=== PATIENT | female | born 1960 | race Caucasian/White ===

== ENCOUNTER → 2017-11-20 08:27 | Outpatient (CLI) | payer BC, SELFPAY ==
--- NOTE | 2017-11-20 08:29 | BI_ITS ---
MAMMOGRAPHY - BILATERAL SCREENING REASON FOR EXAM: Female, 57 years old. Routine annual screening examination. PERTINENT HISTORY: Mother with breast cancer. Aunt with breast cancer. Remote left stereotactic breast biopsy. TECHNIQUE: Digital bilateral breast marlene (3D mammographic acquisition) in the CC and MLO projections. 2-D mediolateral oblique (MLO) and craniocaudad (CC) views of both breasts were obtained. CAD: Full Field Digital Mammography with Computer Added Detection was performed. COMPARISON: Comparison is made with prior outside examination dated September 29, 2015 and August 04, 2013. FINDINGS: Breast Composition: The breasts are heterogeneously dense, which may obscure small masses. There are no dominant masses or suspicious calcifications. No other significant abnormalities are identified. There has been no significant change since the prior study. BI/SCREENING MAMM (CAD), BILAT IMPRESSION: Stable bilateral screening mammogram. Yearly follow-up mammogram recommended. (A) ASSESSMENT CATEGORY: BIRADS Category 1: Negative. A letter regarding these results will be sent to the patient by the facility within 30 days. Approximately 10% of breast cancers are not detected by mammography. A normal mammogram should not delay biopsy of a clinically suspicious abnormality. [id number] Electronically Signed: Irvin Michaud MD at 9:50 EDT Tel [phone], Service support ,
--- NOTE | 2017-11-20 08:49 | BD_ITS ---
STUDY: DUAL ENERGY X-RAY ABSORPTIOMETRY / DXA REASON FOR EXAM: Female, 57 years old. Bone density as screening in a postmenopausal patient. TECHNIQUE: Bone Mineral Density (BMD) measurements of lumbar spine and bilateral hips were obtained. COMPARISON: Prior comparable comparison studies are not available for review at this time. FINDINGS: Lumbar Spine (L1-L4): g/cm2 (1.017) / T-score (-1.4) / Z-score (-0.5) Findings are suggestive of osteopenia with a moderate fracture risk. Left Femur Total: g/cm2 (0.947) / T-score (-0.5) / Z-score (0.2) Left Femoral Neck: g/cm2 (0.860) / T-score (-1.3) / Z-score (-0.2) Right Femur Total: g/cm2 (0.939) / T-score (-0.5) / Z-score (0.2) Right Femoral Neck: g/cm2 (0.903) / T-score (-1.0) / Z-score (0.1) BD/DXA BONE DENS W/VERT FX ASMT IMPRESSION: The patient is considered osteopenic as outlined below according to World Faustino Organization (WHO) criteria with a moderate fracture risk. Reference Information: The T-score is the number of standard deviations above or below the standard which is normal for young adults at their peak bone mineral density. The World Health Organization (WHO) interprets the T-scores as follows: Above -1 Normal bone density Between -1 and -2.5 Osteopenia Equal to / or below -2.5 Osteoporosis As a practical clinical guideline, osteopenia may be graded as follows: Mild -1 through -1.5 Moderate -1.6 through -2.0 Severe -2.1 through -2.4 The Z-score is the number of standard deviations above or below age-matched controls. A Z-score of less than -1.5 would be considered abnormal. References: 1. NIH Osteoporosis and Related Bone Diseases http://www.osteo.org 2. International Society for Clinical Densitometry http://www.iscd.org 3. National Osteoporosis Foundation http://www.nof.org Electronically Signed: Silvina Marcelino MD at 8:59 EDT , Service support ,
== END ==
PROVIDERS: Family Provider Internal Medicine; PCP Internal Medicine; Visit Provider Internal Medicine
DX: Z12.31 Encounter for screening mammogram for malignant neoplasm of breast (principal); Z78.0 Asymptomatic menopausal state
CPT/HCPCS: 77063; 77067; 77085

== ENCOUNTER → 2018-12-22 | Outpatient (CLI) | payer BC, SELFPAY ==
--- NOTE | 2018-12-22 07:04 | BI_ITS ---
MAMMOGRAPHY - BILATERAL SCREENING REASON FOR EXAM: Female, 58 years old. Routine annual screening examination. PERTINENT HISTORY: Mother with breast cancer. Aunt with breast cancer. History of prior left stereotactic breast biopsy. TECHNIQUE: Digital bilateral breast marlene (3D mammographic acquisition) in the CC and MLO projections. 2-D mediolateral oblique (MLO) and craniocaudad (CC) views of both breasts were obtained. CAD: Full Field Digital Mammography with Computer Added Detection was performed. COMPARISON: Comparison is made with prior examination dated November 20, 2017 and September 29, 2015. FINDINGS: Breast Composition: The breasts are heterogeneously dense, which may obscure small masses. There are no dominant masses or suspicious calcifications. A tissue clip marker is seen in the upper slightly lateral aspect of the left breast. No other significant abnormalities are identified. There has been no significant change since the prior study. BI/SCREENING MAMM (CAD), BILAT IMPRESSION: Stable bilateral screening mammogram. Yearly follow-up mammogram recommended. (A) ASSESSMENT CATEGORY: BIRADS Category 2: Benign. A letter regarding these results will be sent to the patient by the facility within 30 days. Approximately 10% of breast cancers are not detected by mammography. A normal mammogram should not delay biopsy of a clinically suspicious abnormality. [id number] Electronically Signed: Irvin Michaud, at 9:27 EDT , Service support ,
== END | disposition home or self-care (01) ==
PROVIDERS: Family Provider Internal Medicine; PCP Internal Medicine; Referring Provider Internal Medicine; Visit Provider Internal Medicine
DX: Z12.31 Encounter for screening mammogram for malignant neoplasm of breast (principal)
CPT/HCPCS: 77063; 77067

== ENCOUNTER → 2019-06-22 09:37 | Outpatient (CLI) | payer BC, SELFPAY ==
--- NOTE | 2019-06-22 09:58 | MRI_ITS ---
STUDY: BILATERAL BREAST MR WITHOUT AND WITH CONTRAST REASON FOR EXAM: Female, 58 years old. Dense breast tissue. Family history of breast cancer. TECHNIQUE: Multi-sequence multi-echo imaging of both breasts was performed with a dedicated breast coil. T1-weighted and T2-weighted images were performed before the administration of contrast. T1-weighted images were also performed after the administration of IV Dotarem 15 without complications. COMPARISON: Mammograms dated 12/22/2018 and 11/20/2017 FINDINGS: RIGHT BREAST: The breast tissue is markedly dense with no background enhancement. There are no abnormal enhancing masses or areas of non-mass enhancement in the right breast. LEFT BREAST: The breast tissue is markedly dense with no background enhancement. There are no abnormal enhancing masses or areas of non-mass enhancement in the left breast. There are no enlarged or abnormal lymph nodes. There is no abnormality in the visualized regions of the chest or liver. MRI/Breast Bilateral W/O and W IMPRESSION: Unremarkable breast MR examination with contrast. The patient should return in December 2019 for routine annual screening mammography. CATEGORY: BIRADS Category 2: Benign. A letter regarding these results will be sent to the patient by the facility within 30 days. Electronically Signed: Debi Pulido DO at 6:51 EST Tel , Service support ,
== END ==
PROVIDERS: Family Provider Internal Medicine; PCP Internal Medicine; Referring Provider Internal Medicine; Visit Provider Internal Medicine
DX: R92.2 Inconclusive mammogram (principal); Z80.3 Family history of malignant neoplasm of breast
CPT/HCPCS: 77049; C8908

== ENCOUNTER → 2020-02-08 14:29 | Outpatient (CLI) | payer BC, SELFPAY ==
--- NOTE | 2020-02-08 14:35 | BD_ITS ---
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 COMPARISON: Comparison is made with prior study dated 11-20-17. FINDINGS: Lumbar Spine (L1-L4): g/cm2 (1.012) / T-score (-1.6) / Z-score (-0.5) Findings are suggestive of osteopenia with a moderate fracture risk. Increased thoracic kyphosis. Left Femur Total: g/cm2 (0.913) / T-score (-0.8) / Z-score (0.1) Left Femoral Neck: g/cm2 (0.835) / T-score (-1.5) / Z-score (-0.3) Right Femur Total: g/cm2 (0.896) / T-score (-0.9) / Z-score (-0.1) Right Femoral Neck: g/cm2 (0.858) / T-score (-1.3) / Z-score (-0.1) The T-Scores on the most recent prior examination were: Lumbar Spine (L1-L4): There has been worsening of bone density since the previous examination. Left Femur Total: which represents a worsening of 3.6%. Right Femur Total: which represents a worsening of 4.6%. BD/Dexa Bone Density Study IMPRESSION: The patient is considered osteopenic as outlined below according to World Faustino Organization (WHO) criteria with a moderate fracture risk. There has been worsening of bone density since the previous examination. Reference Information: The T-score is the number of standard deviations above or below the standard which is normal for young adults at their peak bone mineral density. The World Health Organization (WHO) interprets the T-scores as follows: Above -1 Normal bone density Between -1 and -2.5 Osteopenia Equal to / or below -2.5 Osteoporosis As a practical clinical guideline, osteopenia may be graded as follows: Mild -1 through -1.5 Moderate -1.6 through -2.0 Severe -2.1 through -2.4 The Z-score is the number of standard deviations above or below age-matched controls. A Z-score of less than -1.5 would be considered abnormal. References: 1. NIH Osteoporosis and Related Bone Diseases http://www.osteo.org 2. International Society for Clinical Densitometry http://www.iscd.org 3. National Osteoporosis Foundation http://www.nof.org Electronically Signed: Irvin Michaud, at 15:42 EDT , Service support ,
== END ==
PROVIDERS: PCP Internal Medicine; Referring Provider Internal Medicine; Visit Provider Internal Medicine
DX: Z78.0 Asymptomatic menopausal state (principal)
CPT/HCPCS: 77080

== ENCOUNTER → 2020-08-16 | Outpatient (CLI) | payer SELFPAY ==
[2020-08-22 21:08] LABS: HPV APTIMA, High Risk Positive (Negative); HPV Reflexed? YES, CHARGE PATIENT
== END | disposition home or self-care (01) ==
LOC: LABSPEC 15:08
PROVIDERS: PCP Internal Medicine; Visit Provider Internal Medicine
DX: Z01.419 Encounter for gynecological examination (general) (routine) without abnormal findings (principal)
CPT/HCPCS: 87624; 88175; G0145

== ENCOUNTER → 2020-09-14 13:53 | Outpatient (CLI) | payer SELFPAY ==
--- NOTE | 2020-09-14 | CER_PTH ---
PATIENT: JOHN MARIE LOC: [facility] U#:[id number] AGE/SX: 64/F ROOM: RE09/14/[address]: Dr. Lavelle Pelayo MD : 1960 BED: DIS: SPEC #: [id number] RECD: 09/14/20 16:03 STATUS: JERRY CECILIO #: [id number] JOSEPH: 09/14/20 00:[address]: Lavelle Pelayo DEPT: SURGICAL PATHOLOGY RECD BY: Maggy Jessica ENTERED: 09/15/20 08:22 SP TYPE: CERV OTHR DR: Dr. 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 See comment. SJ:vernon 09/18/2020 COMMENT Immunohistochemistry ([id number]) for surrogate HPV marker (p16) supports the above diagnosis. MICROSCOPIC DESCRIPTION Slides are reviewed. GROSS DESCRIPTION Received in fixative is one container labeled with the patient's name and designated right and left vaginal cuff biopsy. The specimen consists of two pieces of santizo-white skin measuring 0.4 x 0.4 x 0.2 cm and 0.3 x 0.3 x 0.1 cm. The entire specimen is submitted in one cassette. / TERRELL:vernon 09/15/20 TC:5 CPT:
--- NOTE | 2020-09-14 | IMM_PTH ---
PATIENT: JOHN MARIE LOC: [facility] U#:[id number] AGE/SX: 64/F ROOM: RE09/14/[address]: Dr. Lavelle Pelayo MD : 1960 BED: DIS: SPEC #: [id number] RECD: 09/18/20 14:02 STATUS: JERRY REQ #: [id number] JOSEPH: 09/14/20 00:[address]: Lavelle Pelayo DEPT: IMMUNOHISTOCHEMISTRY RECD BY: Rosey Lopez ENTERED: 09/18/20 14:03 SP TYPE: IMMUNO OTHR DR: Dr. Belle Walker DO Tissues: Vagina, NOS Procedures: p16 (initial) KI-67 (add) PHYSICIAN & INSTITUTION [place] [id number] SPECIMEN INFORMATION: Tissue Source: Right and left vaginal cuff biopsy Clinical Info: Abnormal pap, positive HPV Specimen Number: [id number] CPT code: 30249, 85059 METHODOLOGY: Deparaffinized sections of prefer/formalin-fixed tissue or PAP/DQ stained slides are incubated with monoclonal/polyclonal antibodies/oligonucleotide probes. Localization is made via biotin free immunoperoxidase method. Appropriate controls are performed and reacted as expected. Results on target cell population are indicated in the following table: RESULTS: ANTIBODY / CLONE RESULT P16 (E6H4) positive, focal patchy staining Ki-67 (30-9) positive, low These tests were developed and their performance characteristics determined by [facility]. They may not have been cleared or approved by the U.S. Food and Drug Administration. The FDA has determined that such clearance or approval is not necessary. The above immunohistochemical/dualISH markers are ordered and reviewed by the Pathologist. INTERPRETATION: Right and left vaginal cuff, biopsy: Focal mild squamous dysplasia. TERRELL:vernon 09/19/2020
== END ==
PROVIDERS: PCP Internal Medicine; Visit Provider Obstetrics & Gynecology
DX: R87.810 Cervical high risk human papillomavirus (HPV) DNA test positive (principal)
CPT/HCPCS: 88305; 88341; 88342

== ENCOUNTER → 2020-11-14 12:53 | Outpatient (CLI) | payer SELFPAY ==
--- NOTE | 2020-11-14 13:00 | BI_ITS ---
MAMMOGRAPHY - BILATERAL SCREENING REASON FOR EXAM: Female, 60 years old. Routine annual screening examination. PERTINENT HISTORY: Mother with breast cancer. Aunt with breast cancer. History of remote left stereotactic breast biopsy. TECHNIQUE: Digital bilateral breast alfredo (3D mammographic acquisition) in the CC and MLO projections. 2-D mediolateral oblique (MLO) and craniocaudad (CC) views of both breasts were obtained. CAD: Full Field Digital Mammography with Computer Added Detection was performed. COMPARISON: Comparison is made with prior study dated 12/22/2018 and 11/20/2017. FINDINGS: Breast Composition: The breasts are heterogeneously dense, which may obscure small masses. There are no dominant masses or suspicious calcifications. A tissue clip marker is once again seen in the upper slightly lateral aspect of the left breast. No other significant abnormalities are identified. There has been no significant change since the prior study. BI/SCRN MAMM (CAD)W/ALFREDO BILAT IMPRESSION: Stable bilateral screening mammogram. Yearly follow-up mammogram recommended. (A) ASSESSMENT CATEGORY: BIRADS Category 2: Benign. A letter regarding these results will be sent to the patient by the facility within 30 days. Approximately 10% of breast cancers are not detected by mammography. A normal mammogram should not delay biopsy of a clinically suspicious abnormality. [id number] Electronically Signed: Irvin Michaud MD at 14:38 EDT , Service support ,
== END ==
PROVIDERS: PCP Internal Medicine; Referring Provider Internal Medicine; Visit Provider Internal Medicine
DX: Z12.31 Encounter for screening mammogram for malignant neoplasm of breast (principal)
CPT/HCPCS: 77063; 77067

== ENCOUNTER → 2022-03-05 | Outpatient (CLI) | payer SELFPAY ==
--- NOTE | 2022-03-05 13:29 | BI_ITS ---
MAMMOGRAPHY - BILATERAL SCREENING 3-D TOMOSYNTHESIS REASON FOR EXAM: Female, 61 years old. SCREENING PERTINENT HISTORY: No significant family history. TECHNIQUE: 2-D mammograms and 3-D Tomosynthesis of the breast (s) were performed. CAD was performed. COMPARISON: 11/14/2020 FINDINGS: The breast composition is heterogeneously dense that can obscure small breast masses. Scattered benign calcifications are seen. No dense spiculated masses or suspicious microcalcifications are identified. No architectural distortion is identified. There is no skin thickening or retraction. There has been no significant change since the prior study. BI/SCRN MAMM (CAD)W/ALFREDO BILAT IMPRESSION: No mammographic signs of malignancy. Routine yearly mammograms recommended. ASSESSMENT CATEGORY: BIRADS Category 1: Negative. A letter regarding these results will be sent to the patient by the facility within 30 days. FOLLOW UP RECOMMENDATION: Yearly follow up mammogram recommended. (A) Approximately 10% of breast cancers are not detected by mammography. A normal mammogram should not delay biopsy of a clinically suspicious abnormality. Electronically Signed: Juan Carlos Wood MD at 17:19 EDT ,
== END | disposition home or self-care (01) ==
PROVIDERS: PCP Internal Medicine; Visit Provider Internal Medicine
DX: Z12.31 Encounter for screening mammogram for malignant neoplasm of breast (principal)
CPT/HCPCS: 77063; 77067

== ENCOUNTER → 2022-03-12 | Outpatient (CLI) | payer SELFPAY ==
--- NOTE | 2022-03-12 09:33 | BD_ITS ---
STUDY: DUAL ENERGY X-RAY ABSORPTIOMETRY / DXA REASON FOR EXAM: Female, 61 years old. M85.89. Patient is postmenopausal. TECHNIQUE: Bone Mineral Density (BMD) measurements of lumbar spine and bilateral hips were obtained. COMPARISON: Comparison is made with prior study dated 02/08/2020. FINDINGS: Lumbar Spine (L1-L4): g/cm2 (0.897) / T-score (-1.4) / Z-score (0.1) Findings are suggestive of osteopenia with a low fracture risk. Left Femur Total: g/cm2 (0.882) / T-score (-0.5) / Z-score (0.5) Left Femoral Neck: g/cm2 (0.694) / T-score (-1.4) / Z-score (-0.1) Right Femur Total: g/cm2 (0.858) / T-score (-0.7) / Z-score (0.3) Right Femoral Neck: g/cm2 (0.723) / T-score (-1.1) / Z-score (0.2) The T-Scores on the most recent prior examination were: Lumbar Spine (L1-L4): There has been improvement of bone density since the previous examination. Left Femur Total: which represents an improvement of 3.8%. Right Femur Total: which represents an improvement of 3%. BD/Dexa Bone Density Study IMPRESSION: The patient is considered osteopenic as outlined below according to World Faustino Organization (WHO) criteria with a low fracture risk. There has been improvement of bone density since the previous examination. Reference Information: The T-score is the number of standard deviations above or below the standard which is normal for young adults at their peak bone mineral density. The World Health Organization (WHO) interprets the T-scores as follows: Above -1 Normal bone density Between -1 and -2.5 Osteopenia Equal to / or below -2.5 Osteoporosis As a practical clinical guideline, osteopenia may be graded as follows: Mild -1 through -1.5 Moderate -1.6 through -2.0 Severe -2.1 through -2.4 The Z-score is the number of standard deviations above or below age-matched controls. A Z-score of less than -1.5 would be considered abnormal. References: 1. NIH Osteoporosis and Related Bone Diseases www osteo.org 2. International Society for Clinical Densitometry www iscd.org 3. National Osteoporosis Foundation www nof.org Electronically Signed: Irvin Michaud MD at 14:04 EDT ,
== END | disposition home or self-care (01) ==
PROVIDERS: PCP Internal Medicine; Visit Provider Internal Medicine
DX: M85.89 Other specified disorders of bone density and structure, multiple sites (principal)
CPT/HCPCS: 77080

== ENCOUNTER → 2022-05-23 | Outpatient (CLI) | payer SELFPAY ==
--- NOTE | 2022-05-23 | IMM_PTH ---
PATIENT: JOHN MARIE LOC: [facility] U#:[id number] AGE/SX: 61/F ROOM: RE05/23/[address]: Dr. Olya Casiano DO : 1960 BED: DIS: 05/23/2022 SPEC #: [id number] RECD: 05/24/22 13:28 STATUS: JERRY REYessy #: [id number] JOSEPH: 05/23/22 00:[address]: Olya Casiano DEPT: IMMUNOHISTOCHEMISTRY RECD BY: Rosey Lopez ENTERED: 05/24/22 13:28 SP TYPE: IMMUNO OTHR DR: Dr. Belle Walker DO Tissues: Uterine cervix, NOS Procedures: p16 (initial) KI-67 (add) PHYSICIAN & INSTITUTION [address] [address] SPECIMEN INFORMATION: Tissue Source: Cervix at 12 o?clock Clinical Info: [facility]- Specimen Number: [id number] CPT code: 70113, 53849 METHODOLOGY: Deparaffinized sections of prefer/formalin-fixed tissue or PAP/DQ stained slides are incubated with monoclonal/polyclonal antibodies/oligonucleotide probes. Localization is made via biotin free immunoperoxidase method. Appropriate controls are performed and reacted as expected. Results on target cell population are indicated in the following table: RESULTS: ANTIBODY / CLONE RESULT P16 (E6H4) negative Ki-67 (30-9) negative These tests were developed and their performance characteristics determined by [facility]. They may not have been cleared or approved by the U.S. Food and Drug Administration. The FDA has determined that such clearance or approval is not necessary. The above immunohistochemical/dualISH markers are ordered and reviewed by the Pathologist. INTERPRETATION: Cervix at 12 o?clock, biopsy: No evidence of dysplasia. AM:vernon 05/27/2022
--- NOTE | 2022-05-23 10:45 | CER_PTH ---
PATIENT: JOHN MARIE LOC: [facility]#:[id number] AGE/SX: 61/F ROOM: RE05/23/[address]: Dr. Olya Casiano DO : 1960 BED: DIS: 05/23/2022 SPEC #: [id number] RECD: 05/23/22 11:52 STATUS: JERRY HERNANDES #: [id number] JOSEPH: 05/23/22 10:[address]: Olya Casiano DEPT: SURGICAL PATHOLOGY RECD BY: Maggy Jessica ENTERED: 05/23/22 13:19 SP TYPE: CERV OTHR DR: Dr. Belle Walker DO Tissues: Uterine cervix, NOS Procedures: Surgery Specimen Level IV HEADER OPERATION: Colposcopy PRE-OP DIAGNOSIS: ASC-H TISSUE SUBMITTED: 12 o?clock MICROSCOPIC DIAGNOSIS Cervix at 12 o?clock, biopsy: Focal HPV change suspected. See comment. AM:vernon 05/24/2022 COMMENT Immunohistochemistry ([id number]) for surrogate HPV marker (p16) supports the above diagnosis. MICROSCOPIC DESCRIPTION Slides are reviewed. GROSS DESCRIPTION Received in fixative is one container labeled with the patient's name and designated 12 o'clock. The specimen consists of one irregular fragment of light santizo soft tissue that measures 0.5 x 0.3 x 0.1 cm. The specimen is totally submitted in one cassette. / AM:vernon 05/23/2022 TC:5 CPT: 99466
[2022-05-31 14:54] LABS: HPV APTIMA, High Risk Negative (Negative)
== END | disposition home or self-care (01) ==
LOC: LABSPEC 11:59
PROVIDERS: PCP Internal Medicine; Visit Provider Obstetrics & Gynecology
DX: Z12.4 Encounter for screening for malignant neoplasm of cervix (principal); R87.618 Other abnormal cytological findings on specimens from cervix uteri
CPT/HCPCS: 87624; 88175; 88305; 88341; 88342; G0145

== ENCOUNTER → 2023-07-11 | Outpatient (CLI) | payer SELFPAY ==
--- NOTE | 2023-07-11 14:23 | BI_ITS ---
MAMMOGRAPHY - BILATERAL SCREENING 3-D TOMOSYNTHESIS REASON FOR EXAM: Female, 62 years old. Routine screening PERTINENT HISTORY: Mother and on with breast cancer.. TECHNIQUE: 2-D mammograms and 3-D Tomosynthesis of the breast (s) were performed. CAD was performed. COMPARISON: 11/14/2020 FINDINGS: The breast composition is heterogeneously dense that can obscure small breast masses. Scattered benign calcifications are seen. No dense spiculated masses or suspicious microcalcifications are identified. No architectural distortion is identified. There is no skin thickening or retraction. There has been no significant change since the prior study. BI/SCRN MAMM (CAD)W/ALFREDO BILAT IMPRESSION: No mammographic signs of malignancy. Routine yearly mammograms recommended. ASSESSMENT CATEGORY: BIRADS Category 2: Benign. A letter regarding these results will be sent to the patient by the facility within 30 days. FOLLOW UP RECOMMENDATION: Yearly follow up mammogram recommended. (A) Approximately 10% of breast cancers are not detected by mammography. A normal mammogram should not delay biopsy of a clinically suspicious abnormality. Electronically Signed: Boogie Chaves MD at 17:12 EST ,
== END | disposition home or self-care (01) ==
LOC: OPBI 14:22
PROVIDERS: PCP Internal Medicine; Referring Provider Internal Medicine; Visit Provider Internal Medicine
DX: Z12.31 Encounter for screening mammogram for malignant neoplasm of breast (principal); Z80.3 Family history of malignant neoplasm of breast
CPT/HCPCS: 77063; 77067

== ENCOUNTER → 2023-08-22 | Outpatient (CLI) | payer SELFPAY ==
[2023-08-29 16:10] LABS: HPV APTIMA, High Risk Negative (Negative)
== END | disposition home or self-care (01) ==
PROVIDERS: PCP Internal Medicine; Referring Provider Obstetrics & Gynecology; Visit Provider Obstetrics & Gynecology
DX: Z12.4 Encounter for screening for malignant neoplasm of cervix (principal); N39.0 Urinary tract infection, site not specified
CPT/HCPCS: 87086; 87624; 88175; G0145

== ENCOUNTER → 2024-02-23 | Outpatient (CLI) | payer SELFPAY ==
--- NOTE | 2024-02-23 | IMM_PTH ---
PATIENT: JOHN MARIE LOC: [facility] U#:[id number] AGE/SX: 63/F ROOM: RE02/23/[address]: Dr. Olya Casiano DO : 1960 BED: DIS: 02/23/2024 SPEC #: [id number] RECD: 02/25/24 12:11 STATUS: JERRY REYessy #: [id number] JOSEPH: 02/23/24 00:[address]: Olya Casiano DEPT: IMMUNOHISTOCHEMISTRY RECD BY: John Allen ENTERED: 02/25/24 12:11 SP TYPE: IMMUNO OTHR DR: Dr. Belle Walkre DO Tissues: B - Uterine cervix, NOS Procedures: p16 (initial) KI-67 (add) PHYSICIAN & INSTITUTION [place] [id number] SPECIMEN INFORMATION: Tissue Source: B- 12o'clock biopsy Clinical Info: LGSIL Specimen Number: [id number] CPT code: 94975,79801 METHODOLOGY: Deparaffinized sections of prefer/formalin-fixed tissue or PAP/DQ stained slides are incubated with monoclonal/polyclonal antibodies/oligonucleotide probes. Localization is made via biotin free immunoperoxidase method. Appropriate controls are performed and reacted as expected. Results on target cell population are indicated in the following table: RESULTS: ANTIBODY / CLONE RESULT Block B P16 (E6H4) negative Ki-67 (30-9) positive, very low These tests were developed and their performance characteristics determined by [facility]. They may not have been cleared or approved by the U.S. Food and Drug Administration. The FDA has determined that such clearance or approval is not necessary. The above immunohistochemical/dualISH markers are ordered and reviewed by the Pathologist. INTERPRETATION: B. Cervix, 12o'clock, biopsy: Focal minimal changes suspicious for HPV cytopathic effects. TERRELL/ 02/26/2024
--- NOTE | 2024-02-23 11:00 | ECC_PTH ---
PATIENT: JOHN MARIE LOC: [facility]#:[id number] AGE/SX: 63/F ROOM: RE02/23/[address]: Dr. Olya Casiano DO : 1960 BED: DIS: 02/23/2024 SPEC #: [id number] RECD: 02/23/24 18:01 STATUS: JERRY MARTINSYessy #: [id number] JOSEPH: 02/23/24 11:[address]: Olya Casiano DEPT: SURGICAL PATHOLOGY RECD BY: Arron Byers ENTERED: 02/24/24 10:56 SP TYPE: ECC MICKEY DR: Dr. Belle Walker DO Tissues: A - Endocervical B - Endocervical Procedures: Surgery Specimen Level IV HEADER OPERATION: Colposcopy PRE-OP DIAGNOSIS: LGSIL TISSUE SUBMITTED: A-ECC B- 12o'clock MICROSCOPIC DIAGNOSIS A. Endocervical curettings: Scant benign ectocervical and endocervical epithelial cells. B. Cervix, 12o'clock, biopsy: A fragment of ectocervical mucosa with focal minimal changes suspicious for HPV cytopathic effects. See comment. / 02/25/2024 COMMENT B. Results of immunohistochemistry ([id number]) for surrogate HPV marker (p16) will be reported separately. MICROSCOPIC DESCRIPTION Slides are reviewed. GROSS DESCRIPTION A. Received in fixative is a metallic brush with adherent minute fragments of santizo-red tissue and labeled with the patient's name and and designated per the requisition as ECC BRUSH. The material is dislodged from the brush and submitted for cell block preparation in one cassette. B. Received in fixative is one container labeled with the patient's name and designated 12o'clock. The specimen consists of one irregular fragment of light santizo soft tissue that measures 0.3 x 0.3 x 0.1 cm. The specimen is totally submitted in one cassette. / 02/24/2024 TC:5 CPT:44844g6
== END | disposition home or self-care (01) ==
LOC: LABSPEC 18:02
PROVIDERS: PCP Internal Medicine; Visit Provider Obstetrics & Gynecology
DX: R87.612 Low grade squamous intraepithelial lesion on cytologic smear of cervix (LGSIL) (principal)
CPT/HCPCS: 88305; 88341; 88342

== ENCOUNTER → 2024-06-23 | Outpatient (CLI) | payer SELFPAY ==
--- NOTE | 2024-06-23 15:05 | US_ITS ---
EXAM: US SOFT TISSUES HEAD AND NECK, THYROID CLINICAL INDICATION: thyromegaly TECHNIQUE: Grayscale and color doppler imaging was performed of the thyroid gland. COMPARISON: No relevant prior studies available. FINDINGS: LEFT THYROID LOBE: The left thyroid lobe measures 4.5 x 1.7 x 1.4 cm. Homogeneous echotexture with normal vascularity. No thyroid nodules are present. RIGHT THYROID LOBE: The right thyroid lobe measures 4.9 x 1.6 x 1.5 cm. Homogeneous echotexture with normal vascularity. No thyroid nodules are present. ISTHMUS: Thyroid isthmus measures 0.2 cm. No thyroid nodules are present. The total volume of the thyroid gland is less than 12 mL. US/Thyroid IMPRESSION: No thyroid nodule or significant abnormality is identified. The thyroid is within normal limits for size. Electronically Signed: Migue Perkins DO at 17:00 EST ,
== END | disposition home or self-care (01) ==
PROVIDERS: PCP Internal Medicine; Referring Provider Internal Medicine; Visit Provider Internal Medicine
DX: E01.0 Iodine-deficiency related diffuse (endemic) goiter (principal)
CPT/HCPCS: 76536

== ENCOUNTER → 2024-08-17 | Outpatient (CLI) | payer SELFPAY ==
--- NOTE | 2024-08-17 09:32 | BI_ITS ---
PROCEDURE: SCRN MAMM (CAD)W/ALFREDO BILAT REASON FOR EXAM: F, Age 64 y/o, mother with breast cancer. Aunt with breast cancer. Prior left stereotactic breast biopsy. Numbness in the left areolar region. TECHNIQUE: Bilateral screening digital breast tomosynthesis with 2D and 3D images. Computer aided detection. COMPARISON: Prior exam(s) dating back to July 11, 2023. FINDINGS: The breasts are heterogeneously dense which may obscure small masses. Stable examination. Stable bilateral axillary lymph nodes. No suspicious masses, areas of developing architectural distortion, or suspicious calcifications. BI/SCRN MAMM (CAD)W/ALFREDO BILAT IMPRESSION: BI-RADS 2: BENIGN. RECOMMEND ANNUAL MAMMOGRAPHIC SCREENING. Follow-up code: Routine Follow-up The patient will be notified of the results by letter. Reading Location: [place] [id number]
--- NOTE | 2024-08-17 09:45 | BD_ITS ---
PROCEDURE: DEXA BONE DENSITY STUDY REASON FOR EXAM: F, age 64 y/o . Postmenopausal. TECHNIQUE: DEXA scan of the lumbar spine and both hips. COMPARISON: 03/12/2022 DEXA. FINDINGS: T-SCORES Lumbar spine: 0.866 (-1.6); Previously: -1.4 Left hip: 0.731 (-1.1) Right hip: 0.740 (-1.0) Osteopenia. FRAX* Results: 10 Year Probability of Fracture: Hip Fracture(1): 0.7% Major Osteoporotic Fracture(2): 12% *FRAX is a trademark of the [employer]'s [place] for Metabolic Bone Disease, World Health Organization (WHO) Collaborating [place]. 1-The 10-year probability of fracture may be lower than reported if the patient has received treatment. 2-Major Osteoporotic Fracture: Clinical Spine, Forearm, Hip or Shoulder. The T-scores are also available for review on the [facility] PACS or by accessing the [facility] electronic medical record. BD/Dexa Bone Density Study IMPRESSION: Osteopenia Reading Location: [id number]
== END | disposition home or self-care (01) ==
PROVIDERS: PCP Internal Medicine; Referring Provider Internal Medicine; Visit Provider Internal Medicine
DX: Z12.31 Encounter for screening mammogram for malignant neoplasm of breast (principal); Z78.0 Asymptomatic menopausal state; Z80.3 Family history of malignant neoplasm of breast
CPT/HCPCS: 77063; 77067; 77080

== ENCOUNTER → 2024-11-23 | Outpatient (CLI) | payer SELFPAY ==
--- NOTE | 2024-11-23 13:23 | US_ITS ---
PROCEDURE: ULTRASOUND KIDNEYS AND BLADDER 11/23/2024 REASON FOR EXAM: URINARY TRACT INFECTION. TECHNIQUE: Real-time grayscale and color flow imaging was performed along with routine image documentation. COMPARISON: No relevant prior. FINDINGS: Kidneys: Normal parenchymal echogenicity. Hydronephrosis: Not visualized. Cysts or Masses: Bilateral, largest on the right measuring 1.2 x 1.3 x 1.3 cm and on the left measuring 2.0 x 1.9 x 1.1 cm. Other: Suspicion of bilateral nonobstructing nephrolithiasis. RIGHT Kidney Size: 13.1 x 5.6 x 4.1 cm. Volume: 159 mL Cortical Thickness (if discernible): 1.27 (>6mm is normal) LEFT Kidney Size: 12.9 x 5.7 x 5.2 cm. Volume: 200 mL Cortical Thickness (if discernible): 1.2 (>6mm is normal) Urinary bladder Distended volume: 161 mL. Wall thickness: 0.4 cm. Ureters Right ureteral jet: Visualized. Left ureteral jet: Visualized. US/Kidney and Bladder IMPRESSION: Bilateral renal cysts. Suspicion of bilateral nonobstructing nephrolithiasis versus calcifications in the cyst wall. Reading Location: [facility]
== END | disposition home or self-care (01) ==
PROVIDERS: PCP Internal Medicine; Referring Provider Urology; Visit Provider Urology
DX: N39.0 Urinary tract infection, site not specified (principal)
CPT/HCPCS: 76770

== ENCOUNTER → 2024-12-22 | Outpatient (CLI) | payer SELFPAY ==
--- OUTSIDE RECORDS SUMMARY | 2024-12-22 06:19 | XMS RPT_ITS | CCD ---
Author Organization [facility] CliniSyid Care Team Providers Care Roving Machine Operator Name Role Phone Fast, Sena A Unavailable Louis Bentley Unavailable Bam Neil Unavailable Aletha Woodard Unavailable Eloina, ENT Unavailable Manchak, Elsi Unavailable Unavailable Audrey Wolf Unavailable Unavailable Unavailable Unavailable Aletha Woodard Unavailable Janki Granados Unavailable Nitin Calvillo Unavailable Manpapok, Elsi Unavailable Unavailable Hima Mcallister Unavailable Fast DO, Sena A Unavailable Dr. Louis Bentley Unavailable Knapic DO , Dr. Hima Mccoy Unavailab le Lavelle Pelayo Unavailable Bam Neil MD Unavailable Aletha Woodard Unavailable [place], ENT Unavailable Janki Granados Unavailable Dr. Nitin Calvillo Unavailable Emily Sesay LPN Unavailable Unavailable Manchak ADMINISTRATIVE SPECIALIST, Elsi Unavailable Unavailable Audrey Wolf Unavailable Unavailable Unavailable Unavailable Gely Srinivasan MA Unavailable Unavailable Fast DO, Sena A Unavailable DR WILBER ALICEA Attending Unavaila ble NIXON, DR WILBER Diaz Primary Care Unavaila amee ALICEA, DR WILBER Diaz Admitting Unavaila ble OLIVIA, EMILIANO MANGLE OPERATOR GARMENTS Admitting Unavailable OLIVIA, EMILIANO MANGLE OPERATOR GARMENTS Attending Unavailable EMILIANO BAKER MANGLE OPERATOR GARMENTS Primary Care Unavailable Olya Casiano Unavailable Unavailclair Rao, Dr. Odonnell Primary Care Provider [phone] Fast, Dr. Odonnell Referring Provider [phone] Olya Casiano Attending Provider [phone] [place] ADMINISTRATIVE SPECIALIST, Kayela Unavailable Unavailable John Wolf LPN Unavailable Unavailable Fast DO, Sena A Attending Unavailable Zenon DO, Brenna Referring Unavailable Fast DO, Sena Gomez Consulting Unavailable Fast DO, Sena A Unavailable Dr. Louis Bentley Unavailable Knapic DO , Dr. Hima Mccoy Unavailab le Olya Casiano Unavailable Unavailabl e Lavelle Pelayo Unavailable Bam Neil MD Unavailable Aletha Woodard Unavailable Eloina ENT Unavailable Janki Granados Unavailable Dr. Nitin Calvlilo Unavailable [facility], Elsi Unavailable Unavailable [facility], Kayela Unavailable Unavailable Audrey Wolf Unavailable Unavailable Emily Sesay LPN Unavailable Unavailable Unavailable Unavailable Aaron, Dr. Odonnell Primary Care Provider [phone] Fast, Dr. Odonnell Referring Provider [phone] Olya Casiano Attending Provider [phone] Fast DO, Sena Gomez Primary Care Provider FAST, SENA Gomez Referring Unavailable FAST, SENA A Primary Care Unavailable Fast DO, Dr. Odonnell Primary Care Provider Fast DO, Dr. Odonnell Attending Provider [phone] Fast DO, Dr. Sena Referring Provider Ochoa SOTKES, Dr. De Los Santos Attending Provider Ochoa STOKES, Dr. De Los Santos Referring Provider [phone] Fast, Sena Primary Care Unavailable Fast, Sena Referring Unavailable Fast, Sena Attending Unavailable Fast, Sena Primary Care Unavailable Fast, Sena Referring Unavailable Olya Casiano Attending Unavailabl e Fast, Sena Primary Care Unavailable Olya Casiano Attending Unavailabl e Fast, Sena Primary Care Unavailable Maglai Packer Referring Unavailable Magali Packer Attending Unavailable Fast, Sena Primary Care Unavailable Ochoa, Magali Referring Unavailable Magali Packer Attending Unavailable Fast, Sena Primary Care Unavailable Fast, Sena Referring Unavailable Fast, Sena Attending Unavailable Allergies Allergy Classification Reported Allergen(s) Allergy Type Date of Onset Reaction(s) Facility Sulfonamides (antibiotic) (2 sources) Sulfonamides (Antibiotic); Translations: [Sulfa Drugs] Drug Allergy Edema [facility]; [facility] Work Phone: (20 sources) Sulfonamides (Antibiotic); Translations: [Sulfa Drugs] allergy to substance Edema [facility] Work Phone: (3 sources) Sulfonamides (Antibiotic) Allergy to substance 2 swelling [facility] (1 source) ALLERGIES NOT ON FILE; Translations: [ALLERGIES NOT ON FILE] Propensity to adverse reactions (disorder) [facility] 2 Repository (1 source) Sulfonamides (Antibiotic) Drug allergy (disorder) 4 [facility] Repository Medications Current Medications Medication Drug Class(es) Dates Sig (Normalized) Sig (Original) ascorbic acid 500 mg oral capsule (1 source) Vitamin C Start: 02-23-2024 Ascorbic Acid (Vitamin C) 500 mg capsule Active mg PO February 23, 2024 12:00am biotin 1 mg oral capsule (2 sources) Start: 08-22-2023 take 1 capsule by mouth once daily Biotin 1 mg capsule Active 1 mg PO DAILY August 22, 2023 1:00am cholecalciferol 0.05 mg oral capsule (20 sources) Vitamin D Start: 08-22-2023 take 1 capsule by mouth once daily Cholecalciferol (Vitamin D3) 50 mcg (2,000 unit) capsule Active 50 ug PO DAILY August 22, 2023 1:00am take 1 tablet by mouth once [facility] Vitamin D3 2000 UNIT Oral Tablet 1 tab daily (2000 UNIT) Active losartan potassium 25 mg oral tablet (20 sources) Angiotensin 2 Receptor Alize Start: 08-22-2023 take 1 tablet by mouth once daily Losartan 25 mg tablet Active 25 mg PO DAILY August 22, 2023 1:00am Start: 05-13-2023 Start: 01-08-2023 Start: 08-15-2022 End: 08-15-2022 take 1 tablet by mouth once daily losartan 50 mg oral tablet 1 (one) Tablet qd for 0 days Quantity: 30 {Tablet} Refills: 1 Ordered: 15-Aug-2022 Fast DO, Sena A Fast DO, Sena A Start : 15-Aug-2022 End : 15-Aug-2022 Discontinued Comments: metal taste in mouth Start: 03-18-2022 take 1 tablet by arlin th once daily Losartan Potassium 50 MG Oral Tablet 1 (one) Tablet qd for 0 days Quantity: 30 {Tablet} Refills: 3 Ordered: 18-Mar-2022 Fast DO, Sena A Fast DO, Sena A Start : 18-Mar-2022 Active Start: 02-18-2022 take 1 tablet by arlin th once daily Losartan Potassium 50 MG Oral Tablet 1 (one) Tablet qd for 0 days Quantity: 30 {Tablet} Refills: 2 Ordered: 18-Feb-2022 Fast DO, Sena A Fast DO, Sena A Start : 18-Feb-2022 Active Comment on above: metal taste in mouth magnesium oxide 500 mg oral capsule (17 sources) Start: 08-22-2023 take 1 capsule by mouth once daily Magnesium Oxide 500 mg capsule Active 500 mg PO DAILY August 22, 2023 1:00am Multivitamin preparation (2 sources) Start: 05-23-2022 take 1 tablet by mouth once daily Multivitamin Active 1 TABLET PO DAILY May 22, 2022 11:00pm Multivitamin tablet (1 source) Start: 05-23-2022 Multivitamin t ablet Active 1 {tbl} PO DAILY May 23, 2022 12:00am Completed/Discontinued Medications Medication Drug Class(es) Dates Sig (Normalized) Sig (Original) amLODIPine 5 mg oral tablet (14 sources) Dihydropyridine Calcium Channel Alize Start: 09-17-2022 End: 01-08-2023 Start: 08-15-2022 take 1 tablet by arlin once daily amLODIPine 5 mg oral tablet 1 (one) tablet qd for 0 days Quantity: 30 {Tablet} Refills: 3 Ordered: 15-Aug-2022 Fast DO, Sena A Fast DO, Sena A Start : 15-Aug-2022 Active amoxicillin 875 mg oral tabl et (20 sources) Penicillin-class Antibacterial Start: 03-28-2020 End: 04-04-2020 Start: 06-24-2019 End: 11-16-2019 take 1 tablet by mouth twice daily Amoxicillin 875 MG Oral Tablet 1 (one) Tablet bid for 0 days Quantity: 28 {Tablet} Refills: 0 Ordered: 16-Nov-2019 Elsi Toledo CMA Start : 24-Jun-2019 End : 16-Nov-2019 Inactive Start: 11-11-2018 End: 12-02-2018 take 1 tablet by mouth twice daily Amoxicillin 875 MG Oral Tablet 1 (one) Tablet bid for 0 days Quantity: 28 {Tablet} Refills: 0 Ordered: 02-Dec-2018 Elsi Toledo CMA Start : 11-Nov-2018 End : 02-Dec-2018 Inactive amoxicillin 875 mg / clavula ye 125 mg oral tablet (20 sources) Penicillin-class Antibacterial Start: 02-26-2021 End: 04-30-2021 Start: 02-26-2021 End: 04-30-2021 take 1 tablet by mouth twice daily Amoxicillin-Pot Clavulanate 875-125 MG Oral Tablet 1 (one) Tablet bid for 0 days Quantity: 20 {Tablet} Refills: 0 Ordered: 30-Apr-2021 Gely Srinivasan MA Start : 26-Feb-2021 End : 30-Apr-2021 Inactive Start: 10-06-2017 End: 10-27-2017 take 1 tablet by mouth twice daily Amoxicillin-Pot Clavulanate 875-125 MG Oral Tablet 1 (one) Tablet bid for 0 days Quantity: 20 {Tablet} Refills: 0 Ordered: 27-Oct-2017 Elsi Toledo CMA Start : 06-Oct-2017 End : 27-Oct-2017 Inactive Start: 01-03-2014 End: 01-17-2014 Start: 01-03-2014 End: 01-17-2014 take 1 tablet by mouth twice daily AUGMENTIN, 875-125MG (Oral Tablet) 1 (one) Tablet bid for 14 days Quantity: 28 {Tablet} Refills: 0 Ordered: 03-Jan-2014 Mickie Mcdonnell Start : 03-Jan-2014 End : 17-Jan-2014 Inactive ascorbic acid 60 mg / beta carotene 5000 unt / copper sulfate 40 mg / dl-alpha tocopheryl acetate 30 unt / sodium selenite 0.04 mg / zinc oxide 40 mg oral tablet (7 sources) Vitamin C take 1 tablet by mouth once daily Multivitamin Adult Oral Tablet one tab daily Active B Complex Formula 1 (9 sources) B Complex Formula 1 Oral Tablet (20 sources) take 1 tablet by mouth once daily B Complex Formula 1 Oral Tablet one daily Active cefdinir 300 mg oral capsule (9 sources) Cephalosporin Antibacterial Start: 3 End: 3 cephalexin 500 mg oral capsule (20 sources) Cephalosporin Antibacterial Start: 3 End: 3 Start: 04-19-2013 End: 04-26-2013 take 1 capsule by mouth once KEFLEX, 500MG (Oral Capsu le) 1 Capsule q12 for 7 days Quantity: 14 {Capsule} Refills: 0 Ordered: 19-Apr-2013 Mickie Mcdonnell Start : 19-Apr-2013 End : 26-Apr-2013 Inactive ciprofloxacin 500 mg oral ta blet (20 sources) Quinolone Antimicrobial Start: 03-26-2023 End: 04-02-2023 Start: 12-07-2021 End: 12-14-2021 take 1 tablet by mouth twice daily Cipro 500 MG Oral Tablet 1 (one) Tablet bid for 7 days Quantity: 14 {Tablet} Refills: 0 Ordered: 07-Dec-2021 Fast DO, Sena A Fast DO, Sena A Start : 07-Dec-2021 End : 14-Dec-2021 Inactive Start: 09-17-2021 take 1 tablet by arlin th twice daily Cipro 500 MG Oral Tablet 1 (one) Tablet bid for 7 days Quantity: 14 {Tablet} Refills: 0 Ordered: 17-Sep-2021 Fast DO, Sena A Fast DO, Sena A Start : 17-Sep-2021 Active Start: 03-19-2021 End: 03-26-2021 take 1 tablet by mouth twice daily Cipro 500 MG Oral Tablet 1 (one) Tablet bid for 7 days Quantity: 14 {Tablet} Refills: 0 Ordered: 19-Mar-2021 Fast DO, Sena A Fast DO, Sena A Start : 19-Mar-2021 End : 26-Mar-2021 Inactive Start: 11-16-2019 End: 11-23-2019 take 1 tablet by mouth twice daily Cipro 500 MG Oral Tablet 1 (one) Tablet bid for 7 days Quantity: 14 {Tablet} Refills: 0 Ordered: 16-Nov-2019 Fast DO, Sena A Fast DO, Sena A Start : 16-Nov-2019 End : 23-Nov-2019 Inactive Start: 03-03-2018 End: 03-10-2018 take 1 tablet by mouth twice daily Cipro 500 MG Oral Tablet 1 (one) Tablet bid for 7 days Quantity: 14 {Tablet} Refills: 0 Ordered: 03-Mar-2018 Elsi Toledo CMA Start : 03-Mar-2018 End : 10-Mar-2018 Inactive 24 hr dilTIAZem hydrochloride 240 mg extended release oral capsule (20 sources) Calcium Channel Alize Start: 01-24-2014 End: 01-24-2014 Comment on above: thirty DULoxetine 20 mg delayed release oral capsule (20 sources) Serotonin and Norepinephrine Reuptake Inhibitor Start: 06-16-2018 End: 12-02-2018 escitalopram 5 mg oral tablet (4 sources) Serotonin Reuptake Inhibitor Start: 05-13-2023 Ginkoba (9 sources) Ginkoba 40 MG Oral Tablet (20 sources) take 1 tablet by mouth once daily Ginkoba 40 MG Oral Tablet 1 tab daily (40 MG) Inactive take 1 tablet by mouth once hermes y Ginkoba 40 MG Oral Tablet 1 tab daily (40 MG) Active glucosam martines [id number] (9 sources) Glucosamine 1500 Complex Oral Capsule (20 sources) take 1 capsule by mouth once daily Glucosamine 1500 Complex Oral Capsule one daily Active hydroCHLOROthiazide 25 mg oral tablet (20 sources) Thiazide Diuretic Start: 01-20-20 14 End: 01-25-20 14 hydrocortisone valerate 0.002 mg/mg topical ointment (20 sources) Corticosteroid Start: 10-28-19 18 End: 04-30-20 21 Start: 10-27-2017 End: 04-30-2021 Hydrocortisone Valerate 0.2 % External Ointment 1 (one) Application Application qd for 0 days Quantity: 30 {Gram} Refills: 2 Ordered: 30-Apr-2021 Gely Srinivasan MA Start : 27-Oct-2017 End : 30-Apr-2021 Inactive Magnesium (20 sources) take 1 tablet by arlin th once daily Magnesium 500 MG Oral Tablet 1 tab daily (500 MG) Inactive take 1 tablet by mouth once hermes y Magnesium 500 MG Oral Tablet 1 tab daily (500 MG) Active 24 hr metoprolol succinate 2 5 mg extended release oral tablet (20 sources) beta-Adrenergic Alize Start: 03-02-2014 End: 03-02-2014 Start: 03-02-2014 End: 03-02-2014 take 0.5 tablet by mouth every twenty-four hours as needed TOPROL XL, 25MG (Oral Tablet Extended Release 24 Hour) 1/2 (one half) Tablet ER 24HR prn for 0 days Quantity: 30 {Tablet} Refills: 1 Ordered: 02-Mar-2014 Brenna Yarbrough DO Start : 02-Mar-2014 End : 02-Mar-2014 Discontinued Multivitamin Adult Oral Tablet (20 sources) take 1 tablet by mouth once daily Multivitamin Adult Oral Tablet one tab daily Active nebivolol 5 mg oral tablet (20 sources) Start: 05-19-20 13 End: 05-19-20 13 Comment on above: ? responsible for mu scle aches One Daily Multivitamin (9 sources) oseltamivir 75 mg oral capsule (15 sources) Neuraminidase Inhibitor Start: 06-18-20 22 End: 06-23-20 22 PREDNISONE (NEFTALI), 10MG (Oral Tablet) (20 sources) Start: 08-23-19 15 End: 08-26-19 15 Start: 08-23-2014 End: 08-26-2014 PREDNISONE (NEFTALI), 10MG (Oral Tablet) 3 (three) Tablet Tablet pills for 3 days for 0 days Quantity: 9 {Tablet} Refills: 0 Ordered: 26-Aug-2014 Sharon Navarro LPN Start : 23-Aug-2014 End : 26-Aug-2014 Discontinued Comments: take with food in am Start: 04-19-2013 End: 04-26-2013 Start: 04-19-2013 End: 04-26-2013 take 3 tablets by mouth once daily at mealtime PREDNISONE, 10MG (Oral Tablet) 3 (three) Tablet daily for 7 days Quantity: 30 {Tablet} Refills: 0 Ordered: 19-Apr-2013 Mickie Mcdonnell Start : 19-Apr-2013 End : 26-Apr-2013 Inactive Comments: take with food Comment on above: take with food take with food in am Tumeric (20 sources) Tumeric one caps ule daily Inactive Tumeric one caps ule daily Active Tuneric (20 sources) Tuneric Active valsartan 80 mg oral tablet (20 sources) Angiotensin 2 Receptor Alize Start: 07-15-2012 End: 07-15-2012 Comment on above: edema and like her s ulfa rxn Problems Active Problems Problem Classification Problem Date Documented Date Episodic/Chronic Allergic reactions (20 sources) Contact dermatitis; Translations: [Allergic reaction] Resolved: 02-26-2017 02-26-2017 Episodic Comment on above: ? plant vs other Anxiety disorders (8 sources) Anxiety; Translations: [Anxiety] 05-13-2023 Chronic Coronary atherosclerosis and other heart disease (20 sources) Coronary atherosclerosis and other heart disease Disorders of lipid metabolism (20 sources) Hyperlipidemia; Translations: [Hyperlipoproteinemia ] Onset: 06-23-2024 11-11-2018 Chronic Comment on above: work on diet and ex - close followup get labs she not want to star t meds at this point diet and ex and if cant get down in 3 months she will reconsider do physical and get chol E Codes: Fall (20 sources) Accidental fall ; Translations: [Fall, accidental] 12-27-2020 Episodic Essential hypertension (20 sources) Benign hypertension; Translations: [Hypertension, benign] 11-11-2018 Chronic Comment on above: little high she wans t to work on continued weight loss and exercise as she has done well keeping it down that way before chronic stable-sheron nue present regimen keep working on weig ht loss weight loss salt and cafeeine restriction and exerxcise - avoid processed prepackaged foods much improved contin ue working on diet ex and salt restriction she wantst to work o n diet and ex and salt restriction before going up on meds Fever of unknown origin (20 sources) Fever; Translations: [Fever] 11-11-2018 Episodic Fracture of lower limb (20 sources) Fracture of great toe ; Translations: [Fracture of great toe of right foot] Resolved: 04-30-2021 04-25-2020 Episodic Fracture of upper limb (20 sources) Closed fracture of phalanx of left thumb; Translations: [Fracture of thumb, left, closed] 12-27-2020 Episodic Genitourinary symptoms and ill-defined conditions (20 sources) Microscopic hematuria; Translations: [Dysuria] Resolved: 05-13-2023 11-11-2018 Episodic Comment on above: this urine was neg f or blood willmonitor check urine today Hepatitis (9 sources) Hepatitis Immunizations and screening for infectious disease (20 sources) Viral screening status; Translations: [Need for hepatitis C screening test] 12-27-2020 Episodic Inflammation; infection of eye (except that caused by tuberculosis or sexually transmitteddisease) (20 sources) Conjunctivitis; Translations: [Conjunctivitis] Resolved: 02-26-2017 02-26-2017 Episodic Comment on above: going to see Dr. Asael Marcelino, [facility] Inflammatory diseases of female pelvic organs (18 sources) Vaginal ulcer; Translations: [Vaginal ulcer] Resolved: 05-13-2023 04-22-2023 Episodic Mood disorders (20 sources) Dysthymia; Translations: [Depression] 11-11-2018 Chronic Neoplasms of unspecified nature or uncertain behavior (20 sources) Neoplasm of uncertain behavior of skin; Translations: [Neoplasm of uncertain behavior of skin] 11-11-2018 Episodic Nonmalignant breast conditions (20 sources) Breast finding ; Translations: [Dense breast tissue] 01-08-2023 Episodic Other bone disease and musculoskeletal deformities (20 sources) Osteopenia; Translations: [Osteopenia] 11-11-2018 Episodic Comment on above: weight bearing exerc ise walk walk walk walk walk walk due f or bone density encourage weight darlene ring exercise improving - weight b earing exercise vit d Other ear and sense organ disorders (20 sources) Unspecified otitis externa, right ear; Translations: [Otitis externa of right ear] 11-11-2018 Chronic Other ear and sense organ disorders (20 sources) Unspecified hearing loss; Translations: [Hearing loss, unspecified laterality] 11-11-2018 Chronic Other eye disorders (20 sources) Dry eye; Translations: [Dry eyes] 11-11-2018 Episodic Comment on above: per opthalmologist Other inflammatory condition of skin (20 sources) Psoriasis; Translations: [Psoriasis] 11-11-2018 Chronic Other lower respiratory disease (20 sources) Cough; Translations: [Cough] Resolved: 02-26-2017 01-28-2018 Episodic Other lower respiratory disease (20 sources) Dyspnea on exertion; Translations: [Exercise-induced shortness of breath] 11-11-2018 Episodic Other non-traumatic joint disorders (20 sources) Joint pain; Translations: [Pain in unspecified joint] 11-11-2018 Episodic Comment on above: improved off bystoli c Other nutritional; endocrine; and metabolic disorders (20 sources) Body mass index 25-29 - overweight; Translations: [BMI 26.0-26.9,adult] Resolved: 02-01-2020 01-28-2018 Chronic Other nutritional; endocrine; and metabolic disorders (8 sources) Body mass index 30+ - obesity; Translations: [BMI 30.0-30.9,adult] 05-13-2023 Chronic Other nutritional; endocrine; and metabolic disorders (20 sources) Weight gain; Translations: [Weight Gain] Resolved: 03-02-2014 01-28-2018 Episodic Other nutritional; endocrine; and metabolic disorders (20 sources) Body mass index 25-29 - overweight; Translations: [BMI 28.0-28.9,adult] Resolved: 02-01-2020 12-27-2020 Episodic Other nutritional; endocrine; and metabolic disorders (20 sources) Overweight in adulthood with body mass index of 25 or more but less than 30; Translations: [BMI 28.0-28.9,adult] Resolved: 05-13-2023 02-18-2022 Episodic Comment on above: alot of discussion a bout diet and ex my fitness pal and she decided against semglutatide thus far - Other screening for suspected conditions (not mental disorders or infectious disease) (20 sources) Blood chemistry abnormal; Translations: [Breast neoplasm screening status] Onset: 09-02-2024 Resolved: 03-26-2022 06-09-2015 Episodic Comment on above: had biopsy repeat pa p 1 year 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 Other upper respiratory infections (20 sources) Sinusitis; Translations: [Sinusitis] Resolved: 02-26-2017 01-28-2018 Chronic Other upper respiratory infections (20 sources) Sinusitis; Translations: [Acute sinusitis] Resolved: 02-26-2017 01-28-2018 Episodic Poisoning by other medications and drugs (20 sources) Adverse reaction to drug; Translations: [Medication side effect] Resolved: 02-26-2017 01-28-2018 Episodic Residual codes; unclassified (20 sources) Edema; Translations: [Edema] Resolved: 01-07-2013 Episodic Comment on above: on 07/22 tablet Residual codes; unclassified (20 sources) Postmenopausal state; Translations: [Postmenopausal (Renamed from Postmenopausal status)] Resolved: 08-16-2020 10-27-2017 Episodic Residual codes; unclassified (20 sources) Family history of breast cancer; Translations: [Family history of breast cancer] 01-18-2019 Episodic Residual codes; unclassified (20 sources) Influenza vaccination declined; Translations: [Influenza vaccination declined (Renamed from Refused influenza vaccine)] 12-27-2020 Episodic Residual codes; unclassified (20 sources) Non-smoker; Translations: [Non-smoker] 12-27-2020 Episodic Residual codes; unclassified (3 sources) Positive measurement finding; Translations: [Positive test for human papillomavirus (HPV)] 05-23-2022 Episodic Skin and subcutaneous tissue infections (20 sources) Cellulitis; Translations: [Cellulitis of face] Resolved: 02-26-2017 01-28-2018 Episodic Comment on above: secondary to eyebrow tweezing continue prednisone and augmentin Superficial injury; contusion (20 sources) Hematoma of scalp; Translations: [Hematoma of frontal scalp] 04-25-2020 Episodic Comment on above: watch for headaches vision change or new or worsening sx Thyroid disorders (1 source) Iodine-deficiency related diffuse (endemic) goiter; Translations: [Iodine-deficiency related diffuse (endemic) goiter] Onset: 07-22-2024 Chronic Unclassified (20 sources) Unclassified (20 sources) HEARING LOSS, UNSPECIFIED (389.9) Unclassified (20 sources) Hypertension,benign(4 01.1) Unclassified (20 sources) Hyperlipemia (272.4) Unclassified (20 sources) Elevated LFT (794.8) Unclassified (20 sources) Influenza vaccination declined; Translations: [Influenza vaccination declined (Renamed from Refused influenza vaccine)] 11-11-2018 Unclassified (20 sources) Lesion-Unknown behavior (238.2) Unclassified (20 sources) Non-smoker; Translations: [Non-smoker] 11-11-2018 Unclassified (20 sources) ARTHRALGIAS 719.40 Unclassified (20 sources) BMI 29.0-29.9,adult Unclassified (20 sources) Hypertension, benign Unclassified (20 sources) BMI 27.0-27.9,adult Unclassified (20 sources) External otitis of right ear Unclassified (20 sources) Encounter for screening mammogram for breast cancer (Renamed from Encounter for screening mammogram for malignant neoplasm of breast); Translations: [Patient encounter status] 11-11-2018 Unclassified (20 sources) Postmenopausal (Renamed from Postmenopausal status) Unclassified (20 sources) Patient encounter status; Translations: [Immunity status testing] 12-02-2018 Unclassified (20 sources) Need for hepatitis C screening test Unclassified (20 sources) skin check 02-01-2020 Unclassified (20 sources) BMI 28.0-28.9,adult Unclassified (20 sources) screening 12-27-2020 Unclassified (9 sources) Fracture of great toe of right foot Unclassified (20 sources) Abnormal Pap smear of cervix Unclassified (1 source) CONTACT WITH AND SUSPECTED EXPOSURE TO COVID-19; Translations: [CONTACT WITH AND SUSPECTED EXPOSURE TO COVID-19] Onset: 12-14-2021 Urinary tract infections (20 sources) Urinary tract infectious disease; Translations: [UTI (urinary tract infection)] Onset: 11-29-2024 11-11-2018 Episodic Past or Other Problems Problem Classification Problem Date Documented Date Episodic/Chronic Cancer of cervix (6 sources) Atypical squamous cells on cervical Papanicolaou smear cannot exclude high grade squamous intraepithelial lesion; Translations: [Atypical squamous cells cannot exclude high grade squamous intraepithelial lesion on cytologic smear of cervix (ASC-H)] Onset: 03-25-2024 Episodic Comment on above: repeat pap 2022 colp benign. Repeat pap 2024. External cause codes: Fall (2 sources) Accidental fall ; Translations: [Fall, accidental] 04-25-2020 Other ear and sense organ disorders (19 sources) Otitis externa of right ear; Translations: [External otitis of right ear] 12-02-2018 Residual codes; unclassified (20 sources) Edema, unspecified; Translations: [Swelling - edema - symptom] Resolved: 01-07-2013 01-13-2013 Episodic Comment on above: on 1/2 tablet Residual codes; unclassified (13 sources) Increased body mass index; Translations: [BMI 29.0-29.9,adult] Resolved: 05-26-2019 11-11-2018 Episodic Unclassified (20 sources) Weight Gain (783.1) Unclassified (20 sources) [facility] WELLNESS EXAM 11-11-2018 Unclassified (20 sources) Pregnancies (); Translations: [Pregnancies ()] 11-11-2018 Comment on above: 4. Unclassified (20 sources) Abnormal blood chemistry (790.6) Unclassified (20 sources) Exercise-induced shortness of breath Unclassified (20 sources) Unspecified Diagnosis Resolved: 02-26-2017 02-26-2017 Unclassified (20 sources) Medication side effect Unclassified (20 sources) Cellulitis, face Unclassified (20 sources) Abortions/Miscarriage s; Translations: [Abortions/Miscarriag es] 11-11-2018 Comment on above: 1. Spontaneous abort ion. Unclassified (20 sources) BMI 26.0-26.9,adult Unclassified (20 sources) Abnormal blood chemistry Unclassified (20 sources) Breast finding ; Translations: [Dense breast tissue] 01-18-2019 Unclassified (20 sources) Family history of breast cancer Unclassified (20 sources) screen 11-16-2019 Unclassified (13 sources) Closed fracture of phalanx of left thumb; Translations: [Fracture of thumb, left, closed] 04-25-2020 Unclassified (11 sources) Fall, accidental Unclassified (11 sources) Fracture of right great toe Unclassified (11 sources) Hematoma of frontal scalp Unclassified (9 sources) Encounter for gynecological examination without abnormal finding Viral infection (6 sources) Disease caused by 2019-nCoV Results Test Name Value Interpretation Reference Range Facility Kidney and Bladderon 025 Kidney and Bladder [facility] Imaging Services [address] [place] [address] Kidney and Bladder MR#: [id number] Acct: [id number] Name: JOHN MARIE Rep #: [id number] : 1960 F 64 From: Franco Diaz MD PCP: Dr. Sena Rao, DO Status: REG CLI Study: Kidney and Bladder Date of Exam: 11/23/24 Exam# [id number] Ordering Dr: Magali Packer MD PROCEDURE: ULTRASOUND KIDNEYS AND BLADDER 11/23/2024 REASON FOR EXAM: URINARY TRACT INFECTION. TECHNIQUE: Real-time grayscale and color flow imaging was performed along with routine image documentation. COMPARISON: No relevant prior. FINDINGS: Kidneys: Normal parenchymal echogenicity. Hydronephrosis: Not visualized. Cysts or Masses: Bilateral, largest on the right measuring 1.2 x 1.3 x 1.3 cm and on the left measuring 2.0 x 1.9 x 1.1 cm. Other: Suspicion of bilateral nonobstructing nephrolithiasis. RIGHT Kidney Size: 13.1 x 5.6 x 4.1 cm. Volume: 159 mL Cortical Thickness (if discernible): 1.27 (>6mm is normal) LEFT Kidney Size: 12.9 x 5.7 x 5.2 cm. Volume: 200 mL Cortical Thickness (if discernible): 1.2 (>6mm is normal) Urinary bladder Distended volume: 161 mL. Wall thickness: 0.4 cm. Ureters Right ureteral jet: Visualized. Left ureteral jet: Visualized. US/Kidney and Bladder IMPRESSION: Bilateral renal cysts. Suspicion of bilateral nonobstructing nephrolithiasis versus calcifications in the cyst wall. Reading Location: [facility] CC: Dr. Sena Rao DO; Dr. Magali Packer MD Asphalt Paver: Signed Normal [facility] Dexa Bone Density Studyon Dexa Bone Density Study [facility] Imaging Services [address] [place] [address] Dexa Bone Density Study MR#: [id number] Acct: [id number] Name: JOHN MARIE Rep #: [id number] : 1960 F 64 From: Richar Cagle MD PCP: Dr. Sena Rao DO Status: REG CLI Study: Dexa Bone Density Study Date of Exam: 08/17/24 Exam# [id number] Ordering Dr: Sena Rao DO PROCEDURE: DEXA BONE DENSITY STUDY REASON FOR EXAM: F, age 64 y/o . Postmenopausal. TECHNIQUE: DEXA scan of the lumbar spine and both hips. COMPARISON: 03/12/2022 DEXA. FINDINGS: T-SCORES Lumbar spine: 0.866 (-1.6); Previously: -1.4 Left hip: 0.731 (-1.1) Right hip: 0.740 (-1.0) Osteopenia. FRAX* Results: 10 Year Probability of Fracture: Hip Fracture(1): 0.7% Major Osteoporotic Fracture(2): 12% *FRAX is a trademark of the [employer]'s [employer] for Metabolic Bone Disease, World Health Organization (WHO) Collaborating [place]. 1-The 10-year probability of fracture may be lower than reported if the patient has received treatment. 2-Major Osteoporotic Fracture: Clinical Spine, Forearm, Hip or Shoulder. The T-scores are also available for review on the [facility] PACS or by accessing the [facility] electronic medical record. BD/Dexa Bone Density Study IMPRESSION: Osteopenia Reading Location: [id number] CC: Dr. Sena Rao DO Asphalt Paver: Signed Normal [facility] SCRN MAMM (CAD)W/ALFREDO BILATo n 08-17-2024 SCRN MAMM (CAD)W/ALFREDO BILAT [facility] Imaging Services [address] [place] [address] SCRN MAMM (CAD)W/ALFREDO BILAT MR#: [id number] Acct: [id number] Name: JOHN MARIE Rep #: [id number] : 1960 F 64 From: Irvin frias MD PCP: Dr. Sena Rao DO Status: REG CLI Study: SCRN MAMM (CAD)W/ALFREDO BILAT Date of Exam: 07/22 03/14 Exam# [id number] Ordering Dr: Sena Rao DO PROCEDURE: SCRN MAMM (CAD)W/ALFREDO BILAT REASON FOR EXAM: F, Age 64 y/o, mother with breast cancer. Aunt with breast cancer. Prior left stereotactic breast biopsy. Numbness in the left areolar region. TECHNIQUE: Bilateral screening digital breast tomosynthesis with 2D and 3D images. Computer aided detection. COMPARISON: Prior exam(s) dating back to July 11, 2023. FINDINGS: The breasts are heterogeneously dense which may obscure small masses. Stable examination. Stable bilateral axillary lymph nodes. No suspicious masses, areas of developing architectural distortion, or suspicious calcifications. BI/SCRN MAMM (CAD)W/ALFREDO BILAT IMPRESSION: BI-RADS 2: BENIGN. RECOMMEND ANNUAL MAMMOGRAPHIC SCREENING. Follow-up code: Routine Follow-up The patient will be notified of the results by letter. Reading Location: [place] [address] CC: Dr. Sena Rao DO Asphalt Paver: Signed Normal [facility] CT CARDIAC SCORING WO IV CON TRASTon 06-23-2024 CT CARDIAC SCORING WO IV CONTRAST Interpreted By: Harvey Dickerson, STUDY: CT CARDIAC SCORING WO IV CONTRAST; 06/23/2024 7:41 am INDICATION: Signs/Symptoms:HYPERLIPIDE JAIME. ,E78.5 Hyperlipidemia, unspecified COMPARISON: None. ACCESSION NUMBER(S): [id number] ORDERING CLINICIAN: SEAN RAO TECHNIQUE: Using prospective ECG gating, CT scan of the coronary arteries was performed without intravenous contrast. Coronary calcium scoring was performed according to the method of Agatston. FINDINGS: The score and distribution of calcium in the coronary arteries is as follows: LM 0 LAD 0 LCx 0 RCA 0 Total 0 The visualized mid/lower ascending thoracic aorta measures 3.5 cm in diameter. The heart is normal in size. No pericardial effusion is present. No gross evidence of mediastinal or hilar lymphadenopathy or masses is identified. The visualized segments of the lungs are normally expanded. The visualized subdiaphragmatic structures appear intact. IMPRESSION: 1. Coronary artery calcium score of 0*. *Coronary artery calcium scoring may be helpful in predicting the risk for future coronary heart disease events. According to the [employer] Clinical Expert Consensus Task Force, such testing provides important prognostic information in patients with more than one coronary heart disease risk factor. The coronary artery calcium score correlates with the annual risk of a non-fatal myocardial infarction or coronary heart disease . Coronary artery score Annual Risk 0-99 0.4% 100-399 1.3% >400 2.4% These three breakpoints correspond to lower, intermediate and high risk states for future coronary events. Such information should be used, along with appropriate clinical judgment, to make decisions regarding the intensity of risk factor management strategies to treat blood lipids and to modify other non-lipid coronary risk factors. Reference: Crete P et al. Circulation. 2007; 115:402-426 MACRO: None Signed by: Harvey Dickerson 06/23/2024 1:11 PM Dictation workstation: [id number] [facility] CT for calcium scoring WO co ntrast and CTA W contrast IV Heart and coronary arterieson 06-23-2024 1. Coronary artery c alcium score of 0*. *Coronary artery calcium scoring may be helpful in predicting the risk for future coronary heart disease events. According to the [employer] Clinical Expert Consensus Task Force, such testing provides important prognostic information in patients with more than one coronary heart disease risk factor. The coronary artery calcium score correlates with the annual risk of a non-fatal myocardial infarction or coronary heart disease . Coronary artery score Annual Risk 0-99 0.4% 100-399 1.3% >400 2.4% These three breakpoints correspond to lower, intermediate and high risk states for future coronary events. Such information should be used, along with appropriate clinical judgment, to make decisions regarding the intensity of risk factor management strategies to treat blood lipids and to modify other non-lipid coronary risk factors. Reference: Crete P et al. Circulation. 2007; 115:402-426 MACRO: None Signed by: Harvey Dickerson 06/23/2024 1:11 PM Dictation workstation: [id number] [facility] Interpreted By: Harvey Dozier, STUDY: CT CARDIAC SCORING WO IV CONTRAST; 06/23/2024 7:41 am INDICATION: Signs/Symptoms:HYPERLIPIDE JAIME. ,E78.5 Hyperlipidemia, unspecified COMPARISON: None. ACCESSION NUMBER(S): [id number] ORDERING CLINICIAN: SENA RAO TECHNIQUE: Using prospective ECG gating, CT scan of the coronary arteries was performed without intravenous contrast. Coronary calcium scoring was performed according to the method of Agatston. FINDINGS: The score and distribution of calcium in the coronary arteries is as follows: LM 0 LAD 0 LCx 0 RCA 0 Total 0 The visualized mid/lower ascending thoracic aorta measures 3.5 cm in diameter. The heart is normal in size. No pericardial effusion is present. No gross evidence of mediastinal or hilar lymphadenopathy or masses is identified. The visualized segments of the lungs are normally expanded. The visualized subdiaphragmatic structures appear intact. [facility] Harvey Dickerson MD - 06/23/2024 Interpreted By: Harvey Dickerson, STUDY: CT CARDIAC SCORING WO IV CONTRAST; 06/23/2024 7:41 am INDICATION: Signs/Symptoms:HYPERLIPIDE JAIME. ,E78.5 Hyperlipidemia, unspecified COMPARISON: None. ACCESSION NUMBER(S): [id number] ORDERING CLINICIAN: SENA RAO TECHNIQUE: Using prospective ECG gating, CT scan of the coronary arteries was performed without intravenous contrast. Coronary calcium scoring was performed according to the method of Agatston. FINDINGS: The score and distribution of calcium in the coronary arteries is as follows: LM 0 LAD 0 LCx 0 RCA 0 Total 0 The visualized mid/lower ascending thoracic aorta measures 3.5 cm in diameter. The heart is normal in size. No pericardial effusion is present. No gross evidence of mediastinal or hilar lymphadenopathy or masses is identified. The visualized segments of the lungs are normally expanded. The visualized subdiaphragmatic structures appear intact. IMPRESSION: 1. Coronary artery calcium score of 0*. *Coronary artery calcium scoring may be helpful in predicting the risk for future coronary heart disease events. According to the [place] [employer] Clinical Expert Consensus Task Force, such testing provides important prognostic information in patients with more than one coronary heart disease risk factor. The coronary artery calcium score correlates with the annual risk of a non-fatal myocardial infarction or coronary heart disease . Coronary artery score Annual Risk 0-99 0.4% 100-399 1.3% >400 2.4% These three breakpoints correspond to lower, intermediate and high risk states for future coronary events. Such information should be used, along with appropriate clinical judgment, to make decisions regarding the intensity of risk factor management strategies to treat blood lipids and to modify other non-lipid coronary risk factors. Reference: Simona P et al. Circulation. 2007; 115:402-426 MACRO: None Signed by: Harvey Dickerson 06/23/2024 1:11 PM Dictation workstation: [id number] [facility] Work Phone: Radiology Study observation (narrative) [facility] Work Phone: CT for calcium scoring WO co ntrast and CTA W contrast IV Heart and coronary arteriesOrdered By: Harvey Dickerson on 06-23-2024 [facility] Work Phone: Thyroidon 06-23-2024 Thyroid [facility] Imaging Services [address] [place] [address] Thyroid MR#: [id number] Acct: [id number] Name: JOHN MARIE Rep #: [id number] : 1960 F 63 From: Migue garcia DO PCP: Dr. Sena Rao DO Status: REG CLI Study: Thyroid Date of Exam: 06/23/24 Exam# [id number] Ordering Dr: Sena Rao DO [id number] EXAM: US SOFT TISSUES HEAD AND NECK, THYROID CLINICAL INDICATION: thyromegaly TECHNIQUE: Grayscale and color doppler imaging was performed of the thyroid gland. COMPARISON: No relevant prior studies available. FINDINGS: LEFT THYROID LOBE: The left thyroid lobe measures 4.5 x 1.7 x 1.4 cm. Homogeneous echotexture with normal vascularity. No thyroid nodules are present. RIGHT THYROID LOBE: The right thyroid lobe measures 4.9 x 1.6 x 1.5 cm. Homogeneous echotexture with normal vascularity. No thyroid nodules are present. ISTHMUS: Thyroid isthmus measures 0.2 cm. No thyroid nodules are present. The total volume of the thyroid gland is less than 12 mL. US/Thyroid IMPRESSION: No thyroid nodule or significant abnormality is identified. The thyroid is within normal limits for size. Electronically Signed: Migue Perkins DO at 17:00 EST , CC: Dr. Sena Rao DO Asphalt Paver: Signed Normal [facility] Ergonomics Engineer Office Visit Reporton 02-23-2024 Ergonomics Engineer Office Visit Report [facility] [address] [place] [address] OFFICE VISIT Date of Service: 02/23/24 MR#: [id number] Acct: [id number] Name: JOHN MARIE Rep #: [id number] : 1960 Provider: Dr. 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 Mining Required: No Is patient in pain?: No Allergies Sulfa (Sulfonamide Antibiotics) Allergy (Mild, Verified 02/23/24 10:17) swelling Medications ???Medication ???Instructions ???Recorded ???Confirmed ???Type multivitamin 1 tab PO DAILY 05/23/22 02/23/24 History biotin 1 mg capsule 1 mg PO DAILY 08/22/23 02/23/24 History cholecalciferol (vitamin D3) 50 50 mcg PO DAILY 08/22/23 02/23/24 History mcg (2,000 unit) capsule losartan 25 mg tablet 25 mg PO DAILY 08/22/23 02/23/24 History magnesium oxide 500 mg capsule 500 mg PO DAILY 08/22/23 02/23/24 History ascorbic acid (vitamin C) 500 mg mg PO 02/23/24 02/23/24 History capsule Post menopausal: No Patient : No : No PFSH PFSH Medical History Hypertension delivery delivered Surgical History History of colposcopy History of tonsillectomy History of partial hysterectomy Family History Father Hypertension Mother Hypertension Grandmother Hypertension Grandfather Hypertension Brain malignant neoplasm Other Breast cancer Social History Smoking Status: Former smoker alcohol intake: current substance use type: does not use caffeine: Yes what type of physical activity do you participate in: walking and other details: pickleball frequency: 3-4 times per week seatbelt use: always do you feel safe at home: Yes additional social history: - Cory History 4 Elective abortions Hx Para 3 Spontaneous abortions Hx # Term Pregnancies Ectopic pregnancies Hx # Pregnancies Multiple births # of living children Past Pregnancies Del. Date Name GA/Weeks Outcome Route Bth Weight Gen Labor Lgth Anesthesia Del Locatn Provider FOB Unknown Daniel Unknown Raheel Unknown Katya HPI Colposcopy Details: JOHN MARIE is a 63 year old who presents for Colposcopy for LGSIL. Her HPV most recently was negative. She has had an HPV positive pap in the past however. ROS Const ROS Unobtainable: All systems reviewed are unremarkable except as noted in H Resp Resp: Reports system reviewed and no additional complaints, except as documented; Denies cough GI GI: Reports as per HPI Psych Psych: Reports system reviewed and no additional complaints, except as documented Exam Const General: cooperative, healthy appearing, comfortable and no acute distress Resp Effort Inspection: normal respiratory effort General: bimanual renal exam normal bilaterally External Female Exam: normal appearance of the urethra Urethra: normal appearance of the urethra Speculum Exam - Vagina: normal appearance of the vagina Speculum Exam - Cervix: normal appearance of the cervix Bimanual Exam- Adnexa, other: normal adnexae and normal Pelvic Support: normal Skin General: no rashes or lesions noted Psych Appearance: grossly normal Speech and Movement: speech and movement normal Office Procedures Colposcopy Colposcopy Reason for colposcopy: LSIL Consent Signed: Yes Time out performed: Yes Acetowhite epithelium (cervix): 1 o'clock, 11 o'clock and 12 o'clock Punctation (cervix): none Mosaicism (cervix): none Abnormal vessels (cervix): none Biopsies (cervix): 6 o'clock biopsy Details: acetic acid was applied to the cervix and a transformation zone was seen. More acetowhite changes were seen at the 11,12,1:00 . a biopsy was taken at the 12:00. an ECC was also collected. Coding Level of Care Code Off vis,est,level 4 Diagnoses LGSIL on Pap smear of cervix R87.612 Assessment and Plan Assessment and Plan (1) LGSIL on Pap smear of cervix: Status: Acute Comment: colp Plan: biopsy taken. recommend vaginal estrogen cream to be continued and applied with the syringe rather than just external. will call with results. Orders: Orders Colposcopy Today R87.612 - Low grade squamous intraepithelial lesion on cytologic smear of cervix (LGSIL) 02/23/24 1622 Date Olya Casiano DO (more content not included)... Normal [facility] Surgery Specimen Level Que 02-23-2024 Surgery Specimen Level IV Patient Age/Sex Location Account Attending Physician JOHN MARIE 63/F LABSPEC [id number] Mauricio Phillips Specimen: [id number] Received: 02/23/24 Status: JERRY Becerra Num: [id number] Spec Type: ECC Subm Dr: Dr. Olya Casiano DO HEADER OPERATION: Colposcopy PRE-OP DIAGNOSIS: LGSIL TISSUE SUBMITTED: A-ECC, B- 12o'clock MICROSCOPIC DIAGNOSIS A. Endocervical curettings: Scant benign ectocervical and endocervical epithelial cells. B. Cervix, 12o'clock, biopsy: A fragment of ectocervical mucosa with focal minimal changes suspicious for HPV cytopathic effects. See comment. / 02/25/2024 COMMENT B. Results of immunohistochemistry ([id number]) for surrogate HPV marker (p16) will be reported separately. MICROSCOPIC DESCRIPTION Slides are reviewed. GROSS DESCRIPTION A. Received in fixative is a metallic brush with adherent minute fragments of santizo-red tissue and labeled with the patient's name and and designated per the requisition as ECC BRUSH. The material is dislodged from the brush and submitted for cell block preparation in one cassette. B. Received in fixative is one container labeled with the patient's name and designated 12o'clock. The specimen consists of one irregular fragment of light santizo soft tissue that measures 0.3 x 0.3 x 0.1 cm. The specimen is totally submitted in one cassette. / 02/24/2024 TC:5 CPT:29383q8 Patient Age/Sex Location Account Attending Physician JOHN MARIE 63/F LABSPEC [id number] Mauricio Phillips Signed (signature on file) Dr. Dick Espinoza MD 02/26/24 0937 Normal [facility] Comment on above: Performed By: #### P DAHLIA #### [facility] [address] [place], [place], [id number] p16 (initial)on 02-23-2024 p16 (initial) ------ Patient Age/Sex Location Account Attending Physician JOHN MARIE 63/F LABSPEC [id number] Dr. Olya Casiano, Mauricio Specimen: [id number] Received: 02/25/24 Status: JERRY Becerra Num: [id number] Spec Type: IMMUNO Subm Dr: Dr. Olya Casiano, PHYSICIAN INSTITUTION [place] [address] SPECIMEN INFORMATION: Tissue Source: B- 12o'clock biopsy Clinical Info: [facility] Specimen Number: [id number] CPT code: 32950,57576 METHODOLOGY: Deparaffinized sections of prefer/formalin-fixed tissue or PAP/DQ stained slides are incubated with monoclonal/polyclonal antibodies/oligonucleotide probes. Localization is made via biotin free immunoperoxidase method. Appropriate controls are performed and reacted as expected. Results on target cell population are indicated in the following table: RESULTS: ANTIBODY / CLONE RESULT Block B P16 (E6H4) negative Ki-67 (30-9) positive, very low These tests were developed and their performance characteristics determined by [facility]. They may not have been cleared or approved by the U.S. Food and Drug Administration. The FDA has determined that such clearance or approval is not necessary. The above immunohistochemical/dualIS H markers are ordered and reviewed by the Pathologist. INTERPRETATION: B. Cervix, 12o'clock, biopsy: Focal minimal changes suspicious for HPV cytopathic effects. TERRELL/ 02/26/2024 Signed (signature on file) Dr. Dick Espinoza MD 02/26/24 0941 Normal [facility] Comment on above: Performed By: #### P P16 #### [facility] [address] [facility]. [place], [place], [id number] Culture, urineOrdered By: Evangelist Shields on 08-22-2023 Bacteria identified Cx Nom (U) Culture exhibits no growth. [facility] CBC W/AUTO DIFF WBC ([id number])O rdered By: Manager Social Work on 05-02-2023 Basophils (Bld) [#/Vol] 0.0 10*3/uL Normal 0.0-0.2 [facility]; [facility] Work Phone: Basophils/100 WBC (Bld) 1 % Normal [facility]; [facility] Work Phone: Eosinophils (Bld) [#/Vol] 0.1 10*3/uL Normal 0.0-0.4 [facility]; [facility] Work Phone: Eosinophils/100 WBC (Bld) 3 % Normal [facility]; [facility] Work Phone: Erythrocyte distribution width (RBC) [Ratio] 12.8 % Normal 11.7-15.4 [facility]; [facility] Work Phone: Hematocrit (Bld) [Volume fraction] 42.5 % Normal 34.0-46.6 [facility]; [facility] Work Phone: Hemoglobin (Bld) [Mass/Vol] 14.4 g/dL Normal 11.1-15.9 [facility]; [facility] Work Phone: Immature granulocytes (Bld) [#/Vol] 0.0 10*3/uL Normal 0.0-0.1 [facility]; [facility] Work Phone: Immature granulocytes/100 WBC (Bld) 0 % Normal [facility]; [facility] Work Phone: Lymphocytes (Bld) [#/Vol] 1.5 10*3/uL Normal 0.7-3.1 [facility]; [facility] Work Phone: Lymphocytes/100 WBC (Bld) 34 % Normal [facility]; [facility] Work Phone: MCH (RBC) [Entitic mass] 31.4 pg Normal 26.6-33.0 [facility]; [facility] Work Phone: MCHC (RBC) [Mass/Vol] 33.9 g/dL Normal 31.5-35.7 [facility]; [facility] Work Phone: MCV (RBC) [Entitic vol] 93 fL Normal 79-97 [facility]; [facility] Work Phone: Monocytes (Bld) [#/Vol] 0.4 10*3/uL Normal 0.1-0.9 [facility]; [facility] Work Phone: Monocytes/100 WBC (Bld) 9 % Normal [facility]; [facility] Work Phone: Neutrophils (Bld) [#/Vol] 2.4 10*3/uL Normal 1.4-7.0 [facility]; [facility] Work Phone: Neutrophils/100 WBC (Bld) 53 % Normal [facility]; [facility] Work Phone: Platelets (Bld) [#/Vol] 252 10*3/uL Normal 150-450 [facility]; [facility] Work Phone: RBC (Bld) [#/Vol] 4.58 10*6/uL Normal 3.77-5.28 [facility]; [facility] Internal Medicine Work Phone: WBC (Bld) [#/Vol] 4.4 10*3/uL Normal 3.4-10.8 [facility]; [facility] Work Phone: METABOLIC PANEL, COMPREHENSI VE ([id number])Ordered By: Manager Social Work on 05-02-2023 Albumin [Mass/Vol] 4.8 g/dL Normal 3.9-4.9 [facility]; [facility] Medicine Work Phone: Albumin/Globulin [Mass ratio] 2.2 {ratio} Normal 1.2-2.2 [facility]; [facility] Work Phone: ALP [Catalytic activity/Vol] 48 U/L Normal 44-121 [facility]; [facility] Work Phone: ALT [Catalytic activity/Vol] 28 U/L Normal 0-32 [facility]; [facility] Work Phone: AST [Catalytic activity/Vol] 25 U/L Normal 0-40 [facility] Internal Medicine; [facility] Work Phone: Bilirubin [Mass/Vol] 0.4 mg/dL Normal 0.0-1.2 [facility] Internal Medicine; [facility] Medicine Work Phone: Calcium [Mass/Vol] 9.9 mg/dL Normal 8.7-10.3 [facility]; [facility] Internal [facility] Work Phone: Chloride [Moles/Vol] 103 mmol/L Normal 96-106 [facility] Internal Medicine; [facility] Medicine Work Phone: CO2 [Moles/Vol] 24 mmol/L Normal 20-29 [facility] Internal Medicine; [facility] Medicine Work Phone: Creatinine [Mass/Vol] 0.88 mg/dL Normal 0.57-1.00 [facility]; [facility] Work Phone: Globulin (S) [Mass/Vol] 2.2 g/dL Normal 1.5-4.5 [facility]; [facility] Work Phone: Glucose [Mass/Vol] 92 mg/dL Normal 70-99 [facility]; [facility] Work Phone: Potassium [Moles/Vol] 4.8 mmol/L Normal 3.5-5.2 [facility]; [facility] Work Phone: Protein [Mass/Vol] 7.0 g/dL Normal 6.0-8.5 [facility]; [facility] Work Phone: Sodium [Moles/Vol] 142 mmol/L Normal 134-144 [facility]; [facility] Medicine Work Phone: Urea nitrogen [Mass/Vol] 14 mg/dL Normal 8-27 [facility]; [facility] Work Phone: Urea nitrogen/Creatinine [Mass ratio] 16 mg/mg Normal 12-28 [facility]; [facility] Work Phone: METABOLIC PANEL, COMPREHENSIVE (60617) 75 mL/min/1.73 Normal [facility]; [facility] Work Phone: URINALYSIS, W/ MICRO ([id number]) Ordered By: Manager Social Work on 05-02-2023 Appearance (U) Clear Normal [facility]; [facility] Work Phone: Bilirubin Ql (U) Negative Normal Comprehe nsive Internal Medicine; [facility] Work Phone: Color (U) Yellow Normal [facility]; [facility] Work Phone: Glucose Ql (U) Negative Normal [facility]; [facility] Work Phone: Hemoglobin Ql (U) Negative Normal Compreh ensive Internal Medicine; [facility] Work Phone: Ketones Ql (U) Negative Normal [facility]; [facility] Work Phone: Leukocyte esterase Test strip Ql (U) 1+ Abnormal [facility]; [facility] Work Phone: Microscopic observation LM Nom (Urine sed) See below: Normal [facility]; [facility] Work Phone: Nitrite Ql (U) Negative Normal [facility]; [facility] Work Phone: pH (U) 7.5 [pH] Normal 5.0-7.5 [facility]; [facility] Work Phone: Protein Ql (U) Negative Normal [facility]; [facility] Work Phone: Specific gravity (U) [Rel density] 1.011 1 Normal 1.005-1.03 0 [facility]; [facility] Work Phone: Urobilinogen (U) [Mass/Vol] 0.2 mg/dL Normal 0.2-1.0 [facility]; [facility] Work Phone: NuSwab STD (STD W/ Herpes) ( [id number])Ordered By: Manager Social Work on 04-22-2023 A. vaginae DNA POLO+probe Ql (Vag fld) Low - 0 Normal [facility]; [facility] Work Phone: Bacterial vaginosis associated bacterium 2 DNA POLO+probe Ql (Vag fld) Low - 0 Normal [facility]; [facility] Work Phone: C. albicans DNA POLO+probe Ql (Vag fld) Negative Normal [facility]; [facility] Work Phone: C. glabrata DNA POLO+probe Ql (Vag fld) Negative Normal [facility]; [facility] Work Phone: C. trachomatis rRNA POLO+probe Ql (Unsp spec) Negative Normal [facility]; [facility] Work Phone: HSV 1 DNA POLO+probe Ql (Unsp spec) Negative Normal [facility]; [facility] Work Phone: HSV 2 DNA POLO+probe Ql (Unsp spec) Negative Normal [facility]; [facility] Work Phone: Megasphaera sp type 1 DNA POLO+probe Ql (Vag fld) Low - 0 Normal [facility]; [facility] Work Phone: N. gonorrhoeae rRNA POLO+probe Ql (Unsp spec) Negative Normal [facility]; [facility] Work Phone: T. vaginalis rRNA POLO+probe Ql (Unsp spec) Negative Normal [facility]; [facility] Work Phone: URINE ANGELINE CULTURE-IDENTIFICA TN ([id number])Ordered By: Manager Social Work on 04-22-2023 Bacteria identified Cx Nom (U) Final report Normal [facility]; [facility] Work Phone: Bacteria identified Cx Nom (U) MUG Normal [facility]; [facility] Work Phone: Urinalysis, Office ([id number])Or dered By: Elsi Toledo on 04-22-2023 Bilirubin Ql (U) Negative Normal Comprehe nsive [facility]; [facility] Work Phone: Glucose Test strip (U) [Mass/Vol] Negative Normal [facility]; [facility] Work Phone: Hemoglobin Ql (U) Hemolyzed Small Normal Co mprehensive [facility]; [facility] Work Phone: Ketones Ql (U) Negative Normal [facility]; [facility] Work Phone: Leukocyte esterase Test strip Ql (U) Small Normal [facility]; [facility] Work Phone: Nitrite Ql (U) Negative Normal [facility]; [facility] Work Phone: pH (U) 6 [pH] Abnormal [facility]; [facility] Work Phone: Protein Ql (U) Negative Normal [facility]; [facility] Work Phone: Specific gravity (U) [Rel density] 1.010 1 Normal [facility]; [facility] Work Phone: Urobilinogen (24H U) [Mass/Time] Normal Normal [facility]; [facility] Work Phone: Rapid Flu ([phone] x 2)Ordered By: Elsi Toledo on 06-18-2022 FLUAV Ag IA Ql (Throat) Positive Normal [facility]; [facility] Work Phone: CBC W/AUTO DIFF WBC (36172)O rdered By: Manager Social Work on 03-26-2022 Basophils (Bld) [#/Vol] 0.0 10*3/uL Normal 0.0-0.2 [facility]; [facility] Work Phone: Comment on above: PATIENT WAS FASTINGP ERFORMED BY: [facility] Gediok88[address] RoadDublin [place] [id number] Basophils/100 WBC (Bld) 1 % Normal [facility]; [facility] Work Phone: Comment on above: PATIENT WAS FASTINGP ERFORMED BY: [facility] Kovxdu3128 [address] RoadDublin [place] [id number] Eosinophils (Bld) [#/Vol] 0.1 10*3/uL Normal 0.0-0.4 [facility]; [facility] Work Phone: Comment on above: PATIENT WAS FASTINGP ERFORMED BY: [facility] Rlmjwy05[address] RoadDublin [place] [id number] Eosinophils/100 WBC (Bld) 2 % Normal [facility]; [facility] Work Phone: Comment on above: PATIENT WAS FASTINGP ERFORMED BY: [facility] Axynyx88[address] RoadDublin [place] [id number] Erythrocyte distribution width (RBC) [Ratio] 13.0 % Normal 11.7-15.4 [facility]; [facility] Work Phone: Comment on above: PATIENT WAS FASTINGP ERFORMED BY: [facility] Hapqti7978 [address] RoadDublin [place] [id number] Hematocrit (Bld) [Volume fraction] 42.3 % Normal 34.0-46.6 [facility]; [facility] Work Phone: Comment on above: PATIENT WAS FASTINGP ERFORMED BY: [facility] Dhvgcj1503 [address] RoadDublin [place] [id number] Hemoglobin (Bld) [Mass/Vol] 14.1 g/dL Normal 11.1-15.9 [facility]; [facility] Work Phone: Comment on above: PATIENT WAS FASTINGP ERFORMED BY: FAITH Labcolexi BrownEuuhqr[address] [facility] [place] [id number] Immature granulocytes (Bld) [#/Vol] 0.0 10*3/uL Normal 0.0-0.1 [facility]; [facility] Work Phone: Comment on above: PATIENT WAS FASTINGP ERFORMED BY: [facility]coG[facility] Medical CenterYzwyut2980 [address] RoadNovant Health Presbyterian Medical Centerin [place] [id number] Immature granulocytes/100 WBC (Bld) 0 % Normal [facility]; [facility] Work Phone: Comment on above: PATIENT WAS FASTINGP ERFORMED BY: [facility] Fmbrbi[address] [facility] [id number] Lymphocytes (Bld) [#/Vol] 1.2 10*3/uL Normal 0.7-3.1 [facility]; [facility] Work Phone: Comment on above: PATIENT WAS FASTINGP ERFORMED BY: [facility] Lzqbwd20[address] [facility] [id number] Lymphocytes/100 WBC (Bld) 28 % Normal [facility]; [facility] Work Phone: Comment on above: PATIENT WAS FASTINGP ERFORMED BY: [facility] Rqdcai9938 [facility] [id number] MCH (RBC) [Entitic mass] 30.9 pg Normal 26.6-33.0 [facility]; [facility] Work Phone: Comment on above: PATIENT WAS FASTINGP ERFORMED BY: [facility] Mciflx[address] [facility] [place] [id number] MCHC (RBC) [Mass/Vol] 33.3 g/dL Normal 31.5-35.7 [facility]; [facility] Work Phone: Comment on above: PATIENT WAS FASTINGP ERFORMED BY: [facility] Zoafpe[address] [facility] HospitalD[facility] [place] [id number] MCV (RBC) [Entitic vol] 93 fL Normal 79-97 [facility]; [facility] Work Phone: Comment on above: PATIENT WAS FASTINGP ERFORMED BY: FAITH Labcolexi BrownDxgpqa1105 [address] RoadDublin [place] [id number] Monocytes (Bld) [#/Vol] 0.4 10*3/uL Normal 0.1-0.9 [facility]; [facility] Work Phone: Comment on above: PATIENT WAS FASTINGP ERFORMED BY: CB [facility] Tgcxyr6813 [address] RoadDublin [place] [id number] Monocytes/100 WBC (Bld) 9 % Normal [facility]; [facility] Work Phone: Comment on above: PATIENT WAS FASTINGP ERFORMED BY: FAITH Labcolexi BatresKtrtvt5323 [address] RoadDublin [place] [id number] Neutrophils (Bld) [#/Vol] 2.6 10*3/uL Normal 1.4-7.0 [facility]; [facility] Work Phone: Comment on above: PATIENT WAS FASTINGP ERFORMED BY: FAITH Labcolexi Muzrqa5980 [address] RoadDublin [place] [id number] Neutrophils/100 WBC (Bld) 60 % Normal [facility]; [facility] Work Phone: Comment on above: PATIENT WAS FASTINGP ERFORMED BY: FAITH [facility] Hyfgds2651 [address] RoadDublin [place] [id number] Platelets (Bld) [#/Vol] 253 10*3/uL Normal 150-450 [facility]; [facility] Work Phone: Comment on above: PATIENT WAS FASTINGP ERFORMED BY: CB [facility] Hobdmy5389 [address] RoadDublin [place] [id number] RBC (Bld) [#/Vol] 4.57 10*6/uL Normal 3.77-5.28 [facility]; [facility] Work Phone: Comment on above: PATIENT WAS FASTINGP ERFORMED BY: CB [facility] Iujixe2565 [address] RoadDublin [place] [id number] WBC (Bld) [#/Vol] 4.2 10*3/uL Normal 3.4-10.8 Compre [facility]; [facility] Work Phone: Comment on above: PATIENT WAS FASTINGP ERFORMED BY: FAITH Labdarling Brown6[address] RoadDublin [place] [id number] LIPID PANEL ([id number])Ordered B y: Manager Social Work on 03-26-2022 Cholesterol [Mass/Vol] 258 mg/dL Abnormal 100-199 [facility]; [facility] Work Phone: Comment on above: PATIENT WAS FASTINGP ERFORMED BY: FAITH [facility] Eopahp4734 [address] RoadDublin [place] [id number] Cholesterol in HDL [Mass/Vol] 74 mg/dL Normal [facility]; [facility] Work Phone: Comment on above: PATIENT WAS FASTINGP ERFORMED BY: FAITH Labdarling BatresFvhgnx5515 [address] RoadDublin [place] [id number] Triglyceride [Mass/Vol] 166 mg/dL Abnormal 0-149 [facility]; [facility] Work Phone: Comment on above: PATIENT WAS FASTINGP ERFORMED BY: FAITH Labcolexi Elyxlr8542 [address] RoadDublin [place] [id number] LIPID PANEL (03767) 29 mg/dL Normal 5-40 [facility]; [facility] Work Phone: Comment on above: PATIENT WAS FASTINGP ERFORMED BY: FAITH [facility] Aspcjk2823 [address] RoadDublin [place] [id number] LIPID PANEL (51238) 155 mg/dL Abnormal 0-99 [facility]; [facility] Work Phone: Comment on above: PATIENT WAS FASTINGP ERFORMED BY: FAITH [facility] Wsqjvb8991 [address] RoadDublin [place] [id number] LIPID PANEL (07814) 2.1 {ratio} Normal 0.0-3.2 [facility]; [facility] Work Phone: Comment on above: LDL/HDL Ratio Men Wo men 1/2 Avg.Risk 1.0 1.5 Avg.Risk 3.6 3.2 2X Avg.Risk 6.2 5.0 3X Avg.Risk 8.0 6.1 PATIENT WAS FASTINGP ERFORMED BY: FAITH Chante Brown[address] [facility] [place] [id number] METABOLIC PANEL, COMPREHENSI VE (75326)Ordered By: Manager Social Work on 03-26-2022 Albumin [Mass/Vol] 4.8 g/dL Normal 3.8-4.9 [facility]; [facility] Work Phone: Comment on above: PATIENT WAS FASTINGP ERFORMED BY: FAITH Labdarling BatresNoddpb1504 [address] Roadblin [place] [id number] Albumin/Globulin [Mass ratio] 2.0 {ratio} Normal 1.2-2.2 [facility]; [facility] Work Phone: Comment on above: PATIENT WAS FASTINGP ERFORMED BY: FAITH Chante Batreslin[address] [facility]in [place] [id number] ALP [Catalytic activity/Vol] 48 U/L Normal 44-121 [facility]; [facility] Work Phone: Comment on above: PATIENT WAS FASTINGP ERFORMED BY: FAITH Chante Batreslin[address] [facility] [place] [id number] ALT [Catalytic activity/Vol] 19 U/L Normal 0-32 [facility]; [facility] Work Phone: Comment on above: PATIENT WAS FASTINGP ERFORMED BY: FAITH Labdarling Lshgdf[address] [facility]bl[facility] [place] [id number] AST [Catalytic activity/Vol] 20 U/L Normal 0-40 [facility]; [facility] Work Phone: Comment on above: PATIENT WAS FASTINGP ERFORMED BY: FAITH Labdarling BatresSquxsj[address] [facility] [place] [id number] Bilirubin [Mass/Vol] 0.4 mg/dL Normal 0.0-1.2 [facility]; [facility] Work Phone: Comment on above: PATIENT WAS FASTINGP ERFORMED BY: FAITH [facility] Robojr4576 [address] RoadDublin [place] [id number] Calcium [Mass/Vol] 10.1 mg/dL Normal 8.7-10.3 [facility]; [facility] Work Phone: Comment on above: PATIENT WAS FASTINGP ERFORMED BY: [facility] Twbmvu9211 [address] RoadDublin [place] [id number] Chloride [Moles/Vol] 102 mmol/L Normal 96-106 [facility]; [facility] Work Phone: Comment on above: PATIENT WAS FASTINGP ERFORMED BY: [facility] Pkrftv6532 [address] RoadDublin [place] [id number] CO2 [Moles/Vol] 25 mmol/L Normal 20-29 [facility]; [facility] Work Phone: Comment on above: PATIENT WAS FASTINGP ERFORMED BY: [facility] Dspemr0930 [address] RoadDublin [place] [id number] Creatinine [Mass/Vol] 0.83 mg/dL Normal 0.57-1.00 [facility]; [facility] Work Phone: Comment on above: PATIENT WAS FASTINGP ERFORMED BY: [facility] Cxddfp6784 [address] RoadDublin [place] [id number] GFR/1.73 sq M.predicted among non-blacks MDRD (S/P/Bld) [Vol rate/Area] 81 mL/min/{1.73_m2} Normal Comprehensiv e [facility]; [facility] Work Phone: Comment on above: PATIENT WAS FASTINGP ERFORMED BY: [facility] Xbquxl9126 [address] RoadDublin [place] [id number] Globulin (S) [Mass/Vol] 2.4 g/dL Normal 1.5-4.5 [facility]; [facility] Work Phone: Comment on above: PATIENT WAS FASTINGP ERFORMED BY: [facility] Hdfiwt2101 [address] RoadDublin [place] [id number] Glucose [Mass/Vol] 92 mg/dL Normal 65-99 [facility]; [facility] Work Phone: Comment on above: PATIENT WAS FASTINGP ERFORMED BY: CB [facility] Ajudeh7461 [address] RoadDublin [place] [id number] Potassium [Moles/Vol] 4.5 mmol/L Normal 3.5-5.2 [facility]; [facility] Work Phone: Comment on above: PATIENT WAS FASTINGP ERFORMED BY: CB [facility] Jmuglz5720 [address] RoadDublin [place] [id number] Protein [Mass/Vol] 7.2 g/dL Normal 6.0-8.5 [facility]; [facility] Work Phone: Comment on above: PATIENT WAS FASTINGP ERFORMED BY: CB [facility] Ttbeds6147 [address] RoadDublin [place] [id number] Sodium [Moles/Vol] 141 mmol/L Normal 134-144 [facility]; [facility] Work Phone: Comment on above: PATIENT WAS FASTINGP ERFORMED BY: CB [facility] Fuhudy5670 [address] RoadDublin [place] [id number] Urea nitrogen [Mass/Vol] 17 mg/dL Normal 8-27 [facility]; [facility] Work Phone: Comment on above: PATIENT WAS FASTINGP ERFORMED BY: CB [facility] Pwdcqs3408 [address] RoadDublin [place] [id number] Urea nitrogen/Creatinine [Mass ratio] 20 mg/mg Normal 12-28 [facility]; [facility] Work Phone: Comment on above: PATIENT WAS FASTINGP ERFORMED BY: CB [facility] Xakejf8643 [address] RoadDublin [place] [id number] METABOLIC PANEL, COMPREHENSIVE (16746) 81 mL/min/1.73 Normal [facility]; [facility] Work Phone: URINE ANGELINE CULTURE-IDENTIFICA TN ([id number])Ordered By: Manager Social Work on 03-26-2022 Bacteria identified Cx Nom (U) Final report Normal [facility]; [facility] Work Phone: Comment on above: PATIENT NOT FASTINGP ERFORMED BY: FAITH [facility] Ydanqu4186 [address] RoadDublin [place] [id number] Information: SRC:ELINOR Bacteria identified Cx Nom (U) MUG Normal [facility]; [facility] Work Phone: Comment on above: Mixed urogenital joey ra2,000 Colonies/mL PATIENT NOT FASTINGP ERFORMED BY: [facility] Oddogb8937 [address] Roadblin [place] [id number] Information: SRC:ELINOR Vitamin D Hydroxy (61665)Ord ered By: Manager Social Work on 03-26-2022 25-hydroxyvitamin D [Mass/Vol] 39.6 ng/mL Normal 30.0-100.0 [facility]; [facility] Work Phone: Comment on above: Vitamin D deficiency has been defined by the [place] of[place]icine and an Endocrine Society practice guideline as alevel of serum 25-OH vitamin D less than 20 ng/mL (1,2).The Endocrine Society went on to further define vitamin Dinsufficiency as a level between 21 and 29 ng/mL (2).1. IOM ([place] [employer]). 2010. Dietary reference intakes for calcium and D. [place]: The National Academies Press.2. Melony MF, Lisandra NC, Giovanni ARAIZA, et al. Evaluation, treatment, and prevention of vitamin D deficiency: an Endocrine Society clinical practice guideline. JCEM. 2010; 96(7):1911-30. PATIENT WAS FASTINGP ERFORMED BY: [employer] LabTargetXrp Ufcdcv[address] [facility] [place] [id number] CBC, PLATELETS & MANUAL DIFF ([id number])Ordered By: Manager Social Work on 02-12-2022 Basophils (Bld) [#/Vol] 0.0 10*3/uL Normal 0.0-0.2 [facility]; [facility] Work Phone: Comment on above: PATIENT WAS FASTINGP ERFORMED BY: [facility] Ujlmtu1852 [address] RoadDublin [place] [id number]; appt 8/1 Basophils/100 WBC (Bld) 1 % Normal [facility]; [facility] Work Phone: Comment on above: PATIENT WAS FASTINGP ERFORMED BY: FAITH [facility] Ufusel6[address] Roadblin [place] [id number]; appt 02/18 Eosinophils (Bld) [#/Vol] 0.1 10*3/uL Normal 0.0-0.4 [facility]; [facility] Work Phone: Comment on above: PATIENT WAS FASTINGP ERFORMED BY: FAITH [facility] Vyyema1514 [address] RoadNovant Health Presbyterian Medical Centerin [place] [id number]; appt 02/18 Eosinophils/100 WBC (Bld) 3 % Normal [facility]; [facility] Work Phone: Comment on above: PATIENT WAS FASTINGP ERFORMED BY: FAITH Batreslin6[address] [facility] [id number]; appt 02/18 Erythrocyte distribution width (RBC) [Ratio] 13.4 % Normal 11.7-15.4 [facility]; [facility] Work Phone: Comment on above: PATIENT WAS FASTINGP ERFORMED BY: FAITH [facility] Oshfnq4[address] [facility]in [place] [id number]; appt 02/18 Hematocrit (Bld) [Volume fraction] 43.5 % Normal 34.0-46.6 [facility]; [facility] Work Phone: Comment on above: PATIENT WAS FASTINGP ERFORMED BY: FAITH [facility] Uebzob7888 [address] [facility] [id number]; appt 02/18 Hemoglobin (Bld) [Mass/Vol] 14.8 g/dL Normal 11.1-15.9 [facility]; [facility] Work Phone: Comment on above: PATIENT WAS FASTINGP ERFORMED BY: FAITH Labco Mhecsv3417 [address] [facility]in [place] [id number]; appt 02/18 Immature granulocytes (Bld) [#/Vol] 0.0 10*3/uL Normal 0.0-0.1 [facility]; [facility] Work Phone: Comment on above: PATIENT WAS FASTINGP ERFORMED BY: FAITH Sharif Helxbj9746 Randall RoadDublin [place] [id number]; appt 02/18 Immature granulocytes/100 WBC (Bld) 0 % Normal [facility]; [facility] Work Phone: Comment on above: PATIENT WAS FASTINGP ERFORMED BY: Labco Qffgjy5700 [address] RoadDublin [place] [id number]; appt 02/18 Lymphocytes (Bld) [#/Vol] 1.2 10*3/uL Normal 0.7-3.1 [facility]; [facility] Work Phone: Comment on above: PATIENT WAS FASTINGP ERFORMED BY: Labco Xeqjno5567 [address] Roadblin [place] [id number]; appt 02/18 Lymphocytes/100 WBC (Bld) 27 % Normal [facility]; [facility] Work Phone: Comment on above: PATIENT WAS FASTINGP ERFORMED BY: LabMercy McCune-Brooks HospitalBilttk6906 Randall RoadNovant Health Presbyterian Medical Centerin [place] [id number]; appt 02/18 MCH (RBC) [Entitic mass] 30.8 pg Normal 26.6-33.0 [facility]; [facility] Work Phone: Comment on above: PATIENT WAS FASTINGP ERFORMED BY: [facility] Firipr8157 [address] [facility] Systembl[facility] [place] [id number]; appt 02/18 MCHC (RBC) [Mass/Vol] 34.0 g/dL Normal 31.5-35.7 [facility]; [facility] Work Phone: Comment on above: PATIENT WAS FASTINGP ERFORMED BY: [facility]co Uixfhw6819 [address] RoadDublin [place] [id number]; appt 02/18 MCV (RBC) [Entitic vol] 91 fL Normal 79-97 [facility]; [facility] Work Phone: Comment on above: PATIENT WAS FASTINGP ERFORMED BY: [facility] Jacrve1846 [address] RoadDublin [place] [id number]; appt 02/18 Monocytes (Bld) [#/Vol] 0.3 10*3/uL Normal 0.1-0.9 [facility]; [facility] Work Phone: Comment on above: PATIENT WAS FASTINGP ERFORMED BY: FAITH Labcolexi BatresUbyttf7578 Randall RoadJohnblin [place] [id number]; appt 8/1 Monocytes/100 WBC (Bld) 7 % Normal [facility]; [facility] Work Phone: Comment on above: PATIENT WAS FASTINGP ERFORMED BY: CB [facility] Wxquzr1551 [address] RoadDublin [place] [id number]; appt 8/1 Neutrophils (Bld) [#/Vol] 2.8 10*3/uL Normal 1.4-7.0 [facility]; [facility] Work Phone: Comment on above: PATIENT WAS FASTINGP ERFORMED BY: CB [facility] Ivhivi0257 Randall RoadDuin [place] [id number]; appt 8/1 Neutrophils/100 WBC (Bld) 62 % Normal [facility]; [facility] Work Phone: Comment on above: PATIENT WAS FASTINGP ERFORMED BY: CB [facility] Hpttvx2552 [address] Roadblin [place] [id number]; appt 8/1 Platelets (Bld) [#/Vol] 267 10*3/uL Normal 150-450 [facility]; [facility] Work Phone: Comment on above: PATIENT WAS FASTINGP ERFORMED BY: CB [facility] Rwzqbn7190 Randall RoadDuin [place] [id number]; appt 8/1 RBC (Bld) [#/Vol] 4.80 10*6/uL Normal 3.77-5.28 [facility]; [facility] Work Phone: Comment on above: PATIENT WAS FASTINGP ERFORMED BY: CB [facility] Rfkook3810 [address] RoadDublin [place] [id number]; appt 8/1 WBC (Bld) [#/Vol] 4.5 10*3/uL Normal 3.4-10.8 Compre hensive Internal Medicine; [facility] Work Phone: Comment on above: PATIENT WAS FASTINGP ERFORMED BY: FAITH [facility] Tqhjnx0152 [address] RoadDublin [place] [id number]; appt 02/18 METABOLIC PANEL, COMPREHENSI VE ([id number])Ordered By: Manager Social Work on 02-12-2022 Albumin [Mass/Vol] 5.0 g/dL Abnormal 3.8-4.9 [facility]; [facility] Work Phone: Comment on above: PATIENT WAS FASTINGP ERFORMED BY: FAITH [facility] Mnbflq9160 [address] RoadDublin [place] [id number] Albumin/Globulin [Mass ratio] 2.0 {ratio} Normal 1.2-2.2 [facility]; [facility] Work Phone: Comment on above: PATIENT WAS FASTINGP ERFORMED BY: FAITH [facility] Jcwjjx4147 [address] RoadDublin [place] [id number] ALP [Catalytic activity/Vol] 51 U/L Normal 44-121 [facility]; [facility] Work Phone: Comment on above: PATIENT WAS FASTINGP ERFORMED BY: FAITH [facility] Fwsrvd8214 [address] RoadDublin [place] [id number] ALT [Catalytic activity/Vol] 22 U/L Normal 0-32 [facility]; [facility] Work Phone: Comment on above: PATIENT WAS FASTINGP ERFORMED BY: CB [facility] Qmpifo8162 [address] RoadDublin [place] [id number] AST [Catalytic activity/Vol] 23 U/L Normal 0-40 [facility]; [facility] Work Phone: Comment on above: PATIENT WAS FASTINGP ERFORMED BY: CB [facility] Zigcvi4401 [address] RoadDublin [place] [id number] Bilirubin [Mass/Vol] 0.6 mg/dL Normal 0.0-1.2 [facility] Internal Medicine; [facility] Work Phone: Comment on above: PATIENT WAS FASTINGP ERFORMED BY: CB [facility] Gpurou7841 [address] RoadDublin [place] [id number] Calcium [Mass/Vol] 9.8 mg/dL Normal 8.7-10.3 [facility] Internal [facility]; [facility] Work Phone: Comment on above: PATIENT WAS FASTINGP ERFORMED BY: [facility] Hbmejx8561 [address] RoadDublin [place] [id number] Chloride [Moles/Vol] 102 mmol/L Normal 96-106 [facility]ensive [facility]; [facility] Work Phone: Comment on above: PATIENT WAS FASTINGP ERFORMED BY: [facility] Sajtdg2959 [address] Roadblin [place] [id number] CO2 [Moles/Vol] 24 mmol/L Normal 20-29 [facility]preheisenhower [facility]; [facility] Work Phone: Comment on above: PATIENT WAS FASTINGP ERFORMED BY: LabMercy McCune-Brooks HospitalIjpfbv6578 [address] Roadblin [place] [id number] Creatinine [Mass/Vol] 0.83 mg/dL Normal 0.57-1.00 [facility]; [facility] Work Phone: Comment on above: PATIENT WAS FASTINGP ERFORMED BY: Labdeaconess [facility] Txaubk8515 [address] [facility] Systembl[facility] [place] [id number] GFR/1.73 sq M.predicted among non-blacks MDRD (S/P/Bld) [Vol rate/Area] 81 mL/min/{1.73_m2} Normal Comprehensiv e Internal Medicine; [facility] Work Phone: Comment on above: PATIENT WAS FASTINGP ERFORMED BY: Labdeaconess [facility] Hbztrz0650 [address] [facility] Systembl[facility] [place] [id number] Globulin (S) [Mass/Vol] 2.5 g/dL Normal 1.5-4.5 [facility]; [facility] Work Phone: Comment on above: PATIENT WAS FASTINGP ERFORMED BY: Labco Mlmbmp0729 [address] [facility] HospitalDublin [place] [id number] Glucose [Mass/Vol] 95 mg/dL Normal 65-99 [facility] Medicine; [facility] Work Phone: Comment on above: PATIENT WAS FASTINGP ERFORMED BY: CB [facility] Ivnkdb3050 [address] RoadDublin [place] [id number] Potassium [Moles/Vol] 4.4 mmol/L Normal 3.5-5.2 [facility]; [facility] Work Phone: Comment on above: PATIENT WAS FASTINGP ERFORMED BY: CB [facility] Jepydf3556 [address] RoadDublin [place] [id number] Protein [Mass/Vol] 7.5 g/dL Normal 6.0-8.5 [facility] Internal [facility]; [facility] Work Phone: Comment on above: PATIENT WAS FASTINGP ERFORMED BY: CB [facility] Tfqgsg5859 [address] RoadDublin [place] [id number] Sodium [Moles/Vol] 140 mmol/L Normal 134-144 [facility] Internal Medicine; [facility] Work Phone: Comment on above: PATIENT WAS FASTINGP ERFORMED BY: CB [facility] Mlmipk8590 [address] RoadDublin [place] [id number] Urea nitrogen [Mass/Vol] 12 mg/dL Normal 8-27 [facility]; [facility] Work Phone: Comment on above: PATIENT WAS FASTINGP ERFORMED BY: CB [facility] Fxcjkp2565 [address] RoadDublin [place] [id number] Urea nitrogen/Creatinine [Mass ratio] 14 mg/mg Normal 12-28 [facility]; [facility] Work Phone: Comment on above: PATIENT WAS FASTINGP ERFORMED BY: CB [facility] Vwfnai3206 [address] RoadDublin [place] [id number] METABOLIC PANEL, COMPREHENSIVE (96129) 81 mL/min/1.73 Normal [facility]; [facility] Work Phone: CORONAVIRUS PCR - [facility] 12-14-2021 SARS-CoV-2 (COVID-19) RNA POLO+probe Ql (Unsp spec) Negative Normal NORMAL: NEGATIVE [facility] Comment on above: Performed By: #### [id number] #### [facility],[address] [place] [address] SEND TO ? YES Normal [facility] Comment on above: Result Comment: NANI DUONG FAXED TO INFECTION CONTROL. SARS-CoV-2 THIS TEST IS BEING USED UNDER THE FDA EUA PROCEDURE. THIS ASSAY HAS BEEN VALIDATED IN THE [facility] FOR USE WITH NASOPHARYNGEAL SPECIMENS IN [facility]. [facility] TEST RESULTS SHOULD ALWAYS BE CONSIDERED IN THE CONTEXT OF CLINICAL OBSERVATIONS AND EPIDEMIOLOGICAL DATA IN MAKING FINAL DIAGNOSIS AND PATIENT MANAGEMENT DECISIONS. PATIENT MANAGEMENT SHOULD FOLLOW CURRENT CDC GUIDELINES. A POSITIVE TEST RESULT FOR COVID-19 INDICATES THAT RNA FROM SARS-CoV-2 WAS DETECTED, AND THE PATIENT IS INFECTED WITH THE VIRUS AND PRESUMED TO BE CONTAGIOUS. A NEGATIVE TEST RESULT FOR THIS TEST MEANS THAT SARS-CoV-2 RNA WAS NOT PRESENT IN THE SPECIMEN ABOVE THE LIMIT OF DETECTION. HOWEVER, A NEGATVIE RESULT DOES NOT RULE OUT COVID-19 AND SHOULD NOT BE USED THE SOLE BASIS FOR TREATMENT OR PATIENT MANAGEMENT DECISIONS. A NEGATIVE RESULT DOES NOT EXCLUDE THE POSSIBILITY OF COVID-19. WHEN DIAGNOSTIC TESTING IS NEGATIVE, THE POSSIBLILTY OF A FALSE NEGATIVE RESULT SHOULD BE CONSIDERED IN THE CONTEXT OF A PATIENT'S RECENT EXPOSURES AND THE PRESENCE OF CLINICAL SIGNS AND SYMPTOMS CONSISTENT WITH COVID-19. THE POSSIBILITY OF A FALSE NEGATIVE RESULT SHOULD ESPECIALLY BE CONSIDERED IF THE PATIENT'S RECENT EXPOSURES OR CLINICAL PRESENTATION INDICATE THAT COVID-19 IS LIKELY, AND DIAGNOSTIC TESTS FOR OTHER CAUSES OF ILLNESS (e.g., OTHER RESPIRATORY ILLNESS) ARE NEGATIVE. IF COVID-19 IS STILL SUSPECTED BASED ON EXPOSURE HISTORY TOGETHER WITH OTHER CLINICAL FINDINGS, RE-TESTED SHOULD BE CONSIDERED BY HEALTHCARE PROVIDERS IN CONSULTATION WITH PUBLIC HEALTH AUTHORITIES. Performed By: #### 2 [id number] #### [facility],[address] [place] [address] 12539 CBC W/AUTO DIFF WBC (53558)O rdered By: Manager Social Work on 04-30-2021 Basophils (Bld) [#/Vol] 0.0 10*3/uL Normal 0.0-0.2 [facility]; [facility] Work Phone: Comment on above: PATIENT WAS FASTINGP ERFORMED BY: LabCoRutgers - University Behavioral HealthCareNsfmnw4650 [facility] [id number] Basophils/100 WBC (Bld) 1 % Normal [facility]; [facility] Work Phone: Comment on above: PATIENT WAS FASTINGP ERFORMED BY: FAITH LabDarling Brown6370 [address] [facility]in [place] [id number] Eosinophils (Bld) [#/Vol] 0.1 10*3/uL Normal 0.0-0.4 [facility]; [facility] Work Phone: Comment on above: PATIENT WAS FASTINGP ERFORMED BY: LabCo Cgouhe9443 [address] RoadNovant Health Presbyterian Medical Centerin [place] [id number] Eosinophils/100 WBC (Bld) 4 % Normal [facility]; [facility] Work Phone: Comment on above: PATIENT WAS FASTINGP ERFORMED BY: LabSaint [facility] Fuyewz4843 [address] [facility] [id number] Erythrocyte distribution width (RBC) [Ratio] 12.6 % Normal 11.7-15.4 [facility]; [facility] Work Phone: Comment on above: PATIENT WAS FASTINGP ERFORMED BY: LabSaint [facility] Wrtvjh9084 [address] [facility] [id number] Hematocrit (Bld) [Volume fraction] 43.7 % Normal 34.0-46.6 [facility]; [facility] Work Phone: Comment on above: PATIENT WAS FASTINGP ERFORMED BY: LabHolland Hospital6370 [address] [facility] [id number] Hemoglobin (Bld) [Mass/Vol] 14.6 g/dL Normal 11.1-15.9 [facility]; [facility] Work Phone: Comment on above: PATIENT WAS FASTINGP ERFORMED BY: LabCo Mojqan2667 Randall RoadNovant Health Presbyterian Medical Centerin [place] [id number] Immature granulocytes (Bld) [#/Vol] 0.0 10*3/uL Normal 0.0-0.1 [facility]; [facility] Work Phone: Comment on above: PATIENT WAS FASTINGP ERFORMED BY: LabHolland Hospital6370 [facility] [id number] Immature granulocytes/100 WBC (Bld) 0 % Normal [facility]; [facility] Work Phone: Comment on above: PATIENT WAS FASTINGP ERFORMED BY: FAITH RenettaSaint Louis University [facility] Pifeyc3473 [facility] [id number] Lymphocytes (Bld) [#/Vol] 0.9 10*3/uL Normal 0.7-3.1 [facility]; [facility] Work Phone: Comment on above: PATIENT WAS FASTINGP ERFORMED BY: FAITH [place] 9646070 [facility] [id number] Lymphocytes/100 WBC (Bld) 29 % Normal [facility]; [facility] Work Phone: Comment on above: PATIENT WAS FASTINGP ERFORMED BY: FAITH [place] 9646070 [facility] [id number] MCH (RBC) [Entitic mass] 30.7 pg Normal 26.6-33.0 [facility]; [facility] Work Phone: Comment on above: PATIENT WAS FASTINGP ERFORMED BY: FAITH [facility]6370 [facility] [id number] MCHC (RBC) [Mass/Vol] 33.4 g/dL Normal 31.5-35.7 [facility]; [facility] Work Phone: Comment on above: PATIENT WAS FASTINGP ERFORMED BY: [place] [id number] [facility] [id number] MCV (RBC) [Entitic vol] 92 fL Normal 79-97 [facility]; [facility] Work Phone: Comment on above: PATIENT WAS FASTINGP ERFORMED BY: FAITH [place] 9646070 [facility] [id number] Monocytes (Bld) [#/Vol] 0.3 10*3/uL Normal 0.1-0.9 [facility]; [facility] Work Phone: Comment on above: PATIENT WAS FASTINGP ERFORMED BY: FAITH [facility] Hospitallin6370 [address] RoadDublin [place] [id number] Monocytes/100 WBC (Bld) 9 % Normal [facility]; [facility] Work Phone: Comment on above: PATIENT WAS FASTINGP ERFORMED BY: FAITH LabJass Jougwe1335 [address] RoadDublin [place] [id number] Neutrophils (Bld) [#/Vol] 1.8 10*3/uL Normal 1.4-7.0 [facility]; [facility] Work Phone: Comment on above: PATIENT WAS FASTINGP ERFORMED BY: LabSaint [facility] Hjqxld4806 Randall RoadDublin [place] [id number] Neutrophils/100 WBC (Bld) 57 % Normal [facility]; [facility] Work Phone: Comment on above: PATIENT WAS FASTINGP ERFORMED BY: LabSaint [facility] Arhars9599 [address] RoadDublin [place] [id number] Platelets (Bld) [#/Vol] 236 10*3/uL Normal 150-450 [facility]; [facility] Work Phone: Comment on above: PATIENT WAS FASTINGP ERFORMED BY: LabSaint [facility] Mugskk1002 [address] Roadblin [place] [id number] RBC (Bld) [#/Vol] 4.75 10*6/uL Normal 3.77-5.28 Compr ehensive Internal Medicine; [facility] Work Phone: Comment on above: PATIENT WAS FASTINGP ERFORMED BY: LabSaint [facility] Btdoey0979 [address] RoadDublin [place] [id number] WBC (Bld) [#/Vol] 3.2 10*3/uL Abnormal 3.4-10.8 Compre hensj[facility] Internal Medicine; [facility] Work Phone: Comment on above: PATIENT WAS FASTINGP ERFORMED BY: LabCo Qobjoc7400 [address] RoadDublin [place] [id number] LIPID PANEL (73647)Ordered B y: Manager Social Work on 04-30-2021 Cholesterol [Mass/Vol] 224 mg/dL Abnormal 100-199 [facility]; [facility] Work Phone: Comment on above: PATIENT WAS FASTINGP ERFORMED BY: FAITH Brown6370 [facility] [id number] Cholesterol in HDL [Mass/Vol] 71 mg/dL Normal [facility]; [facility] Work Phone: Comment on above: PATIENT WAS FASTINGP ERFORMED BY: FAITH Brown6370 [facility] [id number] Triglyceride [Mass/Vol] 95 mg/dL Normal 0-149 [facility]; [facility] Work Phone: Comment on above: PATIENT WAS FASTINGP ERFORMED BY: FAITH Brown6370 [facility] [id number] LIPID PANEL (97704) 1.9 {ratio} Normal 0.0-3.2 Comp [facility]; [facility] Work Phone: Comment on above: LDL/HDL Ratio Men Wo men 1/2 Avg.Risk 1.0 1.5 Avg.Risk 3.6 3.2 2X Avg.Risk 6.2 5.0 3X Avg.Risk 8.0 6.1 PATIENT WAS FASTINGP ERFORMED BY: FAITH Brown6370 [facility] [id number] LIPID PANEL (18948) 136 mg/dL Abnormal 0-99 [facility]; [facility] Work Phone: Comment on above: PATIENT WAS FASTINGP ERFORMED BY: FAITH Batreslin6370 [facility] [id number] LIPID PANEL (60544) 17 mg/dL Normal 5-40 [facility]; [facility] Work Phone: Comment on above: PATIENT WAS FASTINGP ERFORMED BY: FAITH Batreslin6370 [facility] [id number] METABOLIC PANEL, COMPREHENSI VE (60684)Ordered By: Manager Social Work on 04-30-2021 Albumin [Mass/Vol] 4.8 g/dL Normal 3.8-4.9 Compre [facility] Internal Medicine; [facility] Work Phone: Comment on above: PATIENT WAS FASTINGP ERFORMED BY: CB [facility] Eejrzq8358 [address] RoadDublin [place] [id number] Albumin/Globulin [Mass ratio] 2.2 {ratio} Normal 1.2-2.2 [facility]; [facility] Work Phone: Comment on above: PATIENT WAS FASTINGP ERFORMED BY: CB [facility] Csfkqo1816 [address] RoadDublin [place] [id number] ALP [Catalytic activity/Vol] 42 U/L Abnormal 44-121 [facility]; [facility] Work Phone: Comment on above: Please note refere nce interval change PATIENT WAS FASTINGP ERFORMED BY: CB [facility] Atsjxe8154 [address] RoadDublin [place] [id number] ALT [Catalytic activity/Vol] 20 U/L Normal 0-32 [facility]; [facility] Work Phone: Comment on above: PATIENT WAS FASTINGP ERFORMED BY: CB [facility] Jxjrpm2913 [address] RoadDublin [place] [id number] AST [Catalytic activity/Vol] 20 U/L Normal 0-40 [facility]; [facility] Work Phone: Comment on above: PATIENT WAS FASTINGP ERFORMED BY: CB [facility] Sqhrju6111 [address] RoadDublin [place] [id number] Bilirubin [Mass/Vol] 0.4 mg/dL Normal 0.0-1.2 [facility] Internal Medicine; [facility] Work Phone: Comment on above: PATIENT WAS FASTINGP ERFORMED BY: CB [facility] Tgqlsj1475 [address] RoadDublin [place] [id number] Calcium [Mass/Vol] 9.8 mg/dL Normal 8.7-10.2 [facility] Internal Medicine; [facility] Work Phone: Comment on above: PATIENT WAS FASTINGP ERFORMED BY: CB [facility] Qgbwck0109 [address] RoadDublin [place] [id number] Chloride [Moles/Vol] 106 mmol/L Normal 96-106 Comp rehensive Internal Medicine; [facility] Work Phone: Comment on above: PATIENT WAS FASTINGP ERFORMED BY: RenettaSaint Louis University Health [facility] Mxveac7612 [facility] [id number] CO2 [Moles/Vol] 22 mmol/L Normal 20-29 [facility] Internal Medicine; [facility] Work Phone: Comment on above: PATIENT WAS FASTINGP ERFORMED BY: [facility]6370 [facility] [id number] Creatinine [Mass/Vol] 0.67 mg/dL Normal 0.57-1.00 [facility]; [facility] Work Phone: Comment on above: PATIENT WAS FASTINGP ERFORMED BY: [facility]6370 [facility] [id number] GFR/1.73 sq M.predicted among blacks CKD-EPI (S/P/Bld) [Vol rate/Area] 111 mL/min/1.73 Normal [facility]; [facility] Work Phone: Comment on above: Labdeaconess [facility] currently reports eGFR in compliance with the current recommendations of the National Kidney Foundation. [facility] will update reporting as new guidelines are published from the NKF-ASN Task force. PATIENT WAS FASTINGP ERFORMED BY: [facility]6370 [facility] [id number] GFR/1.73 sq M.predicted among non-blacks CKD-EPI (S/P/Bld) [Vol rate/Area] 97 mL/min/1.73 Normal [facility]; [facility] Work Phone: Comment on above: PATIENT WAS FASTINGP ERFORMED BY: LabHolland Hospital6370 [facility] [id number] Globulin (S) [Mass/Vol] 2.2 g/dL Normal 1.5-4.5 [facility]; [facility] Work Phone: Comment on above: PATIENT WAS FASTINGP ERFORMED BY: LabHol[facility] Hospital6370 [facility] [id number] Glucose [Mass/Vol] 90 mg/dL Normal 65-99 [facility] Internal Medicine; [facility] Work Phone: Comment on above: PATIENT WAS FASTINGP ERFORMED BY: FAITH [facility] Jbfhxw1184 [address] RoadDublin [place] [id number] Potassium [Moles/Vol] 4.3 mmol/L Normal 3.5-5.2 [facility]; [facility] Work Phone: Comment on above: PATIENT WAS FASTINGP ERFORMED BY: CB [facility] Pmydeb2390 [address] RoadDublin [place] [id number] Protein [Mass/Vol] 7.0 g/dL Normal 6.0-8.5 [facility] Internal Medicine; [facility] Work Phone: Comment on above: PATIENT WAS FASTINGP ERFORMED BY: CB [facility] Rrwllz1437 [address] RoadDublin [place] [id number] Sodium [Moles/Vol] 142 mmol/L Normal 134-144 [facility] Internal Medicine; [facility] Work Phone: Comment on above: PATIENT WAS FASTINGP ERFORMED BY: CB [facility] Stgmxd1781 [address] RoadDublin [place] [id number] Urea nitrogen [Mass/Vol] 13 mg/dL Normal 6-24 [facility]; [facility] Work Phone: Comment on above: PATIENT WAS FASTINGP ERFORMED BY: CB [facility] Akkowu0490 [address] RoadDublin [place] [id number] Urea nitrogen/Creatinine [Mass ratio] 19 mg/mg Normal 9-23 [facility]; [facility] Work Phone: Comment on above: PATIENT WAS FASTINGP ERFORMED BY: CB [facility] Nxueqq2618 [address] RoadDublin [place] [id number] Vitamin D Hydroxy (46716)Ord ered By: Manager Social Work on 04-30-2021 25-hydroxyvitamin D [Mass/Vol] 36.6 ng/mL Normal 30.0-100.0 [facility]; [facility] Work Phone: Comment on above: Vitamin D deficiency has been defined by the [place] of[place]icine and an Endocrine Society practice guideline as alevel of serum 25-OH vitamin D less than 20 ng/mL (1,2).The Endocrine Society went on to further define vitamin Dinsufficiency as a level between 21 and 29 ng/mL (2).1. IOM ([place] of Medicine). 2010. Dietary reference intakes for calcium and D. [place]: The National Academies Press.2. Melony MF, Lisandra VILLA, Giovanni ARAIZA, et al. Evaluation, treatment, and prevention of vitamin D deficiency: an Endocrine Society clinical practice guideline. JCEM. 2010; 96(7):1911-30. PATIENT WAS FASTINGP ERFORMED BY: [email or web address] [place] [id number] URINE ANGELINE CULTURE-IDENTIFICA [place] (58091)Ordered By: Manager Social Work on 03-22-2021 Bacteria identified Cx Nom (U) MUG Normal [facility]; [facility] Work Phone: Comment on above: Mixed urogenital joey ra300 Colonies/mL PERFORMED BY: [employer] [place] [id number] Information: SRC:UR Bacteria identified Cx Nom (U) Final report Normal [facility]; [facility] Work Phone: Comment on above: PERFORMED BY: [employer] [place] [id number] Information: SRC:UR Urinalysis, Office (80404)on 03-22-2021 Bilirubin Ql (U) Negative Normal Comprehe nsive Internal Medicine; [facility] Work Phone: Glucose Test strip (U) [Mass/Vol] Negative Normal [facility]; [facility] Work Phone: Hemoglobin Ql (U) + Abnormal Compreh ensive [facility]; [facility] Work Phone: Ketones Ql (U) Negative Normal Comprehens karina [facility]; [facility] Work Phone: Leukocyte esterase Test strip Ql (U) Negative Normal [facility]; [facility] Work Phone: Nitrite Ql (U) Negative Normal Comprehens karina [facility]; [facility] Work Phone: pH (U) 6 [pH] Abnormal [facility]; [facility] Work Phone: Protein Ql (U) Negative Normal Comprehens karina [facility]; [facility] Work Phone: Specific gravity (U) [Rel density] 1.010 1 Normal [facility]; [facility] Work Phone: Urobilinogen (24H U) [Mass/Time] Normal Normal [facility]; [facility] Work Phone: CORONAVIRUS PCR - [facility] 03-17-2021 SARS-CoV-2 (COVID-19) RNA POLO+probe Ql (Unsp spec) Positive Critically abnormal NORMAL: NEGATIVE [facility] Comment on above: Result Comment: { CA LLED TO FAXED TO RISHI { READ BACK BY Performed By: #### [id number] #### [facility],[address] [place] [address] SEND TO IC? YES Normal [facility] Comment on above: Result Comment: RESU LTS FAXED TO INFECTION CONTROL. SARS-CoV-2 THIS TEST IS BEING USED UNDER THE FDA EUA PROCEDURE. THIS ASSAY HAS BEEN VALIDATED IN THE [facility] FOR USE WITH NASOPHARYNGEAL SPECIMENS IN [facility]. [facility] TEST RESULTS SHOULD ALWAYS BE CONSIDERED IN THE CONTEXT OF CLINICAL OBSERVATIONS AND EPIDEMIOLOGICAL DATA IN MAKING FINAL DIAGNOSIS AND PATIENT MANAGEMENT DECISIONS. PATIENT MANAGEMENT SHOULD FOLLOW CURRENT CDC GUIDELINES. A POSITIVE TEST RESULT FOR COVID-19 INDICATES THAT RNA FROM SARS-CoV-2 WAS DETECTED, AND THE PATIENT IS INFECTED WITH THE VIRUS AND PRESUMED TO BE CONTAGIOUS. A NEGATIVE TEST RESULT FOR THIS TEST MEANS THAT SARS-CoV-2 RNA WAS NOT PRESENT IN THE SPECIMEN ABOVE THE LIMIT OF DETECTION. HOWEVER, A NEGATVIE RESULT DOES NOT RULE OUT COVID-19 AND SHOULD NOT BE USED THE SOLE BASIS FOR TREATMENT OR PATIENT MANAGEMENT DECISIONS. A NEGATIVE RESULT DOES NOT EXCLUDE THE POSSIBILITY OF COVID-19. WHEN DIAGNOSTIC TESTING IS NEGATIVE, THE POSSIBLILTY OF A FALSE NEGATIVE RESULT SHOULD BE CONSIDERED IN THE CONTEXT OF A PATIENT'S RECENT EXPOSURES AND THE PRESENCE OF CLINICAL SIGNS AND SYMPTOMS CONSISTENT WITH COVID-19. THE POSSIBILITY OF A FALSE NEGATIVE RESULT SHOULD ESPECIALLY BE CONSIDERED IF THE PATIENT'S RECENT EXPOSURES OR CLINICAL PRESENTATION INDICATE THAT COVID-19 IS LIKELY, AND DIAGNOSTIC TESTS FOR OTHER CAUSES OF ILLNESS (e.g., OTHER RESPIRATORY ILLNESS) ARE NEGATIVE. IF COVID-19 IS STILL SUSPECTED BASED ON EXPOSURE HISTORY TOGETHER WITH OTHER CLINICAL FINDINGS, RE-TESTED SHOULD BE CONSIDERED BY HEALTHCARE PROVIDERS IN CONSULTATION WITH PUBLIC HEALTH AUTHORITIES. Performed By: #### [id number] #### [facility],[address] [place] [address] 2018 Novel Coronavirus (COVI D-19), POLO (75196)Ordered By: Manager Social Work on 02-20-20212018 Novel Coronavirus (COVID-19), POLO ([id number]) Detected Abnormal [facility]; [facility] Work Phone: Comment on above: Client Requested Fla gPatients who have a positive COVID-19 test result may now havetreatment options. Treatment options are available for patientswith mild to moderate symptoms and for hospitalized patients.Visit our website at [email or web address] forresources and information.This nucleic acid amplification test was developed and its performancecharacteristics determined by [employer]. Nucleic acidamplification tests include RT-PCR and TMA. This test has not beenFDA cleared or approved. This test has been authorized by FDA underan Emergency Use Authorization (EUA). This test is only authorizedfor the duration of time the declaration that circumstances existjustifying the authorization of the emergency use of in vitrodiagnostic tests for detection of SARS-CoV-2 virus and/or diagnosisof COVID-19 infection under section 564(b)(1) of the Act, 21 U.S.C.360bbb-3(b) (1), unless the authorization is terminated or revokedsooner.When diagnostic testing is negative, the possibility of a falsenegative result should be considered in the context of a patient'srecent exposures and the presence of clinical signs and symptomsconsistent with COVID-19. An individual without symptoms of COVID-19and who is not shedding SARS-CoV-2 virus would expect to have anegative (not detected) result in this assay. PATIENT NOT FASTINGP ERFORMED BY: [facility] Hwvwve4798 [address] [facility] [place] [id number] CBC W/AUTO DIFF WBC (72616)O rdered By: Manager Social Work on 12-27-2020 Basophils (Bld) [#/Vol] 0.0 10*3/uL Normal 0.0-0.2 [facility]; [facility] Work Phone: Comment on above: PATIENT WAS FASTINGP ERFORMED BY: [facility] Jhhdrb3094 Randall RoadNovant Health Presbyterian Medical Centerin [place] [id number] Basophils/100 WBC (Bld) 1 % Normal [facility]; [facility] Work Phone: Comment on above: PATIENT WAS FASTINGP ERFORMED BY: [facility] Rriesz6435 [address] [facility] [id number] Eosinophils (Bld) [#/Vol] 0.1 10*3/uL Normal 0.0-0.4 [facility]; [facility] Work Phone: Comment on above: PATIENT WAS FASTINGP ERFORMED BY: [facility] Fvgtae6479 [address] [facility] [place] [id number] Eosinophils/100 WBC (Bld) 3 % Normal [facility]; [facility] Work Phone: Comment on above: PATIENT WAS FASTINGP ERFORMED BY: [facility] Muewvn0781 [address] [facility] [id number] Erythrocyte distribution width (RBC) [Ratio] 12.9 % Normal 11.7-15.4 [facility]; [facility] Work Phone: Comment on above: PATIENT WAS FASTINGP ERFORMED BY: [facility] Gcuxmy4974 [address] [facility] [id number] Hematocrit (Bld) [Volume fraction] 42.1 % Normal 34.0-46.6 [facility]; [facility] Work Phone: Comment on above: PATIENT WAS FASTINGP ERFORMED BY: [facility] Rqyizz0386 [address] [facility] [id number] Hemoglobin (Bld) [Mass/Vol] 14.2 g/dL Normal 11.1-15.9 [facility]; [facility] Work Phone: Comment on above: PATIENT WAS FASTINGP ERFORMED BY: FAITH Chante Brown6370 [address] [facility] [id number] Immature granulocytes (Bld) [#/Vol] 0.0 10*3/uL Normal 0.0-0.1 [facility]; [facility] Work Phone: Comment on above: PATIENT WAS FASTINGP ERFORMED BY: FAITH RenettaSaint [facility] Xmvpyn4512 [address] [facility] [id number] Immature granulocytes/100 WBC (Bld) 0 % Normal [facility]; [facility] Work Phone: Comment on above: PATIENT WAS FASTINGP ERFORMED BY: FAITH RenettaSaint [facility] Wkmtrf375551 Reed Streetox [facility] [id number] Lymphocytes (Bld) [#/Vol] 1.2 10*3/uL Normal 0.7-3.1 [facility]; [facility] Work Phone: Comment on above: PATIENT WAS FASTINGP ERFORMED BY: FAITH Wilfredo Qlelqe3882 [address] [facility] [id number] Lymphocytes/100 WBC (Bld) 27 % Normal [facility]; [facility] Work Phone: Comment on above: PATIENT WAS FASTINGP ERFORMED BY: FAITH RenettaJoseph V[place] 5645970 [facility] [id number] MCH (RBC) [Entitic mass] 31.1 pg Normal 26.6-33.0 [facility]; [facility] Work Phone: Comment on above: PATIENT WAS FASTINGP ERFORMED BY: [facility]ettaSaint [facility] Rfjfne2547 [address] [facility] [id number] MCHC (RBC) [Mass/Vol] 33.7 g/dL Normal 31.5-35.7 [facility]; [facility] Work Phone: Comment on above: PATIENT WAS FASTINGP ERFORMED BY: FAITH LabKyle Ville [address] [address] [facility]in [place] [id number] MCV (RBC) [Entitic vol] 92 fL Normal 79-97 [facility]; [facility] Work Phone: Comment on above: PATIENT WAS FASTINGP ERFORMED BY: FAITH Wilfredolexi Lnzxna1550 [address] [facility] [place] [id number] Monocytes (Bld) [#/Vol] 0.4 10*3/uL Normal 0.1-0.9 [facility]; [facility] Work Phone: Comment on above: PATIENT WAS FASTINGP ERFORMED BY: FAITH RenettaOhlexi Xobzbr0156 [address] [facility] [place] [id number] Monocytes/100 WBC (Bld) 9 % Normal [facility]; [facility] Work Phone: Comment on above: PATIENT WAS FASTINGP ERFORMED BY: FAITH Batreslin6370 [address] [facility] [id number] Neutrophils (Bld) [#/Vol] 2.6 10*3/uL Normal 1.4-7.0 [facility]; [facility] Work Phone: Comment on above: PATIENT WAS FASTINGP ERFORMED BY: FAITH RenettaDarling Tvjaes0611 [address] [facility] [place] [id number] Neutrophils/100 WBC (Bld) 60 % Normal [facility]; [facility] Work Phone: Comment on above: PATIENT WAS FASTINGP ERFORMED BY: FAITH RenettaJass Evcxke6567 [facility] [id number] Platelets (Bld) [#/Vol] 250 10*3/uL Normal 150-450 [facility]; [facility] Work Phone: Comment on above: PATIENT WAS FASTINGP ERFORMED BY: FAITH [facility] Ywjgqe4390 [address] [facility] [place] [id number] RBC (Bld) [#/Vol] 4.56 10*6/uL Normal 3.77-5.28 [facility]; [facility] Work Phone: Comment on above: PATIENT WAS FASTINGP ERFORMED BY: FAITH [facility] Zjqfrs3740 [address] [facility] [place] [id number] WBC (Bld) [#/Vol] 4.3 10*3/uL Normal 3.4-10.8 [facility]; [facility] Work Phone: Comment on above: PATIENT WAS FASTINGP ERFORMED BY: LabSaint [facility] Cvbozq3301 Randall RoadDublin [place] [id number] LIPID PANEL (40039)Ordered B y: Manager Social Work on 12-27-2020 Cholesterol [Mass/Vol] 225 mg/dL Abnormal 100-199 [facility]; [facility] Work Phone: Comment on above: PATIENT WAS FASTINGP ERFORMED BY: FAITH Wilfredo Oemyei1039 [address] [facility] [place] [id number] Cholesterol in HDL [Mass/Vol] 67 mg/dL Normal [facility]; [facility] Work Phone: Comment on above: PATIENT WAS FASTINGP ERFORMED BY: LabSaint [facility] Aaszar3158 [address] [facility] [place] [id number] Triglyceride [Mass/Vol] 117 mg/dL Normal 0-149 [facility]; [facility] Work Phone: Comment on above: PATIENT WAS FASTINGP ERFORMED BY: LabSaint [facility] Hrbhkm7480 [address] [facility] HospitalDublin [place] [id number] LIPID PANEL (45092) 21 mg/dL Normal 5-40 [facility] Work Phone: Comment on above: PATIENT WAS FASTINGP ERFORMED BY: LabSaint [facility] Asevbf2477 [address] [facility] HospitalDublin [place] [id number] LIPID PANEL (88844) 137 mg/dL Abnormal 0-99 [facility]; [facility] Work Phone: Comment on above: PATIENT WAS FASTINGP ERFORMED BY: [facility]Saint [facility] Yravvf5363 [address] [facility] HospitalDublin [place] [id number] LIPID PANEL (75822) 2.0 {ratio} Normal 0.0-3.2 [facility]; [facility] Work Phone: Comment on above: LDL/HDL Ratio Men Wo men 1/2 Avg.Risk 1.0 1.5 Avg.Risk 3.6 3.2 2X Avg.Risk 6.2 5.0 3X Avg.Risk 8.0 6.1 PATIENT WAS FASTINGP ERFORMED BY: CB [facility] Gwydeg1931 Randall RoadDublin [place] [id number] METABOLIC PANEL, COMPREHENSI VE (00303)Ordered By: Manager Social Work on 12-27-2020 Albumin [Mass/Vol] 4.5 g/dL Normal 3.8-4.9 [facility]; [facility] Work Phone: Comment on above: PATIENT WAS FASTINGP ERFORMED BY: [facility] Baaewx2819 Randall RoadDublin [place] [id number] Albumin/Globulin [Mass ratio] 1.7 {ratio} Normal 1.2-2.2 [facility]; [facility] Work Phone: Comment on above: PATIENT WAS FASTINGP ERFORMED BY: [facility] Tobmrs7435 Randall RoadDublin [place] [id number] ALP [Catalytic activity/Vol] 44 U/L Abnormal 48-121 [facility]; [facility] Work Phone: Comment on above: PATIENT WAS FASTINGP ERFORMED BY: [facility] Utpdok6035 Randall RoadDublin [place] [id number] ALT [Catalytic activity/Vol] 20 U/L Normal 0-32 [facility]; [facility] Work Phone: Comment on above: PATIENT WAS FASTINGP ERFORMED BY: [facility] Wytorn6972 Randall RoadDublin [place] [id number] AST [Catalytic activity/Vol] 21 U/L Normal 0-40 [facility]; [facility] Work Phone: Comment on above: PATIENT WAS FASTINGP ERFORMED BY: [facility] Bpxelg5373 Randall RoadDublin [place] [id number] Bilirubin [Mass/Vol] 0.3 mg/dL Normal 0.0-1.2 [facility]; [facility] Work Phone: Comment on above: PATIENT WAS FASTINGP ERFORMED BY: LabSaint [facility] Bkpkia4432 [address] [facility] [place] [id number] Calcium [Mass/Vol] 9.8 mg/dL Normal 8.7-10.2 [facility]; [facility] Work Phone: Comment on above: PATIENT WAS FASTINGP ERFORMED BY: [facility]Holland [facility]6370 [facility] [id number] Chloride [Moles/Vol] 105 mmol/L Normal 96-106 Comp rehensive Internal Medicine; [facility] Work Phone: Comment on above: PATIENT WAS FASTINGP ERFORMED BY: [facility]Saint [facility] Ejcgit9343 [address] [facility] [id number] CO2 [Moles/Vol] 25 mmol/L Normal 20-29 [facility]; [facility] Work Phone: Comment on above: PATIENT WAS FASTINGP ERFORMED BY: [facility]6370 [facility] [id number] Creatinine [Mass/Vol] 0.85 mg/dL Normal 0.57-1.00 [facility]; [facility] Work Phone: Comment on above: PATIENT WAS FASTINGP ERFORMED BY: [facility]6370 [facility] [id number] GFR/1.73 sq M.predicted among blacks CKD-EPI (S/P/Bld) [Vol rate/Area] 87 mL/min/1.73 Normal [facility]; [facility] Work Phone: Comment on above: [facility] currently reports eGFR in compliance with the current recommendations of the National Kidney Foundation. [facility] will update reporting as new guidelines are published from the NKF-ASN Task force. PATIENT WAS FASTINGP ERFORMED BY: [facility] Hmyrhu1757 [address] [facility]in [place] [id number] GFR/1.73 sq M.predicted among non-blacks CKD-EPI (S/P/Bld) [Vol rate/Area] 75 mL/min/1.73 Normal [facility]; [facility] Work Phone: Comment on above: PATIENT WAS FASTINGP ERFORMED BY: FAITH LabColexi Tilujb6636 Randall RoadDublin [place] [id number] Globulin (S) [Mass/Vol] 2.6 g/dL Normal 1.5-4.5 [facility]; [facility] Work Phone: Comment on above: PATIENT WAS FASTINGP ERFORMED BY: CB [facility] Nvmxef2398 Randall RoadDublin [place] [id number] Glucose [Mass/Vol] 94 mg/dL Normal 65-99 [facility]; [facility] Work Phone: Comment on above: PATIENT WAS FASTINGP ERFORMED BY: FAITH LabColexi BatresJcfppv0214 Randall RoadDublin [place] [id number] Potassium [Moles/Vol] 4.7 mmol/L Normal 3.5-5.2 [facility]; [facility] Work Phone: Comment on above: PATIENT WAS FASTINGP ERFORMED BY: FAITH [facility] Xrnqba2258 Randall RoadDublin [place] [id number] Protein [Mass/Vol] 7.1 g/dL Normal 6.0-8.5 [facility]; [facility] Work Phone: Comment on above: PATIENT WAS FASTINGP ERFORMED BY: [facility] Rdmgfm0001 Randall RoadDublin [place] [id number] Sodium [Moles/Vol] 142 mmol/L Normal 134-144 [facility]; [facility] Work Phone: Comment on above: PATIENT WAS FASTINGP ERFORMED BY: [facility] Covekd4291 Randall RoadDublin [place] [id number] Urea nitrogen [Mass/Vol] 14 mg/dL Normal 6-24 [facility]; [facility] Work Phone: Comment on above: PATIENT WAS FASTINGP ERFORMED BY: CB [facility] Jxykna1810 Randall RoadDublin [place] [id number] Urea nitrogen/Creatinine [Mass ratio] 16 mg/mg Normal 9-23 [facility]; [facility] Work Phone: Comment on above: PATIENT WAS FASTINGP ERFORMED BY: FAITH BarreDarling Brown6370 [facility]IDVid[facility] [id number] Vitamin D Hydroxy (01360)Ord ered By: Manager Social Work on 12-27-2020 25-hydroxyvitamin D [Mass/Vol] 73.0 ng/mL Normal 30.0-100.0 [facility]; [facility] Work Phone: Comment on above: Vitamin D deficiency has been defined by the [place] ofMedicine and an Endocrine Society practice guideline as alevel of serum 25-OH vitamin D less than 20 ng/mL (1,2).The Endocrine Society went on to further define vitamin Dinsufficiency as a level between 21 and 29 ng/mL (2).1. IOM ([place] of [place]). 2010. Dietary reference intakes for calcium and D. [place]: The National Academies Press.2. Melony MF, Lisandra VILLA, Giovanni ARAIZA, et al. Evaluation, treatment, and prevention of vitamin D deficiency: an Endocrine Society clinical practice guideline. JCEM. 2010; 96(7):1911-30. PATIENT WAS FASTINGP ERFORMED BY: FAITH [employer] Cpprrz4365 [address] [facility] [id number] CBC, PLATELETS & MANUAL DIFF (28736)Ordered By: Manager Social Work on 07-03-2020 Basophils (Bld) [#/Vol] 0.0 10*3/uL Normal 0.0-0.2 [facility]; [facility] Work Phone: Comment on above: PATIENT WAS FASTINGP ERFORMED BY: FAITH Snupps Egmyty1989 [facility] [id number] Information: NURSE DRAW Basophils/100 WBC (Bld) 1 % Normal [facility]; [facility] Work Phone: Comment on above: PATIENT WAS FASTINGP ERFORMED BY: FAITH [employer] [address] [employer]6370 [facility] [id number] Information: NURSE DRAW Eosinophils (Bld) [#/Vol] 0.1 10*3/uL Normal 0.0-0.4 [facility]; [facility] Work Phone: Comment on above: PATIENT WAS FASTINGP ERFORMED BY: FAITH Brown6370 [facility] [id number] Information: NURSE DRAW Eosinophils/100 WBC (Bld) 4 % Normal [facility]; [facility] Work Phone: Comment on above: PATIENT WAS FASTINGP ERFORMED BY: FAITH Renetta[address] [id number] Information: NURSE DRAW Erythrocyte distribution width (RBC) [Ratio] 12.6 % Normal 11.7-15.4 [facility]; [facility] Work Phone: Comment on above: PATIENT WAS FASTINGP ERFORMED BY: FAITH RenettaSaint [facility] Lggtlx66[address] [id number] Information: NURSE DRAW Hematocrit (Bld) [Volume fraction] 42.4 % Normal 34.0-46.6 [facility]; [facility] Work Phone: Comment on above: PATIENT WAS FASTINGP ERFORMED BY: FAITH RenettaSaint [facility] Hjhsea6[address] [id number] Information: NURSE DRAW Hemoglobin (Bld) [Mass/Vol] 13.9 g/dL Normal 11.1-15.9 [facility]; [facility] Work Phone: Comment on above: PATIENT WAS FASTINGP ERFORMED BY: [address] [id number] Information: NURSE DRAW Immature granulocytes (Bld) [#/Vol] 0.0 10*3/uL Normal 0.0-0.1 [facility]; [facility] Work Phone: Comment on above: PATIENT WAS FASTINGP ERFORMED BY: FAITH [address] [id number] Information: NURSE DRAW Immature granulocytes/100 WBC (Bld) 0 % Normal [facility]; [facility] Work Phone: Comment on above: PATIENT WAS FASTINGP ERFORMED BY: FAITH [facility]6370 [facility] [id number] Information: NURSE DRAW Lymphocytes (Bld) [#/Vol] 1.3 10*3/uL Normal 0.7-3.1 [facility]; [facility] Work Phone: Comment on above: PATIENT WAS FASTINGP ERFORMED BY: [address] [id number] Information: NURSE DRAW Lymphocytes/100 WBC (Bld) 33 % Normal [facility]; [facility] Work Phone: Comment on above: PATIENT WAS FASTINGP ERFORMED BY: FAITH [address] [id number] Information: NURSE DRAW MCH (RBC) [Entitic mass] 30.6 pg Normal 26.6-33.0 [facility]; [facility] Work Phone: Comment on above: PATIENT WAS FASTINGP ERFORMED BY: [address] [id number] Information: NURSE DRAW MCHC (RBC) [Mass/Vol] 32.8 g/dL Normal 31.5-35.7 [facility]; [facility] Work Phone: Comment on above: PATIENT WAS FASTINGP ERFORMED BY: [address] [id number] Information: NURSE DRAW MCV (RBC) [Entitic vol] 93 fL Normal 79-97 [facility]; [facility] Work Phone: Comment on above: PATIENT WAS FASTINGP ERFORMED BY: [address] [id number] Information: NURSE DRAW Monocytes (Bld) [#/Vol] 0.4 10*3/uL Normal 0.1-0.9 [facility]; [facility] Work Phone: Comment on above: PATIENT WAS FASTINGP ERFORMED BY: [address] [place] [id number] Information: NURSE DRAW Monocytes/100 WBC (Bld) 9 % Normal [facility]; [facility] Work Phone: Comment on above: PATIENT WAS FASTINGP ERFORMED BY: FAITH Villalobos Ngfpgu4917 [facility] [id number] Information: NURSE DRAW Neutrophils (Bld) [#/Vol] 2.1 10*3/uL Normal 1.4-7.0 [facility]; [facility] Work Phone: Comment on above: PATIENT WAS FASTINGP ERFORMED BY: Renetta[address] [id number] Information: NURSE DRAW Neutrophils/100 WBC (Bld) 53 % Normal [facility]; [facility] Work Phone: Comment on above: PATIENT WAS FASTINGP ERFORMED BY: [facility] G[address]ajtt[address] [id number] Information: NURSE DRAW Platelets (Bld) [#/Vol] 258 10*3/uL Normal 150-450 [facility]; [facility] Work Phone: Comment on above: PATIENT WAS FASTINGP ERFORMED BY: FAITH Villalobos Evsoew3618 [facility] [id number] Information: NURSE DRAW RBC (Bld) [#/Vol] 4.54 10*6/uL Normal 3.77-5.28 Compr ehensive Internal Medicine; [facility] Work Phone: Comment on above: PATIENT WAS FASTINGP ERFORMED BY: RenettaJoseph [place] 5645970 [facility] [id number] Information: NURSE DRAW WBC (Bld) [#/Vol] 4.0 10*3/uL Normal 3.4-10.8 Compre [facility]; [facility] Work Phone: Comment on above: PATIENT WAS FASTINGP ERFORMED BY: [place] 7484270 [facility] [id number] Information: NURSE DRAW METABOLIC PANEL, COMPREHENSI VE (32652)Ordered By: Manager Social Work on 07-03-2020 Albumin [Mass/Vol] 4.5 g/dL Normal 3.8-4.9 [facility] Medicine; [facility] Work Phone: Comment on above: PATIENT WAS FASTINGP ERFORMED BY: FAITH [facility] Yretir5661 Randall RoadDublin [place] [id number] Albumin/Globulin [Mass ratio] 1.7 {ratio} Normal 1.2-2.2 [facility]; [facility] Work Phone: Comment on above: PATIENT WAS FASTINGP ERFORMED BY: CB [facility] Bpchae3113 Randall RoadDublin [place] [id number] ALP [Catalytic activity/Vol] 42 U/L Normal 39-117 [facility]; [facility] Work Phone: Comment on above: PATIENT WAS FASTINGP ERFORMED BY: FAITH [facility] Icbjcn4351 [address] RoadDublin [place] [id number] ALT [Catalytic activity/Vol] 22 U/L Normal 0-32 [facility]; [facility] Work Phone: Comment on above: PATIENT WAS FASTINGP ERFORMED BY: FAITH [facility] Bhuast5921 [address] RoadDublin [place] [id number] AST [Catalytic activity/Vol] 22 U/L Normal 0-40 [facility]; [facility] Work Phone: Comment on above: PATIENT WAS FASTINGP ERFORMED BY: [facility] Qdauly6847 [address]nd[address] RoadDublin [place] [id number] Bilirubin [Mass/Vol] 0.4 mg/dL Normal 0.0-1.2 [facility] Internal Medicine; [facility] Work Phone: Comment on above: PATIENT WAS FASTINGP ERFORMED BY: CB [facility] Qddyni2233 [address] RoadDublin [place] [id number] Calcium [Mass/Vol] 9.4 mg/dL Normal 8.7-10.2 [facility]; [facility] Work Phone: Comment on above: PATIENT WAS FASTINGP ERFORMED BY: CB [facility] Emcpoy1602 [address] RoadDublin [place] [id number] Chloride [Moles/Vol] 106 mmol/L Normal 96-106 [facility]; [facility] Work Phone: Comment on above: PATIENT WAS FASTINGP ERFORMED BY: CB [facility] Xlswup1075 [address] RoadDublin [place] [id number] CO2 [Moles/Vol] 22 mmol/L Normal 20-29 [facility] Internal Medicine; [facility] Work Phone: Comment on above: PATIENT WAS FASTINGP ERFORMED BY: CB [facility] Jjrcnh4391 [address] RoadDublin [place] [id number] Creatinine [Mass/Vol] 0.70 mg/dL Normal 0.57-1.00 [facility]; [facility] Work Phone: Comment on above: PATIENT WAS FASTINGP ERFORMED BY: [facility] Hrowyl9795 [address] RoadDublin [place] [id number] GFR/1.73 sq M.predicted among blacks CKD-EPI (S/P/Bld) [Vol rate/Area] 110 mL/min/1.73 Normal [facility]; [facility] Work Phone: Comment on above: PATIENT WAS FASTINGP ERFORMED BY: [facility] Ngcbkk3130 [address] RoadDublin [place] [id number] GFR/1.73 sq M.predicted among non-blacks CKD-EPI (S/P/Bld) [Vol rate/Area] 96 mL/min/1.73 Normal [facility]; [facility] Work Phone: Comment on above: PATIENT WAS FASTINGP ERFORMED BY: CB [facility] Yancrx1487 [address] RoadDublin [place] [id number] Globulin (S) [Mass/Vol] 2.6 g/dL Normal 1.5-4.5 [facility]; [facility] Work Phone: Comment on above: PATIENT WAS FASTINGP ERFORMED BY: CB [facility] Xohmmd8283 Randall RoadDublin [place] [id number] Glucose [Mass/Vol] 98 mg/dL Normal 65-99 [facility] Internal Medicine; [facility] Work Phone: Comment on above: PATIENT WAS FASTINGP ERFORMED BY: LabSaint [facility] Kmagjc0372 [address] [facility] [id number] Potassium [Moles/Vol] 4.1 mmol/L Normal 3.5-5.2 [facility]; [facility] Work Phone: Comment on above: PATIENT WAS FASTINGP ERFORMED BY: [facility] Mtjnge6109 [address] [facility] [id number] Protein [Mass/Vol] 7.1 g/dL Normal 6.0-8.5 [facility] Internal [facility]; [facility] Work Phone: Comment on above: PATIENT WAS FASTINGP ERFORMED BY: LabSaint [facility] Yabrnn0208 [facility] [id number] Sodium [Moles/Vol] 141 mmol/L Normal 134-144 [facility] Internal [facility]; [facility] Work Phone: Comment on above: PATIENT WAS FASTINGP ERFORMED BY: LabSaint [facility] Qcprov9656 [facility] [id number] Urea nitrogen [Mass/Vol] 13 mg/dL Normal 6-24 [facility]; [facility] Work Phone: Comment on above: PATIENT WAS FASTINGP ERFORMED BY: LabSaint [facility] Kytlcv6013 [facility] [id number] Urea nitrogen/Creatinine [Mass ratio] 19 mg/mg Normal 9-23 [facility]; [facility] Work Phone: Comment on above: PATIENT WAS FASTINGP ERFORMED BY: LabSaint [facility] Cjcnuv94[address] [facility]in [place] [id number] CBC W/AUTO DIFF WBC ([id number])O rdered By: Manager Social Work on 02-21-2020 Basophils (Bld) [#/Vol] 0.0 {x10E3/uL} Normal 0.0-0.2 [facility] Work Phone: Comment on above: PATIENT WAS FASTINGP ERFORMED BY: FAITH [facility] Pzwdmg5488 [address] RoadNovant Health Presbyterian Medical Centerin [place] [id number] Basophils (Bld) [#/Vol] 0.0 10*3/uL Normal 0.0-0.2 [facility]; [facility] Work Phone: Comment on above: PATIENT WAS FASTINGP ERFORMED BY: [facility] [facility]in [place] [id number] Basophils/100 WBC (Bld) 1 % Normal [facility] Work Phone: Comment on above: PATIENT WAS FASTINGP ERFORMED BY: [facility]6[address] [facility] [id number] Eosinophils (Bld) [#/Vol] 0.1 {x10E3/uL} Normal 0.0-0.4 [facility] Work Phone: Comment on above: PATIENT WAS FASTINGP ERFORMED BY: [place] 7484270 [address] [facility] [id number] Eosinophils (Bld) [#/Vol] 0.1 10*3/uL Normal 0.0-0.4 [facility]; [facility] Work Phone: Comment on above: PATIENT WAS FASTINGP ERFORMED BY: FAITH [facility] Fvplgo1408 [address] [facility] [id number] Eosinophils/100 WBC (Bld) 2 % Normal [facility] Work Phone: Comment on above: PATIENT WAS FASTINGP ERFORMED BY: [facility]6370 [facility] [id number] Erythrocyte distribution width (RBC) [Ratio] 12.8 % Normal 11.7-15.4 [facility] Work Phone: Comment on above: PATIENT WAS FASTINGP ERFORMED BY: [facility]6370 [facility] [id number] Hematocrit (Bld) [Volume fraction] 42.7 % Normal 34.0-46.6 [facility] Work Phone: Comment on above: PATIENT WAS FASTINGP ERFORMED BY: [facility]6[address] [facility] [id number] Hemoglobin (Bld) [Mass/Vol] 14.4 g/dL Normal 11.1-15.9 [facility] Work Phone: Comment on above: PATIENT WAS FASTINGP ERFORMED BY: [facility]6[address] [facility] [id number] Immature granulocytes (Bld) [#/Vol] 0.0 {x10E3/uL} Normal 0.0-0.1 [facility] Work Phone: Comment on above: PATIENT WAS FASTINGP ERFORMED BY: [place] 7484270 Randall RoadNovant Health Presbyterian Medical Centerin [place] [id number] Immature granulocytes (Bld) [#/Vol] 0.0 10*3/uL Normal 0.0-0.1 [facility]; [facility] Work Phone: Comment on above: PATIENT WAS FASTINGP ERFORMED BY: [place] 7484270 [address] [facility] [id number] Immature granulocytes/100 WBC (Bld) 0 % Normal [facility] Work Phone: Comment on above: PATIENT WAS FASTINGP ERFORMED BY: [place] 7484270 [address] [facility] [id number] Lymphocytes (Bld) [#/Vol] 1.4 {x10E3/uL} Normal 0.7-3.1 [facility] Work Phone: Comment on above: PATIENT WAS FASTINGP ERFORMED BY: [place] 7484270 [address] [facility] [id number] Lymphocytes (Bld) [#/Vol] 1.4 10*3/uL Normal 0.7-3.1 [facility]; [facility] Work Phone: Comment on above: PATIENT WAS FASTINGP ERFORMED BY: [place] 7484270 [address] RoadDublin [place] [id number] Lymphocytes/100 WBC (Bld) 42 % Normal [facility] Work Phone: Comment on above: PATIENT WAS FASTINGP ERFORMED BY: [facility]6370 [facility]in [place] [id number] MCH (RBC) [Entitic mass] 31.2 pg Normal 26.6-33.0 [facility] Work Phone: Comment on above: PATIENT WAS FASTINGP ERFORMED BY: [facility]6370 [facility] [id number] MCHC (RBC) [Mass/Vol] 33.7 g/dL Normal 31.5-35.7 [facility] Work Phone: Comment on above: PATIENT WAS FASTINGP ERFORMED BY: [facility]6370 [facility] [id number] MCV (RBC) [Entitic vol] 92 fL Normal 79-97 [facility] Work Phone: Comment on above: PATIENT WAS FASTINGP ERFORMED BY: [place] 7484270 [facility] [id number] Monocytes (Bld) [#/Vol] 0.3 {x10E3/uL} Normal 0.1-0.9 [facility] Work Phone: Comment on above: PATIENT WAS FASTINGP ERFORMED BY: [facility]6370 [facility] [id number] Monocytes (Bld) [#/Vol] 0.3 10*3/uL Normal 0.1-0.9 [facility]; [facility] Work Phone: Comment on above: PATIENT WAS FASTINGP ERFORMED BY: [facility]6370 [facility]in [place] [id number] Monocytes/100 WBC (Bld) 8 % Normal [facility] Work Phone: Comment on above: PATIENT WAS FASTINGP ERFORMED BY: [facility]Hol[facility]6370 [facility]in [place] [id number] Neutrophils (Bld) [#/Vol] 1.5 {x10E3/uL} Normal 1.4-7.0 [facility] Work Phone: Comment on above: PATIENT WAS FASTINGP ERFORMED BY: CB [facility] Tajclz4627 [address] RoadDublin [place] [id number] Neutrophils (Bld) [#/Vol] 1.5 10*3/uL Normal 1.4-7.0 [facility]; [facility] Work Phone: Comment on above: PATIENT WAS FASTINGP ERFORMED BY: CB [facility] Lecfvi0944 [address] RoadDublin [place] [id number] Neutrophils/100 WBC (Bld) 47 % Normal [facility] Work Phone: Comment on above: PATIENT WAS FASTINGP ERFORMED BY: CB [facility] Qhbfzz0296 [address] RoadDublin [place] [id number] Platelets (Bld) [#/Vol] 236 {x10E3/uL} Normal 150-450 [facility] Work Phone: Comment on above: PATIENT WAS FASTINGP ERFORMED BY: CB [facility] Zrnjhd9413 [address] RoadDublin [place] [id number] Platelets (Bld) [#/Vol] 236 10*3/uL Normal 150-450 [facility]; [facility] Work Phone: Comment on above: PATIENT WAS FASTINGP ERFORMED BY: CB [facility] Sgoqfe7607 [address] RoadDublin [place] [id number] RBC (Bld) [#/Vol] 4.62 {x10E6/uL} Normal 3.77-5.28 [facility] Internal Medicine Work Phone: Comment on above: PATIENT WAS FASTINGP ERFORMED BY: CB [facility] Teehvl0192 [address] RoadDublin [place] [id number] RBC (Bld) [#/Vol] 4.62 10*6/uL Normal 3.77-5.28 [facility] Internal Medicine; [facility] Work Phone: Comment on above: PATIENT WAS FASTINGP ERFORMED BY: CB [facility] Bfjidq2642 [address] RoadDublin [place] [id number] WBC (Bld) [#/Vol] 3.3 {x10E3/uL} Abnormal 3.4-10.8 [facility] prehensive Internal Medicine Work Phone: Comment on above: PATIENT WAS FASTINGP ERFORMED BY: FAITH [facility] Eqgpez7841 [address] RoadDublin [place] [id number] WBC (Bld) [#/Vol] 3.3 10*3/uL Abnormal 3.4-10.8 [facility] Internal Medicine; [facility] Work Phone: Comment on above: PATIENT WAS FASTINGP ERFORMED BY: FAITH [facility] Fnlzkv7169 [address] [facility] HospitalDublin [place] [id number] LIPID PANEL ([id number])Ordered B y: Manager Social Work on 02-21-2020 Cholesterol [Mass/Vol] 184 mg/dL Normal 100-199 [facility] Work Phone: Comment on above: PATIENT WAS FASTINGP ERFORMED BY: FAITH LabColexi BatresOzvkqe5[address] [facility]in [place] [id number] Cholesterol in HDL [Mass/Vol] 60 mg/dL Normal [facility] Work Phone: Comment on above: PATIENT WAS FASTINGP ERFORMED BY: FAITH LabColexi Mtktxj0874 [address] [facility] Systemblin [place] [id number] Cholesterol in LDL [Mass/Vol] 101 mg/dL Abnormal 0-99 [facility] Work Phone: Comment on above: PATIENT WAS FASTINGP ERFORMED BY: FAITH [facility] Lnoycp5383 [facility] [id number] Cholesterol in LDL/Cholesterol in HDL [Mass ratio] 1.7 {ratio} Normal 0.0-3.2 [facility] Work Phone: Comment on above: LDL/HDL Ratio Men Wo men 1/2 Avg.Risk 1.0 1.5 Avg.Risk 3.6 3.2 2X Avg.Risk 6.2 5.0 3X Avg.Risk 8.0 6.1 PATIENT WAS FASTINGP ERFORMED BY: FAITH [facility] Ruwyww4944 [address] RoadDublin [place] [id number] Cholesterol in VLDL [Mass/Vol] 23 mg/dL Normal 5-40 [facility] Work Phone: Comment on above: PATIENT WAS FASTINGP ERFORMED BY: FAITH [facility] Tfazly6933 [address] RoadDublin [place] [id number] Triglyceride [Mass/Vol] 116 mg/dL Normal 0-149 [facility] Work Phone: Comment on above: PATIENT WAS FASTINGP ERFORMED BY: FAITH [facility] Ubduze2779 [address] RoadDublin [place] [id number] METABOLIC PANEL, COMPREHENSI VE (32403)Ordered By: Manager Social Work on 02-21-2020 Albumin [Mass/Vol] 4.7 g/dL Normal 3.8-4.9 [facility] Internal Medicine Work Phone: Comment on above: PATIENT WAS FASTINGP ERFORMED BY: FAITH [facility] Petxfb3503 [address] RoadDublin [place] [id number] Albumin/Globulin [Mass ratio] 2.0 {ratio} Normal 1.2-2.2 [facility] Work Phone: Comment on above: PATIENT WAS FASTINGP ERFORMED BY: [facility] Dmtmrn2320 [address] RoadDublin [place] [id number] ALP [Catalytic activity/Vol] 38 [iU]/L Abnormal 39-117 [facility] Work Phone: Comment on above: PATIENT WAS FASTINGP ERFORMED BY: [facility] Qofvos6254 [address] RoadDublin [place] [id number] ALP [Catalytic activity/Vol] 38 U/L Abnormal 39-117 [facility]; [facility] Work Phone: Comment on above: PATIENT WAS FASTINGP ERFORMED BY: [facility] Zxtxmq7925 [address] RoadDublin [place] [id number] ALT [Catalytic activity/Vol] 16 [iU]/L Normal 0-32 [facility] Work Phone: Comment on above: PATIENT WAS FASTINGP ERFORMED BY: FAITH [facility] Vuhfoz2923 [address] RoadDublin [place] [id number] ALT [Catalytic activity/Vol] 16 U/L Normal 0-32 [facility]; [facility] Work Phone: Comment on above: PATIENT WAS FASTINGP ERFORMED BY: FAITH [facility] Eeavch8706 [address] RoadDublin [place] [id number] AST [Catalytic activity/Vol] 15 [iU]/L Normal 0-40 [facility] Work Phone: Comment on above: PATIENT WAS FASTINGP ERFORMED BY: FAITH [facility] Fafvva5723 [address] RoadDublin [place] [id number] AST [Catalytic activity/Vol] 15 U/L Normal 0-40 [facility]; [facility] Work Phone: Comment on above: PATIENT WAS FASTINGP ERFORMED BY: FAITH [facility] Ctgdfc4300 [address] RoadDublin [place] [id number] Bilirubin [Mass/Vol] 0.4 mg/dL Normal 0.0-1.2 [facility] Work Phone: Comment on above: PATIENT WAS FASTINGP ERFORMED BY: FAITH LabSaint [facility] Bdhpjn9023 [address] RoadDublin [place] [id number] Calcium [Mass/Vol] 9.9 mg/dL Normal 8.7-10.2 [facility] Internal Medicine Work Phone: Comment on above: PATIENT WAS FASTINGP ERFORMED BY: FAITH [facility] Tkrjwb5865 [address] RoadDublin [place] [id number] Chloride [Moles/Vol] 104 mmol/L Normal 96-106 [facility] Internal Medicine Work Phone: Comment on above: PATIENT WAS FASTINGP ERFORMED BY: [facility] Mwmsgf2627 [address] RoadDublin [place] [id number] CO2 [Moles/Vol] 28 mmol/L Normal 20-29 [facility] Internal Medicine Work Phone: Comment on above: PATIENT WAS FASTINGP ERFORMED BY: FAITH [facility] Ykqmhy2696 [address] RoadDublin [place] [id number] Creatinine [Mass/Vol] 0.76 mg/dL Normal 0.57-1.00 [facility] Internal Medicine Work Phone: Comment on above: PATIENT WAS FASTINGP ERFORMED BY: [facility] Qzttfe9825 [address] RoadDublin [place] [id number] GFR/1.73 sq M predicted among blacks CKD-EPI (S/P/Bld) [Vol rate/Area] 100 mL/min/1.73 Normal [facility] Work Phone: Comment on above: PATIENT WAS FASTINGP ERFORMED BY: [facility] Kequxa9002 [facility] [id number] GFR/1.73 sq M predicted among non-blacks CKD-EPI (S/P/Bld) [Vol rate/Area] 87 mL/min/1.73 Normal [facility] Work Phone: Comment on above: PATIENT WAS FASTINGP ERFORMED BY: [place] 7484270 [facility] [id number] Globulin (S) [Mass/Vol] 2.4 g/dL Normal 1.5-4.5 [facility] Work Phone: Comment on above: PATIENT WAS FASTINGP ERFORMED BY: [place] 7484270 [facility] [id number] Glucose [Mass/Vol] 90 mg/dL Normal 65-99 [facility] Internal Medicine Work Phone: Comment on above: PATIENT WAS FASTINGP ERFORMED BY: [facility] Xsrbbd1916 [facility] [id number] Potassium [Moles/Vol] 4.2 mmol/L Normal 3.5-5.2 [facility] Work Phone: Comment on above: PATIENT WAS FASTINGP ERFORMED BY: [facility]6370 [facility] [id number] Protein [Mass/Vol] 7.1 g/dL Normal 6.0-8.5 [facility] Internal Medicine Work Phone: Comment on above: PATIENT WAS FASTINGP ERFORMED BY: [facility]6370 [facility] [id number] Sodium [Moles/Vol] 143 mmol/L Normal 134-144 [facility] Internal Medicine Work Phone: Comment on above: PATIENT WAS FASTINGP ERFORMED BY: [facility]6370 [facility] [id number] Urea nitrogen [Mass/Vol] 8 mg/dL Normal 6-24 [facility] Work Phone: Comment on above: PATIENT WAS FASTINGP ERFORMED BY: [facility]6370 [facility] [id number] Urea nitrogen/Creatinine [Mass ratio] 11 mg/mg Normal 9-23 [facility] Work Phone: Comment on above: PATIENT WAS FASTINGP ERFORMED BY: [facility]6370 [facility] [id number] SARS-CoV-2 Antibody, IgGOrde red By: Manager Social Work on 11-16-2019 SARS-CoV-2 (COVID-19) IgG IA.rapid Ql (S/P/Bld) Negative Normal [facility]; [facility] Work Phone: Comment on above: This sample does not contain detectable SARS-CoV-2 IgG antibodies.This negative result does not rule out SARS-CoV-2 infection.Correlation with epidemiologic risk factors and other clinical andlaboratory findings is recommended. Serologic results should not beused as the sole basis to diagnose or exclude recent [id number].This assay was performed using the Cole SARS-CoV-2 IgG assay.This test has not been reviewed by the Food and Drug Administration. PATIENT NOT FASTINGP ERFORMED BY: Barre[address] [id number] SARS-CoV-2 Antibody, IgG Negative Normal [facility] Work Phone: Comment on above: This sample does not contain detectable SARS-CoV-2 IgG antibodies.This negative result does not rule out SARS-CoV-2 infection.Correlation with epidemiologic risk factors and other clinical andlaboratory findings is recommended. Serologic results should not beused as the sole basis to diagnose or exclude recent [id number].This assay was performed using the Cole SARS-CoV-2 IgG assay.This test has not been reviewed by the Food and Drug Administration. PATIENT NOT FASTINGP ERFORMED BY: [address]re[address] [id number] SARS-CoV-2 Antibody, IgG Negative Normal [facility]; [facility] Work Phone: URINE ANGELINE CULTURE-IDENTIFICA TN ([id number])Ordered By: Manager Social Work on 11-16-2019 Bacteria identified Cx Nom (U) MUG Normal [facility] Work Phone: Comment on above: Mixed urogenital joey ra300 Colonies/mL PATIENT NOT FASTINGP ERFORMED BY: LabDraftMixrp Wzacbh6183WanamakerSpring View Hospital [id number] Information: SRC: Bacteria identified Cx Nom (U) Final report Normal [facility] Work Phone: Comment on above: PATIENT NOT FASTINGP ERFORMED BY: [facility] Lbrdal1449 Tiny PrintsSpring View Hospital [id number] Information: SRC:ELINOR Urinalysis, Office (15040)Or dered By: Elsi Toledo on 11-16-2019 Bilirubin Ql (U) Negative Normal Compre[facility] ns[facility] Work Phone: Bilirubin Ql (U) Negative Normal Compre[facility]; [facility] Work Phone: Glucose Test strip (U) [Mass/Vol] Negative Normal [facility] Work Phone: Glucose Test strip (U) [Mass/Vol] Negative Normal [facility]; [facility] Work Phone: Hemoglobin Ql (U) Negative Normal Compreh ensive [facility] Work Phone: Hemoglobin Ql (U) Negative Normal Compreh ensive [facility]; [facility] Work Phone: Ketones Ql (U) Negative Normal Comprehens [facility] Work Phone: Ketones Ql (U) Negative Normal Comprehens [facility]; [facility] Work Phone: Leukocyte esterase Test strip Ql (U) Negative Normal [facility] Work Phone: Leukocyte esterase Test strip Ql (U) Negative Normal [facility]; [facility] Work Phone: Nitrite Ql (U) Negative Normal Comprehens [facility] Work Phone: Nitrite Ql (U) Negative Normal Comprehens [facility]; [facility] Work Phone: pH (U) 6 [pH] Abnormal [facility] Work Phone: Protein Ql (U) Negative Normal Comprehens [facility] Work Phone: Protein Ql (U) Negative Normal Comprehens [facility]; [facility] Work Phone: Specific gravity (U) [Rel density] 1.020 1 Normal [facility] Work Phone: Urobilinogen (24H U) [Mass/Time] Normal Normal [facility] Work Phone: URINE ANGELINE CULTURE-SAMIR COL C OUNT (77237)Ordered By: Manager Social Work on 07-28-2019 Bacteria identified Cx Nom (U) Final report Normal [facility] Work Phone: Comment on above: PATIENT NOT FASTINGP ERFORMED BY: Conversocial LabHamilton Thorne Jepjrq9592RedHill BiopharmaVidant Pungo Hospital [id number] Information: SRC:UC Bacteria identified Cx Nom (U) MUG Normal [facility] Work Phone: Comment on above: Mixed urogenital joey ra5,000 Colonies/mL PATIENT NOT FASTINGP ERFORMED BY: Mineloader Software Co. LtdVidant Pungo Hospital [id number] Information: SRC:UC Urinalysis, Office (53433)Or dered By: Judith Cadena on 07-28-2019 Bilirubin Ql (U) Negative Normal Compre[facility] ns[facility] Work Phone: Bilirubin Ql (U) Negative Normal Compre[facility] ns[facility]; [facility] Work Phone: Glucose Test strip (U) [Mass/Vol] Negative Normal [facility] Work Phone: Glucose Test strip (U) [Mass/Vol] Negative Normal [facility]; [facility] Work Phone: Hemoglobin Ql (U) + Abnormal Compreh ensive [facility] Medicine Work Phone: Ketones Ql (U) Negative Normal Comprehens [facility] Work Phone: Ketones Ql (U) Negative Normal Comprehens [facility]; [facility] Work Phone: Leukocyte esterase Test strip Ql (U) Negative Normal [facility] Work Phone: Leukocyte esterase Test strip Ql (U) Negative Normal [facility]; [facility] Work Phone: Nitrite Ql (U) Negative Normal Comprehens [facility] Work Phone: Nitrite Ql (U) Negative Normal Comprehens [facility]; [facility] Work Phone: pH (U) 6 [pH] Abnormal [facility] Work Phone: Protein Ql (U) Negative Normal Comprehens [facility] Work Phone: Protein Ql (U) Negative Normal Comprehens [facility]; [facility] Work Phone: Specific gravity (U) [Rel density] 1.030 1 Abnormal [facility] Work Phone: Urobilinogen (24H U) [Mass/Time] Normal Normal [facility] Work Phone: HEPATITIS C ANTIBODY (56665) Ordered By: Manager Social Work on 05-26-2019 HCV Ab Signal/Cutoff IA [Rel units/Vol] {ratio} Normal 0.0-0.9 [facility] Work Phone: Comment on above: Negative: < 0.8 Inde terminate: 0.8 - 0.9 Positive: > 0.9 . The CDC recommends that a positive HCV antibody result be followed up with a HCV Nucleic Acid Amplification test (224827). PATIENT NOT FASTINGP ERFORMED BY: [facility]6[address] [facility] [id number] HCV Ab Signal/Cutoff IA [Rel units/Vol] {ratio} Normal 0.0-0.9 [facility]; [facility] Work Phone: Comment on above: Negative: < 0.8 Inde terminate: 0.8 - 0.9 Positive: > 0.9 . The CDC recommends that a positive HCV antibody result be followed up with a HCV Nucleic Acid Amplification test (875253). PATIENT NOT FASTINGP ERFORMED BY: [employer]6370 inZairAtrium Health Union West [id number] MUMPS IgG (80866)Ordered By: Manager Social Work on 05-26-2019 MuV IgG IA Qn (S) 210.0 AU/mL Normal Compre hensive Internal Medicine Work Phone: Comment on above: Negative <9.0 Equivo delia 9.0 - 10.9 Positive >10.9 A positive result generally indicates past exposure to Mumps virus or previous vaccination. PATIENT NOT FASTINGP ERFORMED BY: Mineloader Software Co. LtdVidant Pungo Hospital [id number] RUBELLA IgG (59931)Ordered B y: Manager Social Work on 05-26-2019 Rubella virus IgG Qn (S) 24.90 {index} Normal [facility] Work Phone: Comment on above: Non-immune <0.90 Equ ivocal 0.90 - 0.99 Immune >0.99 PATIENT NOT FASTINGP ERFORMED BY: [employer]6370 Contractors AIDVidant Pungo Hospital [id number] RUBEOLA IgG ([id number])Ordered B y: Manager Social Work on 05-26-2019 MeV IgG IA Qn (S) 84.2 AU/mL Normal Compreh ensive Internal Medicine Work Phone: Comment on above: Negative <13.5 Equiv ocal 13.5 - 16.4 Positive >16.4 Presence of antibodies to Rubeola is presumptive evidence of immunity except when acute infection is suspected. PATIENT NOT FASTINGP ERFORMED BY: Binfire Vrhumq8742 Contractors AIDVidant Pungo Hospital [id number] URINALYSIS, W/ MICRO (59521) Ordered By: Manager Social Work on 05-26-2019 Appearance (U) Clear Normal Comprehens [facility] Work Phone: Comment on above: PATIENT NOT FASTINGP ERFORMED BY: [employer]6[address] [facility] [id number] Information: SRC:UC Bilirubin Ql (U) Negative Normal Comprehe nsive Internal Medicine Work Phone: Comment on above: PATIENT NOT FASTINGP ERFORMED BY: FAITH Brown[address] RoadDublin [place] [id number] Information: SRC:UC Bilirubin Ql (U) Negative Normal Comprehe nsive [facility]; [facility] Work Phone: Comment on above: PATIENT NOT FASTINGP ERFORMED BY: FAITH Batreslin[address] RoadDublin [place] [id number] Information: SRC:UC Color (U) Yellow Normal [facility] Work Phone: Comment on above: PATIENT NOT FASTINGP ERFORMED BY: FAITH Batreslin[address] RoadDublin [place] [id number] Information: SRC:UC Glucose Ql (U) Negative Normal Comprehens [facility] Work Phone: Comment on above: PATIENT NOT FASTINGP ERFORMED BY: FAITH Batreslin[address] RoadDublin [place] [id number] Information: SRC:UC Glucose Ql (U) Negative Normal Comprehens [facility]; [facility] Work Phone: Comment on above: PATIENT NOT FASTINGP ERFORMED BY: FAITH Batreslin[address] RoadDublin [place] [id number] Information: SRC:UC Hemoglobin Ql (U) Negative Normal Compreh ensive [facility] Work Phone: Comment on above: PATIENT NOT FASTINGP ERFORMED BY: FAITH Batreslin[address] RoadDublin [place] [id number] Information: SRC:UC Hemoglobin Ql (U) Negative Normal Compreh ensive [facility]; [facility] Work Phone: Comment on above: PATIENT NOT FASTINGP ERFORMED BY: FAITH Batreslin[address] RoadDublin [place] [id number] Information: SRC:UC Ketones Ql (U) Negative Normal Comprehens [facility] Work Phone: Comment on above: PATIENT NOT FASTINGP ERFORMED BY: CB [facility] Yehpcy47[address] RoadDublin [place] [id number] Information: SRC:UC Ketones Ql (U) Negative Normal Comprehens [facility]; [facility] Work Phone: Comment on above: PATIENT NOT FASTINGP ERFORMED BY: FAITH [facility] Iawjfn3[address] RoadDublin [place] [id number] Information: SRC:UC Leukocyte esterase Test strip Ql (U) Negative Normal [facility] Work Phone: Comment on above: PATIENT NOT FASTINGP ERFORMED BY: FAITH [facility] Hbbwbs4[address] RoadDublin [place] [id number] Information: SRC:UC Leukocyte esterase Test strip Ql (U) Negative Normal [facility]; [facility] Work Phone: Comment on above: PATIENT NOT FASTINGP ERFORMED BY: FAITH [facility] Efunim5469 [address] RoadDublin [place] [id number] Information: SRC:UC Microscopic observation LM Nom (Urine sed) MICRON Normal [facility] Work Phone: Comment on above: Microscopic follows if indicated. PATIENT NOT FASTINGP ERFORMED BY: FAITH [facility] Tujnbh5740 [address] RoadDublin [place] [id number] Information: SRC:UC Microscopic observation LM Nom (Urine sed) See below: Normal [facility] Work Phone: Comment on above: Microscopic was lisa cated and was performed. PATIENT NOT FASTINGP ERFORMED BY: CB [facility] Kyxraf9327 [address] RoadDublin [place] [id number] Information: SRC:UC Nitrite Ql (U) Negative Normal Comprehens [facility] Work Phone: Comment on above: PATIENT NOT FASTINGP ERFORMED BY: FAITH [facility] Wdlxni5616 [address] RoadDublin [place] [id number] Information: SRC:UC Nitrite Ql (U) Negative Normal Comprehens [facility]; [facility] Work Phone: Comment on above: PATIENT NOT FASTINGP ERFORMED BY: CB [facility] Cztbxn7963 [address] RoadDublin [place] [id number] Information: SRC:UC pH (U) 7.0 [pH] Normal 5.0-7.5 [facility] Work Phone: Comment on above: PATIENT NOT FASTINGP ERFORMED BY: FAITH [facility] Rxuvly2778 [address] RoadNovant Health Presbyterian Medical Centerin [place] [id number] Information: SRC:UC Protein Ql (U) Negative Normal Comprehens [facility] Work Phone: Comment on above: PATIENT NOT FASTINGP ERFORMED BY: CB [facility] Zzcfsp[address] [facility] [id number] Information: SRC:UC Protein Ql (U) Negative Normal Comprehens [facility]; [facility] Work Phone: Comment on above: PATIENT NOT FASTINGP ERFORMED BY: FAITH [facility] Bntlba[address] [facility] [id number] Information: SRC:UC Specific gravity (U) [Rel density] 1.005 1 Normal 1.005-1.03 0 [facility] Work Phone: Comment on above: PATIENT NOT FASTINGP ERFORMED BY: FAITH [facility] Dlsrzc95[address] [facility] [id number] Information: SRC:UC Urobilinogen (U) [Mass/Vol] 0.2 mg/dL Normal 0.2-1.0 [facility]; [facility] Work Phone: Comment on above: PATIENT NOT FASTINGP ERFORMED BY: CB [facility] Vjqojp4319 [address] [facility] [id number] Information: SRC:UC Urobilinogen Test strip (U) [Mass/Vol] 0.2 mg/dL Normal 0.2-1.0 [facility]erensi [facility] Work Phone: Comment on above: PATIENT NOT FASTINGP ERFORMED BY: FAITH [facility] Lffxkn45[address] [facility] [id number] Information: SRC:UC URINE ANGELINE CULTURE (SAMIR COL COUNT) (91314)Ordered By: Manager Social Work on 05-26-2019 Bacteria identified Cx Nom (U) NG36 Normal [facility] Work Phone: Comment on above: No growth in 36 - 48 hours. PATIENT NOT FASTINGP ERFORMED BY: FAITH [facility] Tthwbv1385 [facility] [id number] Bacteria identified Cx Nom (U) Final report Normal [facility] Work Phone: Comment on above: PATIENT NOT FASTINGP ERFORMED BY: FAITH LabCo Tpdpwo6678 [facility] [id number] METABOLIC PANEL, COMPREHENSI VE (85817)Ordered By: Manager Social Work on 04-27-2019 Albumin [Mass/Vol] 4.8 g/dL Normal 3.5-5.5 [facility] Work Phone: Comment on above: PATIENT NOT FASTINGP ERFORMED BY: FAITH LabHolland Hospital6370 [facility] [id number] Information: NURSE DRAW; wellness on 05/26 Albumin/Globulin [Mass ratio] 2.2 {ratio} Normal 1.2-2.2 [facility] Work Phone: Comment on above: PATIENT NOT FASTINGP ERFORMED BY: FAITH LabJass Dmsqhn7036 [facility] [id number] Information: NURSE DRAW; wellness on 05/26 ALP [Catalytic activity/Vol] 41 [iU]/L Normal 39-117 [facility] Work Phone: Comment on above: PATIENT NOT FASTINGP ERFORMED BY: FAITH LabCo Qxrlyl8828 [facility] [id number] Information: NURSE DRAW; wellness on 05/26 ALP [Catalytic activity/Vol] 41 U/L Normal 39-117 [facility]; [facility] Work Phone: Comment on above: PATIENT NOT FASTINGP ERFORMED BY: FAITH LabCo Ieirwv4313 [facility] [id number] Information: NURSE DRAW; wellness on 05/26 ALT [Catalytic activity/Vol] 22 [iU]/L Normal 0-32 [facility] Work Phone: Comment on above: PATIENT NOT FASTINGP ERFORMED BY: FAITH RenettaDarling BatresZxctpx6665 [facility] [id number] Information: NURSE DRAW; wellness on 05/26 ALT [Catalytic activity/Vol] 22 U/L Normal 0-32 [facility]; [facility] Work Phone: Comment on above: PATIENT NOT FASTINGP ERFORMED BY: FAITH Villalobos Teohgz[address] [id number] Information: NURSE DRAW; wellness on 05/26 AST [Catalytic activity/Vol] 22 [iU]/L Normal 0-40 [facility] Work Phone: Comment on above: PATIENT NOT FASTINGP ERFORMED BY: FAITH Batreslin6370 [facility] [id number] Information: NURSE DRAW; wellness on 05/26 AST [Catalytic activity/Vol] 22 U/L Normal 0-40 [facility]; [facility] Work Phone: Comment on above: PATIENT NOT FASTINGP ERFORMED BY: FAITH Villalobos Lidtdr8865 [facility] [id number] Information: NURSE DRAW; wellness on 05/26 Bilirubin [Mass/Vol] 0.6 mg/dL Normal 0.0-1.2 Comp rehensive Internal Medicine Work Phone: Comment on above: PATIENT NOT FASTINGP ERFORMED BY: FAITH Villalobos Wejmro8520 [facility] [id number] Information: NURSE DRAW; wellness on 05/26 Calcium [Mass/Vol] 9.8 mg/dL Normal 8.7-10.2 [facility] Internal Medicine Work Phone: Comment on above: PATIENT NOT FASTINGP ERFORMED BY: FAITH LabJass Delmdq9980 [facility] [id number] Information: NURSE DRAW; wellness on 05/26 Chloride [Moles/Vol] 103 mmol/L Normal 96-106 Comp rehensive Internal Medicine Work Phone: Comment on above: PATIENT NOT FASTINGP ERFORMED BY: FAITH JacksonCo Brqonv2291 [facility] [id number] Information: NURSE DRAW; wellness on 05/26 CO2 [Moles/Vol] 21 mmol/L Normal 20-29 [facility] Internal Medicine Work Phone: Comment on above: PATIENT NOT FASTINGP ERFORMED BY: LabCoMadeline Ville 5723170 [facility] [id number] Information: NURSE DRAW; wellness on 05/26 Creatinine [Mass/Vol] 0.72 mg/dL Normal 0.57-1.00 [facility] Work Phone: Comment on above: PATIENT NOT FASTINGP ERFORMED BY: LabJoseph Ville 5645970 [facility] [id number] Information: NURSE DRAW; wellness on 05/26 GFR/1.73 sq M predicted among blacks CKD-EPI (S/P/Bld) [Vol rate/Area] 108 mL/min/1.73 Normal [facility] Work Phone: Comment on above: PATIENT NOT FASTINGP ERFORMED BY: LabJoseph Ville 5645970 [facility] [id number] Information: NURSE DRAW; wellness on 05/26 GFR/1.73 sq M predicted among non-blacks CKD-EPI (S/P/Bld) [Vol rate/Area] 93 mL/min/1.73 Normal [facility] Work Phone: Comment on above: PATIENT NOT FASTINGP ERFORMED BY: LabJoseph Ville 5645970 [facility] [id number] Information: NURSE DRAW; wellness on 05/26 Globulin (S) [Mass/Vol] 2.2 g/dL Normal 1.5-4.5 [facility] Work Phone: Comment on above: PATIENT NOT FASTINGP ERFORMED BY: LabCo Hwhdkq0446 [facility] [id number] Information: NURSE DRAW; wellness on 05/26 Glucose [Mass/Vol] 96 mg/dL Normal 65-99 [facility] Internal Medicine Work Phone: Comment on above: PATIENT NOT FASTINGP ERFORMED BY: FAITH RenettaJoseph Ville 5645970 [facility] [id number] Information: NURSE DRAW; wellness on 05/26 Potassium [Moles/Vol] 4.3 mmol/L Normal 3.5-5.2 [facility] Internal Medicine Work Phone: Comment on above: PATIENT NOT FASTINGP ERFORMED BY: FAITH RenettaSaint Louis University [facility] Vyspnv[address] [id number] Information: NURSE DRAW; wellness on 05/26 Protein [Mass/Vol] 7.0 g/dL Normal 6.0-8.5 [facility] Internal Medicine Work Phone: Comment on above: PATIENT NOT FASTINGP ERFORMED BY: FAITH RenettaSaint [facility] University [facility] Science Center Rswwdm877[address] [id number] Information: NURSE DRAW; wellness on 05/26 Sodium [Moles/Vol] 141 mmol/L Normal 134-144 [facility] Internal Medicine Work Phone: Comment on above: PATIENT NOT FASTINGP ERFORMED BY: FAITH RenettaJoseph V[place] 5645970 [facility] [id number] Information: NURSE DRAW; wellness on 05/26 Urea nitrogen [Mass/Vol] 11 mg/dL Normal 6-24 [facility] Internal Medicine Work Phone: Comment on above: PATIENT NOT FASTINGP ERFORMED BY: FAITH Renetta[address] [id number] Information: NURSE DRAW; wellness on 05/26 Urea nitrogen/Creatinine [Mass ratio] 15 mg/mg Normal 9-23 [facility] Work Phone: Comment on above: PATIENT NOT FASTINGP ERFORMED BY: FAITH [address] [id number] Information: NURSE DRAW; wellness on 05/26 CBC W/AUTO DIFF WBC (84592)O rdered By: Manager Social Work on 11-30-2018 Basophils #/vol (Bld) 0.0 {x10E3/uL} Normal 0.0-0.2 [facility] Work Phone: Comment on above: PATIENT WAS FASTINGP ERFORMED BY: CB [facility] Jlpunb3435 [address] RoadDublin [place] [id number] Basophils (Bld) [#/Vol] 0.0 10*3/uL Normal 0.0-0.2 [facility]; [facility] Work Phone: Comment on above: PATIENT WAS FASTINGP ERFORMED BY: CB [facility] Juitmq2211 [address] RoadDublin [place] [id number] Basophils/100 WBC (Bld) 1 % Normal [facility] Work Phone: Comment on above: PATIENT WAS FASTINGP ERFORMED BY: CB [facility] Eewvco8963 [address] RoadDublin [place] [id number] Eosinophils #/vol (Bld) 0.1 {x10E3/uL} Normal 0.0-0.4 [facility] Work Phone: Comment on above: PATIENT WAS FASTINGP ERFORMED BY: [facility] Ztfewz0176 [address] RoadDublin [place] [id number] Eosinophils (Bld) [#/Vol] 0.1 10*3/uL Normal 0.0-0.4 [facility]; [facility] Work Phone: Comment on above: PATIENT WAS FASTINGP ERFORMED BY: [facility] Ljhjry9428 [address] RoadDublin [place] [id number] Eosinophils/100 WBC (Bld) 4 % Normal [facility] Work Phone: Comment on above: PATIENT WAS FASTINGP ERFORMED BY: CB [facility] Brenjr4137 [address] RoadDublin [place] [id number] Erythrocyte distribution width Ratio (RBC) 13.8 % Normal 12.3-15.4 [facility] Work Phone: Comment on above: PATIENT WAS FASTINGP ERFORMED BY: CB [facility] Nwqoku9106 [address] RoadDublin [place] [id number] Hematocrit Volume Fraction (Bld) 42.0 % Normal 34.0-46.6 [facility] Work Phone: Comment on above: PATIENT WAS FASTINGP ERFORMED BY: [facility] Mhlrod3844 [address] RoadDublin [place] [id number] Hemoglobin mass conc (Bld) 13.7 g/dL Normal 11.1-15.9 [facility] Work Phone: Comment on above: PATIENT WAS FASTINGP ERFORMED BY: LabCoGila Regional Medical CenterPbxaez4590 [address] RoadDublin [place] [id number] Immature granulocytes #/vol (Bld) 0.0 {x10E3/uL} Normal 0.0-0.1 [facility] Work Phone: Comment on above: PATIENT WAS FASTINGP ERFORMED BY: LabHolland Hospital6[address] Roadblin [place] [id number] Immature granulocytes (Bld) [#/Vol] 0.0 10*3/uL Normal 0.0-0.1 [facility]; [facility] Work Phone: Comment on above: PATIENT WAS FASTINGP ERFORMED BY: LabHolland Hospital6[address] RoadNovant Health Presbyterian Medical Centerin [place] [id number] Immature granulocytes/100 WBC (Bld) 0 % Normal [facility] Work Phone: Comment on above: PATIENT WAS FASTINGP ERFORMED BY: LabHolland Hospital6[address] RoadNovant Health Presbyterian Medical Centerin [place] [id number] Lymphocytes #/vol (Bld) 0.8 {x10E3/uL} Normal 0.7-3.1 [facility] Work Phone: Comment on above: PATIENT WAS FASTINGP ERFORMED BY: Lab[facility] Ttryhd6902 [address] Roadblin [place] [id number] Lymphocytes (Bld) [#/Vol] 0.8 10*3/uL Normal 0.7-3.1 [facility]; [facility] Work Phone: Comment on above: PATIENT WAS FASTINGP ERFORMED BY: [facility] Tpnxjv8979 [address] RoadDublin [place] [id number] Lymphocytes/100 WBC (Bld) 26 % Normal [facility] Work Phone: Comment on above: PATIENT WAS FASTINGP ERFORMED BY: FAITH LabCo Bzrwhs[address] [facility]in [place] [id number] MCH Entitic mass (RBC) 29.8 pg Normal 26.6-33.0 [facility] Work Phone: Comment on above: PATIENT WAS FASTINGP ERFORMED BY: LabCo Hhvanw1034 [address] [facility] [id number] MCHC mass conc (RBC) 32.6 g/dL Normal 31.5-35.7 [facility] Internal Medicine Work Phone: Comment on above: PATIENT WAS FASTINGP ERFORMED BY: FAITH LabCo Afwjsl3223 [address] [facility] [id number] MCV Entitic volume (RBC) 92 fL Normal 79-97 [facility] Work Phone: Comment on above: PATIENT WAS FASTINGP ERFORMED BY: FAITH LabSaint [facility] Center Xyvlur9151 [address] [facility] [id number] Monocytes #/vol (Bld) 0.5 {x10E3/uL} Normal 0.1-0.9 [facility] Work Phone: Comment on above: PATIENT WAS FASTINGP ERFORMED BY: FAITH LabHolland Hospital6[address] [facility] [id number] Monocytes (Bld) [#/Vol] 0.5 10*3/uL Normal 0.1-0.9 [facility]; [facility] Work Phone: Comment on above: PATIENT WAS FASTINGP ERFORMED BY: LabHolland Hospital6370 [address] [facility] [id number] Monocytes/100 WBC (Bld) 15 % Normal [facility] Work Phone: Comment on above: PATIENT WAS FASTINGP ERFORMED BY: LabHolland Hospital6[address] [facility]in [place] [id number] Neutrophils #/vol (Bld) 1.8 {x10E3/uL} Normal 1.4-7.0 [facility] Work Phone: Comment on above: PATIENT WAS FASTINGP ERFORMED BY: FAITH [facility] Cjybxd6279 [address] RoadDublin [place] [id number] Neutrophils (Bld) [#/Vol] 1.8 10*3/uL Normal 1.4-7.0 [facility]; [facility] Work Phone: Comment on above: PATIENT WAS FASTINGP ERFORMED BY: FA[facility] Lcceqm5580 Randall RoadDublin [place] [id number] Neutrophils/100 WBC (Bld) 54 % Normal [facility] Work Phone: Comment on above: PATIENT WAS FASTINGP ERFORMED BY: FAITH [facility] Ziitch0098 [address] RoadDublin [place] [id number] Platelets #/vol (Bld) 268 {x10E3/uL} Normal 150-379 [facility] Work Phone: Comment on above: Effective December 07, 2018 the reference interval for Platelets will be changing to: 0 - 7 d 140 - 396 x10E3/uL 8 - 30 d 139 - 531 x10E3/uL 31 d - 999 yrs 150 - 450 x10E3/uL PATIENT WAS FASTINGP ERFORMED BY: FAITH LabColexi Xojidc2454 [address] [facility] [place] [id number] Platelets (Bld) [#/Vol] 268 10*3/uL Normal 150-379 [facility]; [facility] Work Phone: Comment on above: Effective December 07, 2018 the reference interval for Platelets will be changing to: 0 - 7 d 140 - 396 x10E3/uL 8 - 30 d 139 - 531 x10E3/uL 31 d - 999 yrs 150 - 450 x10E3/uL PATIENT WAS FASTINGP ERFORMED BY: FAITH [facility] Fwowkz6070 Randall RoadDublin [place] [id number] RBC #/vol (Bld) 4.59 {x10E6/uL} Normal 3.77-5.28 Comp [facility] Internal Medicine Work Phone: Comment on above: PATIENT WAS FASTINGP ERFORMED BY: FAITH [facility] Dwbwke8105 [address] [facility] [place] [id number] RBC (Bld) [#/Vol] 4.59 10*6/uL Normal 3.77-5.28 [facility]; [facility] Work Phone: Comment on above: PATIENT WAS FASTINGP ERFORMED BY: [facility]6370 [facility]in [place] [id number] WBC #/vol (Bld) 3.2 {x10E3/uL} Abnormal 3.4-10.8 Compr [facility] Internal Medicine Work Phone: Comment on above: PATIENT WAS FASTINGP ERFORMED BY: [facility]6370 [facility] [place] [id number] WBC (Bld) [#/Vol] 3.2 10*3/uL Abnormal 3.4-10.8 [facility]; [facility] Work Phone: Comment on above: PATIENT WAS FASTINGP ERFORMED BY: [facility]6370 [facility] [id number] LIPID PANEL ([id number])Ordered B y: Manager Social Work on 11-30-2018 Cholesterol in HDL mass conc 58 mg/dL Normal [facility] Work Phone: Comment on above: PATIENT WAS FASTINGP ERFORMED BY: [facility]6370 [facility] [id number]; appt 5/15 Cholesterol in LDL mass conc 105 mg/dL Abnormal 0-99 [facility] Work Phone: Comment on above: PATIENT WAS FASTINGP ERFORMED BY: [facility]6370 [facility] [id number]; appt 5/15 Cholesterol in LDL/Cholesterol in HDL mass ratio 1.8 {ratio} Normal 0.0-3.2 [facility] Work Phone: Comment on above: LDL/HDL Ratio Men Wo men 1/2 Avg.Risk 1.0 1.5 Avg.Risk 3.6 3.2 2X Avg.Risk 6.2 5.0 3X Avg.Risk 8.0 6.1 PATIENT WAS FASTINGP ERFORMED BY: FAITH [facility]6[address] [facility] [place] [id number]; appt 12/02 Cholesterol in VLDL mass conc 18 mg/dL Normal 5-40 [facility] Work Phone: Comment on above: PATIENT WAS FASTINGP ERFORMED BY: FAITH LabDarling BatresUrwlxx5373 [address] [facility] [id number]; appt 12/02 Cholesterol mass conc 181 mg/dL Normal 100-199 [facility] Work Phone: Comment on above: PATIENT WAS FASTINGP ERFORMED BY: FAITH LabDarling BatresGzsixc7248 [address] [facility]in [place] [id number]; appt 12/02 Triglyceride mass conc 88 mg/dL Normal 0-149 [facility] Work Phone: Comment on above: PATIENT WAS FASTINGP ERFORMED BY: FAITH Batreslin6370 [facility] [id number]; appt 12/02 METABOLIC PANEL, COMPREHENSI VE ([id number])Ordered By: Manager Social Work on 11-30-2018 Albumin mass conc 4.6 g/dL Normal 3.5-5.5 Compreh ensive Internal Medicine Work Phone: Comment on above: PATIENT WAS FASTINGP ERFORMED BY: FAITH Batreslin6370 [facility] [id number] Albumin/Globulin mass ratio 2.1 {ratio} Normal 1.2-2.2 [facility] Work Phone: Comment on above: PATIENT WAS FASTINGP ERFORMED BY: FAITH LabDarling BatresAizepl9870 [facility] [id number] ALP [Catalytic activity/Vol] 39 U/L Normal 39-117 [facility]; [facility] Work Phone: Comment on above: PATIENT WAS FASTINGP ERFORMED BY: FAITH LabDarling BatresNltxlf7367 [facility] [id number] ALP enzyme act/vol 39 [iU]/L Normal 39-117 Compre hensive Internal Medicine Work Phone: Comment on above: PATIENT WAS FASTINGP ERFORMED BY: FAITH [facility] Xihomy7[address] RoadDublin [place] [id number] ALT [Catalytic activity/Vol] 22 U/L Normal 0-32 [facility]; [facility] Internal Medicine Work Phone: Comment on above: PATIENT WAS FASTINGP ERFORMED BY: CB [facility] Vdszfw5967 [address] RoadDublin [place] [id number] ALT enzyme act/vol 22 [iU]/L Normal 0-32 [facility] Internal Medicine Work Phone: Comment on above: PATIENT WAS FASTINGP ERFORMED BY: [facility] Ssabug2234 [address] RoadDublin [place] [id number] AST [Catalytic activity/Vol] 28 U/L Normal 0-40 [facility]; [facility] Internal Medicine Work Phone: Comment on above: PATIENT WAS FASTINGP ERFORMED BY: FAITH [facility] Hmgxki9333 [address] RoadDublin [place] [id number] AST enzyme act/vol 28 [iU]/L Normal 0-40 [facility] Internal Medicine Work Phone: Comment on above: PATIENT WAS FASTINGP ERFORMED BY: [facility] Pxjhtt3763 [address] RoadDublin [place] [id number] Bilirubin mass conc 0.4 mg/dL Normal 0.0-1.2 [facility] Internal Medicine Work Phone: Comment on above: PATIENT WAS FASTINGP ERFORMED BY: Lab[facility] Ryqhfc8388 [address] RoadDublin [place] [id number] Calcium mass conc 9.3 mg/dL Normal 8.7-10.2 Compreh [facility] Internal [facility] Work Phone: Comment on above: PATIENT WAS FASTINGP ERFORMED BY: [facility] Fryonn1311 [address] RoadDublin [place] [id number] Chloride molar conc 105 mmol/L Normal 96-106 Compr ensive Internal Medicine Work Phone: Comment on above: PATIENT WAS FASTINGP ERFORMED BY: [facility] Owdrvm7093 [address] RoadDublin [place] [id number] CO2 molar conc 22 mmol/L Normal 20-29 Comprehens karina Internal Medicine Work Phone: Comment on above: PATIENT WAS FASTINGP ERFORMED BY: FAITH [facility] Prlshl5482 [address] RoadDublin [place] [id number] Creatinine mass conc 0.66 mg/dL Normal 0.57-1.00 Comp rehensive Internal Medicine Work Phone: Comment on above: PATIENT WAS FASTINGP ERFORMED BY: FAITH [facility] Ukuwju0789 [address] RoadDublin [place] [id number] GFR/1.73 sq M predicted among blacks CKD-EPI vol rate/area (S/P/Bld) 113 mL/min/1.73 Normal Comprehensiv e Internal Medicine Work Phone: Comment on above: PATIENT WAS FASTINGP ERFORMED BY: FAITH [facility] Kwkxqm5969 [address] RoadDublin [place] [id number] GFR/1.73 sq M predicted among non-blacks CKD-EPI vol rate/area (S/P/Bld) 98 mL/min/1.73 Normal [facility] Work Phone: Comment on above: PATIENT WAS FASTINGP ERFORMED BY: FAITH [facility] Wqoeyy1579 [address] RoadDublin [place] [id number] Globulin mass conc (S) 2.2 g/dL Normal 1.5-4.5 [facility] Internal Medicine Work Phone: Comment on above: PATIENT WAS FASTINGP ERFORMED BY: FAITH [facility] Oedzvr1964 [address] RoadDublin [place] [id number] Glucose mass conc 91 mg/dL Normal 65-99 Compreh ensive Internal Medicine Work Phone: Comment on above: PATIENT WAS FASTINGP ERFORMED BY: FAITH [facility] Qaxghd8690 [address] RoadDublin [place] [id number] Potassium molar conc 4.3 mmol/L Normal 3.5-5.2 Comp rehensive Internal Medicine Work Phone: Comment on above: PATIENT WAS FASTINGP ERFORMED BY: FAITH [facility] Gavblc8102 [address] RoadDublin [place] [id number] Protein mass conc 6.8 g/dL Normal 6.0-8.5 Compreh ensive Internal Medicine Work Phone: Comment on above: PATIENT WAS FASTINGP ERFORMED BY: FAITH [facility] Kivtqu2859 [facility] [id number] Sodium molar conc 141 mmol/L Normal 134-144 Compreh ensive Internal Medicine Work Phone: Comment on above: PATIENT WAS FASTINGP ERFORMED BY: FAITH [facility] Yeyduz1158 [address] marinanowVidant Pungo Hospital [id number] Urea nitrogen mass conc 8 mg/dL Normal 6-24 [facility] Work Phone: Comment on above: PATIENT WAS FASTINGP ERFORMED BY: FAITH [facility] Wbcwrl4041 [facility] [id number] Urea nitrogen/Creatinine mass ratio 12 mg/mg Normal 9- [facility] Work Phone: Comment on above: PATIENT WAS FASTINGP ERFORMED BY: FAITH [facility] Yxedlp7612 [facility] [id number] Rapid Flu (38064 x 2)Ordered By: Elsi Toledo on 11-11-2018 FLUAV Ag IA Ql (Throat) Negative Normal [facility] Work Phone: FLUAV Ag IA Ql (Throat) Negative Normal [facility]; [facility] Work Phone: URINE ANGELINE CULTURE (SAMIR COL COUNT) ([id number])Ordered By: Manager Social Work on 11-11-2018 Bacteria identified Cx Nom (U) Final report Normal [facility] Work Phone: Comment on above: PATIENT NOT FASTINGP ERFORMED BY: FAITH [facility] Tmqyro0913 [facility] [id number] Information: SRC:UC Bacteria identified Cx Nom (U) NG36 Normal [facility] Work Phone: Comment on above: No growth in 36 - 48 hours. PATIENT NOT FASTINGP ERFORMED BY: FAITH [facility] Qfehoo5730 [facility] [id number] Information: SRC:ELINOR Urinalysis, Office ([id number])Or dered By: Elsi Toledo on 11-11-2018 Bilirubin Ql (U) Negative Normal Comprehe nsive Internal Medicine Work Phone: Bilirubin Ql (U) Negative Normal Comprehe nsive Internal Medicine; [facility] Work Phone: Glucose Test strip (U) [Mass/Vol] Negative Normal [facility]; [facility] Work Phone: Glucose Test strip mass conc (U) Negative Normal [facility] Work Phone: Hemoglobin Ql (U) Hemolyzed Trace Normal Co mprehensive Internal Medicine Work Phone: Ketones Ql (U) Negative Normal Comprehens karina Internal Medicine Work Phone: Ketones Ql (U) Negative Normal Comprehens karina Internal Medicine; [facility] Work Phone: Leukocyte esterase Test strip Ql (U) Negative Normal [facility] Work Phone: Leukocyte esterase Test strip Ql (U) Negative Normal [facility]; [facility] Work Phone: Nitrite Ql (U) Negative Normal Comprehens karina Internal Medicine Work Phone: Nitrite Ql (U) Negative Normal Comprehens karina Internal Medicine; [facility] Work Phone: pH (U) 6 [pH] Abnormal [facility] Work Phone: Protein Ql (U) Negative Normal Comprehens karina Internal Medicine Work Phone: Protein Ql (U) Negative Normal Comprehens karina Internal Medicine; [facility] Work Phone: Specific gravity Relative Density (U) 1.030 1 Abnormal Comprehensi ve Internal Medicine Work Phone: Urobilinogen mass/time (24H U) Normal Normal [facility] Work Phone: CBC W/AUTO DIFF WBC (82535)O rdered By: Manager Social Work on 06-16-2018 Basophils #/vol (Bld) 0.0 {x10E3/uL} Normal 0.0-0.2 [facility] Work Phone: Comment on above: PATIENT WAS FASTINGP ERFORMED BY: FAITH LabSaint [facility] Wvbcog2507 Randall RoadDublin [place] [id number] Basophils (Bld) [#/Vol] 0.0 10*3/uL Normal 0.0-0.2 [facility]; [facility] Work Phone: Comment on above: PATIENT WAS FASTINGP ERFORMED BY: LabSaint [facility] Hjkifb3472 Randall RoadDublin [place] [id number] Basophils/100 WBC (Bld) 1 % Normal [facility] Work Phone: Comment on above: PATIENT WAS FASTINGP ERFORMED BY: LabSaint [facility] Xqxcdc5385 [address] Roadblin [place] [id number] Eosinophils #/vol (Bld) 0.1 {x10E3/uL} Normal 0.0-0.4 [facility] Work Phone: Comment on above: PATIENT WAS FASTINGP ERFORMED BY: LabSaint [facility] Nzlikx2081 Randall RoadVidant Pungo Hospital [id number] Eosinophils (Bld) [#/Vol] 0.1 10*3/uL Normal 0.0-0.4 [facility]; [facility] Work Phone: Comment on above: PATIENT WAS FASTINGP ERFORMED BY: FAITH LabSaint [facility] Omhsss[address] [facility] Systemblin [place] [id number] Eosinophils/100 WBC (Bld) 3 % Normal [facility] Work Phone: Comment on above: PATIENT WAS FASTINGP ERFORMED BY: LabSaint [facility] Sjujcs[address] [facility]in [place] [id number] Erythrocyte distribution width Ratio (RBC) 13.8 % Normal 12.3-15.4 [facility] Work Phone: Comment on above: PATIENT WAS FASTINGP ERFORMED BY: LabSaint [facility] Ltkdli9971 [address] [facility]in [place] [id number] Hematocrit Volume Fraction (Bld) 41.5 % Normal 34.0-46.6 [facility] Work Phone: Comment on above: PATIENT WAS FASTINGP ERFORMED BY: FAITH Chante Brown6370 [facility] [id number] Hemoglobin mass conc (Bld) 14.1 g/dL Normal 11.1-15.9 [facility] Work Phone: Comment on above: PATIENT WAS FASTINGP ERFORMED BY: FAITH Chante Batreslin6370 [facility] [id number] Immature granulocytes #/vol (Bld) 0.0 {x10E3/uL} Normal 0.0-0.1 [facility] Work Phone: Comment on above: PATIENT WAS FASTINGP ERFORMED BY: RenettaSaint [facility] Drwyzw7[address] [id number] Immature granulocytes (Bld) [#/Vol] 0.0 10*3/uL Normal 0.0-0.1 [facility]; [facility] Work Phone: Comment on above: PATIENT WAS FASTINGP ERFORMED BY: FAITH Wilfredo Uybavs6[address] [id number] Immature granulocytes/100 WBC (Bld) 0 % Normal [facility] Work Phone: Comment on above: PATIENT WAS FASTINGP ERFORMED BY: FAITH Wilfredo Hcrlhg9005 [facility] [id number] Lymphocytes #/vol (Bld) 1.3 {x10E3/uL} Normal 0.7-3.1 [facility] Work Phone: Comment on above: PATIENT WAS FASTINGP ERFORMED BY: RenettaJoseph V[place] 5645970 [facility] [id number] Lymphocytes (Bld) [#/Vol] 1.3 10*3/uL Normal 0.7-3.1 [facility]; [facility] Work Phone: Comment on above: PATIENT WAS FASTINGP ERFORMED BY: Wilfredo Mizjmf1466 [facility] [id number] Lymphocytes/100 WBC (Bld) 31 % Normal [facility] Work Phone: Comment on above: PATIENT WAS FASTINGP ERFORMED BY: CB LabKyle V[place] [address] [facility]in [place] [id number] MCH Entitic mass (RBC) 31.1 pg Normal 26.6-33.0 [facility] Work Phone: Comment on above: PATIENT WAS FASTINGP ERFORMED BY: FAITH LabDarling BatresPyndzz6244 [address] RoadNovant Health Presbyterian Medical Centerin [place] [id number] MCHC mass conc (RBC) 34.0 g/dL Normal 31.5-35.7 [facility] Internal Medicine Work Phone: Comment on above: PATIENT WAS FASTINGP ERFORMED BY: FAITH LabDarling BatresLeziyy2857 [address] [facility] [id number] MCV Entitic volume (RBC) 92 fL Normal 79-97 [facility] Work Phone: Comment on above: PATIENT WAS FASTINGP ERFORMED BY: FAITH Batreslin6370 [facility] [id number] Monocytes #/vol (Bld) 0.4 {x10E3/uL} Normal 0.1-0.9 [facility] Work Phone: Comment on above: PATIENT WAS FASTINGP ERFORMED BY: FAITH Batreslin6370 [facility] [id number] Monocytes (Bld) [#/Vol] 0.4 10*3/uL Normal 0.1-0.9 [facility]; [facility] Work Phone: Comment on above: PATIENT WAS FASTINGP ERFORMED BY: FAITH [facility] Jztbiy8759 [facility] [id number] Monocytes/100 WBC (Bld) 10 % Normal [facility] Work Phone: Comment on above: PATIENT WAS FASTINGP ERFORMED BY: FAITH LabDarling BatresClsdqa8592 [address] [facility]in [place] [id number] Neutrophils #/vol (Bld) 2.2 {x10E3/uL} Normal 1.4-7.0 [facility] Work Phone: Comment on above: PATIENT WAS FASTINGP ERFORMED BY: FAITH [facility] Haulpl5373 [facility] [id number] Neutrophils (Bld) [#/Vol] 2.2 10*3/uL Normal 1.4-7.0 [facility]; [facility] Work Phone: Comment on above: PATIENT WAS FASTINGP ERFORMED BY: FAITH RenettaDarling BatresXcscwd0032 [address] RoadDublin [place] [id number] Neutrophils/100 WBC (Bld) 55 % Normal [facility] Work Phone: Comment on above: PATIENT WAS FASTINGP ERFORMED BY: FAITH [facility] Irakjj3443 [address] RoadDublin [place] [id number] Platelets #/vol (Bld) 246 {x10E3/uL} Normal 150-379 [facility] Work Phone: Comment on above: PATIENT WAS FASTINGP ERFORMED BY: FAITH Brown6370 [address] Roadbl[address] [place] [id number] Platelets (Bld) [#/Vol] 246 10*3/uL Normal 150-379 [facility]; [facility] Internal Medicine Work Phone: Comment on above: PATIENT WAS FASTINGP ERFORMED BY: FAITH JacksonSaint [facility] Oagiuv1181 [address] RoadDublin [place] [id number] RBC #/vol (Bld) 4.53 {x10E6/uL} Normal 3.77-5.28 [facility] Internal Medicine Work Phone: Comment on above: PATIENT WAS FASTINGP ERFORMED BY: FAITH LabSaint [facility] Wqzuqb9853 [address] [facility] [place] [id number] RBC (Bld) [#/Vol] 4.53 10*6/uL Normal 3.77-5.28 Compr ensive Internal Medicine; [facility] Work Phone: Comment on above: PATIENT WAS FASTINGP ERFORMED BY: FAITH LabSaint [facility] Dmsygf1026 [address] RoadDublin [place] [id number] WBC #/vol (Bld) 4.1 {x10E3/uL} Normal 3.4-10.8 Compr ensive Internal Medicine Work Phone: Comment on above: PATIENT WAS FASTINGP ERFORMED BY: FAITH LabColexi Sgxfxj9769 [address] RoadDublin [place] [id number] WBC (Bld) [#/Vol] 4.1 10*3/uL Normal 3.4-10.8 [facility] Internal Medicine; [facility] Work Phone: Comment on above: PATIENT WAS FASTINGP ERFORMED BY: FAITH LabDarling BatresZpbtbj9754 [address] RoadDublin [place] [id number] LIPID PANEL ([id number])Ordered B y: Manager Social Work on 06-16-2018 Cholesterol in HDL mass conc 69 mg/dL Normal [facility] Work Phone: Comment on above: PATIENT WAS FASTINGP ERFORMED BY: FAITH LabDarling BatresNkfzow[address] [facility]bl[facility] [place] [id number] Cholesterol in LDL mass conc 124 mg/dL Abnormal 0-99 [facility] Work Phone: Comment on above: PATIENT WAS FASTINGP ERFORMED BY: FAITH Batreslin6370 [address] [facility] [place] [id number] Cholesterol in LDL/Cholesterol in HDL mass ratio 1.8 {ratio} Normal 0.0-3.2 [facility] Work Phone: Comment on above: LDL/HDL Ratio Men Wo men 1/2 Avg.Risk 1.0 1.5 Avg.Risk 3.6 3.2 2X Avg.Risk 6.2 5.0 3X Avg.Risk 8.0 6.1 PATIENT WAS FASTINGP ERFORMED BY: FAITH LabDarling BatresSxnjpj1972 [address] [facility] [place] [id number] Cholesterol in VLDL mass conc 24 mg/dL Normal 5-40 [facility] Work Phone: Comment on above: PATIENT WAS FASTINGP ERFORMED BY: FAITH LabDarling Zozxkk9866 [address] [facility] HospitalD[facility] [place] [id number] Cholesterol mass conc 217 mg/dL Abnormal 100-199 [facility] Work Phone: Comment on above: PATIENT WAS FASTINGP ERFORMED BY: FAITH LabDarling Loesxc8329 [address] RoadDublin [place] [id number] Triglyceride mass conc 120 mg/dL Normal 0-149 [facility] Work Phone: Comment on above: PATIENT WAS FASTINGP ERFORMED BY: FAITH [facility] Fxirxo8767 [address] RoadDublin [place] [id number] METABOLIC PANEL, COMPREHENSI VE ([id number])Ordered By: Manager Social Work on 06-16-2018 Albumin mass conc 4.8 g/dL Normal 3.5-5.5 Compreh [facility] Internal Medicine Work Phone: Comment on above: PATIENT WAS FASTINGP ERFORMED BY: CB [facility] Srghmb9159 [address] RoadDublin [place] [id number] Albumin/Globulin mass ratio 2.2 {ratio} Normal 1.2-2.2 [facility] Work Phone: Comment on above: PATIENT WAS FASTINGP ERFORMED BY: CB [facility] Izgmgs3775 [address] RoadDublin [place] [id number] ALP [Catalytic activity/Vol] 37 U/L Abnormal 39-117 [facility]; [facility] Work Phone: Comment on above: PATIENT WAS FASTINGP ERFORMED BY: CB [facility] Rcgsml1069 [address] RoadDublin [place] [id number] ALP enzyme act/vol 37 [iU]/L Abnormal 39-117 [facility] Internal Medicine Work Phone: Comment on above: PATIENT WAS FASTINGP ERFORMED BY: CB [facility] Atfkep8816 [address] RoadDublin [place] [id number] ALT [Catalytic activity/Vol] 14 U/L Normal 0-32 [facility]; [facility] Internal Medicine Work Phone: Comment on above: PATIENT WAS FASTINGP ERFORMED BY: CB [facility] Pfwcsj8500 [address] RoadDublin [place] [id number] ALT enzyme act/vol 14 [iU]/L Normal 0-32 [facility] Internal Medicine Work Phone: Comment on above: PATIENT WAS FASTINGP ERFORMED BY: CB [facility] Xuovkz8639 [address] RoadDublin [place] [id number] AST [Catalytic activity/Vol] 15 U/L Normal 0-40 [facility]; [facility] Work Phone: Comment on above: PATIENT WAS FASTINGP ERFORMED BY: FAITH LabColexi Hbmutk3008 [address] [facility] [id number] AST enzyme act/vol 15 [iU]/L Normal 0-40 Compre hensj[facility] Internal Medicine Work Phone: Comment on above: PATIENT WAS FASTINGP ERFORMED BY: FAITH LabColexi BatresGxkpkb2096 [facility] [id number] Bilirubin mass conc 0.3 mg/dL Normal 0.0-1.2 Compr ehensive Internal Medicine Work Phone: Comment on above: PATIENT WAS FASTINGP ERFORMED BY: FAITH Wilfredolexi Cviake1948 [facility] [id number] Calcium mass conc 9.4 mg/dL Normal 8.7-10.2 Compreh [facility] Internal Medicine Work Phone: Comment on above: PATIENT WAS FASTINGP ERFORMED BY: FAITH Batreslin6370 [facility] [id number] Chloride molar conc 105 mmol/L Normal 96-106 Compr ensive Internal Medicine Work Phone: Comment on above: PATIENT WAS FASTINGP ERFORMED BY: FAITH Wilfredolexi Rzjsbt0625 [facility] [id number] CO2 molar conc 21 mmol/L Normal 20-29 Comprehens karina Internal Medicine Work Phone: Comment on above: PATIENT WAS FASTINGP ERFORMED BY: FAITH LabColexi BatresUugyps8429 [facility] [id number] Creatinine mass conc 0.76 mg/dL Normal 0.57-1.00 Comp [facility] Work Phone: Comment on above: PATIENT WAS FASTINGP ERFORMED BY: FAITH LabColexi Lmzwov4051 [facility] [id number] GFR/1.73 sq M predicted among blacks CKD-EPI vol rate/area (S/P/Bld) 101 mL/min/1.73 Normal Comprehensiv e Internal Medicine Work Phone: Comment on above: PATIENT WAS FASTINGP ERFORMED BY: FAITH LabJasslexi Lrxkhg5379 [facility] [id number] GFR/1.73 sq M predicted among non-blacks CKD-EPI vol rate/area (S/P/Bld) 88 mL/min/1.73 Normal [facility] Work Phone: Comment on above: PATIENT WAS FASTINGP ERFORMED BY: FAITH Batreslin6370 [facility] [id number] Globulin mass conc (S) 2.2 g/dL Normal 1.5-4.5 [facility] Work Phone: Comment on above: PATIENT WAS FASTINGP ERFORMED BY: FAITH RenettaDarling BatresCyruco8195 [facility] [id number] Glucose mass conc 92 mg/dL Normal 65-99 Compreh ensive Internal Medicine Work Phone: Comment on above: PATIENT WAS FASTINGP ERFORMED BY: FAITH Batreslin6370 [facility] [id number] Potassium molar conc 4.3 mmol/L Normal 3.5-5.2 Comp rehensive Internal Medicine Work Phone: Comment on above: PATIENT WAS FASTINGP ERFORMED BY: FAITH RenettaDarling BatresHbcjxi7319 [facility] [id number] Protein mass conc 7.0 g/dL Normal 6.0-8.5 Compreh ensive Internal Medicine Work Phone: Comment on above: PATIENT WAS FASTINGP ERFORMED BY: FAITH LabDarling BatresFsalwj3183 [facility] [id number] Sodium molar conc 143 mmol/L Normal 134-144 Compreh ensive [facility] Medicine Work Phone: Comment on above: PATIENT WAS FASTINGP ERFORMED BY: FAITH LabColexi Sbuckw8988 [facility] [id number] Urea nitrogen mass conc 10 mg/dL Normal 6-24 [facility] Work Phone: Comment on above: PATIENT WAS FASTINGP ERFORMED BY: FAITH LabDarling BatresJwtieo0047 [facility] [id number] Urea nitrogen/Creatinine mass ratio 13 mg/mg Normal 9- [facility] Work Phone: Comment on above: PATIENT WAS FASTINGP ERFORMED BY: CB [facility] Ioxsbc1049 [address] RoadDublin [place] [id number] URINE ANGELINE CULTURE-IDENTIFICA [place] (23595)Ordered By: Manager Social Work on 06-16-2018 Bacteria identified Cx Nom (U) NG36 Normal [facility] Work Phone: Comment on above: No growth in 36 - 48 hours. PATIENT NOT FASTINGP ERFORMED BY: CB [facility] Hbxiob6064 [address] RoadFort [place] [id number] Information: SRC:UC Bacteria identified Cx Nom (U) Final report Normal [facility] Work Phone: Comment on above: PATIENT NOT FASTINGP ERFORMED BY: CB [facility] Ndisjp1046 [address] RoadFort [address] [id number] Information: SRC:UC URINE ANGELINE CULTURE-IDENTIFICA [place] (31156)Ordered By: Manager Social Work on 02-25-2018 Bacteria identified Cx Nom (U) Final report Abnormal [facility] Work Phone: Comment on above: PATIENT NOT FASTINGP ERFORMED BY: CB [facility] Oanfaf9504 [address] marinanowVid[facility] [id number] Information: SRC:UC Bacteria identified Cx Nom (U) Escherichia coli Abnormal [facility] Work Phone: Comment on above: 900 Colonies/mLCefaz manjinder with an SADE <=16 predicts susceptibility to the oral agentscefaclor, cefdinir, cefpodoxime, cefprozil, cefuroxime, cephalexin,and loracarbef when used for therapy of uncomplicated urinary tractinfections due to E. coli, Klebsiella pneumoniae, and Proteusmirabilis. PATIENT NOT FASTINGP ERFORMED BY: CB [facility] Isuiru9341 [facility] [id number] Information: SRC:UC Other Antibiotic susc MIHEAD Normal [facility] Work Phone: Comment on above: S = Susceptible; I = Intermediate; R = Resistant P = Positive; N = Negative MICS are expressed in micrograms per mL Antibiotic RSLT#1 RSLT#2 RSLT#3 RSLT#4Amoxicillin/Clavulanic Acid SAmpicillin RCefazolin SCefepime RCeftriaxone RCefuroxime RCiprofloxacin SErtapenem SGentamicin SImipenem SLevofloxacin SMeropenem SNitrofurantoin SPiperacillin/Tazobactam ITetracycline STobramycin STrimethoprim/Sulfa R PATIENT NOT FASTINGP ERFORMED BY: FAITH [facility] Cyqtto8090 [address] RoadDublin [place] [id number] Information: SRC:ELINOR Urinalysis, Office ([id number])Or dered By: Elsi Toledo on 02-25-2018 Bilirubin Ql (U) Negative Normal Comprehe nsive Internal Medicine Work Phone: Bilirubin Ql (U) Negative Normal Comprehe nsive Internal Medicine; [facility] Work Phone: Glucose Test strip (U) [Mass/Vol] Negative Normal [facility]; [facility] Work Phone: Glucose Test strip mass conc (U) Negative Normal [facility] Work Phone: Hemoglobin Ql (U) Hemolyzed Trace Normal Co mprehensive [facility] Work Phone: Ketones Ql (U) Negative Normal Comprehens karina [facility] Work Phone: Ketones Ql (U) Negative Normal Comprehens karina [facility]; [facility] Work Phone: Leukocyte esterase Test strip Ql (U) Negative Normal [facility] Work Phone: Leukocyte esterase Test strip Ql (U) Negative Normal [facility]; [facility] Work Phone: Nitrite Ql (U) Negative Normal Comprehens karina [facility] Work Phone: Nitrite Ql (U) Negative Normal Comprehens karina [facility]; [facility] Work Phone: pH (U) 6 [pH] Abnormal [facility] Work Phone: Protein Ql (U) Negative Normal Comprehens karina [facility] Work Phone: Protein Ql (U) Negative Normal Comprehens karina [facility]; [facility] Work Phone: Specific gravity Relative Density (U) 1.010 1 Normal Comprehensi ve Internal Medicine Work Phone: Urobilinogen mass/time (24H U) Normal Normal [facility] Work Phone: CBC W/AUTO DIFF WBC (17804)O rdered By: Manager Social Work on 01-28-2018 Basophils #/vol (Bld) 0.0 {x10E3/uL} Normal 0.0-0.2 [facility] Work Phone: Comment on above: PATIENT WAS FASTINGP ERFORMED BY: FAITH [facility] Flxcoh9298 [address] RoadDublin [place] [id number] Basophils (Bld) [#/Vol] 0.0 10*3/uL Normal 0.0-0.2 [facility]; [facility] Work Phone: Comment on above: PATIENT WAS FASTINGP ERFORMED BY: LabDraftMixrp Hdrkec5380 [address] RoadDublin [place] [id number] Basophils/100 WBC (Bld) 0 % Normal [facility] Work Phone: Comment on above: PATIENT WAS FASTINGP ERFORMED BY: LabHamilton Thorne Yvupng0612 [address] RoadDublin [place] [id number] Eosinophils #/vol (Bld) 0.1 {x10E3/uL} Normal 0.0-0.4 [facility] Work Phone: Comment on above: PATIENT WAS FASTINGP ERFORMED BY: Conversocial [facility] Wzfwhv5870 [address] RoadDublin [place] [id number] Eosinophils (Bld) [#/Vol] 0.1 10*3/uL Normal 0.0-0.4 [facility]; [facility] Work Phone: Comment on above: PATIENT WAS FASTINGP ERFORMED BY: [facility] Gzfped9186 [address] RoadDublin [place] [id number] Eosinophils/100 WBC (Bld) 3 % Normal [facility] Work Phone: Comment on above: PATIENT WAS FASTINGP ERFORMED BY: FAITH Villalobos Bmzvpd4466 [facility] [id number] Erythrocyte distribution width Ratio (RBC) 13.7 % Normal 12.3-15.4 [facility] Work Phone: Comment on above: PATIENT WAS FASTINGP ERFORMED BY: [facility]Saint [facility] Dsulhd7500 [facility] [id number] Hematocrit Volume Fraction (Bld) 42.0 % Normal 34.0-46.6 [facility] Work Phone: Comment on above: PATIENT WAS FASTINGP ERFORMED BY: [facility]ettaSaint [facility] Euwbgu1143 [facility] [id number] Hemoglobin mass conc (Bld) 13.8 g/dL Normal 11.1-15.9 [facility] Work Phone: Comment on above: PATIENT WAS FASTINGP ERFORMED BY: [facility]ettaSaint [facility] Pgesdt6279 [facility] [id number] Immature granulocytes #/vol (Bld) 0.0 {x10E3/uL} Normal 0.0-0.1 [facility] Work Phone: Comment on above: PATIENT WAS FASTINGP ERFORMED BY: LabSaint [facility] Igfxax0704 [facility] [id number] Immature granulocytes (Bld) [#/Vol] 0.0 10*3/uL Normal 0.0-0.1 [facility]; [facility] Work Phone: Comment on above: PATIENT WAS FASTINGP ERFORMED BY: [facility]6370 [facility] [id number] Immature granulocytes/100 WBC (Bld) 0 % Normal [facility] Work Phone: Comment on above: PATIENT WAS FASTINGP ERFORMED BY: LabCo Pgilei8415 [facility] [id number] Lymphocytes #/vol (Bld) 1.2 {x10E3/uL} Normal 0.7-3.1 [facility] Work Phone: Comment on above: PATIENT WAS FASTINGP ERFORMED BY: [facility] Jmeaxb7566 [facility] [id number] Lymphocytes (Bld) [#/Vol] 1.2 10*3/uL Normal 0.7-3.1 [facility]; [facility] Work Phone: Comment on above: PATIENT WAS FASTINGP ERFORMED BY: [facility]Hol[facility]6370 [facility] [id number] Lymphocytes/100 WBC (Bld) 37 % Normal [facility] Work Phone: Comment on above: PATIENT WAS FASTINGP ERFORMED BY: [facility]Hol[facility]6370 [facility] [id number] MCH Entitic mass (RBC) 30.0 pg Normal 26.6-33.0 [facility] Work Phone: Comment on above: PATIENT WAS FASTINGP ERFORMED BY: [facility]6370 [facility] [id number] MCHC mass conc (RBC) 32.9 g/dL Normal 31.5-35.7 [facility] Internal Medicine Work Phone: Comment on above: PATIENT WAS FASTINGP ERFORMED BY: [facility]6370 [facility] [id number] MCV Entitic volume (RBC) 91 fL Normal 79-97 [facility] Work Phone: Comment on above: PATIENT WAS FASTINGP ERFORMED BY: [facility]6370 [facility] [id number] Monocytes #/vol (Bld) 0.2 {x10E3/uL} Normal 0.1-0.9 [facility] Work Phone: Comment on above: PATIENT WAS FASTINGP ERFORMED BY: LabCo Ljihcs6103 [facility] [id number] Monocytes (Bld) [#/Vol] 0.2 10*3/uL Normal 0.1-0.9 [facility]; [facility] Work Phone: Comment on above: PATIENT WAS FASTINGP ERFORMED BY: FAITH LabDarling Brown6370 [address] RoadDublin [place] [id number] Monocytes/100 WBC (Bld) 7 % Normal [facility] Work Phone: Comment on above: PATIENT WAS FASTINGP ERFORMED BY: FAITH Chante Brown6370 [address] RoadDublin [place] [id number] Neutrophils #/vol (Bld) 1.7 {x10E3/uL} Normal 1.4-7.0 [facility] Work Phone: Comment on above: PATIENT WAS FASTINGP ERFORMED BY: FAITH LabDarling Brown6370 [address] RoadDublin [place] [id number] Neutrophils (Bld) [#/Vol] 1.7 10*3/uL Normal 1.4-7.0 [facility]; [facility] Work Phone: Comment on above: PATIENT WAS FASTINGP ERFORMED BY: FAITH Chante Rsunpr6603 [address] Roadblin [place] [id number] Neutrophils/100 WBC (Bld) 53 % Normal [facility] Work Phone: Comment on above: PATIENT WAS FASTINGP ERFORMED BY: FAITH Chante Brown6[address] [facility] [place] [id number] Platelets #/vol (Bld) 275 {x10E3/uL} Normal 150-379 [facility] Work Phone: Comment on above: PATIENT WAS FASTINGP ERFORMED BY: FAITH Chante Brown6370 [address] [facility]bl[facility] [place] [id number] Platelets (Bld) [#/Vol] 275 10*3/uL Normal 150-379 [facility]; [facility] Work Phone: Comment on above: PATIENT WAS FASTINGP ERFORMED BY: FAITH LabDarling BatresNviyse2289 [address] RoadDublin [place] [id number] RBC #/vol (Bld) 4.60 {x10E6/uL} Normal 3.77-5.28 Comp rehensive Internal Medicine Work Phone: Comment on above: PATIENT WAS FASTINGP ERFORMED BY: FAITH [facility] Gmggrx2528 [address] RoadDublin [place] [id number] RBC (Bld) [#/Vol] 4.60 10*6/uL Normal 3.77-5.28 Compr ensive [facility]; [facility] Work Phone: Comment on above: PATIENT WAS FASTINGP ERFORMED BY: CB [facility] Mtxktl0750 [address] RoadDublin [place] [id number] WBC #/vol (Bld) 3.3 {x10E3/uL} Abnormal 3.4-10.8 Compr [facility] Internal Medicine Work Phone: Comment on above: PATIENT WAS FASTINGP ERFORMED BY: FAITH [facility] Yaotsq8939 [address] RoadDublin [place] [id number] WBC (Bld) [#/Vol] 3.3 10*3/uL Abnormal 3.4-10.8 [facility]; [facility] Work Phone: Comment on above: PATIENT WAS FASTINGP ERFORMED BY: FAITH [facility] Sqjxdu1022 [address] RoadDublin [place] [id number] METABOLIC PANEL, COMPREHENSI VE ([id number])Ordered By: Manager Social Work on 01-28-2018 Albumin mass conc 4.7 g/dL Normal 3.5-5.5 [facility] Internal Medicine Work Phone: Comment on above: PATIENT WAS FASTINGP ERFORMED BY: FAITH [facility] Mfmmfc9898 [address] RoadDublin [place] [id number] Albumin/Globulin mass ratio 1.9 {ratio} Normal 1.2-2.2 [facility] Internal Medicine Work Phone: Comment on above: PATIENT WAS FASTINGP ERFORMED BY: FAITH [facility] Zvdpne3141 [address] RoadDublin [place] [id number] ALP [Catalytic activity/Vol] 41 U/L Normal 39-117 [facility]; [facility] Work Phone: Comment on above: PATIENT WAS FASTINGP ERFORMED BY: FAITH [facility] Cxcdzy2661 [address] RoadDublin [place] [id number] ALP enzyme act/vol 41 [iU]/L Normal 39-117 [facility] Internal Medicine Work Phone: Comment on above: PATIENT WAS FASTINGP ERFORMED BY: FAITH [facility] Lmpcrw1158 [address] RoadDublin [place] [id number] ALT [Catalytic activity/Vol] 20 U/L Normal 0-32 [facility]; [facility] Internal Medicine Work Phone: Comment on above: PATIENT WAS FASTINGP ERFORMED BY: CB [facility] Wkzdvs5426 [address] RoadDublin [place] [id number] ALT enzyme act/vol 20 [iU]/L Normal 0-32 [facility] Internal Medicine Work Phone: Comment on above: PATIENT WAS FASTINGP ERFORMED BY: FAITH [facility] Ihbjrv1786 [address] RoadDublin [place] [id number] AST [Catalytic activity/Vol] 21 U/L Normal 0-40 [facility] Internal Medicine; [facility] Internal Medicine Work Phone: Comment on above: PATIENT WAS FASTINGP ERFORMED BY: FAITH [facility] Xiqeax4608 [address] RoadDublin [place] [id number] AST enzyme act/vol 21 [iU]/L Normal 0-40 [facility] Internal Medicine Work Phone: Comment on above: PATIENT WAS FASTINGP ERFORMED BY: FAITH [facility] Qqaksk2336 [address] RoadDublin [place] [id number] Bilirubin mass conc 0.5 mg/dL Normal 0.0-1.2 [facility] Internal Medicine Work Phone: Comment on above: PATIENT WAS FASTINGP ERFORMED BY: CB [facility] Jmllpr3812 [address] RoadDublin [place] [id number] Calcium mass conc 9.8 mg/dL Normal 8.7-10.2 [facility] Internal Medicine Work Phone: Comment on above: PATIENT WAS FASTINGP ERFORMED BY: CB [facility] Cpeclq9647 [address] RoadDublin [place] [id number] Chloride molar conc 105 mmol/L Normal 96-106 [facility] Internal Medicine Work Phone: Comment on above: PATIENT WAS FASTINGP ERFORMED BY: FAITH [facility] Vbxabq5120 [address] RoadDublin [place] [id number] CO2 molar conc 23 mmol/L Normal 20-29 Comprehens karina Internal Medicine Work Phone: Comment on above: PATIENT WAS FASTINGP ERFORMED BY: FAITH [facility] Aupawy9160 [address] RoadNovant Health Presbyterian Medical Centerin [place] [id number] Creatinine mass conc 0.83 mg/dL Normal 0.57-1.00 Comp rehensive Internal Medicine Work Phone: Comment on above: PATIENT WAS FASTINGP ERFORMED BY: CB [facility] Encsxc2131 [address] RoadNovant Health Presbyterian Medical Centerin [place] [id number] GFR/1.73 sq M predicted among blacks CKD-EPI vol rate/area (S/P/Bld) 91 mL/min/1.73 Normal Comprehensiv e Internal Medicine Work Phone: Comment on above: PATIENT WAS FASTINGP ERFORMED BY: FAITH [facility] Xrqqzo3367 Randall RoadVidant P[facility]o [facility] [id number] GFR/1.73 sq M predicted among non-blacks CKD-EPI vol rate/area (S/P/Bld) 79 mL/min/1.73 Normal [facility] Work Phone: Comment on above: PATIENT WAS FASTINGP ERFORMED BY: FAITH [facility] Oosefd9793 [address] [facility] [id number] Globulin mass conc (S) 2.5 g/dL Normal 1.5-4.5 [facility] Work Phone: Comment on above: PATIENT WAS FASTINGP ERFORMED BY: CB [facility] Vnvfcb6812 [address] [facility]in [place] [id number] Glucose mass conc 89 mg/dL Normal 65-99 Compreh ensive Internal Medicine Work Phone: Comment on above: PATIENT WAS FASTINGP ERFORMED BY: CB [facility] Htylwx3679 [address] [facility]bl[facility] [place] [id number] Potassium molar conc 4.6 mmol/L Normal 3.5-5.2 Comp rehensive Internal Medicine Work Phone: Comment on above: PATIENT WAS FASTINGP ERFORMED BY: FAITH [facility] Xbgbxb7191 [address] RoadDublin [place] [id number] Protein mass conc 7.2 g/dL Normal 6.0-8.5 Compreh ensive Internal Medicine Work Phone: Comment on above: PATIENT WAS FASTINGP ERFORMED BY: FAITH [facility] Utiqsl6938 [address] RoadDublin [place] [id number] Sodium molar conc 143 mmol/L Normal 134-144 Compreh ensive Internal Medicine Work Phone: Comment on above: PATIENT WAS FASTINGP ERFORMED BY: FAITH LabColeix BatresDtszcr8128 [address] RoadDublin [place] [id number] Urea nitrogen mass conc 16 mg/dL Normal 6-24 [facility] Work Phone: Comment on above: PATIENT WAS FASTINGP ERFORMED BY: FAITH Batreslin6370 [address] RoadDublin [place] [id number] Urea nitrogen/Creatinine mass ratio 19 mg/mg Normal 9- [facility] Work Phone: Comment on above: PATIENT WAS FASTINGP ERFORMED BY: FAITH LabDarling BatresCkxaos6117 [address] RoadDublin [place] [id number] URINALYSIS, W/ MICRO ([id number]) Ordered By: Manager Social Work on 01-28-2018 Appearance Nom (U) Clear Normal Compre hensive Internal Medicine Work Phone: Comment on above: PATIENT WAS FASTINGP ERFORMED BY: FAITH [facility] Zuwzhh9427 [address] RoadDublin [place] [id number] Bilirubin Ql (U) Negative Normal Comprehe nsive Internal Medicine Work Phone: Comment on above: PATIENT WAS FASTINGP ERFORMED BY: FAITH [facility] Eezmnw7847 [address] RoadDublin [place] [id number] Bilirubin Ql (U) Negative Normal Comprehe nsive Internal Medicine; [facility] Work Phone: Comment on above: PATIENT WAS FASTINGP ERFORMED BY: FAITH [facility] Buxnnp7561 [address] RoadDublin [place] [id number] Color Nom (U) Yellow Normal Comprehensi ve Internal Medicine Work Phone: Comment on above: PATIENT WAS FASTINGP ERFORMED BY: FAITH Brown6370 [address] RoadD[address] [place] [id number] Glucose Ql (U) Negative Normal Comprehens karina Internal Medicine Work Phone: Comment on above: PATIENT WAS FASTINGP ERFORMED BY: FAITH Brown6370 [address] [place] [id number] Glucose Ql (U) Negative Normal Comprehens karina [facility]; [facility] Work Phone: Comment on above: PATIENT WAS FASTINGP ERFORMED BY: FAITH Brown6370 [address] [place] [id number] Hemoglobin Ql (U) Trace Abnormal Compreh ensive Internal Medicine Work Phone: Comment on above: PATIENT WAS FASTINGP ERFORMED BY: FAITH Brown6370 [address] RoadD[address] [place] [id number] Ketones Ql (U) Negative Normal Comprehens karina Internal Medicine Work Phone: Comment on above: PATIENT WAS FASTINGP ERFORMED BY: FAITH Brown6370 [address] [place] [id number] Ketones Ql (U) Negative Normal Comprehens karina [facility]; [facility] Work Phone: Comment on above: PATIENT WAS FASTINGP ERFORMED BY: FAITH Brown6370 [address] RoadDublin [place] [id number] Leukocyte esterase Test strip Ql (U) Negative Normal [facility] Work Phone: Comment on above: PATIENT WAS FASTINGP ERFORMED BY: FAITH Batreslin6370 [address] RoadD[address] [place] [id number] Leukocyte esterase Test strip Ql (U) Negative Normal [facility]; [facility] Work Phone: Comment on above: PATIENT WAS FASTINGP ERFORMED BY: FAITH Batreslin6370 [address] RoadDublin [place] [id number] Microscopic observation LM Nom (Urine sed) See below: Normal [facility] Work Phone: Comment on above: Microscopic was lisa cated and was performed. PATIENT WAS FASTINGP ERFORMED BY: FAITH Brown6370 [address] RoadDublin [place] [id number] Nitrite Ql (U) Negative Normal Comprehens karina Internal Medicine Work Phone: Comment on above: PATIENT WAS FASTINGP ERFORMED BY: FAITH Brown6370 [address]Dublin [place] [id number] Nitrite Ql (U) Negative Normal Comprehens karina [facility]; [facility] Work Phone: Comment on above: PATIENT WAS FASTINGP ERFORMED BY: FAITH Brown6370 [address] RoadDublin [place] [id number] pH (U) 5.0 [pH] Normal 5.0-7.5 [facility] Work Phone: Comment on above: PATIENT WAS FASTINGP ERFORMED BY: FAITH Brown6370 [address] RoadDublin [place] [id number] Protein Ql (U) Negative Normal Comprehens karina Internal Medicine Work Phone: Comment on above: PATIENT WAS FASTINGP ERFORMED BY: FAITH Brown6370 [address] [place] [id number] Protein Ql (U) Negative Normal Comprehens karina [facility]; [facility] Work Phone: Comment on above: PATIENT WAS FASTINGP ERFORMED BY: FAITH Brown6370 [address] RoadDublin [place] [id number] Specific gravity Relative Density (U) 1.022 1 Normal 1.005-1.03 0 [facility] Work Phone: Comment on above: PATIENT WAS FASTINGP ERFORMED BY: FAITH Batreslin6370 [address] RoadDublin [place] [id number] Urobilinogen (U) [Mass/Vol] 0.2 mg/dL Normal 0.2-1.0 [facility]; [facility] Work Phone: Comment on above: PATIENT WAS FASTINGP ERFORMED BY: FAITH Batreslin6370 [address] RoadDublin [place] [id number] Urobilinogen Test strip mass conc (U) 0.2 mg/dL Normal 0.2-1.0 Comprehensiv e Internal Medicine Work Phone: Comment on above: PATIENT WAS FASTINGP ERFORMED BY: FAITH JacksonSaint [facility] Qhguch8990 [facility] [id number] ANTI-PLANTING MATERIAL CARRIER (ANTI RIBONUCLEAR P ROTEIN ANTIBODY) (69932) test code [id number] By: Manager Social Work on 02-26-2017 Sjogrens syndrome-A extractable nuclear Ab Qn (S) <0.2 Normal 0.0-0.9 [facility] Work Phone: Comment on above: PATIENT NOT FASTINGP ERFORMED BY: [place] 7484270 [facility] [id number] Sjogrens syndrome-B extractable nuclear Ab Qn (S) <0.2 Normal 0.0-0.9 [facility] Work Phone: Comment on above: PATIENT NOT FASTINGP ERFORMED BY: [place] 7484270 [facility] [id number] CBC W/AUTO DIFF WBC (17796)O rdered By: Manager Social Work on 02-26-2017 Basophils #/vol (Bld) 0.0 {x10E3/uL} Normal 0.0-0.2 [facility] Work Phone: Comment on above: PATIENT NOT FASTINGP ERFORMED BY: [place] 7484270 [facility] [id number] Basophils (Bld) [#/Vol] 0.0 10*3/uL Normal 0.0-0.2 [facility]; [facility] Work Phone: Comment on above: PATIENT NOT FASTINGP ERFORMED BY: RenettaJoseph Ville 5645970 [facility] [id number] Basophils/100 WBC (Bld) 1 % Normal [facility] Work Phone: Comment on above: PATIENT NOT FASTINGP ERFORMED BY: [address] [place] [id number] Eosinophils #/vol (Bld) 0.1 {x10E3/uL} Normal 0.0-0.4 [facility] Work Phone: Comment on above: PATIENT NOT FASTINGP ERFORMED BY: FAITH [facility] Otkkko3377 [address] [facility] [id number] Eosinophils (Bld) [#/Vol] 0.1 10*3/uL Normal 0.0-0.4 [facility]; [facility] Work Phone: Comment on above: PATIENT NOT FASTINGP ERFORMED BY: FAITH JacksonCo Xcagih2845 [facility] [id number] Eosinophils/100 WBC (Bld) 3 % Normal [facility] Work Phone: Comment on above: PATIENT NOT FASTINGP ERFORMED BY: FAITH Villalobos Vgbnmg8361 [facility] [id number] Erythrocyte distribution width Ratio (RBC) 13.8 % Normal 12.3-15.4 [facility] Work Phone: Comment on above: PATIENT NOT FASTINGP ERFORMED BY: FAITH LabCo Kzhlcv9288 [facility] [id number] Hematocrit Volume Fraction (Bld) 43.8 % Normal 34.0-46.6 [facility] Work Phone: Comment on above: PATIENT NOT FASTINGP ERFORMED BY: FAITH [facility] Loyfjn0858 [facility] [id number] Hemoglobin mass conc (Bld) 14.7 g/dL Normal 11.1-15.9 [facility] Work Phone: Comment on above: PATIENT NOT FASTINGP ERFORMED BY: FAITH [facility] Wppbmk4388 [facility] [id number] Immature granulocytes #/vol (Bld) 0.0 {x10E3/uL} Normal 0.0-0.1 [facility] Work Phone: Comment on above: PATIENT NOT FASTINGP ERFORMED BY: [facility] Lwzyot5130 Randall RoadDublin [place] [id number] Immature granulocytes (Bld) [#/Vol] 0.0 10*3/uL Normal 0.0-0.1 [facility]; [facility] Work Phone: Comment on above: PATIENT NOT FASTINGP ERFORMED BY: FAITH Brown6370 [address] RoadDublin [place] [id number] Immature granulocytes/100 WBC (Bld) 0 % Normal [facility] Work Phone: Comment on above: PATIENT NOT FASTINGP ERFORMED BY: FAITH [facility] Lawdzq2888 Randall RoadDublin [place] [id number] Lymphocytes #/vol (Bld) 1.4 {x10E3/uL} Normal 0.7-3.1 [facility] Work Phone: Comment on above: PATIENT NOT FASTINGP ERFORMED BY: FAITH Villalobos Uuyaid3198 Randall Roadblin [place] [id number] Lymphocytes (Bld) [#/Vol] 1.4 10*3/uL Normal 0.7-3.1 [facility]; [facility] Work Phone: Comment on above: PATIENT NOT FASTINGP ERFORMED BY: FAITH Batreslin6370 [address] RoadDublin [place] [id number] Lymphocytes/100 WBC (Bld) 33 % Normal [facility] Work Phone: Comment on above: PATIENT NOT FASTINGP ERFORMED BY: FAITH Villalobos Llgmxf7048 [address] Roadblin [place] [id number] MCH Entitic mass (RBC) 30.9 pg Normal 26.6-33.0 [facility] Work Phone: Comment on above: PATIENT NOT FASTINGP ERFORMED BY: FAITH LabColexi BatresSonbop9718 [address] RoadDublin [place] [id number] MCHC mass conc (RBC) 33.6 g/dL Normal 31.5-35.7 [facility] Internal Medicine Work Phone: Comment on above: PATIENT NOT FASTINGP ERFORMED BY: FAITH LabColexi BatresVgvbcz2558 Randall RoadDublin [place] [id number] MCV Entitic volume (RBC) 92 fL Normal 79-97 [facility] Work Phone: Comment on above: PATIENT NOT FASTINGP ERFORMED BY: FAITH [facility] Fgwomh5583 Randall RoadDublin [place] [id number] Monocytes #/vol (Bld) 0.4 {x10E3/uL} Normal 0.1-0.9 [facility] Work Phone: Comment on above: PATIENT NOT FASTINGP ERFORMED BY: CB [facility] Vfjmlq8231 [address] Roadblin [place] [id number] Monocytes (Bld) [#/Vol] 0.4 10*3/uL Normal 0.1-0.9 [facility]; [facility] Work Phone: Comment on above: PATIENT NOT FASTINGP ERFORMED BY: FAITH [facility] Jrzxfv2303 [address] RoadNovant Health Presbyterian [facility] Centerin [place] [id number] Monocytes/100 WBC (Bld) 8 % Normal [facility] Work Phone: Comment on above: PATIENT NOT FASTINGP ERFORMED BY: CB [facility] Mtamxh1438 [address] Roadblin [place] [id number] Neutrophils #/vol (Bld) 2.4 {x10E3/uL} Normal 1.4-7.0 [facility] Work Phone: Comment on above: PATIENT NOT FASTINGP ERFORMED BY: CB [facility] Fniodp5170 [address] Roadblin [place] [id number] Neutrophils (Bld) [#/Vol] 2.4 10*3/uL Normal 1.4-7.0 [facility]; [facility] Work Phone: Comment on above: PATIENT NOT FASTINGP ERFORMED BY: CB [facility] Bvtndt0108 Randall RoadDublin [place] [id number] Neutrophils/100 WBC (Bld) 55 % Normal [facility] Work Phone: Comment on above: PATIENT NOT FASTINGP ERFORMED BY: CB [facility] Gubydo0866 [address] RoadDublin [place] [id number] Platelets #/vol (Bld) 271 {x10E3/uL} Normal 150-379 [facility] Work Phone: Comment on above: PATIENT NOT FASTINGP ERFORMED BY: FAITH LabDarling Brown6370 [address] RoadJohnblin [place] [id number] Platelets (Bld) [#/Vol] 271 10*3/uL Normal 150-379 [facility]; [facility] Work Phone: Comment on above: PATIENT NOT FASTINGP ERFORMED BY: CB [facility] Nvueht0331 [facility] [id number] RBC #/vol (Bld) 4.76 {x10E6/uL} Normal 3.77-5.28 [facility] Work Phone: Comment on above: PATIENT NOT FASTINGP ERFORMED BY: FAITH LabColexi BrownUsnjlr8690 [facility] [id number] RBC (Bld) [#/Vol] 4.76 10*6/uL Normal 3.77-5.28 Compr ensive Internal Medicine; [facility] Work Phone: Comment on above: PATIENT NOT FASTINGP ERFORMED BY: FAITH LabColexi BrownElldbj1932 [address] [facility]in [place] [id number] WBC #/vol (Bld) 4.3 {x10E3/uL} Normal 3.4-10.8 Compr ensive Internal Medicine Work Phone: Comment on above: PATIENT NOT FASTINGP ERFORMED BY: CB [facility] Caoery1925 [facility]in [place] [id number] WBC (Bld) [#/Vol] 4.3 10*3/uL Normal 3.4-10.8 Compre [facility] Internal Medicine; [facility] Work Phone: Comment on above: PATIENT NOT FASTINGP ERFORMED BY: CB [facility] Wkrcet9635 [facility]in [place] [id number] METABOLIC PANEL, COMPREHENSI VE ([id number])Ordered By: Manager Social Work on 02-26-2017 Albumin mass conc 4.9 g/dL Normal 3.5-5.5 Compreh ensive Internal Medicine Work Phone: Comment on above: PATIENT NOT FASTINGP ERFORMED BY: FAITH [facility] Jdqzgt5644 [address] RoadDublin [place] [id number] Albumin/Globulin mass ratio 2.0 {ratio} Normal 1.2-2.2 [facility] Work Phone: Comment on above: PATIENT NOT FASTINGP ERFORMED BY: CB [facility] Dtwano8428 [address] RoadDublin [place] [id number] ALP [Catalytic activity/Vol] 38 U/L Abnormal 39-117 [facility]; [facility] Internal Medicine Work Phone: Comment on above: PATIENT NOT FASTINGP ERFORMED BY: CB [facility] Pcegov7984 [address] RoadDublin [place] [id number] ALP enzyme act/vol 38 [iU]/L Abnormal 39-117 [facility] Internal Medicine Work Phone: Comment on above: PATIENT NOT FASTINGP ERFORMED BY: CB [facility] Bswbpy0837 [address] RoadDublin [place] [id number] ALT [Catalytic activity/Vol] 20 U/L Normal 0-32 [facility]; [facility] Internal Medicine Work Phone: Comment on above: PATIENT NOT FASTINGP ERFORMED BY: FAITH [facility] Uedbcg7427 [address] RoadDublin [place] [id number] ALT enzyme act/vol 20 [iU]/L Normal 0-32 [facility] Internal Medicine Work Phone: Comment on above: PATIENT NOT FASTINGP ERFORMED BY: CB [facility] Pjysza9814 [address] RoadDublin [place] [id number] AST [Catalytic activity/Vol] 21 U/L Normal 0-40 [facility]; [facility] Internal Medicine Work Phone: Comment on above: PATIENT NOT FASTINGP ERFORMED BY: CB [facility] Thmrom9314 [address] RoadDublin [place] [id number] AST enzyme act/vol 21 [iU]/L Normal 0-40 [facility] Internal Medicine Work Phone: Comment on above: PATIENT NOT FASTINGP ERFORMED BY: CB [facility] Ytvsii0157 [address] Roadblin [place] [id number] Bilirubin mass conc 0.4 mg/dL Normal 0.0-1.2 Compr ehensive Internal Medicine Work Phone: Comment on above: PATIENT NOT FASTINGP ERFORMED BY: FAITH LabDarling BatresSsgszq1093 [address] RoadDublin [place] [id number] Calcium mass conc 9.7 mg/dL Normal 8.7-10.2 Compreh ensive Internal Medicine Work Phone: Comment on above: PATIENT NOT FASTINGP ERFORMED BY: CB [facility] Fvwvyf7023 [address] RoadNovant Health Presbyterian Medical Centerin [place] [id number] Chloride molar conc 102 mmol/L Normal 96-106 Compr ehensive Internal Medicine Work Phone: Comment on above: PATIENT NOT FASTINGP ERFORMED BY: FAITH LabColexi BatresWvjvzi6355 [address] RoadNovant Health Presbyterian Medical Centerin [place] [id number] CO2 molar conc 24 mmol/L Normal 18-29 Comprehens karina Internal Medicine Work Phone: Comment on above: PATIENT NOT FASTINGP ERFORMED BY: FAITH [facility] Fuyfbs5575 [address] RoadNovant Health Presbyterian Medical Centerin [place] [id number] Creatinine mass conc 0.83 mg/dL Normal 0.57-1.00 Comp rehensive Internal Medicine Work Phone: Comment on above: PATIENT NOT FASTINGP ERFORMED BY: CB [facility] Qfubbb5246 [address] RoadNovant Health Presbyterian Medical Centerin [place] [id number] GFR/1.73 sq M predicted among blacks CKD-EPI vol rate/area (S/P/Bld) 92 mL/min/1.73 Normal Comprehensiv e Internal Medicine Work Phone: Comment on above: PATIENT NOT FASTINGP ERFORMED BY: CB [facility] Euoqte1278 [address] RoadDublin [place] [id number] GFR/1.73 sq M predicted among non-blacks CKD-EPI vol rate/area (S/P/Bld) 80 mL/min/1.73 Normal [facility] Work Phone: Comment on above: PATIENT NOT FASTINGP ERFORMED BY: CB [facility] Ymzeer3154 [address] RoadDublin [place] [id number] Globulin mass conc (S) 2.5 g/dL Normal 1.5-4.5 [facility] Work Phone: Comment on above: PATIENT NOT FASTINGP ERFORMED BY: FAITH [facility] Lyphoo0590 [address] RoadDublin [place] [id number] Glucose mass conc 81 mg/dL Normal 65-99 Compreh ensive Internal Medicine Work Phone: Comment on above: PATIENT NOT FASTINGP ERFORMED BY: CB [facility] Znrwsv4201 [address] RoadNovant Health Presbyterian [facility] Centerin [place] [id number] Potassium molar conc 4.3 mmol/L Normal 3.5-5.2 Comp rehensive Internal Medicine Work Phone: Comment on above: PATIENT NOT FASTINGP ERFORMED BY: [facility] Nbobkr7966 [facility]in [place] [id number] Protein mass conc 7.4 g/dL Normal 6.0-8.5 Compreh ensive Internal Medicine Work Phone: Comment on above: PATIENT NOT FASTINGP ERFORMED BY: [facility] Eplrcy1555 [address] RoadNovant Health Presbyterian Medical Centerin [place] [id number] Sodium molar conc 141 mmol/L Normal 134-144 Compreh ensive Internal Medicine Work Phone: Comment on above: PATIENT NOT FASTINGP ERFORMED BY: [facility] Eerkvb1522 [facility]in [place] [id number] Urea nitrogen mass conc 13 mg/dL Normal 6-24 [facility] Work Phone: Comment on above: PATIENT NOT FASTINGP ERFORMED BY: [facility] Ubhcjp4957 [facility]in [place] [id number] Urea nitrogen/Creatinine mass ratio 16 mg/mg Normal 9-23 [facility] Work Phone: Comment on above: PATIENT NOT FASTINGP ERFORMED BY: FAITH [facility] Fgghxj8757 [address] RoadDublin [place] [id number] URINALYSIS, W/ MICRO ([id number]) Ordered By: Manager Social Work on 02-26-2017 Appearance Nom (U) Clear Normal Compre hensive Internal Medicine Work Phone: Comment on above: PATIENT NOT FASTINGP ERFORMED BY: FAITH [facility] Tuyaog2997 [address] RoadDublin [place] [id number] Bilirubin Ql (U) Negative Normal Comprehe nsive Internal Medicine Work Phone: Comment on above: PATIENT NOT FASTINGP ERFORMED BY: CB [facility] Gnhvnp6906 [address] RoadDublin [place] [id number] Bilirubin Ql (U) Negative Normal Comprehe nsive Internal Medicine; [facility] Work Phone: Comment on above: PATIENT NOT FASTINGP ERFORMED BY: FAITH [facility] Wbiqxu8949 [address] RoadDublin [place] [id number] Color Nom (U) Yellow Normal Comprehensi ve Internal Medicine Work Phone: Comment on above: PATIENT NOT FASTINGP ERFORMED BY: FAITH [facility] Nfafmf4244 [address] RoadDublin [place] [id number] Glucose Ql (U) Negative Normal Comprehens karina Internal Medicine Work Phone: Comment on above: PATIENT NOT FASTINGP ERFORMED BY: FAITH [facility] Uokheo6660 [address] RoadDublin [place] [id number] Glucose Ql (U) Negative Normal Comprehens karina Internal Medicine; [facility] Work Phone: Comment on above: PATIENT NOT FASTINGP ERFORMED BY: FAITH [facility] Xgudrk7582 [address] RoadDublin [place] [id number] Hemoglobin Ql (U) Negative Normal Compreh ensive Internal Medicine Work Phone: Comment on above: PATIENT NOT FASTINGP ERFORMED BY: CB [facility] Lnizwi4468 [address] RoadDublin [place] [id number] Hemoglobin Ql (U) Negative Normal Compreh ensive Internal Medicine; [facility] Work Phone: Comment on above: PATIENT NOT FASTINGP ERFORMED BY: CB [facility] Fehidv4729 [address] RoadDublin [place] [id number] Ketones Ql (U) Negative Normal Comprehens karina Internal Medicine Work Phone: Comment on above: PATIENT NOT FASTINGP ERFORMED BY: FAITH [facility] Inzact5319 [address] RoadDublin [place] [id number] Ketones Ql (U) Negative Normal Comprehens karina [facility] Medicine; [facility] Work Phone: Comment on above: PATIENT NOT FASTINGP ERFORMED BY: FAITH [facility] Rohbsk6431 [address] RoadDublin [place] [id number] Leukocyte esterase Test strip Ql (U) Negative Normal [facility] Work Phone: Comment on above: PATIENT NOT FASTINGP ERFORMED BY: FAITH [facility] Veqlba7340 [address] RoadDublin [place] [id number] Leukocyte esterase Test strip Ql (U) Negative Normal [facility]; [facility] Work Phone: Comment on above: PATIENT NOT FASTINGP ERFORMED BY: FAITH [facility] Pntuxt6477 [address] RoadDublin [place] [id number] Microscopic observation LM Nom (Urine sed) MICRON Normal [facility] Work Phone: Comment on above: Microscopic follows if indicated. PATIENT NOT FASTINGP ERFORMED BY: FAITH [facility] Qkpcco5278 [address] RoadDublin [place] [id number] Microscopic observation LM Nom (Urine sed) See below: Normal [facility] Work Phone: Comment on above: Microscopic was lisa cated and was performed. PATIENT NOT FASTINGP ERFORMED BY: FAITH [facility] Bqyunl0544 [address] RoadDublin [place] [id number] Nitrite Ql (U) Negative Normal Comprehens karina [facility] Medicine Work Phone: Comment on above: PATIENT NOT FASTINGP ERFORMED BY: CB [facility] Byxgmb0959 [address] RoadDublin [place] [id number] Nitrite Ql (U) Negative Normal Comprehens karina [facility] Medicine; [facility] Work Phone: Comment on above: PATIENT NOT FASTINGP ERFORMED BY: FAITH [facility] Yshsha7239 [address] RoadDublin [place] [id number] pH (U) 7.0 [pH] Normal 5.0-7.5 [facility] Work Phone: Comment on above: PATIENT NOT FASTINGP ERFORMED BY: FAITH [facility] Jesgoo7482 [address] RoadDublin [place] [id number] Protein Ql (U) Negative Normal Comprehens karina [facility] Medicine Work Phone: Comment on above: PATIENT NOT FASTINGP ERFORMED BY: CB [facility] Iqoyui8457 [address] RoadDublin [place] [id number] Protein Ql (U) Negative Normal Comprehens karina [facility] Medicine; [facility] Work Phone: Comment on above: PATIENT NOT FASTINGP ERFORMED BY: CB [facility] Gcudja2657 [address] RoadDublin [place] [id number] Specific gravity Relative Density (U) 1.014 1 Normal 1.005-1.03 0 [facility] Work Phone: Comment on above: PATIENT NOT FASTINGP ERFORMED BY: CB [facility] Vurgyg7884 [address] RoadDublin [place] [id number] Urobilinogen (U) [Mass/Vol] 0.2 mg/dL Normal 0.2-1.0 [facility]; [facility] Work Phone: Comment on above: PATIENT NOT FASTINGP ERFORMED BY: CB [facility] Hltvvs6709 [address] RoadDublin [place] [id number] Urobilinogen Test strip mass conc (U) 0.2 mg/dL Normal 0.2-1.0 Comprehensiv e Internal Medicine Work Phone: Comment on above: PATIENT NOT FASTINGP ERFORMED BY: CB [facility] Xjukud3261 [address] RoadDublin [place] [id number] CBC WITH MANUAL DIFF ([id number]) Ordered By: Manager Social Work on 08-24-2013 Basophils #/vol (Bld) 0.0 {x10E3/uL} Normal 0.0-0.2 [facility] Work Phone: Comment on above: PATIENT NOT FASTINGP ERFORMED BY: CB [facility] Ofhmgs2083 [address] RoadDublin [place] [id number] Information: [id number] Basophils (Bld) [#/Vol] 0.0 10*3/uL Normal 0.0-0.2 [facility]; [facility] Work Phone: Comment on above: PATIENT NOT FASTINGP ERFORMED BY: FAITH Brown6370 [facility] [id number] Information: [id number] Basophils/100 WBC (Bld) 0 % Normal 0-3 [facility] Work Phone: Comment on above: PATIENT NOT FASTINGP ERFORMED BY: LabCo[address] [id number] Information: [id number] Eosinophils #/vol (Bld) 0.1 {x10E3/uL} Normal 0.0-0.4 [facility] Work Phone: Comment on above: PATIENT NOT FASTINGP ERFORMED BY: [place] 7484270 [facility] [id number] Information: [id number] Eosinophils (Bld) [#/Vol] 0.1 10*3/uL Normal 0.0-0.4 [facility]; [facility] Work Phone: Comment on above: PATIENT NOT FASTINGP ERFORMED BY: Lab[address] [id number] Information: [id number] Eosinophils/100 WBC (Bld) 2 % Normal 0-5 [facility] Work Phone: Comment on above: PATIENT NOT FASTINGP ERFORMED BY: LabCoMadeline V[place] 5723170 [facility] [id number] Information: [id number] Erythrocyte distribution width Ratio (RBC) 13.3 % Normal 12.3-15.4 [facility] Work Phone: Comment on above: PATIENT NOT FASTINGP ERFORMED BY: LabJoseph [place] 5645970 [facility] [id number] Information: [id number] Hematocrit Volume Fraction (Bld) 42.7 % Normal 34.0-46.6 [facility] Work Phone: Comment on above: PATIENT NOT FASTINGP ERFORMED BY: FAITH JacksonSaint [facility] Kyfhty[address] [id number] Information: [id number] Hemoglobin mass conc (Bld) 14.8 g/dL Normal 11.1-15.9 [facility] Work Phone: Comment on above: PATIENT NOT FASTINGP ERFORMED BY: [address] [id number] Information: [id number] Immature granulocytes #/vol (Bld) 0.0 {x10E3/uL} Normal 0.0-0.1 [facility] Work Phone: Comment on above: PATIENT NOT FASTINGP ERFORMED BY: [address] [id number] Information: [id number] Immature granulocytes (Bld) [#/Vol] 0.0 10*3/uL Normal 0.0-0.1 [facility]; [facility] Work Phone: Comment on above: PATIENT NOT FASTINGP ERFORMED BY: [address] [id number] Information: [id number] Immature granulocytes/100 WBC (Bld) 0 % Normal 0-2 [facility] Work Phone: Comment on above: PATIENT NOT FASTINGP ERFORMED BY: [address] [id number] Information: [id number] Lymphocytes #/vol (Bld) 1.4 {x10E3/uL} Normal 0.7-3.1 [facility] Work Phone: Comment on above: PATIENT NOT FASTINGP ERFORMED BY: [address] [id number] Information: [id number],[id number] Lymphocytes (Bld) [#/Vol] 1.4 10*3/uL Normal 0.7-3.1 [facility]; [facility] Work Phone: Comment on above: PATIENT NOT FASTINGP ERFORMED BY: FAITH [facility] Ynuakh9390 [facility] [id number] Information: [id number] Lymphocytes/100 WBC (Bld) 31 % Normal 14-46 [facility] Work Phone: Comment on above: PATIENT NOT FASTINGP ERFORMED BY: LabJoseph [place] 5645970 [facility] [id number] Information: [id number] MCH Entitic mass (RBC) 30.4 pg Normal 26.6-33.0 [facility] Work Phone: Comment on above: PATIENT NOT FASTINGP ERFORMED BY: Lab[address] [id number] Information: [id number] MCHC mass conc (RBC) 34.7 g/dL Normal 31.5-35.7 [facility] Internal Medicine Work Phone: Comment on above: PATIENT NOT FASTINGP ERFORMED BY: [facility]Hol[facility]6370 [facility] [id number] Information: [id number] MCV Entitic volume (RBC) 88 fL Normal 79-97 [facility] Work Phone: Comment on above: PATIENT NOT FASTINGP ERFORMED BY: LabCoMadeline [place] 5723170 [facility] [id number] Information: [id number] Monocytes #/vol (Bld) 0.4 {x10E3/uL} Normal 0.1-0.9 [facility] Work Phone: Comment on above: PATIENT NOT FASTINGP ERFORMED BY: LabJoseph [place] 5645970 [facility] [id number] Information: [id number] Monocytes (Bld) [#/Vol] 0.4 10*3/uL Normal 0.1-0.9 [facility]; [facility] Work Phone: Comment on above: PATIENT NOT FASTINGP ERFORMED BY: FAITH Bronw6370 [facility] [id number] Information: [id number] Monocytes/100 WBC (Bld) 9 % Normal 4-12 [facility] Work Phone: Comment on above: PATIENT NOT FASTINGP ERFORMED BY: FAITH LabDarling BatresVtaqrv6558 [facility] [id number] Information: [id number] Neutrophils #/vol (Bld) 2.7 {x10E3/uL} Normal 1.4-7.0 [facility] Work Phone: Comment on above: PATIENT NOT FASTINGP ERFORMED BY: FAITH Batreslin6370 [facility] [id number] Information: [id number],[id number] Neutrophils (Bld) [#/Vol] 2.7 10*3/uL Normal 1.4-7.0 [facility]; [facility] Work Phone: Comment on above: PATIENT NOT FASTINGP ERFORMED BY: FAITH Brown6370 [facility] [id number] Information: [id number] Neutrophils/100 WBC (Bld) 58 % Normal 40-74 [facility] Work Phone: Comment on above: PATIENT NOT FASTINGP ERFORMED BY: FAITH LabCo Jeqiwr5845 [facility] [id number] Information: [id number] Platelets #/vol (Bld) 266 {x10E3/uL} Normal 155-379 [facility] Work Phone: Comment on above: PATIENT NOT FASTINGP ERFORMED BY: FAITH [facility] Ykcghd4049 [facility] [id number] Information: [id number] Platelets (Bld) [#/Vol] 266 10*3/uL Normal 155-379 [facility]; [facility] Work Phone: Comment on above: PATIENT NOT FASTINGP ERFORMED BY: FAITH MaiAtrium Health Union West [id number] Information: [id number] RBC #/vol (Bld) 4.87 {x10E6/uL} Normal 3.77-5.28 Comp [facility] Work Phone: Comment on above: PATIENT NOT FASTINGP ERFORMED BY: FAITH Brown6370 [facility] [id number] Information: [id number] RBC (Bld) [#/Vol] 4.87 10*6/uL Normal 3.77-5.28 Compr [facility] Internal Medicine; [facility] Work Phone: Comment on above: PATIENT NOT FASTINGP ERFORMED BY: FAITH Brown6370 [facility] [id number] Information: [id number] WBC #/vol (Bld) 4.6 {x10E3/uL} Normal 3.4-10.8 [facility] Internal Medicine Work Phone: Comment on above: PATIENT NOT FASTINGP ERFORMED BY: FAITH Brown6370 [facility] [id number] Information: [id number] WBC (Bld) [#/Vol] 4.6 10*3/uL Normal 3.4-10.8 [facility]; [facility] Work Phone: Comment on above: PATIENT NOT FASTINGP ERFORMED BY: FAITH LabJass Dyimnf0204 [facility] [id number] Information: [id number] LIPID PANEL ([id number])Ordered B y: Manager Social Work on 08-24-2013 Cholesterol in HDL mass conc 70 mg/dL Normal [facility] Work Phone: Comment on above: According to ATP-III Guidelines, HDL-C >59 mg/dL is considered anegative risk factor for CHD. PATIENT NOT FASTINGP ERFORMED BY: FAITH Batreslin[address] Randall RoadDublin [place] [id number] Cholesterol in LDL mass conc 144 mg/dL Abnormal 0-99 [facility] Work Phone: Comment on above: PATIENT NOT FASTINGP ERFORMED BY: FAITH Batreslin[address]Dublin [place] [id number] Cholesterol in LDL/Cholesterol in HDL mass ratio 2.1 {ratio_units} Normal 0.0-3.2 [facility] Work Phone: Comment on above: PATIENT NOT FASTINGP ERFORMED BY: FAITH Brown[address]Dublin [place] [id number] Cholesterol in VLDL mass conc 29 mg/dL Normal 5-40 [facility] Work Phone: Comment on above: PATIENT NOT FASTINGP ERFORMED BY: FAITH Batreslin[address] [facility] [id number] Cholesterol mass conc 243 mg/dL Abnormal 100-199 [facility] Work Phone: Comment on above: PATIENT NOT FASTINGP ERFORMED BY: FAITH Brown[address] [facility] [place] [id number] Triglyceride mass conc 144 mg/dL Normal 0-149 [facility] Work Phone: Comment on above: PATIENT NOT FASTINGP ERFORMED BY: FAITH Batreslin[address] [facility] [place] [id number] METABOLIC PANEL, COMPREHENSI VE (47576)Ordered By: Manager Social Work on 08-24-2013 Albumin mass conc 4.9 g/dL Normal 3.5-5.5 Compreh ensive Internal Medicine Work Phone: Comment on above: PATIENT NOT FASTINGP ERFORMED BY: FAITH Batreslin[address]Dublin [place] [id number] Albumin/Globulin mass ratio 1.8 {ratio} Normal 1.1-2.5 [facility] Work Phone: Comment on above: PATIENT NOT FASTINGP ERFORMED BY: FAITH Brown[address]Dublin [place] [id number] ALP [Catalytic activity/Vol] 35 U/L Abnormal 39-117 [facility]; [facility] Internal Medicine Work Phone: Comment on above: PATIENT NOT FASTINGP ERFORMED BY: CB [facility] Nwafbq100[address] RoadDublin [place] [id number] ALP enzyme act/vol 35 [iU]/L Abnormal 39-117 [facility] Internal Medicine Work Phone: Comment on above: PATIENT NOT FASTINGP ERFORMED BY: CB [facility] Txjnbg3408 [address] RoadDublin [place] [id number] ALT [Catalytic activity/Vol] 25 U/L Normal 0-32 [facility]; [facility] Internal Medicine Work Phone: Comment on above: PATIENT NOT FASTINGP ERFORMED BY: CB [facility] Xudhdg96[address] RoadDublin [place] [id number] ALT enzyme act/vol 25 [iU]/L Normal 0-32 [facility] Internal Medicine Work Phone: Comment on above: PATIENT NOT FASTINGP ERFORMED BY: CB [facility] Fgfdox2405 [address] RoadDublin [place] [id number] AST [Catalytic activity/Vol] 18 U/L Normal 0-40 [facility] Internal Medicine; [facility] Internal Medicine Work Phone: Comment on above: PATIENT NOT FASTINGP ERFORMED BY: CB [facility] Hsidic38[address] RoadDublin [place] [id number] AST enzyme act/vol 18 [iU]/L Normal 0-40 [facility] Internal Medicine Work Phone: Comment on above: PATIENT NOT FASTINGP ERFORMED BY: CB [facility] Jftqzt2469 [address] RoadDublin [place] [id number] Bilirubin mass conc 0.4 mg/dL Normal 0.0-1.2 [facility] Internal Medicine Work Phone: Comment on above: PATIENT NOT FASTINGP ERFORMED BY: CB [facility] Dkjfkw7791 [address] RoadDublin [place] [id number] Calcium mass conc 10.0 mg/dL Normal 8.7-10.2 Compreh ensive Internal Medicine Work Phone: Comment on above: PATIENT NOT FASTINGP ERFORMED BY: FAITH LabColexi BatresKqqhuq2334 [address] Roadblin [place] [id number] Chloride molar conc 101 mmol/L Normal 97-108 Compr ehensive Internal Medicine Work Phone: Comment on above: PATIENT NOT FASTINGP ERFORMED BY: FAITH [facility] Yobvxi4464 [address] RoadNovant Health [facility] Centerin [place] [id number] CO2 molar conc 26 mmol/L Normal 19-28 Comprehens karina Internal Medicine Work Phone: Comment on above: PATIENT NOT FASTINGP ERFORMED BY: FAITH [facility] Vekgsb3134 [address] RoadNovant Health Presbyterian Medical Centerin [place] [id number] Creatinine mass conc 0.83 mg/dL Normal 0.57-1.00 Comp rehensive Internal Medicine Work Phone: Comment on above: PATIENT NOT FASTINGP ERFORMED BY: FAITH [facility] Pwlxaj[address] [facility] [place] [id number] GFR/1.73 sq M predicted among blacks CKD-EPI vol rate/area (S/P/Bld) 94 mL/min/1.73 Normal Comprehensiv e Internal Medicine Work Phone: Comment on above: PATIENT NOT FASTINGP ERFORMED BY: FAITH [facility] Goktjw8428 Randall RoadNovant Health Presbyterian [facility] Centerin [place] [id number] GFR/1.73 sq M predicted among non-blacks CKD-EPI vol rate/area (S/P/Bld) 81 mL/min/1.73 Normal [facility] Work Phone: Comment on above: PATIENT NOT FASTINGP ERFORMED BY: CB [facility] Ounpkg29[address] Roadblin [place] [id number] Globulin mass conc (S) 2.7 g/dL Normal 1.5-4.5 [facility] Work Phone: Comment on above: PATIENT NOT FASTINGP ERFORMED BY: CB [facility] Bbrycg7661 [address] RoadNovant Health Presbyterian [facility] Centerin [place] [id number] Glucose mass conc 91 mg/dL Normal 65-99 Compreh ensive Internal Medicine Work Phone: Comment on above: PATIENT NOT FASTINGP ERFORMED BY: FAITH Chante Zjmqkh7769 [facility] [id number] Potassium molar conc 3.9 mmol/L Normal 3.5-5.2 Comp rehensive Internal Medicine Work Phone: Comment on above: PATIENT NOT FASTINGP ERFORMED BY: FAITH Chante Gzpyhx2016 [facility] [id number] Protein mass conc 7.6 g/dL Normal 6.0-8.5 Compreh ensive Internal Medicine Work Phone: Comment on above: PATIENT NOT FASTINGP ERFORMED BY: FAITH RenettaDarling BatresCwjouf0449 [facility] [id number] Sodium molar conc 140 mmol/L Normal 134-144 Compreh ensive Internal Medicine Work Phone: Comment on above: PATIENT NOT FASTINGP ERFORMED BY: FAITH Batreslin6370 [facility] [id number] Urea nitrogen mass conc 11 mg/dL Normal 6-24 [facility] Work Phone: Comment on above: PATIENT NOT FASTINGP ERFORMED BY: FAITH RenettaDarling BatresNmgobi4928 [facility] [id number] Urea nitrogen/Creatinine mass ratio 13 mg/mg Normal 9-23 [facility] Work Phone: Comment on above: PATIENT NOT FASTINGP ERFORMED BY: FAITH Batreslin6370 [facility] [id number] MICROALBUMINOrdered By: Syst em Liquid Chlorine Operator on 08-24-2013 Albumin DL <= 20 mg/L mass conc (U) 5.0 ug/mL Normal 0.0-17.0 [facility] Work Phone: Comment on above: PATIENT NOT FASTINGP ERFORMED BY: FAITH Batreslin6370 [facility] [id number] Albumin/Creatinine mass ratio (U) 13.1 {mg/g_creat} Normal 0.0-30.0 [facility] Work Phone: Comment on above: PATIENT NOT FASTINGP ERFORMED BY: FAITH [facility] Vybbsm87[address] RoadDublin [place] [id number] Creatinine mass conc (U) 38.1 mg/dL Normal 15.0-278.0 [facility] Work Phone: Comment on above: PATIENT NOT FASTINGP ERFORMED BY: [facility] Bjjxqq1734 [address] RoadDublin [place] [id number] TSH ([id number])Ordered By: Syste m Liquid Chlorine Operator on 08-24-2013 Thyrotropin Qn 1.800 {uIU/mL} Normal 0.450-4.50 0 [facility] Work Phone: Comment on above: PATIENT NOT FASTINGP ERFORMED BY: FAITH [facility] Xaeipo2935 [address] RoadDublin [place] [id number] URINALYSIS, W/ MICRO ([id number]) Ordered By: Manager Social Work on 08-24-2013 Appearance Nom (U) Clear Normal Compre hensive Internal Medicine Work Phone: Comment on above: PATIENT NOT FASTINGP ERFORMED BY: FAITH [facility] Yqbqgc7141 [address] RoadDublin [place] [id number] Bilirubin Ql (U) Negative Normal Comprehe nsive Internal Medicine Work Phone: Comment on above: PATIENT NOT FASTINGP ERFORMED BY: FAITH [facility] Qmybzn7608 [address] RoadDublin [place] [id number] Bilirubin Ql (U) Negative Normal Comprehe nsive Internal Medicine; [facility] Work Phone: Comment on above: PATIENT NOT FASTINGP ERFORMED BY: FAITH [facility] Ajwztg0407 [address] RoadDublin [place] [id number] Color Nom (U) Yellow Normal Comprehensi ve Internal Medicine Work Phone: Comment on above: PATIENT NOT FASTINGP ERFORMED BY: CB [facility] Vziiyv6075 [address] RoadDublin [place] [id number] Glucose Ql (U) Negative Normal Comprehens karina Internal Medicine Work Phone: Comment on above: PATIENT NOT FASTINGP ERFORMED BY: CB Wilfredo Fvlfom[address]Dublin [place] [id number] Glucose Ql (U) Negative Normal Comprehens karina [facility]; [facility] Work Phone: Comment on above: PATIENT NOT FASTINGP ERFORMED BY: FAITH Chante Cfdaas69[address]Dublin [place] [id number] Hemoglobin Ql (U) Negative Normal Compreh ensive Internal Medicine Work Phone: Comment on above: PATIENT NOT FASTINGP ERFORMED BY: [facility]Saint [facility] Acppof89[address] RoadDublin [place] [id number] Hemoglobin Ql (U) Negative Normal Compreh ensive Internal Medicine; [facility] Work Phone: Comment on above: PATIENT NOT FASTINGP ERFORMED BY: FAITH RenettaSaint [facility] Dcdmdy4022 [address] RoadDublin [place] [id number] Ketones Ql (U) Negative Normal Comprehens karina Internal Medicine Work Phone: Comment on above: PATIENT NOT FASTINGP ERFORMED BY: [facility] Haahjf14[address] RoadDublin [place] [id number] Ketones Ql (U) Negative Normal Comprehens karina [facility] Medicine; [facility] Work Phone: Comment on above: PATIENT NOT FASTINGP ERFORMED BY: FAITH RenettaSaint [facility] Foxlrq0870 [address] RoadDublin [place] [id number] Leukocyte esterase Test strip Ql (U) Negative Normal [facility] Work Phone: Comment on above: PATIENT NOT FASTINGP ERFORMED BY: RenettaJoseph V[place] 56459[address] RoadDublin [place] [id number] Leukocyte esterase Test strip Ql (U) Negative Normal [facility]; [facility] Work Phone: Comment on above: PATIENT NOT FASTINGP ERFORMED BY: FAITH Wilfredo Zrbnpo8[address] RoadDublin [place] [id number] Microscopic observation LM Nom (Urine sed) MICRON Normal [facility] Work Phone: Comment on above: Microscopic follows if indicated. PATIENT NOT FASTINGP ERFORMED BY: FAITH [place] 9[address]60[address] RoadDublin [place] [id number] Microscopic observation LM Nom (Urine sed) See below: Normal [facility] Work Phone: Comment on above: PATIENT NOT FASTINGP ERFORMED BY: FAITH Brown6[address]Dublin [place] [id number] Nitrite Ql (U) Negative Normal Comprehens karina [facility] Work Phone: Comment on above: PATIENT NOT FASTINGP ERFORMED BY: FAITH Chante Kvktuk9187 [address] RoadDublin [place] [id number] Nitrite Ql (U) Negative Normal Comprehens karina [facility]; [facility] Work Phone: Comment on above: PATIENT NOT FASTINGP ERFORMED BY: FAITH Chante Cbexnj3829 [address] RoadDublin [place] [id number] pH (U) 7.0 [pH] Normal 5.0-7.5 [facility] Work Phone: Comment on above: PATIENT NOT FASTINGP ERFORMED BY: FAITH Chante Estxwe8675 [address] RoadDublin [place] [id number] Protein Ql (U) Negative Normal Comprehens karina [facility] Medicine Work Phone: Comment on above: PATIENT NOT FASTINGP ERFORMED BY: FAITH Chante Szkdpm3505 [address] RoadDublin [place] [id number] Protein Ql (U) Negative Normal Comprehens karina [facility]; [facility] Work Phone: Comment on above: PATIENT NOT FASTINGP ERFORMED BY: FAITH Chante Dbwdjb9917 [address] RoadDublin [place] [id number] Specific gravity Relative Density (U) 1.007 1 Normal 1.005-1.03 0 [facility] Work Phone: Comment on above: PATIENT NOT FASTINGP ERFORMED BY: FAITH Chante Geylvn6219 [address] RoadDublin [place] [id number] Urobilinogen (U) [Mass/Vol] 0.2 mg/dL Normal 0.0-1.9 [facility]; [facility] Work Phone: Comment on above: PATIENT NOT FASTINGP ERFORMED BY: FAITH LabDarling BatresCtkuas8566 [address] RoadDublin [place] [id number] Urobilinogen Test strip mass conc (U) 0.2 mg/dL Normal 0.0-1.9 Comprehensiv e Internal Medicine Work Phone: Comment on above: PATIENT NOT FASTINGP ERFORMED BY: FAITH Batreslin[address]blin [place] [id number] Systemic Lupus Profile (8623 5)Ordered By: Manager Social Work on 06-09-2013 Chromatin Ab Qn <0.2 Normal 0.0-0.9 Comprehen [facility] Internal [facility] Work Phone: Comment on above: PATIENT NOT FASTINGP ERFORMED BY: FAITH Brown[address]Dublin [place] [id number] Information: [id number] DNA double strand Ab Qn (S) [IU]/mL Normal 0-9 [facility] Work Phone: Comment on above: Negative <5 Equivoca l 5 - 9 Positive >9 PATIENT NOT FASTINGP ERFORMED BY: FAITH Chante Brown[address]bl[address] [place] [id number] Information: 821773,F40897 DNA double strand Ab Qn (S) [IU]/mL Normal 0-9 [facility]; [facility] Work Phone: Comment on above: Negative <5 Equivoca l 5 - 9 Positive >9 PATIENT NOT FASTINGP ERFORMED BY: FAITH Villalobos Rtkzxn9699 [address] Roadblin [place] [id number] Information: 904781,X77157 Rheumatoid factor Qn 8.5 {IU/mL} Normal 0.0-13.9 [facility] Internal Medicine Work Phone: Comment on above: PATIENT NOT FASTINGP ERFORMED BY: FAITH LabColexi BatresUiofvw1386 Randall RoadDublin [place] [id number] Information: [id number],[id number] Rheumatoid factor Qn 8.5 [IU]/mL Normal 0.0-13.9 [facility] prehensive Internal Medicine; [facility] Work Phone: Comment on above: PATIENT NOT FASTINGP ERFORMED BY: [facility] Nbgnkg40[address] [facility] [place] [id number] Information: 487857,[id number] Ribonucleoprotein extractable nuclear Ab Qn (S) 2.4 {AI} Abnormal 0.0-0.9 [facility] Work Phone: Comment on above: PATIENT NOT FASTINGP ERFORMED BY: [facility] Obtflx1594 [address] [facility] [place] [id number] Information: 393585,F54552 Sjogrens syndrome-A extractable nuclear Ab Qn (S) <0.2 Normal 0.0-0.9 [facility] Work Phone: Comment on above: PATIENT NOT FASTINGP ERFORMED BY: [facility] Jnzrbj7451 [address] [facility] [id number] Information: 201814,[id number] Sjogrens syndrome-B extractable nuclear Ab Qn (S) <0.2 Normal 0.0-0.9 [facility] Work Phone: Comment on above: PATIENT NOT FASTINGP ERFORMED BY: [facility] Orveow6423 [address] [facility] [id number] Information: 962605,Y20114 Hall extractable nuclear Ab Qn (S) <0.2 Normal 0.0-0.9 [facility] Work Phone: Comment on above: PATIENT NOT FASTINGP ERFORMED BY: [facility] Brwcol9262 [address] [facility]in [place] [id number] Information: 579026,[id number] CHRISTINA (ANTINUCLEAR ANTIBODY) ( 52966)Ordered By: Manager Social Work on 05-19-2013 Nuclear Ab Ql (S) Positive Abnormal Compreh ensive Internal Medicine Work Phone: Comment on above: PATIENT WAS FASTINGP ERFORMED BY: [facility] Idfevc6832 [facility] [id number] BY: BN Lab[address] [id number] Nuclear Ab Ql (S) Positive Abnormal Compreh ensive Internal Medicine; [facility] Work Phone: Comment on above: PATIENT WAS FASTINGP ERFORMED BY: SnuppsMadeline [place] 5723170 [facility] [id number] BY: Barre[address] [id number] C-REACTIVE PROTEIN (14577)Or dered By: Manager Social Work on 05-19-2013 CRP mass conc 0.6 mg/L Normal 0.0-4.9 Comprehensi ve Internal Medicine Work Phone: Comment on above: PATIENT WAS FASTINGP ERFORMED BY: SnuppsMadeline [place] 5723170 [facility] [id number] BY: Barre[address] [id number] CBC WITH MANUAL DIFF (70136) Ordered By: Manager Social Work on 05-19-2013 Basophils #/vol (Bld) 0.0 {x10E3/uL} Normal 0.0-0.2 [facility] Work Phone: Comment on above: PATIENT WAS FASTINGP ERFORMED BY: SnuppsRutgers - University Behavioral HealthCareByyszi8772 [facility] [id number] BY: [address] [id number] Information: 474390,L77814 Basophils (Bld) [#/Vol] 0.0 10*3/uL Normal 0.0-0.2 [facility]; [facility] Work Phone: Comment on above: PATIENT WAS FASTINGP ERFORMED BY: SnuppsMadeline [place] 5723170 [facility] [id number] BY: [address] [id number] Information: 884623,[id number] Basophils/100 WBC (Bld) 1 % Normal 0-3 [facility] Work Phone: Comment on above: PATIENT WAS FASTINGP ERFORMED BY: CB [facility] Ltvjdv4778 [address] [facility] [place] [id number] BY: [address] [id number] Information: 023271,Z90250 Eosinophils #/vol (Bld) 0.1 {x10E3/uL} Normal 0.0-0.4 [facility] Work Phone: Comment on above: PATIENT WAS FASTINGP ERFORMED BY: CB [facility] Wdcgmh1924 [facility] [id number] BY: [address] [id number] Information: 411973,[id number] Eosinophils (Bld) [#/Vol] 0.1 10*3/uL Normal 0.0-0.4 [facility]; [facility] Work Phone: Comment on above: PATIENT WAS FASTINGP ERFORMED BY: CB [facility] Ubtsyy1619 [facility] [id number] BY: [address] [id number] Information: 393095,I81274 Eosinophils/100 WBC (Bld) 3 % Normal 0-5 [facility] Work Phone: Comment on above: PATIENT WAS FASTINGP ERFORMED BY: [facility] Hfpaiw5446 [facility] [id number] BY: Lab[address] [id number] Information: 083683,E50043 Erythrocyte distribution width Ratio (RBC) 13.9 % Normal 12.3-15.4 [facility] Work Phone: Comment on above: PATIENT WAS FASTINGP ERFORMED BY: CB [facility] Opeskv1390 [facility] [id number] BY: [address] [id number] Information: 086547,Z41196 Hematocrit Volume Fraction (Bld) 42.1 % Normal 34.0-46.6 [facility] Work Phone: Comment on above: PATIENT WAS FASTINGP ERFORMED BY: FAITH SnuppsMadeline [place] 5723170 [facility] [id number] BY: Snupps[address] [id number] Information: 180238,[id number] Hemoglobin mass conc (Bld) 13.8 g/dL Normal 11.1-15.9 [facility] Work Phone: Comment on above: PATIENT WAS FASTINGP ERFORMED BY: FAITH Snupps Qgssrp1027 [facility] [id number] BY: [facility] CenterDraftMix[address] [id number] Information: 488508,T05412 Immature granulocytes #/vol (Bld) 0.0 {x10E3/uL} Normal 0.0-0.1 [facility] Work Phone: Comment on above: PATIENT WAS FASTINGP ERFORMED BY: FAITH SnuppsMadeline [place] 5723170 [facility] [id number] BY: Snupps[address] [id number] Information: 696213,[id number] Immature granulocytes (Bld) [#/Vol] 0.0 10*3/uL Normal 0.0-0.1 [facility]; [facility] Work Phone: Comment on above: PATIENT WAS FASTINGP ERFORMED BY: [place]sMad[place] 5723170 [facility] [id number] BY: [address] [id number] Information: 714917,F96554 Immature granulocytes/100 WBC (Bld) 0 % Normal 0-2 [facility] Work Phone: Comment on above: PATIENT WAS FASTINGP ERFORMED BY: CB [facility] Nzoekg9516 [facility] [id number] BY: Lab[address] [id number] Information: 864234,D68043 Lymphocytes #/vol (Bld) 1.2 {x10E3/uL} Normal 0.7-3.1 [facility] Work Phone: Comment on above: PATIENT WAS FASTINGP ERFORMED BY: [facility] Hexhgl2772 [facility] [id number] BY: [address] [id number] Information: 007019,G41151 Lymphocytes (Bld) [#/Vol] 1.2 10*3/uL Normal 0.7-3.1 [facility]; [facility] Work Phone: Comment on above: PATIENT WAS FASTINGP ERFORMED BY: [facility] Mzhbvf8466 [facility] [id number] BY: Lab[address] [id number] Information: 283583,N32837 Lymphocytes/100 WBC (Bld) 30 % Normal 14-46 [facility] Work Phone: Comment on above: PATIENT WAS FASTINGP ERFORMED BY: [facility] Zztxus1097 [facility] [id number] BY: LabCo[address] [id number] Information: [id number],[id number] MCH Entitic mass (RBC) 30.1 pg Normal 26.6-33.0 [facility] Work Phone: Comment on above: PATIENT WAS FASTINGP ERFORMED BY: [facility] Scuadr0826 [facility] [id number] BY: [address] [id number] Information: 788662,[id number] MCHC mass conc (RBC) 32.8 g/dL Normal 31.5-35.7 [facility] Internal Medicine Work Phone: Comment on above: PATIENT WAS FASTINGP ERFORMED BY: FAITH [facility] Jmhlxv2067 [facility] [id number] BY: [address] [id number] Information: 808316,[id number] MCV Entitic volume (RBC) 92 fL Normal 79-97 [facility] Work Phone: Comment on above: PATIENT WAS FASTINGP ERFORMED BY: CB [facility] Tqxcpz1236 [facility] [id number] BY: Lab[address] [id number] Information: 640162,[id number] Monocytes #/vol (Bld) 0.3 {x10E3/uL} Normal 0.1-0.9 [facility] Work Phone: Comment on above: PATIENT WAS FASTINGP ERFORMED BY: FAITH [facility] Vbezhz3642 [facility] [id number] BY: [address] [id number] Information: 682317,G04572 Monocytes (Bld) [#/Vol] 0.3 10*3/uL Normal 0.1-0.9 [facility]; [facility] Work Phone: Comment on above: PATIENT WAS FASTINGP ERFORMED BY: CB [facility] Awwyxa3318 [facility] [id number] BY: Lab[address] [id number] Information: 324164,[id number] Monocytes/100 WBC (Bld) 9 % Normal 4-12 [facility] Work Phone: Comment on above: PATIENT WAS FASTINGP ERFORMED BY: CB [facility] Ozjrtw7155 [facility] [id number] BY: Lab[address] [id number] Information: [id number],[id number] Neutrophils #/vol (Bld) 2.2 {x10E3/uL} Normal 1.4-7.0 [facility] Work Phone: Comment on above: PATIENT WAS FASTINGP ERFORMED BY: [facility] Cnqfgh8302 [facility] [id number] BY: Lab[address] [id number] Information: 747393,M71174 Neutrophils (Bld) [#/Vol] 2.2 10*3/uL Normal 1.4-7.0 [facility]; [facility] Work Phone: Comment on above: PATIENT WAS FASTINGP ERFORMED BY: [facility] Atodxf1266 [facility] [id number] BY: [address] [id number] Information: 291706,Y94718 Neutrophils/100 WBC (Bld) 57 % Normal 40-74 [facility] Work Phone: Comment on above: PATIENT WAS FASTINGP ERFORMED BY: [facility] Lbqvbj0968 [facility] [id number] BY: [address] [id number] Information: 888775,N44808 Platelets #/vol (Bld) 275 {x10E3/uL} Normal 155-379 [facility] Medicine Work Phone: Comment on above: PATIENT WAS FASTINGP ERFORMED BY: [facility] Dvuovn6585 [facility] [id number] BY: [address] [id number] Information: [id number] Platelets (Bld) [#/Vol] 275 10*3/uL Normal 155-379 [facility]; [facility] Work Phone: Comment on above: PATIENT WAS FASTINGP ERFORMED BY: FAITH [facility] Afljxy6188 [facility] [id number] BY: [address] [id number] Information: [id number] RBC #/vol (Bld) 4.59 {x10E6/uL} Normal 3.77-5.28 Comp [facility] Internal Medicine Work Phone: Comment on above: PATIENT WAS FASTINGP ERFORMED BY: FAITH [facility] Qzlvol4598 [facility] [id number] BY: [facility] CenterDraftMix[address] [id number] Information: [id number] RBC (Bld) [#/Vol] 4.59 10*6/uL Normal 3.77-5.28 Compr [facility] Internal Medicine; [facility] Work Phone: Comment on above: PATIENT WAS FASTINGP ERFORMED BY: FAITH [facility] Xaybld5632 [facility] [id number] BY: [address] [id number] Information: [id number] WBC #/vol (Bld) 3.9 {x10E3/uL} Normal 3.4-10.8 [facility] Internal Medicine Work Phone: Comment on above: PATIENT WAS FASTINGP ERFORMED BY: FAITH [facility] Lngodh8400 [facility] [id number] BY: [address] [id number] Information: [id number] WBC (Bld) [#/Vol] 3.9 10*3/uL Normal 3.4-10.8 [facility]; [facility] Work Phone: Comment on above: PATIENT WAS FASTINGP ERFORMED BY: [employer]6370 [facility] [id number] BY: Snupps[address] [id number] Information: [id number] CCP ANTIBODY (85249)Ordered By: Manager Social Work on 05-19-2013 Cyclic citrullinated peptide IgA+IgG IA Qn 3 {units} Normal 0-19 [facility] Work Phone: Comment on above: Negative <20 Weak po sitive 20 - 39 Moderate positive 40 - 59 Strong positive >59 PATIENT WAS FASTINGP ERFORMED BY: [employer]6370 [facility] [id number] BY: Snupps[address] [id number] METABOLIC PANEL, COMPREHENSI VE (63315)Ordered By: Manager Social Work on 05-19-2013 Albumin mass conc 4.7 g/dL Normal 3.5-5.5 Compreh ensive Internal Medicine Work Phone: Comment on above: PATIENT WAS FASTINGP ERFORMED BY: [employer]6370 [facility] [id number] BY: Snupps[address] [id number] Albumin/Globulin mass ratio 1.8 {ratio} Normal 1.1-2.5 [facility] Work Phone: Comment on above: PATIENT WAS FASTINGP ERFORMED BY: [employer]6370 [facility] [id number] BY: Snupps[address] [id number] ALP [Catalytic activity/Vol] 33 U/L Abnormal 42-107 [facility]; [facility] Work Phone: Comment on above: Effective May 24, 2013 the reference interval for Alkaline Phosphatase, S will be changing to: Age Male Female 0 - 1 day 45 - 111 45 - 111 2 - 5 days 46 - 119 46 - 119 6 - 10 days 48 - 229 48 - 229 11 - 30 days 59 - 414 59 - 414 1 - 6 months 91 - 445 91 - 445 7 - 12 months 124 - 341 124 - 341 1 - 3 years 130 - 317 130 - 317 4 - 6 years 133 - 309 133 - 309 7 - 12 years 134 - 349 134 - 349 13 years 143 - 396 68 - 209 14 years 107 - 340 62 - 149 15 years 84 - 254 54 - 121 16 years 71 - 186 49 - 108 17 years 61 - 146 45 - 101 18 years 56 - 127 43 - 101 >18 years 39 - 117 39 - 117 PATIENT WAS FASTINGP ERFORMED BY: [employer]6370 [facility] [id number] BY: Lectorati[address] [id number] ALP enzyme act/vol 33 [iU]/L Abnormal 42-107 Compre [facility] Internal Medicine Work Phone: Comment on above: Effective May 24, 2013 the reference interval for Alkaline Phosphatase, S will be changing to: Age Male Female 0 - 1 day 45 - 111 45 - 111 2 - 5 days 46 - 119 46 - 119 6 - 10 days 48 - 229 48 - 229 11 - 30 days 59 - 414 59 - 414 1 - 6 months 91 - 445 91 - 445 7 - 12 months 124 - 341 124 - 341 1 - 3 years 130 - 317 130 - 317 4 - 6 years 133 - 309 133 - 309 7 - 12 years 134 - 349 134 - 349 13 years 143 - 396 68 - 209 14 years 107 - 340 62 - 149 15 years 84 - 254 54 - 121 16 years 71 - 186 49 - 108 17 years 61 - 146 45 - 101 18 years 56 - 127 43 - 101 >18 years 39 - 117 39 - 117 PATIENT WAS FASTINGP ERFORMED BY: [employer]6370 [facility] [id number] BY: [employer] [place] [address] [id number] ALT [Catalytic activity/Vol] 22 U/L Normal 0-32 [facility]; [facility] Work Phone: Comment on above: PATIENT WAS FASTINGP ERFORMED BY: [employer]6370 RandallArtesian SolutionsVidant P[facility] Hospital [id number] BY: [employer] [id number] ALT enzyme act/vol 22 [iU]/L Normal 0-32 [facility] Internal Medicine Work Phone: Comment on above: PATIENT WAS FASTINGP ERFORMED BY: [facility] Usyiql5069 Randall RoadDublin [place] [id number] BY: [address] [id number] AST [Catalytic activity/Vol] 19 U/L Normal 0-40 [facility]; [facility] Work Phone: Comment on above: PATIENT WAS FASTINGP ERFORMED BY: [facility] Zvvttt6876 [facility] [id number] BY: Lab[address] [id number] AST enzyme act/vol 19 [iU]/L Normal 0-40 [facility] Internal Medicine Work Phone: Comment on above: PATIENT WAS FASTINGP ERFORMED BY: [facility] Pdaged5608 [facility] [place] [id number] BY: [address] [id number] Bilirubin mass conc 0.5 mg/dL Normal 0.0-1.2 Compr [facility] Internal Medicine Work Phone: Comment on above: PATIENT WAS FASTINGP ERFORMED BY: [facility] Lhrtyv1191 [facility] [id number] BY: Lab[address] [id number] Calcium mass conc 9.6 mg/dL Normal 8.7-10.2 [facility] Internal Medicine Work Phone: Comment on above: PATIENT WAS FASTINGP ERFORMED BY: [facility] Rbkcja8393 Randall RoadDublin [place] [id number] BY: [address] [id number] Chloride molar conc 101 mmol/L Normal 97-108 Compr ensive Internal Medicine Work Phone: Comment on above: PATIENT WAS FASTINGP ERFORMED BY: CB [facility] Qeursd5719 [facility] [id number] BY: BN [facility] [address] [id number] CO2 molar conc 22 mmol/L Normal 19-28 Comprehens karina Internal Medicine Work Phone: Comment on above: PATIENT WAS FASTINGP ERFORMED BY: CB [facility] Ignacj4208 [facility] [id number] BY: BN [facility] [address] [id number] Creatinine mass conc 0.78 mg/dL Normal 0.57-1.00 [facility] Work Phone: Comment on above: PATIENT WAS FASTINGP ERFORMED BY: CB [facility] Efjjlc3229 [facility] [id number] BY: [facility] [address] [id number] GFR/1.73 sq M predicted among blacks CKD-EPI vol rate/area (S/P/Bld) 102 mL/min/1.73 Normal Comprehensiv e Internal Medicine Work Phone: Comment on above: PATIENT WAS FASTINGP ERFORMED BY: CB [facility] Gnomaa0238 [facility] [id number] BY: [facility] [address] [id number] GFR/1.73 sq M predicted among non-blacks CKD-EPI vol rate/area (S/P/Bld) 88 mL/min/1.73 Normal [facility] Work Phone: Comment on above: PATIENT WAS FASTINGP ERFORMED BY: CB [facility] Ycomiw3064 [facility] [id number] BY: [facility] [address] [id number] Globulin mass conc (S) 2.6 g/dL Normal 1.5-4.5 [facility] Work Phone: Comment on above: PATIENT WAS FASTINGP ERFORMED BY: FAITH [facility] Thhclv7248 [facility] [id number] BY: LabCo[address] [id number] Glucose mass conc 88 mg/dL Normal 65-99 Compreh ensive Internal Medicine Work Phone: Comment on above: PATIENT WAS FASTINGP ERFORMED BY: FAITH [facility] Zmrjyb9416 [facility] [id number] BY: Lab[address] [id number] Potassium molar conc 4.2 mmol/L Normal 3.5-5.2 Comp rehensive Internal Medicine Work Phone: Comment on above: PATIENT WAS FASTINGP ERFORMED BY: FAITH [facility] Apmymp3427 [facility] [id number] BY: Lab[address] [id number] Protein mass conc 7.3 g/dL Normal 6.0-8.5 Compreh ensive Internal Medicine Work Phone: Comment on above: PATIENT WAS FASTINGP ERFORMED BY: FAITH [facility] Yzzsvs5724 [facility] [id number] BY: LabCo[address] [id number] Sodium molar conc 140 mmol/L Normal 134-144 Compreh ensive Internal Medicine Work Phone: Comment on above: PATIENT WAS FASTINGP ERFORMED BY: [facility] Omdaoh1204 [facility] [place] [id number] BY: Lab[address] [id number] Urea nitrogen mass conc 15 mg/dL Normal 6-24 [facility] Work Phone: Comment on above: PATIENT WAS FASTINGP ERFORMED BY: [facility] Xjercm3904 [facility] [id number] BY: Snupps[address] [id number] Urea nitrogen/Creatinine mass ratio 19 mg/mg Normal 9-23 [facility] Work Phone: Comment on above: PATIENT WAS FASTINGP ERFORMED BY: FAITH [facility] Iackcf6314 [facility] [id number] BY: Snupps[address] [id number] RHEUMATOID FACTOR-QUANT (864 31)Ordered By: Manager Social Work on 05-19-2013 Rheumatoid factor Qn 7.4 {IU/mL} Normal 0.0-13.9 [facility] Work Phone: Comment on above: PATIENT WAS FASTINGP ERFORMED BY: FAITH [facility] Tabdof3364 [facility] [id number] BY: [employer] [id number] Rheumatoid factor Qn 7.4 [IU]/mL Normal 0.0-13.9 [facility] prehensive Internal Medicine; [facility] Work Phone: Comment on above: PATIENT WAS FASTINGP ERFORMED BY: FAITH [facility] Vayabn6180 [facility] [id number] BY: Snupps[address] [id number] SED RATE ERYTHROCYTE (11748) Ordered By: Manager Social Work on 05-19-2013 ESR Velocity (Bld) 2 mm/h Normal 0-40 [facility] Internal Medicine Work Phone: Comment on above: PATIENT WAS FASTINGP ERFORMED BY: [employer] [facility] Yyyvwi2764 [facility] [id number] BY: Snupps[address] [id number] TSH (56298)Ordered By: MarketYzee m Liquid Chlorine Operator on 05-19-2013 Thyrotropin Qn 1.030 {uIU/mL} Normal 0.450-4.50 0 [facility] Work Phone: Comment on above: PATIENT WAS FASTINGP ERFORMED BY: LabCoRutgers - University Behavioral HealthCareQriqge1892 [facility] [id number] BY: [facility] [facility] [id number] HEPATIC FUNCTION PANEL (8007 6)Ordered By: Manager Social Work on 08-07-2012 Albumin mass conc 4.7 g/dL Normal 3.5-5.5 Compreh ensive Internal Medicine Work Phone: Comment on above: PATIENT NOT FASTINGP ERFORMED BY: [facility] Mcnhfj3466 [facility] [id number] Information: [id number] ALP [Catalytic activity/Vol] 29 U/L Normal 25-150 [facility]; [facility] Work Phone: Comment on above: PATIENT NOT FASTINGP ERFORMED BY: [facility] Khtszy2040 Randall RoadVidant Pungo Hospital [id number] Information: [id number] ALP enzyme act/vol 29 [iU]/L Normal 25-150 [facility] Internal Medicine Work Phone: Comment on above: PATIENT NOT FASTINGP ERFORMED BY: [facility] Dscyzh5422 [facility] [place] [id number] Information: [id number] ALT [Catalytic activity/Vol] 20 U/L Normal 0-32 [facility]; [facility] Work Phone: Comment on above: PATIENT NOT FASTINGP ERFORMED BY: [facility] Evnfag4114 [address] RoadNovant Health Presbyterian Medical Centerin [place] [id number] Information: [id number],[id number] ALT enzyme act/vol 20 [iU]/L Normal 0-32 [facility] Internal Medicine Work Phone: Comment on above: PATIENT NOT FASTINGP ERFORMED BY: [facility] Jlhnlg4211 [facility] [id number] Information: [id number] AST [Catalytic activity/Vol] 20 U/L Normal 0-40 [facility]; [facility] Work Phone: Comment on above: PATIENT NOT FASTINGP ERFORMED BY: FAITH LabColexi BatresYgzwma8059 [facility] [id number] Information: [id number] AST enzyme act/vol 20 [iU]/L Normal 0-40 Compre [facility] Internal Medicine Work Phone: Comment on above: PATIENT NOT FASTINGP ERFORMED BY: CB [facility] Tryuqu7241 [facility] [id number] Information: 601343,[id number] Bilirubin mass conc 0.6 mg/dL Normal 0.0-1.2 Compr [facility] Internal Medicine Work Phone: Comment on above: PATIENT NOT FASTINGP ERFORMED BY: FAITH Batreslin6370 [facility] [id number] Information: [id number] Bilirubin.direct mass conc 0.15 mg/dL Normal 0.00-0.40 [facility] Work Phone: Comment on above: PATIENT NOT FASTINGP ERFORMED BY: FAITH [facility] Ebqbfa9601 [facility] [id number] Information: 664914,A11293 Protein mass conc 7.3 g/dL Normal 6.0-8.5 Compreh [facility] Internal Medicine Work Phone: Comment on above: PATIENT NOT FASTINGP ERFORMED BY: FAITH [facility] Nzvvor8646 [facility] [id number] Information: [id number] LIPID PANEL (28610)Ordered B y: Manager Social Work on 08-07-2012 Cholesterol in HDL mass conc 58 mg/dL Normal [facility] Work Phone: Comment on above: According to ATP-III Guidelines, HDL-C >59 mg/dL is considered anegative risk factor for CHD. PATIENT NOT FASTINGP ERFORMED BY: CB [facility] Wvpnit2383 [facility] [id number] Cholesterol in LDL mass conc 107 mg/dL Abnormal 0-99 [facility] Work Phone: Comment on above: PATIENT NOT FASTINGP ERFORMED BY: FAITH Brown6370 [facility] [id number] Cholesterol in LDL/Cholesterol in HDL mass ratio 1.8 {ratio_units} Normal 0.0-3.2 [facility] Work Phone: Comment on above: PATIENT NOT FASTINGP ERFORMED BY: FAITH Brown6370 [facility] [id number] Cholesterol in VLDL mass conc 34 mg/dL Normal 5-40 [facility] Work Phone: Comment on above: PATIENT NOT FASTINGP ERFORMED BY: FAITH Batreslin6370 [facility] [id number] Cholesterol mass conc 199 mg/dL Normal 100-199 [facility] Work Phone: Comment on above: PATIENT NOT FASTINGP ERFORMED BY: FAITH Batreslin6370 [facility] [id number] Triglyceride mass conc 169 mg/dL Abnormal 0-149 [facility] Work Phone: Comment on above: PATIENT NOT FASTINGP ERFORMED BY: FAITH Brown6370 [facility] [id number] CBC WITH MANUAL DIFF (43858) Ordered By: Manager Social Work on 07-15-2012 Basophils #/vol (Bld) 0.0 {x10E3/uL} Normal 0.0-0.2 [facility] Work Phone: Comment on above: PATIENT NOT FASTINGP ERFORMED BY: FAITH Villalobos Wsbjqy8963 [facility] [id number] Information: [id number] Basophils (Bld) [#/Vol] 0.0 10*3/uL Normal 0.0-0.2 [facility]; [facility] Work Phone: Comment on above: PATIENT NOT FASTINGP ERFORMED BY: FAITH LabJass Dqebnq0652 [facility] [id number] Information: 036928,[id number] Basophils/100 WBC (Bld) 1 % Normal 0-3 [facility] Work Phone: Comment on above: PATIENT NOT FASTINGP ERFORMED BY: FAITH Batreslin6370 [facility] [id number] Information: 178339,Q22108 Eosinophils #/vol (Bld) 0.1 {x10E3/uL} Normal 0.0-0.4 [facility] Work Phone: Comment on above: PATIENT NOT FASTINGP ERFORMED BY: Lab[address] [id number] Information: [id number],[id number] Eosinophils (Bld) [#/Vol] 0.1 10*3/uL Normal 0.0-0.4 [facility]; [facility] Work Phone: Comment on above: PATIENT NOT FASTINGP ERFORMED BY: FAITH JacksonJoseph [place] 5645970 [facility] [id number] Information: [id number],Y48808 Eosinophils/100 WBC (Bld) 2 % Normal 0-7 [facility] Work Phone: Comment on above: PATIENT NOT FASTINGP ERFORMED BY: FAITH VillalobosMadeline Ville 5723170 [facility] [id number] Information: 358835,D16836 Erythrocyte distribution width Ratio (RBC) 13.3 % Normal 12.3-15.4 [facility] Work Phone: Comment on above: PATIENT NOT FASTINGP ERFORMED BY: [address] [id number] Information: [id number] Hematocrit Volume Fraction (Bld) 42.1 % Normal 34.0-46.6 [facility] Work Phone: Comment on above: PATIENT NOT FASTINGP ERFORMED BY: [place] 7484270 [facility] [id number] Information: [id number],[id number] Hemoglobin mass conc (Bld) 14.3 g/dL Normal 11.1-15.9 [facility] Work Phone: Comment on above: PATIENT NOT FASTINGP ERFORMED BY: FAITH Brown6370 [facility] [id number] Information: 951516,Y34025 Immature granulocytes #/vol (Bld) 0.0 {x10E3/uL} Normal 0.0-0.1 [facility] Work Phone: Comment on above: PATIENT NOT FASTINGP ERFORMED BY: FAITH Villalobos[address] [id number] Information: [id number],Z76301 Immature granulocytes (Bld) [#/Vol] 0.0 10*3/uL Normal 0.0-0.1 [facility]; [facility] Work Phone: Comment on above: PATIENT NOT FASTINGP ERFORMED BY: FAITH Villalobos[address] [id number] Information: 479991,C25619 Immature granulocytes/100 WBC (Bld) 0 % Normal 0-2 [facility] Work Phone: Comment on above: PATIENT NOT FASTINGP ERFORMED BY: FAITH Villalobos Dcepmg[address] [id number] Information: [id number],[id number] Lymphocytes #/vol (Bld) 1.5 {x10E3/uL} Normal 0.7-4.5 [facility] Work Phone: Comment on above: PATIENT NOT FASTINGP ERFORMED BY: FAITH [place] 9646070 [facility] [id number] Information: 390993,[id number] Lymphocytes (Bld) [#/Vol] 1.5 10*3/uL Normal 0.7-4.5 [facility]; [facility] Work Phone: Comment on above: PATIENT NOT FASTINGP ERFORMED BY: FAITH [address] [id number] Information: 080565,[id number] Lymphocytes/100 WBC (Bld) 27 % Normal 14-46 [facility] Work Phone: Comment on above: PATIENT NOT FASTINGP ERFORMED BY: FAITH JacksonJoseph [place] 5645970 [facility] [id number] Information: 857916,Z28081 MCH Entitic mass (RBC) 31.0 pg Normal 26.6-33.0 [facility] Work Phone: Comment on above: PATIENT NOT FASTINGP ERFORMED BY: [address] [id number] Information: 050079,K89323 MCHC mass conc (RBC) 34.0 g/dL Normal 31.5-35.7 [facility] Internal Medicine Work Phone: Comment on above: PATIENT NOT FASTINGP ERFORMED BY: [address] [id number] Information: 585200,[id number] MCV Entitic volume (RBC) 91 fL Normal 79-97 [facility] Work Phone: Comment on above: PATIENT NOT FASTINGP ERFORMED BY: [address] [id number] Information: 277146,[id number] Monocytes #/vol (Bld) 0.3 {x10E3/uL} Normal 0.1-1.0 [facility] Work Phone: Comment on above: PATIENT NOT FASTINGP ERFORMED BY: [address] [id number] Information: [id number],Q97711 Monocytes (Bld) [#/Vol] 0.3 10*3/uL Normal 0.1-1.0 [facility]; [facility] Work Phone: Comment on above: PATIENT NOT FASTINGP ERFORMED BY: [place] 7484270 [facility] [id number] Information: 148196,G24126 Monocytes/100 WBC (Bld) 6 % Normal 4-13 [facility] Work Phone: Comment on above: PATIENT NOT FASTINGP ERFORMED BY: FAITH [facility] [id number] Information: 765760,G49940 Neutrophils #/vol (Bld) 3.6 {x10E3/uL} Normal 1.8-7.8 [facility] Work Phone: Comment on above: PATIENT NOT FASTINGP ERFORMED BY: FAITH Brown6370 [facility] [id number] Information: [id number],L01970 Neutrophils (Bld) [#/Vol] 3.6 10*3/uL Normal 1.8-7.8 [facility]; [facility] Work Phone: Comment on above: PATIENT NOT FASTINGP ERFORMED BY: FAITH Brown6370 [facility] [id number] Information: 084494,[id number] Neutrophils/100 WBC (Bld) 64 % Normal 40-74 [facility] Work Phone: Comment on above: PATIENT NOT FASTINGP ERFORMED BY: FAITH Brown63Dania FarahC[facility] Hospital [id number] Information: 203640,W04601 Platelets #/vol (Bld) 277 {x10E3/uL} Normal 140-415 [facility] Work Phone: Comment on above: PATIENT NOT FASTINGP ERFORMED BY: FAITH Batreslin6370 [facility] [id number] Information: [id number],[id number] Platelets (Bld) [#/Vol] 277 10*3/uL Normal 140-415 [facility]; [facility] Work Phone: Comment on above: PATIENT NOT FASTINGP ERFORMED BY: FAITH Batreslin6370 [facility] [id number] Information: [id number],[id number] RBC #/vol (Bld) 4.62 {x10E6/uL} Normal 3.77-5.28 [facility] Work Phone: Comment on above: PATIENT NOT FASTINGP ERFORMED BY: FAITH Brown6370 [facility] [id number] Information: 995832,M28336 RBC (Bld) [#/Vol] 4.62 10*6/uL Normal 3.77-5.28 Compr ensive Internal Medicine; [facility] Work Phone: Comment on above: PATIENT NOT FASTINGP ERFORMED BY: FAITH Wilfredo Cebiib3185 [facility] [id number] Information: 690596,[id number] WBC #/vol (Bld) 5.7 {x10E3/uL} Normal 4.0-10.5 Compr [facility] Internal Medicine Work Phone: Comment on above: PATIENT NOT FASTINGP ERFORMED BY: FAITH Wilfredolexi BatresKvlbyj6537 [facility] [id number] Information: 329394,G63731 WBC (Bld) [#/Vol] 5.7 10*3/uL Normal 4.0-10.5 Compre [facility] Internal Medicine; [facility] Work Phone: Comment on above: PATIENT NOT FASTINGP ERFORMED BY: FAITH Wilfredolexi Wguyqf3828 [facility] [id number] Information: [id number] METABOLIC PANEL, COMPREHENSI VE (52268)Ordered By: Manager Social Work on 07-15-2012 Albumin mass conc 4.7 g/dL Normal 3.5-5.5 Compreh [facility] Internal Medicine Work Phone: Comment on above: PATIENT NOT FASTINGP ERFORMED BY: FAITH Villalobos [id number] [facility] [id number] Albumin/Globulin mass ratio 1.7 {ratio} Normal 1.1-2.5 [facility] Work Phone: Comment on above: PATIENT NOT FASTINGP ERFORMED BY: FAITH LabJass Zptzag6835 [address] RoadDublin [place] [id number] ALP [Catalytic activity/Vol] 32 U/L Normal 25-150 [facility]; [facility] Internal Medicine Work Phone: Comment on above: PATIENT NOT FASTINGP ERFORMED BY: CB [facility] Nwpqnn1539 [address] RoadDublin [place] [id number] ALP enzyme act/vol 32 [iU]/L Normal 25-150 [facility] Internal Medicine Work Phone: Comment on above: PATIENT NOT FASTINGP ERFORMED BY: CB [facility] Blhbbe2316 [address] RoadDublin [place] [id number] ALT [Catalytic activity/Vol] 36 U/L Abnormal 0-32 [facility]; [facility] Internal Medicine Work Phone: Comment on above: PATIENT NOT FASTINGP ERFORMED BY: CB [facility] Asvsci5678 [address] RoadDublin [place] [id number] ALT enzyme act/vol 36 [iU]/L Abnormal 0-32 [facility] Internal Medicine Work Phone: Comment on above: PATIENT NOT FASTINGP ERFORMED BY: CB [facility] Krsrjw9137 [address] RoadDublin [place] [id number] AST [Catalytic activity/Vol] 30 U/L Normal 0-40 [facility] Internal Medicine; [facility] Internal Medicine Work Phone: Comment on above: PATIENT NOT FASTINGP ERFORMED BY: CB [facility] Szfshk4892 [address] RoadDublin [place] [id number] AST enzyme act/vol 30 [iU]/L Normal 0-40 [facility] Internal Medicine Work Phone: Comment on above: PATIENT NOT FASTINGP ERFORMED BY: CB [facility] Cttmwv9002 [address] RoadDublin [place] [id number] Bilirubin mass conc 0.5 mg/dL Normal 0.0-1.2 [facility] Internal Medicine Work Phone: Comment on above: PATIENT NOT FASTINGP ERFORMED BY: CB [facility] Epagqn8315 [address] RoadDublin [place] [id number] Calcium mass conc 9.7 mg/dL Normal 8.7-10.2 Compreh ensive Internal Medicine Work Phone: Comment on above: PATIENT NOT FASTINGP ERFORMED BY: CB [facility] Mtispe5900 [address] RoadDublin [place] [id number] Chloride molar conc 101 mmol/L Normal 97-108 Compr ehensive Internal Medicine Work Phone: Comment on above: PATIENT NOT FASTINGP ERFORMED BY: CB [facility] Wzxcwv6749 [address] RoadDublin [place] [id number] CO2 molar conc 24 mmol/L Normal 20-32 Comprehens karina Internal Medicine Work Phone: Comment on above: PATIENT NOT FASTINGP ERFORMED BY: CB [facility] Xrpzbg6524 [address] RoadDublin [place] [id number] Creatinine mass conc 0.87 mg/dL Normal 0.57-1.00 Comp rehensive Internal Medicine Work Phone: Comment on above: PATIENT NOT FASTINGP ERFORMED BY: CB [facility] Pvixsj2266 [address] RoadNovant Health Pres[facility] Centerin [place] [id number] GFR/1.73 sq M predicted among blacks CKD-EPI vol rate/area (S/P/Bld) 90 mL/min/1.73 Normal Comprehensiv e Internal Medicine Work Phone: Comment on above: PATIENT NOT FASTINGP ERFORMED BY: CB [facility] Esaxpj7925 [address] RoadDublin [place] [id number] GFR/1.73 sq M predicted among non-blacks CKD-EPI vol rate/area (S/P/Bld) 78 mL/min/1.73 Normal [facility] Work Phone: Comment on above: PATIENT NOT FASTINGP ERFORMED BY: CB [facility] Swxaup4661 [address] RoadDublin [place] [id number] Globulin mass conc (S) 2.8 g/dL Normal 1.5-4.5 [facility] Work Phone: Comment on above: PATIENT NOT FASTINGP ERFORMED BY: CB [facility] Srufzl0249 [address] RoadDublin [place] [id number] Glucose mass conc 92 mg/dL Normal 65-99 Compreh ensive Internal Medicine Work Phone: Comment on above: PATIENT NOT FASTINGP ERFORMED BY: FAITH Brown[address] [facility] [id number] Potassium molar conc 4.2 mmol/L Normal 3.5-5.2 Comp rehensive Internal Medicine Work Phone: Comment on above: PATIENT NOT FASTINGP ERFORMED BY: FAITH Brown6370 [address] [facility] [id number] Protein mass conc 7.5 g/dL Normal 6.0-8.5 Compreh ensive Internal Medicine Work Phone: Comment on above: PATIENT NOT FASTINGP ERFORMED BY: FAITH Chante Brown6370 [facility] [id number] Sodium molar conc 141 mmol/L Normal 134-144 Compreh ensive Internal Medicine Work Phone: Comment on above: PATIENT NOT FASTINGP ERFORMED BY: FAITH Chante Ocvglw8097 [facility] [id number] Urea nitrogen mass conc 11 mg/dL Normal 6-24 [facility] Work Phone: Comment on above: PATIENT NOT FASTINGP ERFORMED BY: FAITH Chante Brown6370 [facility] [id number] Urea nitrogen/Creatinine mass ratio 13 mg/mg Normal 9-23 [facility] Work Phone: Comment on above: PATIENT NOT FASTINGP ERFORMED BY: FAITH Chante Hctfih6246 [facility] [id number] MICROALBUMINOrdered By: Syst em Liquid Chlorine Operator on 07-15-2012 Albumin DL <= 20 mg/L mass conc (U) 1.2 ug/mL Normal 0.0-17.0 [facility] Work Phone: Comment on above: PATIENT NOT FASTINGP ERFORMED BY: FATIH Chante Brown6370 [facility] [id number] Albumin/Creatinine mass ratio (U) 2.3 {mg/g_creat} Normal 0.0-30.0 [facility] Work Phone: Comment on above: PATIENT NOT FASTINGP ERFORMED BY: FAITH [facility] Ffephk0550 [address] RoadDublin [place] [id number] Creatinine mass conc (U) 51.3 mg/dL Normal 15.0-278.0 [facility] Work Phone: Comment on above: PATIENT NOT FASTINGP ERFORMED BY: FAITH [facility] Ijbtmy5391 [address] RoadDublin [place] [id number] TSH ([id number])Ordered By: MarketYzee m Liquid Chlorine Operator on 07-15-2012 Thyrotropin Qn 1.880 {uIU/mL} Normal 0.450-4.50 0 [facility] Work Phone: Comment on above: PATIENT NOT FASTINGP ERFORMED BY: FAITH [facility] Zwwdjo9847 [address] RoadDublin [place] [id number] URINALYSIS, W/ MICRO ([id number]) Ordered By: Manager Social Work on 07-15-2012 Appearance Nom (U) Clear Normal Compre hensive Internal Medicine Work Phone: Comment on above: PATIENT NOT FASTINGP ERFORMED BY: FAITH [facility] Cgqepb0229 [address] RoadDublin [place] [id number] Bilirubin Ql (U) Negative Normal Comprehe nsive Internal Medicine Work Phone: Comment on above: PATIENT NOT FASTINGP ERFORMED BY: FAITH [facility] Qkiynn7728 [address] RoadDublin [place] [id number] Bilirubin Ql (U) Negative Normal Comprehe nsive Internal Medicine; [facility] Work Phone: Comment on above: PATIENT NOT FASTINGP ERFORMED BY: CB [facility] Olqtsm3988 [address] RoadDublin [place] [id number] Color Nom (U) Yellow Normal Comprehensi ve Internal Medicine Work Phone: Comment on above: PATIENT NOT FASTINGP ERFORMED BY: CB [facility] Hgdwpv1741 [address] RoadDublin [place] [id number] Glucose Ql (U) Negative Normal Comprehens karina Internal Medicine Work Phone: Comment on above: PATIENT NOT FASTINGP ERFORMED BY: CB [facility] Yblzfo6357 [address] [facility] [id number] Glucose Ql (U) Negative Normal Comprehens karina Internal Medicine; [facility] Work Phone: Comment on above: PATIENT NOT FASTINGP ERFORMED BY: FAITH Marcus70 [address] [facility] [id number] Hemoglobin Ql (U) Negative Normal Compreh ensive Internal Medicine Work Phone: Comment on above: PATIENT NOT FASTINGP ERFORMED BY: FAITH Chante Marcus70 [address] [facility] [id number] Hemoglobin Ql (U) Negative Normal Compreh ensive Internal Medicine; [facility] Work Phone: Comment on above: PATIENT NOT FASTINGP ERFORMED BY: FAITH Chante Marcus[address] [facility] [id number] Ketones Ql (U) Negative Normal Comprehens karina Internal Medicine Work Phone: Comment on above: PATIENT NOT FASTINGP ERFORMED BY: FAITH Chante Brown6[address] [facility] [id number] Ketones Ql (U) Negative Normal Comprehens karina Internal Medicine; [facility] Work Phone: Comment on above: PATIENT NOT FASTINGP ERFORMED BY: FAITH Chante Marcus70 [address] [facility] [id number] Leukocyte esterase Test strip Ql (U) Negative Normal [facility] Work Phone: Comment on above: PATIENT NOT FASTINGP ERFORMED BY: FAITH Chante Brown[address] [facility] [id number] Leukocyte esterase Test strip Ql (U) Negative Normal [facility]; [facility] Work Phone: Comment on above: PATIENT NOT FASTINGP ERFORMED BY: FAITH Chante Batreslin6[address] [facility] [id number] Microscopic observation LM Nom (Urine sed) See below: Normal [facility] Work Phone: Comment on above: PATIENT NOT FASTINGP ERFORMED BY: FAITH Chante Batreslin6370 [facility] [id number] Microscopic observation LM Nom (Urine sed) MICRON Normal [facility] Work Phone: Comment on above: Microscopic follows if indicated. PATIENT NOT FASTINGP ERFORMED BY: FAITH Chante Zfkqwe7215 [facility] [id number] Nitrite Ql (U) Negative Normal Comprehens karina Internal Medicine Work Phone: Comment on above: PATIENT NOT FASTINGP ERFORMED BY: FAITH Wilfredolexi BatresMzqfro9864 [facility] [id number] Nitrite Ql (U) Negative Normal Comprehens karina Internal Medicine; [facility] Work Phone: Comment on above: PATIENT NOT FASTINGP ERFORMED BY: FAITH RenettaDarling Brown6370 [facility] [id number] pH (U) 6.5 [pH] Normal 5.0-7.5 [facility] Work Phone: Comment on above: PATIENT NOT FASTINGP ERFORMED BY: FAITH Batreslin6370 [facility] [id number] Protein Ql (U) Negative Normal Comprehens karina Internal Medicine Work Phone: Comment on above: PATIENT NOT FASTINGP ERFORMED BY: FAITH Wilfredolexi BatresPhhqpn3445 [facility] [id number] Protein Ql (U) Negative Normal Comprehens karina Internal Medicine; [facility] Work Phone: Comment on above: PATIENT NOT FASTINGP ERFORMED BY: FAITH RenettaDarling BatresQvdjpr3315 [facility] [id number] Specific gravity Relative Density (U) 1.010 1 Normal 1.005-1.03 0 [facility] Work Phone: Comment on above: PATIENT NOT FASTINGP ERFORMED BY: FAITH RenettaDarling BatresPxduqd4202 [facility] [id number] Urobilinogen (U) [Mass/Vol] 0.2 mg/dL Normal 0.0-1.9 [facility]; [facility] Work Phone: Comment on above: PATIENT NOT FASTINGP ERFORMED BY: [facility] Elcczo0726 [facility] [id number] Urobilinogen Test strip mass conc (U) 0.2 mg/dL Normal 0.0-1.9 Comprehensiv e Internal Medicine Work Phone: Comment on above: PATIENT NOT FASTINGP ERFORMED BY: [facility] Deroax8208 [facility] [id number] Vital Signs Date Time Vital Sign Value Performing Clinician Facility 08-22-2023 10:47-0500 Body height 165.[address] Odonnell Fast Work Phone: [facility] 08-22-2023 10:46-0500 Body mass index (BMI) [Ratio] 35.3 kg/m2 Dr. Odonnell Fast Work Phone: [facility] 08-22-2023 10:46-0500 Body weight 96.[address] Odonnell Fast Work Phone: [facility] 05-13-2023 09:05-0400 Body height 170.18 cm Elsi Toledo [facility]; [facility] Work Phone: 05-13-2023 09:05-0400 Body mass index (BMI) [Ratio] 30.89 kg/m2 Elsi Toledo [facility]; [facility] Work Phone: 05-13-2023 09:05-0400 Body surface area Derived from formula 2.01 m2 Elsi Toledo [facility]; [facility] Work Phone: 05-13-2023 09:05-0400 Body temperature 97.7 [degF] Elsi Toledo [facility]; [facility] Work Phone: 05-13-2023 09:05-0400 Body weight 89.47 kg Elsi Toledo [facility]; [facility] Work Phone: 05-13-2023 09:05-0400 Diastolic blood pressure 86 mm[Hg] Elsi Toledo [facility]; [facility] Work Phone: 05-13-2023 09:05-0400 Heart rate 68 /min Elsi Toledo [facility]; [facility] Work Phone: 05-13-2023 09:05-0400 Respiratory rate 16 /min Elsi Toledo [facility]; [facility] Work Phone: 05-13-2023 09:05-0400 Systolic blood pressure 144 mm[Hg] Esli Toledo [facility]; [facility] Work Phone: 04-22-2023 10:46-0400 Body height 170.18 cm [facility]; [facility] Work Phone: 04-22-2023 10:46-0400 Body mass index (BMI) [Ratio] 29.95 kg/m2 Elsi Toledo [facility]; [facility] Work Phone: 04-22-2023 10:46-0400 Body surface area Derived from formula 1.98 m2 [facility]; [facility] Work Phone: 04-22-2023 10:46-0400 Body temperature 97.9 [degF] Elsi Toledo [facility]; [facility] Work Phone: 04-22-2023 10:46-0400 Body weight 86.75 [facility]; [facility] Work Phone: 04-22-2023 10:46-0400 Diastolic blood pressure 92 mm[Hg] [facility]; [facility] Work Phone: 04-22-2023 10:46-0400 Heart rate 61 /min Elsi Toledo [facility]; [facility] Work Phone: 04-22-2023 10:46-0400 Respiratory rate 16 /min [facility]; [facility] Work Phone: 04-22-2023 10:46-0400 Systolic blood pressure 148 mm[Hg] Elsi Toledo [facility]; [facility] Work Phone: 01-08-2023 13:03-0400 Body height 170.18 cm Elsi Toledo [facility]; [facility] Work Phone: 01-08-2023 13:03-0400 Body mass index (BMI) [Ratio] 29.95 kg/m2 Elsi Toledo [facility]; [facility] Work Phone: 01-08-2023 13:03-0400 Body surface area Derived from formula 1.98 m2 Elsi Toledo [facility]; [facility] Work Phone: 01-08-2023 13:03-0400 Body temperature 98.3 [degF] Elsi Toledo [facility]; [facility] Work Phone: Comment on above: Method: Thermal Scan 01-08-2023 13:03-0400 Body weight 86.75 kg Elsi Toledo [facility]; [facility] Work Phone: 01-08-2023 13:03-0400 Diastolic blood pressure 88 mm[Hg] Elsi Toledo [facility]; [facility] Work Phone: Comment on above: Patient Position: Sitting; Cuff Location : Left Arm; Cuff Size: Standard 01-08-2023 13:03-0400 Heart rate 86 /min Elsi Toledo [facility]; [facility] Work Phone: Comment on above: Pattern: Regular 01-08-2023 13:03-0400 Respiratory rate 16 /min Elsi Toledo [facility]; [facility] Work Phone: Comment on above: Pattern: Unlabored 01-08-2023 13:03-0400 Systolic blood pressure 150 mm[Hg] Elsi Toledo [facility]; [facility] Work Phone: Comment on above: Patient Position: Sitting; Cuff Location : Left Arm; Cuff Size: Standard 05-23-2022 10:05-0400 Body height 165.[address] Odonnell PerceptiMed Work Phone: [facility] Work Phone: 05-23-2022 10:05-0400 Body mass index (BMI) [Ratio] 30.9 kg/m2 Dr. Odonnell [facility] Work Phone: [facility] Work Phone: 05-23-2022 10:05-0400 Body weight 84.[address] Odonnell [facility] Work Phone: [facility] Work Phone: 05-23-2022 10:05-0400 Diastolic blood pressure 95 mm[Hg] Dr. Sena Rao Work Phone: [facility] Work Phone: 05-23-2022 10:05-0400 Systolic blood pressure 147 mm[Hg] Dr. Sena Rao Work Phone: [facility] Work Phone: 03-26-2022 08:11-0400 Body height 170.18 cm Sena Gomez Fast DO Work Phone: [facility]; [facility] Work Phone: 03-26-2022 08:11-0400 Body mass index (BMI) [Ratio] 28.23 kg/m2 Sena Jason Fast DO Work Phone: [facility]; [facility] Work Phone: 03-26-2022 08:11-0400 Body surface area Derived from formula 1.93 m2 Sena A Fast DO Work Phone: [facility]; [facility] Work Phone: 03-26-2022 08:11-0400 Body temperature 97.8 [degF] Sena A Fast DO Work Phone: [facility]; [facility] Work Phone: Comment on above: Method: Oral 03-26-2022 08:11-0400 Body weight 81.76 kg Sena A Fast DO Work Phone: [facility]; [facility] Work Phone: 03-26-2022 08:11-0400 Diastolic blood pressure 82 mm[Hg] Sena A Fast DO Work Phone: [facility]; [facility] Work Phone: Comment on above: Patient Position: Sitting; Cuff Location : Left Arm; Cuff Size: Standard 03-26-2022 08:11-0400 Heart rate 58 /min Sena A Fast DO Work Phone: [facility]; [facility] Work Phone: Comment on above: Pattern: Regular 03-26-2022 08:11-0400 Respiratory rate 16 /min Sena A Fast DO Work Phone: [facility]; [facility] Work Phone: Comment on above: Pattern: Unlabored 03-26-2022 08:11-0400 Systolic blood pressure 122 mm[Hg] Sena A Fast DO Work Phone: [facility]; [facility] Work Phone: Comment on above: Patient Position: Sitting; Cuff Location : Left Arm; Cuff Size: Standard 03-12-2022 09:30-0400 Body height 162.56 cm [facility] Work Phone: 02-18-2022 13:27-0400 Body height 170.18 cm Elsi Toledo [facility]; [facility] Work Phone: 02-18-2022 13:27-0400 Body mass index (BMI) [Ratio] 28.23 kg/m2 Elsi Toledo [facility]; [facility] Work Phone: 02-18-2022 13:27-0400 Body surface area Derived from formula 1.93 m2 Elsi Toledo [facility]; [facility] Work Phone: 02-18-2022 13:27-0400 Body weight 81.76 kg Elsi Toeldo [facility]; [facility] Work Phone: 02-18-2022 13:27-0400 Diastolic blood pressure 90 mm[Hg] Elsi Toledo [facility]; [facility] Work Phone: Comment on above: Patient Position: Sitting; Cuff Location : Left Arm; Cuff Size: Standard 02-18-2022 13:27-0400 Heart rate 70 /min Elsi Toledo [facility]; [facility] Work Phone: Comment on above: Pattern: Regular 02-18-2022 13:27-0400 Respiratory rate 16 /min Elsi Toledo [facility]; [facility] Work Phone: Comment on above: Pattern: Unlabored 02-18-2022 13:27-0400 SaO2% (BldA) [Mass fraction] 98 % Elsi Toledo [facility]; [facility] Work Phone: Comment on above: Room air 02-18-2022 13:27-0400 Systolic blood pressure 162 mm[Hg] Elsi Toledo [facility]; [facility] Work Phone: Comment on above: Patient Position: Sitting; Cuff Location : Left Arm; Cuff Size: Standard 04-30-2021 08:05-0400 Body height 170.18 cm Gely Srinivasan MA [facility]; [facility] Work Phone: 04-30-2021 08:05-0400 Body mass index (BMI) [Ratio] 29.13 kg/m2 Gely Srinivasan MA [facility]; [facility] Work Phone: 04-30-2021 08:05-0400 Body surface area Derived from formula 1.96 m2 Gely Srinivasan MA [facility]; [facility] Work Phone: 04-30-2021 08:05-0400 Body temperature 97.1 [degF] Gely Srinivasan MA [facility]; [facility] Work Phone: 04-30-2021 08:05-0400 Body weight 84.37 kg Gely Srinivasan MA [facility]; [facility] Work Phone: 04-30-2021 08:05-0400 Diastolic blood pressure 76 mm[Hg] Gely Srinivasan MA [facility]; [facility] Work Phone: Comment on above: Patient Position: Sitting; Cuff Location : Left Arm; Cuff Size: Standard 04-30-2021 08:05-0400 Heart rate 75 /min Gely Srinivasan MA [facility]; [facility] Work Phone: Comment on above: Pattern: Regular 04-30-2021 08:05-0400 Respiratory rate 17 /min Gely Srinivasan MA [facility]; [facility] Work Phone: Comment on above: Pattern: Unlabored 04-30-2021 08:05-0400 SaO2% (BldA) [Mass fraction] 98 % Gely Srinivasan MA [facility]; [facility] Work Phone: Comment on above: Room air 04-30-2021 08:05-0400 Systolic blood pressure 130 mm[Hg] Gely Srinivasan MA [facility]; [facility] Work Phone: Comment on above: Patient Position: Sitting; Cuff Location : Left Arm; Cuff Size: Standard 12-27-2020 10:09-0400 Body height 170.18 cm [facility]; [facility] Work Phone: 12-27-2020 10:09-0400 Body mass index (BMI) [Ratio] 28.5 kg/m2 [facility]; [facility] Work Phone: 12-27-2020 10:09-0400 Body surface area Derived from formula 1.94 m2 [facility]; [facility] Work Phone: 12-27-2020 10:09-0400 Body temperature 97.4 [degF] [facility]; [facility] Work Phone: Comment on above: Method: Thermal Scan 12-27-2020 10:09-0400 Body weight 82.56 kg [facility]; [facility] Work Phone: 12-27-2020 10:09-0400 Diastolic blood pressure 82 mm[Hg] [facility]; [facility] Work Phone: Comment on above: Patient Position: Sitting; Cuff Location : Left Arm; Cuff Size: Standard 12-27-2020 10:09-0400 Heart rate 77 /min [facility]; [facility] Work Phone: Comment on above: Pattern: Regular 12-27-2020 10:090400 Respiratory rate 16 /min [facility]; [facility] Work Phone: Comment on above: Pattern: Unlabored 12-27-2020 10:090400 SaO2% (BldA) [Mass fraction] 95 % [facility]; [facility] Work Phone: Comment on above: Room air 12-27-2020 10:09-0400 Systolic blood pressure 136 mm[Hg] [facility]; [facility] Work Phone: Comment on above: Patient Position: Sitting; Cuff Location : Left Arm; Cuff Size: Standard 08-16-2020 08:15-0500 Body height 170.18 cm Sena A Fast DO Work Phone: [facility]; [facility] Work Phone: 08-16-2020 08:15-0500 Body mass index (BMI) [Ratio] 29.29 kg/m2 Sena A Fast DO Work Phone: [facility]; [facility] Work Phone: 08-16-2020 08:15-0500 Body surface area Derived from formula 1.97 m2 Sena A Fast DO Work Phone: [facility]; [facility] Work Phone: 08-16-2020 08:15-0500 Body temperature 95 [degF] Sena A Fast DO Work Phone: [facility]; [facility] Work Phone: Comment on above: Method: Thermal Scan 08-16-2020 08:15-0500 Body weight 84.82 kg Sena A Fast DO Work Phone: [facility]; [facility] Work Phone: 08-16-2020 08:15-0500 Diastolic blood pressure 80 mm[Hg] Sena A Fast DO Work Phone: [facility]; [facility] Work Phone: Comment on above: Patient Position: Sitting; Cuff Location : Left Arm; Cuff Size: Standard 08-16-2020 08:15-0500 Heart rate 71 /min Sena A Fast DO Work Phone: [facility]; [facility] Work Phone: Comment on above: Pattern: Regular 08-16-2020 08:15-0500 Respiratory rate 16 /min Sena A Fast DO Work Phone: [facility]; [facility] Work Phone: Comment on above: Pattern: Unlabored 08-16-2020 08:15-0500 SaO2% (BldA) [Mass fraction] 98 % Sena A Fast DO Work Phone: [facility]; [facility] Work Phone: Comment on above: Room air 08-16-2020 08:15-0500 Systolic blood pressure 140 mm[Hg] Sena A Fast DO Work Phone: [facility]; [facility] Work Phone: Comment on above: Patient Position: Sitting; Cuff Location : Left Arm; Cuff Size: Standard 04-25-2020 10:31-0400 BMI (Body Mass Index) 28.35 kg/m2 Elsi Simonesusan [facility] Work Phone: 04-25-2020 10:31-0400 Body Temperature 96.8 [degF] [facility] Work Phone: Comment on above: Method: Thermal Scan 04-25-2020 10:31-0400 Body weight 82.1 kg Elsi Toledo [facility] Internal Medicine Work Phone: 04-25-2020 10:31-0400 BP Diastolic 82 mm[Hg] Elsi Toledo [facility] Internal [facility] Work Phone: Comment on above: Patient Position: Sitting; Cuff Location : Left Arm; Cuff Size: Standard 04-25-2020 10:31-0400 BP Systolic 122 mm[Hg] Elsi Toledo [facility] Internal Medicine Work Phone: Comment on above: Patient Position: Sitting; Cuff Location : Left Arm; Cuff Size: Standard 04-25-2020 10:31-0400 BSA (Body Surface Area) 1.94 m2 Elsi Toledo [facility] Internal Medicine Work Phone: 04-25-2020 10:31-0400 Height 170.18 cm Elsi Toledo [facility] Internal Medicine Work Phone: 04-25-2020 10:31-0400 Pulse (Heart Rate) 71 /min Elsi Toledo [facility] Internal Medicine Work Phone: Comment on above: Pattern: Regular 04-25-2020 10:31-0400 Respiratory Rate 16 /min Elsi Toledo [facility] Internal [facility] Work Phone: Comment on above: Pattern: Unlabored 02-01-2020 11:30-0400 BMI (Body Mass Index) 28.35 kg/m2 Elsi Toledo [facility] Internal [facility] Work Phone: 02-01-2020 11:30-0400 Body Temperature 97.3 [degF] Elsi Toledo [facility] Internal [facility] Work Phone: Comment on above: Method: Thermal Scan 02-01-2020 11:30-0400 Body weight 82.1 kg Elsi Toledo [facility] Internal Medicine Work Phone: 02-01-2020 11:30-0400 BP Diastolic 74 mm[Hg] Elsi Toledo [facility] Internal Medicine Work Phone: Comment on above: Patient Position: Sitting; Cuff Location : Left Arm; Cuff Size: Standard 02-01-2020 11:30-0400 BP Systolic 124 mm[Hg] Elsi Toledo [facility] Internal Medicine Work Phone: Comment on above: Patient Position: Sitting; Cuff Location : Left Arm; Cuff Size: Standard 02-01-2020 11:30-0400 BSA (Body Surface Area) 1.94 m2 Elsi Toledo [facility] Internal Medicine Work Phone: 02-01-2020 11:30-0400 Height 170.18 cm Elsi Toledo [facility] Internal Medicine Work Phone: 02-01-2020 11:30-0400 Pulse (Heart Rate) 72 /min Elsi Toledo [facility] Internal Medicine Work Phone: Comment on above: Pattern: Regular 02-01-2020 11:30-0400 Respiratory Rate 16 /min Elsi Toledo [facility] Internal Medicine Work Phone: Comment on above: Pattern: Unlabored 11-16-2019 10:02-0400 BMI (Body Mass Index) 26.16 kg/m2 Elsi Toledo [facility] Internal Medicine Work Phone: 11-16-2019 10:02-0400 Body Temperature 98 [degF] Elsi Toledo [facility] Internal Medicine Work Phone: Comment on above: Method: Temporal 11-16-2019 10:020400 Body weight 75.75 kg Elsi Toledo [facility] Internal Medicine Work Phone: 11-16-2019 10:02-0400 BP Diastolic 80 mm[Hg] Elsi Toledo [facility] Internal [facility] Work Phone: Comment on above: Patient Position: Sitting; Cuff Location : Left Arm; Cuff Size: Standard 11-16-2019 10:02-0400 BP Systolic 130 mm[Hg] Elsi Toledo [facility] Internal Medicine Work Phone: Comment on above: Patient Position: Sitting; Cuff Location : Left Arm; Cuff Size: Standard 11-16-2019 10:02-0400 BSA (Body Surface Area) 1.87 m2 Elsi Toledo [facility] Internal Medicine Work Phone: 11-16-2019 10:02-0400 Height 170.18 cm Elsi Toledo [facility] Internal Medicine Work Phone: 11-16-2019 10:02-0400 Pulse (Heart Rate) 75 /min Elsi Toledo [facility] Internal Medicine Work Phone: Comment on above: Pattern: Regular 11-16-2019 10:02-0400 Respiratory Rate 16 /min Elsi Toledo [facility] Internal Medicine Work Phone: Comment on above: Pattern: Unlabored 05-26-2019 08:05-0500 BMI (Body Mass Index) 26.16 kg/m2 Elsi Toledo [facility] Internal [facility] Work Phone: 05-26-2019 08:05-0500 Body Temperature 97.9 [degF] Elsi Toledo [facility] Internal Medicine Work Phone: Comment on above: Method: Temporal 05-26-2019 08:05-0500 Body weight 75.75 kg Elsi Toledo [facility] Internal [facility] Work Phone: 05-26-2019 08:05-0500 BP Diastolic 70 mm[Hg] Elsi Toledo [facility] Internal [facility] Work Phone: Comment on above: Patient Position: Sitting; Cuff Location : Left Arm; Cuff Size: Standard 05-26-2019 08:05-0500 BP Systolic 136 mm[Hg] Elsi Toledo [facility] Internal Medicine Work Phone: Comment on above: Patient Position: Sitting; Cuff Location : Left Arm; Cuff Size: Standard 05-26-2019 08:05-0500 BSA (Body Surface Area) 1.87 m2 Elsi Toledo [facility] Internal Medicine Work Phone: 05-26-2019 08:05-0500 Height 170.18 cm Elsi Toledo [facility] Internal [facility] Work Phone: 05-26-2019 08:05-0500 Pulse (Heart Rate) 70 /min Elsi Toledo [facility] Work Phone: Comment on above: Pattern: Regular 05-26-2019 08:05-0500 Respiratory Rate 16 /min Elsi Toledo [facility] Internal Medicine Work Phone: Comment on above: Pattern: Unlabored 12-02-2018 10:17-0400 BMI (Body Mass Index) 29.13 kg/m2 Elsi Toledo [facility] Internal Medicine Work Phone: 12-02-2018 10:17-0400 Body Temperature 97.1 [degF] Elsi Toledo [facility] Internal Medicine Work Phone: Comment on above: Method: Temporal 12-02-2018 10:170400 Body weight 84.37 kg Elsi Toledo [facility] Internal Medicine Work Phone: 12-02-2018 10:17-0400 BP Diastolic 82 mm[Hg] Elsi Toledo [facility] Internal Medicine Work Phone: Comment on above: Patient Position: Sitting; Cuff Location : Left Arm; Cuff Size: Standard 12-02-2018 10:17-0400 BP Systolic 148 mm[Hg] Elsi Toledo [facility] Internal Medicine Work Phone: Comment on above: Patient Position: Sitting; Cuff Location : Left Arm; Cuff Size: Standard 12-02-2018 10:17-0400 BSA (Body Surface Area) 1.96 m2 Elsi oTledo [facility] Internal Medicine Work Phone: 12-02-2018 10:17-0400 Height 170.18 cm Elsi Toledo [facility] Internal [facility] Work Phone: 12-02-2018 10:17-0400 Pulse (Heart Rate) 72 /min Elsi Toledo [facility] Internal [facility] Work Phone: Comment on above: Pattern: Regular 12-02-2018 10:17-0400 Respiratory Rate 16 /min Elsi Toldeo [facility] Internal Medicine Work Phone: Comment on above: Pattern: Unlabored 12-02-2018 10:17-0400 Weight 84.37 kg Sena Rao [facility] Internal Medicine Work Phone: 11-11-2018 13:51-0400 BMI (Body Mass Index) 29.13 kg/m2 Elsi Toledo [facility] Internal [facility] Work Phone: 11-11-2018 13:51-0400 Body Temperature 98.4 [degF] Elsi Toledo [facility] Internal [facility] Work Phone: Comment on above: Method: Temporal 11-11-2018 13:51-0400 Body weight 84.37 kg Elsi Toledo [facility] Internal [facility] Work Phone: 11-11-2018 13:51-0400 BP Diastolic 80 mm[Hg] Elsi Toledo [facility] Work Phone: Comment on above: Patient Position: Sitting; Cuff Location : Left Arm; Cuff Size: Standard 11-11-2018 13:51-0400 BP Systolic 140 mm[Hg] Elsi Toledo [facility] Internal [facility] Work Phone: Comment on above: Patient Position: Sitting; Cuff Location : Left Arm; Cuff Size: Standard 11-11-2018 13:51-0400 BSA (Body Surface Area) 1.96 m2 Elsi Toledo [facility] Internal Medicine Work Phone: 11-11-2018 13:51-0400 Height 170.18 cm Elsi Toledo [facility] Work Phone: 11-11-2018 13:51-0400 Pulse (Heart Rate) 89 /min Elsi Toledo [facility] Internal [facility] Work Phone: Comment on above: Pattern: Regular 11-11-2018 13:51-0400 Pulse Oximetry 98 % Sena Rao [facility] Internal Medicine Work Phone: Comment on above: Room air 11-11-2018 13:51-0400 Respiratory Rate 16 /min Elsi Toledo [facility] Internal [facility] Work Phone: Comment on above: Pattern: Unlabored 11-11-2018 13:51-0400 SaO2% (BldA) [Mass fraction] 98 % Elsi Toledo [facility]; [facility] Work Phone: Comment on above: Room air 11-11-2018 13:51-0400 Weight 84.37 kg Sena Fast [facility] Work Phone: 06-16-2018 08:00-0500 BMI (Body Mass Index) 29.13 kg/m2 Sena A Fast DO Work Phone: [facility] Work Phone: Comment on above: repeat 150/90 06-16-2018 08:00-0500 Body Temperature 98.1 [degF] Sena A Fast DO Work Phone: [facility] Work Phone: Comment on above: Method: Temporal repeat 150/90 06-16-2018 08:00-0500 Body weight 84.37 kg Sena A Fast DO Work Phone: [facility] Work Phone: Comment on above: repeat 150/90 06-16-2018 08:00-0500 BP Diastolic 86 mm[Hg] Sena A Fast DO Work Phone: [facility] Work Phone: Comment on above: Patient Position: Sitting; Cuff Location : Left Arm; Cuff Size: Standard repeat 150/90 06-16-2018 08:00-0500 BP Systolic 148 mm[Hg] Sena A Fast DO Work Phone: [facility] Work Phone: Comment on above: Patient Position: Sitting; Cuff Location : Left Arm; Cuff Size: Standard repeat 150/90 06-16-2018 08:00-0500 BSA (Body Surface Area) 1.96 m2 Sena A Fast DO Work Phone: [facility] Work Phone: Comment on above: repeat 150/90 06-16-2018 08:00-0500 Height 170.18 cm Sena A Fast DO Work Phone: [facility] Work Phone: Comment on above: repeat 150/90 06-16-2018 08:00-0500 Pulse (Heart Rate) 71 /min Sena A Fast DO Work Phone: [facility] Internal Medicine Work Phone: Comment on above: Pattern: Regular repeat 150/90 06-16-2018 08:00-0500 Respiratory Rate 16 /min Sena A Fast DO Work Phone: [facility] Work Phone: Comment on above: Pattern: Unlabored repeat 150/90 06-16-2018 08:00-0500 Weight 84.37 kg Sena Fast [facility] Internal Medicine Work Phone: Comment on above: repeat 150/90 02-25-2018 12:46-0400 BMI (Body Mass Index) 27.25 kg/m2 [facility] Work Phone: 02-25-2018 12:46-0400 Body Temperature 97.7 [degF] [facility] Work Phone: Comment on above: Method: Temporal 02-25-2018 12:46-0400 Body weight 78.93 kg Elsi Toledo [facility] Internal Medicine Work Phone: 02-25-2018 12:46-0400 BP Diastolic 82 mm[Hg] [facility] Work Phone: Comment on above: Patient Position: Sitting; Cuff Location : Left Arm; Cuff Size: Standard 02-25-2018 12:46-0400 BP Systolic 122 mm[Hg] [facility] Work Phone: Comment on above: Patient Position: Sitting; Cuff Location : Left Arm; Cuff Size: Standard 02-25-2018 12:46-0400 BSA (Body Surface Area) 1.91 m2 [facility] Work Phone: 02-25-2018 12:46-0400 Height 170.18 cm [facility] Work Phone: 02-25-2018 12:46-0400 Pulse (Heart Rate) 70 /min Elsi Toledo [facility] Work Phone: Comment on above: Pattern: Regular 02-25-2018 12:46-0400 Respiratory Rate 16 /min Elsi Toledo CMA [facility] Internal Medicine Work Phone: Comment on above: Pattern: Unlabored 02-25-2018 12:46-0400 Weight 78.93 kg Sena Rao [facility] Internal Medicine Work Phone: 10-27-2017 08:06-0400 BMI (Body Mass Index) 27.25 kg/m2 Elsi Toledo [facility] Internal Medicine Work Phone: 10-27-2017 08:06-0400 Body Temperature 98.5 [degF] Elsi Toledo [facility] Internal Medicine Work Phone: Comment on above: Method: Temporal 10-27-2017 08:06-0400 Body weight 78.93 kg Elsi Toledo [facility] Internal Medicine Work Phone: 10-27-2017 08:06-0400 BP Diastolic 82 mm[Hg] Elsi Toledo [facility] Internal [facility] Work Phone: Comment on above: Patient Position: Sitting; Cuff Location : Left Arm; Cuff Size: Standard 10-27-2017 08:06-0400 BP Systolic 122 mm[Hg] Elsi Toledo [facility] Internal Medicine Work Phone: Comment on above: Patient Position: Sitting; Cuff Location : Left Arm; Cuff Size: Standard 10-27-2017 08:06-0400 BSA (Body Surface Area) 1.91 m2 Elsi Toledo [facility] Work Phone: 10-27-2017 08:06-0400 Height 170.18 cm Elsi Toledo [facility] Internal Medicine Work Phone: 10-27-2017 08:06-0400 Pulse (Heart Rate) 75 /min Elsi Toledo [facility] Internal Medicine Work Phone: Comment on above: Pattern: Regular 10-27-2017 08:06-0400 Respiratory Rate 16 /min Elsi Toledo CMA [facility] Work Phone: Comment on above: Pattern: Unlabored 10-27-2017 08:06-0400 Weight 78.93 kg Sena Fast [facility] Work Phone: 10-06-2017 11:16-0400 BMI (Body Mass Index) 27.25 kg/m2 Sena A Fast DO Work Phone: [facility] Work Phone: 10-06-2017 11:16-0400 Body Temperature 97.4 [degF] Sena A Fast DO Work Phone: [facility] Work Phone: Comment on above: Method: Oral 10-06-2017 11:16-0400 Body weight 78.93 kg Sena A Fast DO Work Phone: [facility] Work Phone: 10-06-2017 11:16-0400 BP Diastolic 80 mm[Hg] Sena A Fast DO Work Phone: [facility] Work Phone: Comment on above: Patient Position: Sitting; Cuff Location : Left Arm; Cuff Size: Standard 10-06-2017 11:16-0400 BP Systolic 124 mm[Hg] Sena A Fast DO Work Phone: [facility] Work Phone: Comment on above: Patient Position: Sitting; Cuff Location : Left Arm; Cuff Size: Standard 10-06-2017 11:16-0400 BSA (Body Surface Area) 1.91 m2 Sena A Fast DO Work Phone: [facility] Work Phone: 10-06-2017 11:16-0400 Height 170.18 cm Sena A Fast DO Work Phone: [facility] Work Phone: 10-06-2017 11:16-0400 Pulse (Heart Rate) 76 /min Sena A Fast DO Work Phone: [facility] Work Phone: Comment on above: Pattern: Regular 10-06-2017 11:16-0400 Pulse Oximetry 95 % Sena Fast [facility] Work Phone: Comment on above: Room air 10-06-2017 11:16-0400 Respiratory Rate 18 /min Sena A Fast DO Work Phone: [facility] Work Phone: Comment on above: Pattern: Unlabored 10-06-2017 11:16-0400 SaO2% (BldA) [Mass fraction] 95 % Sena A Fast DO Work Phone: [facility]; [facility] Work Phone: Comment on above: Room air 10-06-2017 11:16-0400 Weight 78.93 kg Sena Fast [facility] Work Phone: 02-26-2017 08:18-0400 BMI (Body Mass Index) 26.16 kg/m2 Olya Aldrichromero [facility] Internal Medicine Work Phone: 02-26-2017 08:18-0400 Body Temperature 97.6 [degF] Olya Aldrichromero [facility] Internal Medicine Work Phone: Comment on above: Method: Temporal 02-26-2017 08:18-0400 Body weight 75.75 kg Olya Aldrichromero [facility] Internal Medicine Work Phone: 02-26-2017 08:18-0400 BP Diastolic 86 mm[Hg] Olya Roxann [facility] Internal Medicine Work Phone: Comment on above: Patient Position: Sitting; Cuff Location : Left Arm; Cuff Size: Standard 02-26-2017 08:18-0400 BP Systolic 124 mm[Hg] Olya Roxann [facility] Internal Medicine Work Phone: Comment on above: Patient Position: Sitting; Cuff Location : Left Arm; Cuff Size: Standard 02-26-2017 08:18-0400 BSA (Body Surface Area) 1.87 m2 Olya Roxann [facility] Internal Medicine Work Phone: 02-26-2017 08:18-0400 Height 170.18 cm Olya Roxann [facility] Internal Medicine Work Phone: 02-26-2017 08:18-0400 Pulse (Heart Rate) 68 /min [facility]rom[facility] Work Phone: Comment on above: Pattern: Regular 02-26-2017 08:18-0400 Pulse Oximetry 96 % Sena Rao [facility] Work Phone: Comment on above: Room air 02-26-2017 08:18-0400 Respiratory Rate 16 /min Olya Roxann [facility] Internal Medicine Work Phone: Comment on above: Pattern: Unlabored 02-26-2017 08:18-0400 SaO2% (BldA) [Mass fraction] 96 % Olya Roxann [facility]; [facility] Work Phone: Comment on above: Room air 02-26-2017 08:18-0400 Weight 75.75 kg Sena Rao [facility] Work Phone: 08-26-2014 07:45-0500 BMI (Body Mass Index) 26.82 kg/m2 Sharon Slarb [employer] [facility] Work Phone: 08-26-2014 07:45-0500 Body Temperature 98.3 [degF] Sharon Slarb [employer] [facility] Work Phone: 08-26-2014 07:45-0500 Body weight 77.68 kg Sharon Slarb [employer] [facility] Work Phone: 08-26-2014 07:45-0500 BP Diastolic 100 mm[Hg] Sharon Slarb [employer] [facility] Work Phone: Comment on above: Patient Position: Sitting; Cuff Location : Left Arm; Cuff Size: Standard 08-26-2014 07:45-0500 BP Systolic 142 mm[Hg] Sharon Slarb [employer] [facility] Work Phone: Comment on above: Patient Position: Sitting; Cuff Location : Left Arm; Cuff Size: Standard 08-26-2014 07:45-0500 BSA (Body Surface Area) 1.89 m2 Sharon Slarb [employer] [facility] Work Phone: 08-26-2014 07:45-0500 Height 170.18 cm Sharon Navarro LPN [facility] Work Phone: 08-26-2014 07:45-0500 Pulse (Heart Rate) 66 /min Sharon Navarro LPN [facility] Work Phone: Comment on above: Pattern: Regular 08-26-2014 07:45-0500 Pulse Oximetry 98 % Sena Rao [facility] Internal Medicine Work Phone: Comment on above: Room air 08-26-2014 07:45-0500 Respiratory Rate 16 /min Sharon Navarro [employer] [facility] Work Phone: Comment on above: Pattern: Unlabored 08-26-2014 07:45-0500 SaO2% (BldA) [Mass fraction] 98 % Sharon Barnestanya GONZÁLES [facility]; [facility] Work Phone: Comment on above: Room air 08-26-2014 07:45-0500 Weight 77.68 kg Sena Rao [facility] Internal Medicine Work Phone: 08-25-2014 07:19-0500 BMI (Body Mass Index) 26.32 kg/m2 Rachelle Sánchez RN [facility] Work Phone: 08-25-2014 07:19-0500 Body weight 76.23 kg Rachelle Sánchez RN [facility] Work Phone: 08-25-2014 07:19-0500 BP Diastolic 78 mm[Hg] Rachelle Sánchez RN [facility] Work Phone: Comment on above: Patient Position: Sitting; Cuff Location : Left Arm; Cuff Size: Large 08-25-2014 07:19-0500 BP Systolic 128 mm[Hg] Rachelle Sánchez RN [facility] Work Phone: Comment on above: Patient Position: Sitting; Cuff Location : Left Arm; Cuff Size: Large 08-25-2014 07:19-0500 BSA (Body Surface Area) 1.88 m2 Rachelle Sánchez RN [facility] Work Phone: 08-25-2014 07:19-0500 Height 170.18 cm Rachelle Sánchez RN [facility] Work Phone: 08-25-2014 07:19-0500 Pulse (Heart Rate) 64 /min Rachelle Sánchez RN [facility] Work Phone: Comment on above: Pattern: Regular 08-25-2014 07:19-0500 Pulse Oximetry 98 % Sena Fast [facility] Work Phone: Comment on above: Room air 08-25-2014 07:19-0500 Respiratory Rate 18 /min Rachelle Sánchez RN [facility] Work Phone: Comment on above: Pattern: Unlabored 08-25-2014 07:19-0500 SaO2% (BldA) [Mass fraction] 98 % Rachelle Sánchez RN [facility]; [facility] Work Phone: Comment on above: Room air 08-25-2014 07:19-0500 Weight 76.23 kg Sena Fast [facility] Work Phone: 08-24-2014 08:10-0500 BMI (Body Mass Index) 26.32 kg/m2 Sharon Cameronrb [employer] [facility] Work Phone: 08-24-2014 08:10-0500 Body Temperature 98 [degF] Sharon Cameronrb [employer] [facility] Work Phone: 08-24-2014 08:10-0500 Body weight 76.23 kg Sharon Cameronrb [employer] [facility] Work Phone: 08-24-2014 08:10-0500 BP Diastolic 82 mm[Hg] Sharon Slarb [employer] [facility] Work Phone: Comment on above: Patient Position: Sitting; Cuff Location : Left Arm; Cuff Size: Standard 08-24-2014 08:10-0500 BP Systolic 138 mm[Hg] Sharon Slarb [employer] [facility] Work Phone: Comment on above: Patient Position: Sitting; Cuff Location : Left Arm; Cuff Size: Standard 08-24-2014 08:10-0500 BSA (Body Surface Area) 1.88 m2 Sharon Slarb [employer] [facility] Work Phone: 08-24-2014 08:10-0500 Height 170.18 cm Sharon Navarro [employer] [facility] Internal Medicine Work Phone: 08-24-2014 08:10-0500 Pulse (Heart Rate) 78 /min Sharon Navarro LPN [facility] Work Phone: Comment on above: Pattern: Regular 08-24-2014 08:10-0500 Pulse Oximetry 98 % Senajason Rao [facility] Internal Medicine Work Phone: Comment on above: Room air 08-24-2014 08:10-0500 Respiratory Rate 16 /min Sharon Navarro ELIECER [facility] Internal Medicine Work Phone: Comment on above: Pattern: Unlabored 08-24-2014 08:10-0500 SaO2% (BldA) [Mass fraction] 98 % Sharon Slatanya GONZÁLES [facility] Internal Medicine; [facility] Work Phone: Comment on above: Room air 08-24-2014 08:10-0500 Weight 76.23 kg Sena Rao [facility] Internal Medicine Work Phone: 08-23-2014 08:14-0500 BMI (Body Mass Index) 26.78 kg/m2 Olya Hackett [facility] Internal Medicine Work Phone: 08-23-2014 08:14-0500 Body Temperature 98.4 [degF] Olya Hackett [facility] Internal Medicine Work Phone: 08-23-2014 08:14-0500 Body weight 77.57 kg Olya Hackett [facility] Internal Medicine Work Phone: 08-23-2014 08:14-0500 BP Diastolic 96 mm[Hg] Olya Hackett [facility] Internal Medicine Work Phone: Comment on above: Patient Position: Sitting; Cuff Location : Left Arm; Cuff Size: Standard 08-23-2014 08:14-0500 BP Systolic 142 mm[Hg] Olya Hackett [facility] Internal Medicine Work Phone: Comment on above: Patient Position: Sitting; Cuff Location : Left Arm; Cuff Size: Standard 08-23-2014 08:14-0500 BSA (Body Surface Area) 1.89 m2 Olya Hackett [facility] Internal Medicine Work Phone: 08-23-2014 08:14-0500 Height 170.18 cm Olya Aldrichromero [facility] Internal Medicine Work Phone: 08-23-2014 08:14-0500 Pulse (Heart Rate) 74 /min Olya Hackett [facility] Work Phone: Comment on above: Pattern: Regular 08-23-2014 08:14-0500 Respiratory Rate 16 /min Olya Aldrichromero [facility] Internal Medicine Work Phone: Comment on above: Pattern: Unlabored 08-23-2014 08:14-0500 Weight 77.57 kg Sena Rao [facility] Internal Medicine Work Phone: 03-02-2014 08:09-0400 BMI (Body Mass Index) 26.8 kg/m2 Rachelle Sánchez RN [facility] Work Phone: 03-02-2014 08:09-0400 Body weight 77.62 kg Rachelle Sánchez RN [facility] Work Phone: 03-02-2014 08:09-0400 BP Diastolic 84 mm[Hg] Rachelle Sánchez RN [facility] Work Phone: Comment on above: Patient Position: Sitting; Cuff Location : Left Arm; Cuff Size: Large 03-02-2014 08:09-0400 BP Systolic 128 mm[Hg] Rachelle Sánchez RN [facility] Work Phone: Comment on above: Patient Position: Sitting; Cuff Location : Left Arm; Cuff Size: Large 03-02-2014 08:09-0400 BSA (Body Surface Area) 1.89 m2 Rachelle Sánchez RN [facility] Work Phone: 03-02-2014 08:09-0400 Height 170.18 cm Rachelle Sánchez RN [facility] Work Phone: 03-02-2014 08:09-0400 Pulse (Heart Rate) 60 /min Rachelle Sánchez RN [facility] Internal Medicine Work Phone: Comment on above: Pattern: Regular 03-02-2014 08:09-0400 Pulse Oximetry 98 % Sena Rao [facility] Work Phone: Comment on above: Room air 03-02-2014 08:09-0400 Respiratory Rate 18 /min Rachelle Sánchez RN [facility] Work Phone: Comment on above: Pattern: Unlabored 03-02-2014 08:09-0400 SaO2% (BldA) [Mass fraction] 98 % Rachelle Sánchez RN [facility]; [facility] Work Phone: Comment on above: Room air 03-02-2014 08:09-0400 Weight 77.62 kg Sena Rao [facility] Work Phone: 01-24-2014 11:34-0400 BMI (Body Mass Index) 29.37 kg/m2 Judith Cadena RN [facility] Work Phone: 01-24-2014 11:34-0400 Body Temperature 97.6 [degF] Judith Cadena RN [facility] Work Phone: Comment on above: Method: Temporal 01-24-2014 11:34-0400 Body weight 85.05 kg Judith Cadena RN [facility] Work Phone: 01-24-2014 11:34-0400 BP Diastolic 82 mm[Hg] Judith Cadena RN [facility] Work Phone: Comment on above: Patient Position: Sitting; Cuff Location : Left Arm; Cuff Size: Standard 01-24-2014 11:34-0400 BP Systolic 138 mm[Hg] Judith Cadena RN [facility] Work Phone: Comment on above: Patient Position: Sitting; Cuff Location : Left Arm; Cuff Size: Standard 01-24-2014 11:34-0400 BSA (Body Surface Area) 1.97 m2 Judith Cadena RN [facility] Work Phone: 01-24-2014 11:34-0400 Height 170.18 cm Judith Cadena RN [facility] Work Phone: 01-24-2014 11:34-0400 Pulse (Heart Rate) 71 /min Judith Cadena RN [facility] Internal Medicine Work Phone: Comment on above: Pattern: Regular 01-24-2014 11:34-0400 Pulse Oximetry 98 % Sena Rao [facility] Internal Medicine Work Phone: Comment on above: Room air 01-24-2014 11:34-0400 Respiratory Rate 16 /min Judith Cadena RN [facility] Internal Medicine Work Phone: Comment on above: Pattern: Unlabored 01-24-2014 11:34-0400 SaO2% (BldA) [Mass fraction] 98 % Judith Cadena RN [facility]; [facility] Work Phone: Comment on above: Room air 01-24-2014 11:34-0400 Weight 85.05 kg Sena Rao [facility] Internal Medicine Work Phone: 01-03-2014 08:56-0400 BMI (Body Mass Index) 29.37 kg/m2 Elsijason Toledo [facility] Internal Medicine Work Phone: 01-03-2014 08:56-0400 Body Temperature 98.3 [degF] Elsijason [place] [facility] Internal Medicine Work Phone: Comment on above: Method: Oral 01-03-2014 08:56-0400 Body weight 85.05 kg Elsi Toledo [facility] Internal Medicine Work Phone: 01-03-2014 08:56-0400 BP Diastolic 90 mm[Hg] Elsi Manpapogwen [facility] Internal Medicine Work Phone: Comment on above: Patient Position: Sitting; Cuff Location : Left Arm; Cuff Size: Standard 01-03-2014 08:56-0400 BP Systolic 140 mm[Hg] Elsi Toledo [facility] Internal Medicine Work Phone: Comment on above: Patient Position: Sitting; Cuff Location : Left Arm; Cuff Size: Standard 01-03-2014 08:56-0400 BSA (Body Surface Area) 1.97 m2 Elsijason [place] [facility] Internal Medicine Work Phone: 01-03-2014 08:56-0400 Height 170.18 cm Elsi Toledo [facility] Work Phone: 01-03-2014 08:56-0400 Pulse (Heart Rate) 79 /min Elsi Toledo [facility] Work Phone: Comment on above: Pattern: Regular 01-03-2014 08:56-0400 Pulse Oximetry 98 % [facility] Work Phone: Comment on above: Room air 01-03-2014 08:56-0400 Respiratory Rate 16 /min Elsi Toledo [facility] Work Phone: Comment on above: Pattern: Unlabored 01-03-2014 08:56-0400 SaO2% (BldA) [Mass fraction] 98 % Elsi Toledo [facility]; [facility] Work Phone: Comment on above: Room air 01-03-2014 08:56-0400 Weight 85.05 kg [facility] Work Phone: 08-24-2013 09:08-0500 BMI (Body Mass Index) 29.37 kg/m2 [facility] Work Phone: 08-24-2013 09:08-0500 Body weight 85.05 kg [facility] Work Phone: 08-24-2013 09:08-0500 BP Diastolic 92 mm[Hg] Sena Fast [facility] Work Phone: Comment on above: Patient Position: Sitting; Cuff Location : Left Arm; Cuff Size: Standard 08-24-2013 09:08-0500 BP Systolic 138 mm[Hg] [facility] Work Phone: Comment on above: Patient Position: Sitting; Cuff Location : Left Arm; Cuff Size: Standard 08-24-2013 09:08-0500 BSA (Body Surface Area) 1.97 m2 Sena Fast [facility] Work Phone: 08-24-2013 09:08-0500 Height 170.18 cm [facility] Work Phone: 08-24-2013 09:08-0500 Pulse (Heart Rate) 71 /min Sena Fast [facility] Work Phone: Comment on above: Pattern: Regular 08-24-2013 09:08-0500 Pulse Oximetry 97 % Sena Fast [facility] Work Phone: Comment on above: Room air 08-24-2013 09:08-0500 Respiratory Rate 20 /min Sena Fast [facility] Work Phone: Comment on above: Pattern: Unlabored 08-24-2013 09:08-0500 SaO2% (BldA) [Mass fraction] 97 % Sena Fast DO Work Phone: [facility]; [facility] Work Phone: Comment on above: Room air 08-24-2013 09:08-0500 Weight 85.05 kg Sena Fast [facility] Work Phone: 06-09-2013 09:44-0500 BMI (Body Mass Index) 31.32 kg/m2 Rachelle Sánchez RN [facility] Work Phone: 06-09-2013 09:44-0500 Body Temperature 97 [degF] Rachelle Sánchez RN [facility] Work Phone: Comment on above: Method: Oral 06-09-2013 09:44-0500 Body weight 90.72 kg Rachelle Sánchez RN [facility] Work Phone: 06-09-2013 09:44-0500 BP Diastolic 82 mm[Hg] Rachelle Sánchez RN [facility] Work Phone: Comment on above: Patient Position: Sitting; Cuff Location : Left Arm; Cuff Size: Large 06-09-2013 09:44-0500 BP Systolic 138 mm[Hg] Rachelle Sánchez RN [facility] Work Phone: Comment on above: Patient Position: Sitting; Cuff Location : Left Arm; Cuff Size: Large 06-09-2013 09:44-0500 BSA (Body Surface Area) 2.02 m2 Rachelle Sánchez RN [facility] Work Phone: 06-09-2013 09:44-0500 Height 170.18 cm Rachelle Sánchez RN [facility] Work Phone: 06-09-2013 09:44-0500 Pulse (Heart Rate) 60 /min Rachelle Sánchez RN [facility] Internal Medicine Work Phone: Comment on above: Pattern: Regular 06-09-2013 09:44-0500 Pulse Oximetry 98 % Sena Fast [facility] Work Phone: Comment on above: Room air 06-09-2013 09:44-0500 Respiratory Rate 18 /min Rachelle Sánchez RN [facility] Work Phone: Comment on above: Pattern: Unlabored 06-09-2013 09:44-0500 SaO2% (BldA) [Mass fraction] 98 % Rachelle Sánchez RN [facility]; [facility] Work Phone: Comment on above: Room air 06-09-2013 09:44-0500 Weight 90.72 kg Sena Fast [facility] Work Phone: 05-19-2013 08:33-0400 BMI (Body Mass Index) 31.25 kg/m2 Rachelle Sánchez RN [facility] Work Phone: 05-19-2013 08:33-0400 Body Temperature 97.6 [degF] Rachelle Sánchez RN [facility] Work Phone: Comment on above: Method: Oral 05-19-2013 08:33-0400 Body weight 90.49 kg Rachelle Sánchez RN [facility] Work Phone: 05-19-2013 08:33-0400 BP Diastolic 80 mm[Hg] Rachelle Sánchez RN [facility] Work Phone: Comment on above: Patient Position: Sitting; Cuff Location : Left Arm; Cuff Size: Large 05-19-2013 08:33-0400 BP Systolic 122 mm[Hg] Rachelle Sánchez RN [facility] Work Phone: Comment on above: Patient Position: Sitting; Cuff Location : Left Arm; Cuff Size: Large 05-19-2013 08:33-0400 BSA (Body Surface Area) 2.02 m2 Rachelle Sánchez RN [facility] Work Phone: 05-19-2013 08:33-0400 Height 170.18 cm Rachelle Sánchez RN [facility] Work Phone: 05-19-2013 08:33-0400 Pulse (Heart Rate) 60 /min Rachelle Sánchez RN [facility] Internal Medicine Work Phone: Comment on above: Pattern: Regular 05-19-2013 08:33-0400 Respiratory Rate 18 /min Rachelle Sánchez RN [facility] Work Phone: Comment on above: Pattern: Unlabored 05-19-2013 08:33-0400 Weight 90.49 kg Sena Fast [facility] Work Phone: 04-19-2013 09:08-0400 BMI (Body Mass Index) 31.81 kg/m2 Sena Fast [facility] Work Phone: 04-19-2013 09:08-0400 Body Temperature 98 [degF] Sena Fast [facility] Work Phone: Comment on above: Method: Oral 04-19-2013 09:08-0400 Body weight 92.14 kg Sena Fast [facility] Work Phone: 04-19-2013 09:08-0400 BP Diastolic 84 mm[Hg] Sena Fast [facility] Work Phone: Comment on above: Patient Position: Sitting; Cuff Location : Left Arm; Cuff Size: Standard 04-19-2013 09:08-0400 BP Systolic 140 mm[Hg] Sena Fast [facility] Work Phone: Comment on above: Patient Position: Sitting; Cuff Location : Left Arm; Cuff Size: Standard 04-19-2013 09:08-0400 BSA (Body Surface Area) 2.04 m2 Sena Fast [facility] Work Phone: 04-19-2013 09:08-0400 Height 170.18 cm Sena Fast [facility] Work Phone: 04-19-2013 09:08-0400 Pulse (Heart Rate) 66 /min Sena Fast [facility] Work Phone: Comment on above: Pattern: Regular 04-19-2013 09:08-0400 Pulse Oximetry 98 % Sena Fast [facility] Work Phone: Comment on above: Room air 04-19-2013 09:08-0400 SaO2% (BldA) [Mass fraction] 98 % Sena Rao DO Work Phone: [facility]; [facility] Work Phone: Comment on above: Room air 04-19-2013 09:08-0400 Weight 92.14 kg Sena Rao [facility] Work Phone: 01-13-2013 11:54-0400 BMI (Body Mass Index) 31.81 kg/m2 Rachelle Sánchez RN [facility] Work Phone: 01-13-2013 11:54-0400 Body weight 92.14 kg Rachelle Sánchez RN [facility] Work Phone: 01-13-2013 11:54-0400 BP Diastolic 80 mm[Hg] Rachelle Sánchez RN [facility] Work Phone: Comment on above: Patient Position: Sitting; Cuff Location : Left Arm; Cuff Size: Large 01-13-2013 11:54-0400 BP Systolic 138 mm[Hg] Rachelle Sánchez RN [facility] Work Phone: Comment on above: Patient Position: Sitting; Cuff Location : Left Arm; Cuff Size: Large 01-13-2013 11:54-0400 BSA (Body Surface Area) 2.04 m2 Rachelle Sánchez RN [facility] Work Phone: 01-13-2013 11:54-0400 Height 170.18 cm Rachelle Sánchez RN [facility] Work Phone: 01-13-2013 11:54-0400 Pulse (Heart Rate) 72 /min Rachelle Sánchez RN [facility] Internal Medicine Work Phone: Comment on above: Pattern: Regular 01-13-2013 11:54-0400 Respiratory Rate 20 /min Rachelle Sánchez RN [facility] Work Phone: Comment on above: Pattern: Unlabored 01-13-2013 11:54-0400 Weight 92.14 kg Sena Rao [facility] Work Phone: 01-07-2013 12:41-0400 BMI (Body Mass Index) 32.66 kg/m2 Judith Cadena RN [facility] Work Phone: 01-07-2013 12:41-0400 Body weight 94.58 kg Judith Cadena RN [facility] Work Phone: 01-07-2013 12:41-0400 BP Diastolic 78 mm[Hg] Judith Cadena RN [facility] Work Phone: Comment on above: Patient Position: Sitting; Cuff Location : Left Arm; Cuff Size: Standard 01-07-2013 12:41-0400 BP Systolic 128 mm[Hg] Judith Cadena RN [facility] Work Phone: Comment on above: Patient Position: Sitting; Cuff Location : Left Arm; Cuff Size: Standard 01-07-2013 12:41-0400 BSA (Body Surface Area) 2.06 m2 Judith Cadena RN [facility] Work Phone: 01-07-2013 12:41-0400 Height 170.18 cm Judith Cadena RN [facility] Work Phone: 01-07-2013 12:41-0400 Pulse (Heart Rate) 98 /min Judith Cadena RN [facility] Work Phone: Comment on above: Pattern: Regular 01-07-2013 12:41-0400 Pulse Oximetry 98 % Sena Fast [facility] Work Phone: Comment on above: Room air 01-07-2013 12:41-0400 Respiratory Rate 16 /min Judith Cadena RN [facility] Work Phone: Comment on above: Pattern: Unlabored 01-07-2013 12:41-0400 SaO2% (BldA) [Mass fraction] 98 % Judith Cadena RN [facility]; [facility] Work Phone: Comment on above: Room air 01-07-2013 12:41-0400 Weight 94.58 kg Sena Fast [facility] Work Phone: 08-07-2012 08:10-0500 BMI (Body Mass Index) 32.66 kg/m2 Rachelle Sánchez RN [facility] Work Phone: 08-07-2012 08:10-0500 Body weight 94.58 kg Rachelle Sánchez RN [facility] Work Phone: 08-07-2012 08:10-0500 BP Diastolic 80 mm[Hg] Rachelle Sánchez RN [facility] Work Phone: Comment on above: Patient Position: Sitting; Cuff Location : Left Arm; Cuff Size: Large 08-07-2012 08:10-0500 BP Systolic 120 mm[Hg] Rachelle Sánchez RN [facility] Work Phone: Comment on above: Patient Position: Sitting; Cuff Location : Left Arm; Cuff Size: Large 08-07-2012 08:10-0500 BSA (Body Surface Area) 2.06 m2 Rachelle Sánchez RN [facility] Work Phone: 08-07-2012 08:10-0500 Height 170.18 cm Rachelle Sánchez RN [facility] Work Phone: 08-07-2012 08:10-0500 Pulse (Heart Rate) 60 /min Rachelle Sánchez RN [facility] Work Phone: Comment on above: Pattern: Regular 08-07-2012 08:10-0500 Respiratory Rate 20 /min Rachelle Sánchez RN [facility] Work Phone: Comment on above: Pattern: Unlabored 08-07-2012 08:10-0500 Weight 94.58 kg Sena Rao [facility] Work Phone: 07-15-2012 11:53-0500 BMI (Body Mass Index) 32.26 kg/m2 Rachelle Sánchez RN [facility] Work Phone: 07-15-2012 11:53-0500 Body weight 93.44 kg Rachelle Sánchez RN [facility] Work Phone: 07-15-2012 11:53-0500 BP Diastolic 102 mm[Hg] Rachelle Sánchez RN [facility] Work Phone: Comment on above: Patient Position: Sitting; Cuff Location : Left Arm; Cuff Size: Standard 07-15-2012 11:53-0500 BP Systolic 158 mm[Hg] Rachelle áSnchez RN [facility] Work Phone: Comment on above: Patient Position: Sitting; Cuff Location : Left Arm; Cuff Size: Standard 07-15-2012 11:53-0500 BSA (Body Surface Area) 2.05 m2 Rachelle Sánchez RN [facility] Work Phone: 07-15-2012 11:53-0500 Height 170.18 cm Rachelle Sánchez RN [facility] Work Phone: 07-15-2012 11:53-0500 Pulse (Heart Rate) 64 /min Rachelle Sánchez RN [facility] Work Phone: Comment on above: Pattern: Regular 07-15-2012 11:53-0500 Respiratory Rate 20 /min Rachelle Sánchez RN [facility] Work Phone: Comment on above: Pattern: Unlabored 07-15-2012 11:53-0500 Weight 93.44 kg Sena Rao [facility] Work Phone: Encounters Encounter Date Encounter Type Care Provider Facility Start: 12-22-2024 ambulatory [facility] Facility:[facility] Start: 11-23-2024 End: 11-23-[address] Sena Rao DO Work Phone: [facility] Work Phone: Start: 11-23-2024 End: 11-23-[address] Magali Packer [facility] Work Phone: Start: 11-23-2024 End: 11-23-2024 ambulatory Sena Rao Facility:[facility] Start: 08-17-2024 End: 08-17-[address] Sena Rao DO -Outpatient Bone Densitometry Work Phone: Start: 08-17-2024 End: 08-17-2024 ambulatory [facility] Facility:[facility] Start: 06-23-2024 End: 06-23-2024 Subsequent hospital visit by physician Kai Oro [facility] Comment on above: Hyperlipidemia, unsp ecified Start: 06-23-2024 End: 06-23-2024 ambulatory SENA RAO [facility] Start: 06-23-2024 End: 06-23-2024 ambulatory Sena Fast Facility:[facility] Start: 02-23-2024 End: 02-23-2024 ambulatory Sena Fast Facility:[facility] Start: 02-23-2024 End: 02-23-2024 ambulatory Sena Fast Facility:[facility] Start: 08-22-2023 End: 08-22-[address] Sena Rao Work Phone: [facility] Work Phone: Start: 08-22-2023 End: 08-22-[address] Sena Rao Work Phone: [facility]-Laboratory, Specimen Work Phone: Start: 08-22-2023 End: 08-22-[address] Sena Rao Work Phone: [facility] Work Phone: Start: 07-11-2023 End: 07-11-[address] Sena Rao Work Phone: [facility]-Outpatient Breast Imaging Work Phone: Start: 05-13-2023 End: 05-13-2023 Sena Fast DO Work Phone: [facility] Start: 04-22-2023 End: 04-22-2023 Office outpatient visit 15 minutes Sena Fast DO Work Phone: [facility] Start: 04-22-2023 Sena Fast DO Work Phone: [facility] Start: 03-26-2023 End: 03-26-2023 Phone Encounter Sena Fast DO Work Phone: [facility] Start: 03-26-2023 End: 03-26-2023 Sena Fast DO Work Phone: [facility] Start: 03-26-2023 End: 03-26-2023 Phone Encounter Sena Fast DO Work Phone: [facility] Start: 03-26-2023 End: 03-26-2023 Sena Fast DO Work Phone: [facility] Start: 01-08-2023 End: 01-20-2023 Office outpatient visit 25 minutes Sena Fast DO Work Phone: [facility] Start: 01-08-2023 Review Sena Fast DO Work Phone: [facility] Start: 08-15-2022 End: 08-15-2022 Phone Encounter Sena Fast DO Work Phone: [facility] Start: 08-15-2022 End: 08-15-2022 Sena Fast DO Work Phone: [facility] Start: 06-18-2022 ambulatory Sena A Fast DO [facility] Start: 06-18-2022 End: 06-18-2022 Office outpatient visit 5 minutes Sena Fast DO Work Phone: [facility] Start: 05-23-2022 End: 05-23-[address] Sena Rao Work Phone: [facility] Work Phone: Start: 05-23-2022 End: 05-23-[address] Sena Hobbs Phone: [facility]-Laboratory, Specimen Start: 05-23-2022 End: 05-23-[address] Sena Hobbs Phone: [facility] Start: 03-26-2022 End: 03-26-2022 Annotation/Addendum Sena Fast DO Work Phone: [facility] Start: 03-26-2022 End: 03-26-2022 Sena Fast DO Work Phone: [facility] Start: 03-26-2022 End: 03-26-2022 Office outpatient visit 25 minutes Sena Fast DO Work Phone: [facility] Start: 03-12-2022 End: 03-12-2022 ambulatory [facility] Work Phone: Start: 03-12-2022 End: 03-12-2022 Patient encounter procedure [facility]-Outpatient Bone Densitometry Start: 03-05-2022 End: 03-05-2022 Patient encounter procedure [facility]-Outpatient Bone Densitometry Start: 02-18-2022 End: 02-18-2022 Office outpatient visit 25 minutes Sena Fast DO Work Phone: [facility] Start: 02-18-2022 Review Sena Fast DO Work Phone: [facility] Start: 02-12-2022 End: 02-19-2022 Phone Encounter Sena Fast DO Work Phone: [facility] Start: 02-12-2022 Review Sena Fast DO Work Phone: [facility] Start: 02-12-2022 End: 02-19-2022 Sena Fast DO Work Phone: [facility] Start: 12-14-2021 End: 12-14-2021 ambulatory EMILIANO [facility] Start: 12-07-2021 End: 12-07-2021 Office outpatient visit 5 minutes Sena Fast DO Work Phone: [facility] Start: 09-17-2021 End: 09-17-2021 Office outpatient visit 5 minutes Sena Fast DO Work Phone: [facility] Start: 05-01-2021 End: 05-01-2021 Office outpatient visit 10 minutes Sena Fast DO Work Phone: [facility] Start: 04-30-2021 End: 04-30-2021 Office outpatient visit 15 minutes Sena Fast DO Work Phone: [facility] Start: 03-22-2021 End: 03-22-2021 Lab Order Sena Fast DO Work Phone: [facility] Start: 03-22-2021 End: 03-22-2021 Sena Fast DO Work Phone: [facility] Start: 03-19-2021 End: 03-20-2021 Office outpatient visit 5 minutes Sena Fast DO Work Phone: [facility] Start: 03-16-[address] WILBER ALICEA [facility] Start: 02-26-2021 End: 02-26-2021 Office outpatient visit 25 minutes Sena Fast DO Work Phone: [facility] Start: 02-20-2021 End: 02-26-2021 Office outpatient visit 5 minutes Sena Fast DO Work Phone: [facility] Start: 12-27-2020 End: 12-27-2020 Office outpatient visit 25 minutes Sena Fast DO Work Phone: [facility] Start: 08-25-2020 End: 08-27-2020 Office outpatient visit 15 minutes Sena Fast DO Work Phone: [facility] Start: 08-16-2020 End: 08-16-2020 Office outpatient visit 25 minutes Sena Fast DO Work Phone: [facility] Start: 08-16-2020 End: 08-16-2020 Patient encounter status Sena Fast DO Work Phone: [facility] Start: 07-03-2020 End: 07-03-2020 Phone Encounter Sena Fast [facility] [employer] [facility] Start: 07-03-2020 End: 07-03-2020 Sena Fast DO Work Phone: [facility] Start: 04-25-2020 End: 04-25-2020 Office outpatient visit 25 minutes Sena Fast [facility] Start: 03-28-2020 End: 03-28-2020 Phone Encounter Sena Fast [facility] [employer] [facility] Start: 03-28-2020 End: 03-28-2020 Sena Fast DO Work Phone: [facility] Start: 02-01-2020 End: 02-01-2020 Office outpatient visit 25 minutes Sena Fast [facility] Start: 02-01-2020 Review Sena Fast [facility] Start: 11-16-2019 End: 11-16-2019 Office outpatient visit 25 minutes Sena Fast [facility] Start: 07-28-2019 End: 07-28-2019 Phone Encounter Sena Fast [facility] [employer] [facility] Start: 07-28-2019 End: 07-28-2019 Sena Fast DO Work Phone: [facility] Start: 06-24-2019 End: 06-24-2019 Office outpatient visit 5 minutes Sena Fast [facility] Start: 05-26-2019 End: 11-16-2019 Office outpatient visit 25 minutes Sena Fast [facility] Start: 05-26-2019 Review Sena Fast [facility] Start: 01-18-2019 End: 01-18-2019 Phone Encounter Sena Fast [facility] [employer] [facility] Start: 01-18-2019 End: 01-18-2019 Sena Fast DO Work Phone: [facility] Start: 12-02-2018 End: 12-06-2018 Office outpatient visit 25 minutes Sena Fast [facility] Start: 12-02-2018 End: 12-06-2018 Patient encounter status Sena Fast DO Work Phone: [facility] Start: 12-02-2018 Review Sena Aaron [facility] Start: 11-11-2018 End: 11-15-2018 Office outpatient visit 15 minutes Sena Fast [facility] Start: 06-16-2018 End: 06-16-2018 Lab Order Sena Fast [facility] [employer] [facility] Start: 06-16-2018 End: 06-16-2018 Sena Fast DO Work Phone: [facility] Start: 06-16-2018 End: 06-16-2018 Office outpatient visit 25 minutes Sena Fast [facility] Start: 03-03-2018 End: 03-03-2018 Phone Encounter Sena Fast [facility] [employer] [facility] Start: 03-03-2018 End: 03-03-2018 Sena Fast DO Work Phone: [facility] Start: 02-25-2018 End: 04-27-2018 Office outpatient visit 5 minutes Sena Fast [facility] Start: 12-18-2017 End: 12-18-2017 Phone Encounter Sena Fast [facility] [employer] [facility] Start: 12-18-2017 End: 12-18-2017 Sena Fast DO Work Phone: [facility] Start: 10-27-2017 End: 10-27-2017 Office outpatient visit 5 minutes Sena Fast [facility] Start: 10-06-2017 End: 10-06-2017 Office outpatient visit 25 minutes Sena Fast [facility] Start: 02-26-2017 End: 03-28-2017 Office outpatient visit 15 minutes Sena Fast [facility] Start: 08-26-2014 End: 08-26-2014 Office outpatient visit 15 minutes Sena Fast [facility] Start: 08-25-2014 End: 08-25-2014 Office outpatient visit 15 minutes Sena Fast [facility] Start: 08-24-2014 End: 08-24-2014 Office outpatient visit 25 minutes Sena Fast [facility] Start: 08-23-2014 End: 08-23-2014 Office outpatient visit 15 minutes Sena Fast [facility] Start: 03-02-2014 End: 03-02-2014 Office outpatient visit 15 minutes Sena Fast [facility] Start: 01-24-2014 End: 01-24-2014 Phone Encounter Sena Aaron [facility] [employer] [facility] Start: 01-24-2014 End: 01-24-2014 Sena Fast DO Work Phone: [facility] Start: 01-24-2014 End: 01-24-2014 Patient encounter procedure Sena Fast [facility] Start: 01-24-2014 End: 01-24-2014 Sena Fast DO Work Phone: [facility] Start: 01-03-2014 End: 01-03-2014 Office outpatient visit 25 minutes Sena Fast [facility] Start: 08-24-2013 End: 08-24-2013 Patient encounter procedure Sena Fast [facility] Start: 08-24-2013 End: 08-24-2013 Sena Fast DO Work Phone: [facility] Start: 06-09-2013 End: 06-09-2013 Patient encounter procedure Sena Fast [facility] Start: 06-09-2013 End: 06-09-2013 Sena Fast DO Work Phone: [facility] Start: 05-19-2013 End: 05-19-2013 Patient encounter procedure Sena Fast [facility] Start: 05-19-2013 End: 05-19-2013 Sena Fast DO Work Phone: [facility] Start: 04-19-2013 End: 04-19-2013 Office outpatient visit 25 minutes Sena Fast [facility] Start: 01-13-2013 End: 01-13-2013 Patient encounter procedure Sena Rao [facility] Start: 01-13-2013 End: 01-13-2013 Senajason Rao DO Work Phone: [facility] Start: 01-07-2013 End: 01-07-2013 Patient encounter procedure Sena Rao [facility] Start: 01-07-2013 End: 01-07-2013 Senajason Rao DO Work Phone: [facility] Start: 08-07-2012 End: 08-07-2012 Patient encounter procedure Sena Rao [facility] Start: 08-07-2012 End: 08-07-2012 Sena Rao DO Work Phone: [facility] Start: 07-15-2012 End: 07-15-2012 Patient encounter procedure Sena Rao [facility] Start: 07-15-2012 End: 07-15-2012 Sena Rao DO Work Phone: [facility] Patient encounter status Emily Sesay LPN [facility]; [facility] Work Phone: Patient encounter status Gely Srinivasan [place] [facility]; [facility] Work Phone: Patient encounter status Elsi Toledo [facility]; [facility] Work Phone: Patient encounter status Shanel Das [facility]; [facility] Work Phone: Patient encounter status Elsi Paris [facility]; [facility] Work Phone: Patient encounter status Elsi Paris [facility]; [facility] Work Phone: Patient encounter status Elsi Nicholssusan [facility]; [facility] Work Phone: Procedures Date Procedure Procedure Detail Performing Clinician Start: 11-23-2024 Complete ultrasound of kidneys and bladder Dr. Sena Rao DO Work Phone: Start: 08-17-2024 Dual energy X-ray absorptiometry Dr. Sena Rao DO Work Phone: Start: 08-17-[address] Sena Rao DO Work Phone: Start: 06-23-2024 Ct heart no contrast quant eval coronry calcium Sena Rao DO Work Phone: Start: 08-22-[address] Sena Rao Work Phone: Start: 07-11-[address] Sena Rao Work Phone: Start: 05-23-2022 End: 05-23-2022 Ergonomics Engineer Office Visit Report Procedure Note: See Note; NOTES: [facility] [address] [place] [address] OFFICE VISIT Date of Service: 05/23/22 MR#: [id number] Acct: [id number] Name: JOHN MARIE Rep #: [id number] : 1960 Provider: Dr. 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 Is patient in pain?: No Allergies Sulfa (Sulfonamide Antibiotics) Allergy (Mild, Verified 05/23/22 10:11) swelling Medications multivitamin 1 tab PO DAILY 05/23/22 [History Confirmed 05/23/22] Post menopausal: No Patient : No : No PFSH PFSH Medical History (Updated 05/23/22 @ 11:07 by Joycelyn Delacruz) delivery delivered Hypertension Surgical History History of colposcopy History of partial hysterectomy History of tonsillectomy Family History (Updated 05/23/22 @ 10:14 by Joycelyn Delacruz) Father Hypertension Mother Hypertension Grandmother Hypertension Grandfather Hypertension Brain malignant neoplasm Other Breast cancer Social History (Updated 05/23/22 @ 10:15 by Joycelyn Delacruz) Smoking Status: Former smoker alcohol intake: current substance use type: does not use caffeine: Yes what type of physical activity do you participate in: walking frequency: daily seatbelt use: always do you feel safe at home: Yes additional social history: - Cory History 4 Elective abortions Hx Para 3 Spontaneous abortions Hx # Term Pregnancies Ectopic pregnancies Hx # Pregnancies Multiple births # of living children Past Pregnancies Del. Date Name GA/Weeks Outcome Route Bth Weight Infant Gen Labor Lgth Anesthesia Del [facility] Provider FOB Unknown Daniel Unknown Raheel Unknown Katya HPI POSSIBLE COLP / PAP Details: JOHN MARIE is a 61 year old who presents for repeat pap and colposcsopy due to h/o 2 prior abnormal paps of ASC-H with HUNTER 1 last year. pt wants to do both procedures today as she is leaving for [place] in July and will be there for the winter. ROS Const ROS Unobtainable: All systems reviewed are unremarkable except as noted in H Resp Resp: Reports system reviewed and no additional complaints, except as documented; Denies cough GI GI: Reports as per HPI Psych Psych: Reports system reviewed and no additional complaints, except as documented Exam Const General: cooperative, healthy appearing, comfortable and no acute distress Resp Effort Inspection: normal respiratory effort General: bimanual renal exam normal bilaterally External Female Exam: normal appearance of the urethra Urethra: normal appearance of the urethra Speculum Exam - Vagina: normal appearance of the vagina Speculum Exam - Cervix: other (cervix is scarred from prior shannon alicia proceure. os is obliterated. ) Bimanual Exam- Adnexa, other: normal adnexae and normal Pelvic Support: normal Skin General: no rashes or lesions noted Psych Appearance: grossly normal Speech and Movement: speech and movement normal Office Procedures Colposcopy Colposcopy Reason for colposcopy: other (asc-H) Pap/HUNTER history: HUNTER 1 biopsy Consent Signed: Yes Time out performed: Yes Acetowhite epithelium (cervix): 1 o'clock Punctation (cervix): none Mosaicism (cervix): none Abnormal vessels (cervix): none Biopsies (cervix): 1 o'clock Acetowhite epithelium (vagina): none Punctation (vagina): none Mosaicism (vagina): none biopsy Details: pt's vaginal is somewhat obliterated due to use of the shannon Alicia. The cervix was very difficult to identify. NO cervical os was seen Coding Level of Care Code Attention Meli Diagnoses Atypical squamous cells cannot exclude high grade squamous intraepithelial lesion on cytologic smear of cervix (ASC-H) R87.611 Assessment and Plan Assessment and Plan (1) Atypical squamous cells cannot exclude high grade squamous intraepithelial lesion on cytologic smear of cervix (ASC-H): Status: Acute Plan: pap and colp done today. cx is obliterated from shannon alicia procedure. will call with results. she did have a colp last year with Pierce that was cin1 pt will [place] in [place] starting in July. Orders: Orders Colposcopy Today R87.611 - Atypical squamous cells cannot exclude high grade squamous intraepithelial lesion on cytologic smear of cervix (ASC-H) PAP IG HPV APTIMA 16/18,45 Today Z12.4 - Encounter for screening for malignant neoplasm of cervix 05/23/22 [id number] <Electronically signed by Olya Casiano DO> Date Olya Casiano DO Cosigner Signature: Date (if applicable) CC: Sena Rao DO Work Phone: Start: 03-12-2022 End: 03-12-2022 Dexa Bone Density Study Procedure Note: See Note; NOTES: [facility] Imaging Services [address] [place] [id number] Dexa Bone Density Study MR#: [id number] Acct: [id number] Name: JOHN MARIE Rep #: [id number] : 1960 F 61 From: Irvin frias MD PCP: Dr. Sena Rao DO Status: REG CLI Study: Dexa Bone Density Study Date of Exam: 03/12/22 Exam# [id number] Ordering Dr: Sena Rao DO STUDY: DUAL ENERGY X-RAY ABSORPTIOMETRY / DXA REASON FOR EXAM: Female, 61 years old. M85.89. Patient is postmenopausal. TECHNIQUE: Bone Mineral Density (BMD) measurements of lumbar spine and bilateral hips were obtained. COMPARISON: Comparison is made with prior study dated 02/08/2020. FINDINGS: Lumbar Spine (L1-L4): g/cm2 (0.897) / T-score (-1.4) / Z-score (0.1) Findings are suggestive of osteopenia with a low fracture risk. Left Femur Total: g/cm2 (0.882) / T-score (-0.5) / Z-score (0.5) Left Femoral Neck: g/cm2 (0.694) / T-score (-1.4) / Z-score (-0.1) Right Femur Total: g/cm2 (0.858) / T-score (-0.7) / Z-score (0.3) Right Femoral Neck: g/cm2 (0.723) / T-score (-1.1) / Z-score (0.2) The T-Scores on the most recent prior examination were: Lumbar Spine (L1-L4): There has been improvement of bone density since the previous examination. Left Femur Total: which represents an improvement of 3.8%. Right Femur Total: which represents an improvement of 3%. BD/Dexa Bone Density Study IMPRESSION: The patient is considered osteopenic as outlined below according to World Faustino Organization (WHO) criteria with a low fracture risk. There has been improvement of bone density since the previous examination. Reference Information: The T-score is the number of standard deviations above or below the standard which is normal for young adults at their peak bone mineral density. The World Health Organization (WHO) interprets the T-scores as follows: Above -1 Normal bone density Between -1 and -2.5 Osteopenia Equal to / or below -2.5 Osteoporosis As a practical clinical guideline, osteopenia may be graded as follows: Mild -1 through -1.5 Moderate -1.6 through -2.0 Severe -2.1 through -2.4 The Z-score is the number of standard deviations above or below age-matched controls. A Z-score of less than -1.5 would be considered abnormal. References: 1. NIH Osteoporosis and Related Bone Diseases www osteo.org 2. International Society for Clinical Densitometry www iscd.org 3. National Osteoporosis Foundation www nof.org Electronically Signed: Irvin Michaud MD at 14:04 EDT , CC: Dr. Sena Rao DO Asphalt Paver: Signed Sena Rao DO Work Phone: Start: 03-12-2022 Dual energy X-ray absorptiometry Start: 03-05-2022 Screening mammography Start: 03-05-2022 End: 03-05-2022 SCRN MAMM (CAD)W/ALFREDO BILAT Procedure Note: See Note; NOTES: [facility] Imaging Services [address] [place] [address] SCRN MAMM (CAD)W/ALFREDO BILAT MR#: [id number] Acct: [id number] Name: JOHN MARIE Rep #: [id number] : 1960 F 61 From: Juan Carlos Wood MD PCP: Dr. Sena Rao DO Status: REG CLI Study: SCRN MAMM (CAD)W/ALFREDO BILAT Date of Exam: 02/18 01/09 Exam# [id number] Ordering Dr: Sena Rao DO MAMMOGRAPHY - BILATERAL SCREENING 3-D TOMOSYNTHESIS REASON FOR EXAM: Female, 61 years old. SCREENING PERTINENT HISTORY: No significant family history. TECHNIQUE: 2-D mammograms and 3-D Tomosynthesis of the breast (s) were performed. CAD was performed. COMPARISON: 11/14/2020 FINDINGS: The breast composition is heterogeneously dense that can obscure small breast masses. Scattered benign calcifications are seen. No dense spiculated masses or suspicious microcalcifications are identified. No architectural distortion is identified. There is no skin thickening or retraction. There has been no significant change since the prior study. BI/SCRN MAMM (CAD)W/ALFREDO BILAT IMPRESSION: No mammographic signs of malignancy. Routine yearly mammograms recommended. ASSESSMENT CATEGORY: BIRADS Category 1: Negative. A letter regarding these results will be sent to the patient by the facility within 30 days. FOLLOW UP RECOMMENDATION: Yearly follow up mammogram recommended. (A) Approximately 10% of breast cancers are not detected by mammography. A normal mammogram should not delay biopsy of a clinically suspicious abnormality. Electronically Signed: Juan Carlos Wood MD at 17:19 EDT , CC: Dr. Sena Rao DO Asphalt Paver: Signed Sena Rao DO Work Phone: Start: 11-14-2020 End: 11-14-2020 SCRN MAMM (CAD)W/ALFREDO BILAT Comments: See Note; NOTES: [facility] Imaging Services [address] [place] [address] SCRN MAMM (CAD)W/ALFREDO BILAT MR#: [id number] Acct: [id number] Name: JOHN MARIE Rep #: [id number] : 1960 F 60 From: Irvin frias MD PCP: Dr. Sena Rao DO Status: REG CLI Study: SCRN MAMM (CAD)W/ALFREDO BILAT Date of Exam: 10/20 02/07 Exam# [id number] Ordering Dr: Sena Rao DO MAMMOGRAPHY - BILATERAL SCREENING REASON FOR EXAM: Female, 60 years old. Routine annual screening examination. PERTINENT HISTORY: Mother with breast cancer. Aunt with breast cancer. History of remote left stereotactic breast biopsy. TECHNIQUE: Digital bilateral breast alfredo (3D mammographic acquisition) in the CC and MLO projections. 2-D mediolateral oblique (MLO) and craniocaudad (CC) views of both breasts were obtained. CAD: Full Field Digital Mammography with Computer Added Detection was performed. COMPARISON: Comparison is made with prior study dated 12/22/2018 and 11/20/2017. FINDINGS: Breast Composition: The breasts are heterogeneously dense, which may obscure small masses. There are no dominant masses or suspicious calcifications. A tissue clip marker is once again seen in the upper slightly lateral aspect of the left breast. No other significant abnormalities are identified. There has been no significant change since the prior study. BI/SCRN MAMM (CAD)W/ALFREDO BILAT IMPRESSION: Stable bilateral screening mammogram. Yearly follow-up mammogram recommended. (A) ASSESSMENT CATEGORY: BIRADS Category 2: Benign. A letter regarding these results will be sent to the patient by the facility within 30 days. Approximately 10% of breast cancers are not detected by mammography. A normal mammogram should not delay biopsy of a clinically suspicious abnormality. [id number] Electronically Signed: Irvin Michaud MD at 14:38 EDT , Service support , CC: Dr. Sena Rao DO Asphalt Paver: Signed Sena Rao DO Work Phone: Start: 02-08-2020 End: 02-14-2020 Dexa Bone Density Study Comments: See Note; NOTES: [facility] Imaging Services [address] [place] [address] Dexa Bone Density Study MR#: [id number] Acct: [id number] Name: JOHN MARIE Rep #: [id number] : 1960 F 59 From: Irvin frias MD PCP: Dr. 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 COMPARISON: Comparison is made with prior study dated 11-20-17. FINDINGS: Lumbar Spine (L1-L4): g/cm2 (1.012) / T-score (-1.6) / Z-score (-0.5) Findings are suggestive of osteopenia with a moderate fracture risk. Increased thoracic kyphosis. Left Femur Total: g/cm2 (0.913) / T-score (-0.8) / Z-score (0.1) Left Femoral Neck: g/cm2 (0.835) / T-score (-1.5) / Z-score (-0.3) Right Femur Total: g/cm2 (0.896) / T-score (-0.9) / Z-score (-0.1) Right Femoral Neck: g/cm2 (0.858) / T-score (-1.3) / Z-score (-0.1) The T-Scores on the most recent prior examination were: Lumbar Spine (L1-L4): There has been worsening of bone density since the previous examination. Left Femur Total: which represents a worsening of 3.6%. Right Femur Total: which represents a worsening of 4.6%. BD/Dexa Bone Density Study IMPRESSION: The patient is considered osteopenic as outlined below according to World Faustino Organization (WHO) criteria with a moderate fracture risk. There has been worsening of bone density since the previous examination. Reference Information: The T-score is the number of standard deviations above or below the standard which is normal for young adults at their peak bone mineral density. The World Health Organization (WHO) interprets the T-scores as follows: Above -1 Normal bone density Between -1 and -2.5 Osteopenia Equal to / or below -2.5 Osteoporosis As a practical clinical guideline, osteopenia may be graded as follows: Mild -1 through -1.5 Moderate -1.6 through -2.0 Severe -2.1 through -2.4 The Z-score is the number of standard deviations above or below age-matched controls. A Z-score of less than -1.5 would be considered abnormal. References: 1. NIH Osteoporosis and Related Bone Diseases http://www.osteo.org 2. International Society for Clinical Densitometry http://www.iscd.org 3. National Osteoporosis Foundation http://www.nof.org Electronically Signed: Irvin Michaud, at 15:42 EDT , Service support , CC: Dr. Sena Rao DO Asphalt Paver: Signed Sena Rao Work Phone: Start: 06-22-2019 End: 06-23-2019 Breast Bilateral W/O and W Comments: See Note; NOTES: [facility] Imaging Services [address] [place] [address] Breast Bilateral W/O and W MR#: [id number] Acct: [id number] Name: JOHN MARIE Rep #: [id number] : 1960 F 58 From: Debi Pulido DO PCP: Sena Rao DO Status: REG CLI Study: Breast Bilateral W/O and W Date of Exam: 06/22/19 Exam# [id number] Ordering Dr: Sena Rao DO STUDY: BILATERAL BREAST MR WITHOUT AND WITH CONTRAST REASON FOR EXAM: Female, 58 years old. Dense breast tissue. Family history of breast cancer. TECHNIQUE: Multi-sequence multi-echo imaging of both breasts was performed with a dedicated breast coil. T1-weighted and T2-weighted images were performed before the administration of contrast. T1-weighted images were also performed after the administration of IV Dotarem 15 without complications. COMPARISON: Mammograms dated 12/22/2018 and 11/20/2017 FINDINGS: RIGHT BREAST: The breast tissue is markedly dense with no background enhancement. There are no abnormal enhancing masses or areas of non-mass enhancement in the right breast. LEFT BREAST: The breast tissue is markedly dense with no background enhancement. There are no abnormal enhancing masses or areas of non-mass enhancement in the left breast. There are no enlarged or abnormal lymph nodes. There is no abnormality in the visualized regions of the chest or liver. MRI/Breast Bilateral W/O and W IMPRESSION: Unremarkable breast MR examination with contrast. The patient should return in December 2019 for routine annual screening mammography. CATEGORY: BIRADS Category 2: Benign. A letter regarding these results will be sent to the patient by the facility within 30 days. Electronically Signed: Debi Pulido DO at 6:51 EST Tel , Service support , CC: Sena Rao DO Asphalt Paver: Signed Sena Rao Work Phone: Start: 12-22-2018 End: 12-22-2018 SCREENING MAMM (CAD), BILAT Comments: See Note; NOTES: [facility] Imaging Services [address] [place] [id number] SCREENING MAMM (CAD), BILAT MR#: [id number] Acct: [id number] Name: JOHN MARIE Rep #: [id number] : 1960 F 58 From: Irvin Michaud MD PCP: Sena Rao DO Status: REG CLI Study: SCREENING MAMM (CAD), BILAT Date of Exam: 12/22/18 Exam# [id number] Ordering Dr: Sena Rao DO MAMMOGRAPHY - BILATERAL SCREENING REASON FOR EXAM: Female, 58 years old. Routine annual screening examination. PERTINENT HISTORY: Mother with breast cancer. Aunt with breast cancer. History of prior left stereotactic breast biopsy. TECHNIQUE: Digital bilateral breast alfredo (3D mammographic acquisition) in the CC and MLO projections. 2-D mediolateral oblique (MLO) and craniocaudad (CC) views of both breasts were obtained. CAD: Full Field Digital Mammography with Computer Added Detection was performed. COMPARISON: Comparison is made with prior examination dated November 20, 2017 and September 29, 2015. FINDINGS: Breast Composition: The breasts are heterogeneously dense, which may obscure small masses. There are no dominant masses or suspicious calcifications. A tissue clip marker is seen in the upper slightly lateral aspect of the left breast. No other significant abnormalities are identified. There has been no significant change since the prior study. BI/SCREENING MAMM (CAD), BILAT IMPRESSION: Stable bilateral screening mammogram. Yearly follow-up mammogram recommended. (A) ASSESSMENT CATEGORY: BIRADS Category 2: Benign. A letter regarding these results will be sent to the patient by the facility within 30 days. Approximately 10% of breast cancers are not detected by mammography. A normal mammogram should not delay biopsy of a clinically suspicious abnormality. [id number] Electronically Signed: Irvin Michaud, at 9:27 EDT , Service support , CC: Sena Rao DO Asphalt Paver: Signed Sena Rao Work Phone: Start: 03-09-2018 End: 03-09-2018 TXT - Blood Flow Screening Comments: See Note; NOTES: [facility] Cardiovascular Services [address] [place] [address] 03/09/18 0816 MR#: [id number] Acct: [id number] Name: JOHN MARIE Rep #: [id number] : 1960 57 From: John Howard MD Attending Dr: Sena Rao DO Status: REG REF Ordering Dr: Date: 03/09/18 Location: [facility] Sex: F C Admitted: Carotid Duplex Ultrasound Abdominal Aorta The right maximum ICA velocity is 70.9/32.8 cm/s.The maximal outside diameter of the proximal The right ECA velocity is less than 125 cm/s. aorta measures 1.7 cm in the longitudinal axis. There is insignificant plaque formation noted on The maximal outside diameter of the proximal the right side. aorta measures 1.7 x 1.7 cm in the cross- The left maximum ICA velocity is 75.0/30.6 cm/s. sectional axis. The left ECA velocity is less than 125 cm/s. There is no plaque formation noted on the left side. Ankle Brachial Index The right ankle/ brachial index is 1.0. The left ankle/ brachial index is 1.1. Medical History and Assessment The heart rate is 66 beats per minute. The heart rhythm is regular. The right blood pressure is 140/84. The left blood pressure is 144/86. The assessment was performed by Estee Blount RVT. Interpretation Summary Normal carotid artery screening (0 to 15% narrowing). Normal aortic ultrasound exam. The ankle/brachial index is normal (1.0 or greater). .rdering Physician: Sena Rao D.O Performed By: Dayanna Blount RVT 03/09/182220 Date John Howard MD CC: Sena Rao DO Date Dictated: 03/09/18815 Date Transcribed: 03/09/182220 Asphalt Paver: Signed Sena Rao Start: 11-20-2017 End: 11-22-2017 DXA BONE DENS W/VERT FX ASMT Comments: See Note; NOTES: [facility] Imaging Services [address] [place] [address] 2000[address] DXA BONE DENS W/VERT FX ASMT MR#: [id number] Acct: [id number] Name: JOHN MARIE Rep #: [id number] : 1960 F 57 From: Silvina Marcelino MD PCP: Sena Rao DO Status: REG CLI Study: DXA BONE DENS W/VERT FX ASMT Date of Exam: 11/20/17 Exam# [id number] Ordering Dr: Sena Rao DO STUDY: DUAL ENERGY X-RAY ABSORPTIOMETRY / DXA REASON FOR EXAM: Female, 57 years old. Bone density as screening in a postmenopausal patient. TECHNIQUE: Bone Mineral Density (BMD) measurements of lumbar spine and bilateral hips were obtained. COMPARISON: Prior comparable comparison studies are not available for review at this time. FINDINGS: Lumbar Spine (L1-L4): g/cm2 (1.017) / T-score (-1.4) / Z-score (-0.5) Findings are suggestive of osteopenia with a moderate fracture risk. Left Femur Total: g/cm2 (0.947) / T-score (-0.5) / Z-score (0.2) Left Femoral Neck: g/cm2 (0.860) / T-score (-1.3) / Z-score (-0.2) Right Femur Total: g/cm2 (0.939) / T-score (-0.5) / Z-score (0.2) Right Femoral Neck: g/cm2 (0.903) / T-score (-1.0) / Z-score (0.1) BD/DXA BONE DENS W/VERT FX ASMT IMPRESSION: The patient is considered osteopenic as outlined below according to World Faustino Organization (WHO) criteria with a moderate fracture risk. Reference Information: The T-score is the number of standard deviations above or below the standard which is normal for young adults at their peak bone mineral density. The World Health Organization (WHO) interprets the T-scores as follows: Above -1 Normal bone density Between -1 and -2.5 Osteopenia Equal to / or below -2.5 Osteoporosis As a practical clinical guideline, osteopenia may be graded as follows: Mild -1 through -1.5 Moderate -1.6 through -2.0 Severe -2.1 through -2.4 The Z-score is the number of standard deviations above or below age-matched controls. A Z-score of less than -1.5 would be considered abnormal. References: 1. NIH Osteoporosis and Related Bone Diseases http://www.osteo.org 2. International Society for Clinical Densitometry http://www.iscd.org 3. National Osteoporosis Foundation http://www.nof.org Electronically Signed: Silvina Marcelino MD at 8:59 EDT , Service support , CC: Sena Rao DO Asphalt Paver: Signed Sena Rao Work Phone: Start: 11-20-2017 End: 11-24-2017 SCREENING MAMM (CAD), BILAT Comments: See Note; NOTES: [facility] Imaging Services [address] [place] [address] SCREENING MAMM (CAD), BILAT MR#: [id number] Acct: [id number] Name: JOHN MARIE Rep #: [id number] : 1960 F 57 From: Irvin Michaud MD PCP: Sena Rao DO Status: REG CLI Study: SCREENING MAMM (CAD), BILAT Date of Exam: 11/20/17 Exam# [id number] Ordering Dr: Sena Rao DO MAMMOGRAPHY - BILATERAL SCREENING REASON FOR EXAM: Female, 57 years old. Routine annual screening examination. PERTINENT HISTORY: Mother with breast cancer. Aunt with breast cancer. Remote left stereotactic breast biopsy. TECHNIQUE: Digital bilateral breast alfredo (3D mammographic acquisition) in the CC and MLO projections. 2-D mediolateral oblique (MLO) and craniocaudad (CC) views of both breasts were obtained. CAD: Full Field Digital Mammography with Computer Added Detection was performed. COMPARISON: Comparison is made with prior outside examination dated September 29, 2015 and August 04, 2013. FINDINGS: Breast Composition: The breasts are heterogeneously dense, which may obscure small masses. There are no dominant masses or suspicious calcifications. No other significant abnormalities are identified. There has been no significant change since the prior study. BI/SCREENING MAMM (CAD), BILAT IMPRESSION: Stable bilateral screening mammogram. Yearly follow-up mammogram recommended. (A) ASSESSMENT CATEGORY: BIRADS Category 1: Negative. A letter regarding these results will be sent to the patient by the facility within 30 days. Approximately 10% of breast cancers are not detected by mammography. A normal mammogram should not delay biopsy of a clinically suspicious abnormality. [id number] Electronically Signed: Irvin Michaud MD at 9:50 EDT Tel [phone], Service support , CC: Sena Rao DO Asphalt Paver: Signed Sena Rao Work Phone: Start: 09-29-2015 End: 09-29-2015 Bilat Scrn Digital AND CAD Comments: See Note; NOTES: [facility] Imaging Services [address] [place] [address] Verdana 4d Bilat Scrn Digital AND CAD MR#: [id number] Acct: [id number] Name: JOHN MARIE Rep #: [id number] : 1960 F 55 From: Irvin Michaud MD PCP: Brenna Yarbrough DO Status: REG CLI Study: Bilat Scrn Digital AND CAD Date of Exam: 09/29/15 Exam# [id number] Ordering Dr: Janki Granados MD MAMMOGRAPHY - BILATERAL SCREENING REASON FOR EXAM: Female, 55 years old. Routine annual screening examination. PERTINENT HISTORY: Mother with breast cancer. Aunt with breast cancer. TECHNIQUE: Digital examination. Mediolateral oblique (MLO) and craniocaudad (CC) views of both breasts were obtained. CAD: CAD was performed on this study. COMPARISON: Comparison is made with prior study dated August 04, 2013 and July 22, 2012. FINDINGS: Breast Composition: The breasts are heterogeneously dense, which may obscure small masses. There are no dominant masses or suspicious calcifications. A stereotactic tissue marker is seen in the upper outer aspect of the left breast. No other significant abnormalities are identified. There has been no significant change since the prior study. IMPRESSION: Stable bilateral screening mammogram. Yearly follow-up mammogram recommended. (A) ASSESSMENT CATEGORY: BIRADS Category 1: Negative. A letter regarding these results will be sent to the patient by the facility within 30 days. Approximately 10% of breast cancers are not detected by mammography. A normal mammogram should not delay biopsy of a clinically suspicious abnormality. [id number] Electronically Signed: Irvin Michaud MD at 9:31 EST Tel [phone], Service support [phone], CC: Janki Granados MD; Brenna Yarbrough DO Asphalt Paver: Signed Sena Gomez Fast Work Phone: section Elsi Man susan Comment on above: section Elsi Man chagwen Comment on above: section Elsi Man papok Comment on above: section Elsi Man papok Comment on above: section Elsi Man papok Comment on above: section Sena Gomez Maverick ramirez DO Work Phone: Comment on above: c section x 3 section Emily mccoy LPN Comment on above: section Gely Murp hy MA Comment on above: section Elsi Man chak ADMINISTRATIVE SPECIALIST Comment on above: section Kayela Radf ord ADMINISTRATIVE SPECIALIST Comment on above: section Elsi Man chak ADMINISTRATIVE SPECIALIST Comment on above: section Elsi Man chak ADMINISTRATIVE SPECIALIST section Elsi Man papok ADMINISTRATIVE SPECIALIST Hysterectomy (due to cancer) - Partial Elsinoe [place] Comment on above: - addendum not due to cancer was a fibro id - still has ovaries Hysterectomy (due to cancer) - Partial Elsi [place] Comment on above: - addendum not due to cancer was a fibro id - still has ovaries Hysterectomy (due to cancer) - Partial Elsi [place] Comment on above: - addendum not due to cancer was a fibro id - still has ovaries Hysterectomy (due to cancer) - Partial Elsi [place] Comment on above: - addendum not due to cancer was a fibro id - still has ovaries Hysterectomy (due to cancer) - Partial Elsi Manchak Comment on above: - addendum not due to cancer was a fibro id - still has ovaries Partial hysterectomy Elsi Manchak Comment on above: - addendum not due to cancer was a fibro id - still has ovaries Partial hysterectomy Emily Sesay LPN Comment on above: - addendum not due to cancer was a fibro id - still has ovaries Partial hysterectomy Gely Srinivasan MA Comment on above: - addendum not due to cancer was a fibro id - still has ovaries Partial hysterectomy Elsi Manchak ADMINISTRATIVE SPECIALIST Comment on above: - addendum not due to cancer was a fibro id - still has ovaries Partial hysterectomy Kayela [place] ADMINISTRATIVE SPECIALIST Comment on above: - addendum not due to cancer was a fibro id - still has ovaries Partial hysterectomy Elsi Manchak ADMINISTRATIVE SPECIALIST Comment on above: - addendum not due to cancer was a fibro id - still has ovaries Partial hysterectomy Elsi Manchak ADMINISTRATIVE SPECIALIST Partial hysterectomy Elsi Manchak ADMINISTRATIVE SPECIALIST partial hysterectomy - still has ovaries 2004 Emily Sesay LPN partial hysterectomy - still has ovaries 2004 Gely Srinivasan MA partial hysterectomy - still has ovaries 2004 Elsi Manchak ADMINISTRATIVE SPECIALIST partial hysterectomy - still has ovaries 2004 Kayela [place] ADMINISTRATIVE SPECIALIST partial hysterectomy - still has ovaries 2004 Elsi Manchak ADMINISTRATIVE SPECIALIST Tonsillectomy Emily Sesay L PN Tonsillectomy Gely Srinivasan MA Tonsillectomy Elsi Mariia k ADMINISTRATIVE SPECIALIST Tonsillectomy Kayela Canton ADMINISTRATIVE SPECIALIST Tonsillectomy Elsi Mariia k ADMINISTRATIVE SPECIALIST Tonsillectomy Elsi Mariia k ADMINISTRATIVE SPECIALIST Tonsillectomy Elsi Mariia k ADMINISTRATIVE SPECIALIST Elsi Manchak ADMINISTRATIVE SPECIALIST Elsi Manchak ADMINISTRATIVE SPECIALIST Plan of Treatment Date Care Activity Detail Author Start: 03-21-2024 COVID-19 Vaccine ( season) COVID-19 Vaccine ( season) [facility] Start: 03-21-2024 Influenza vaccination Influenza Vaccine (#1) [facility] Start: 08-22-2023 Liquid based cervical cytology screening [facility] Start: 05-13-2023 Procedure Education [facility] Work Phone: Start: 04-22-2023 Procedure Education [facility]; [facility] Work Phone: Start: 04-22-2023 Iadna xiomy species amplified probe tq [facility]; [facility] Work Phone: Start: 04-22-2023 Culture bct isol&prsmptv id isolate ea urine [facility]; [facility] Work Phone: Start: 01-08-2023 Procedure Education [facility]; [facility] Work Phone: Start: 01-08-2023 Urnls dip stick/tablet reagent auto microscopy [facility]; [facility] Work Phone: Start: 01-08-2023 Blood count complete auto&auto difrntl wbc [facility]; [facility] Work Phone: Start: 01-08-2023 Comprehensive metabolic panel [facility]; [facility] Work Phone: Start: 06-18-2022 Iaadiadoo influenza [facility] Work Phone: Start: 05-23-2022 Liquid based cervical cytology screening [facility] Work Phone: Start: 03-26-2022 Procedure Education [facility]; [facility] Work Phone: Start: 02-18-2022 Urnls dip stick/tablet reagent auto microscopy [facility]; [facility] Work Phone: Start: 02-18-2022 25 hydroxy includes fractions if performed [facility]; [facility] Work Phone: Start: 02-18-2022 Comprehensive metabolic panel [facility]; [facility] Work Phone: Start: 02-18-2022 Procedure Education [facility]; [facility] Work Phone: Start: 2021 RSV High Risk: (Elderly (60+) or Population) (1 - Risk 60-74 years 1-dose series) RSV High Risk: (Elderly (60+) or Population) (1 - Risk 60-74 years 1-dose series) [facility] Start: 05-01-2021 Urnls dip stick/tablet reagent auto microscopy [facility]; [facility] Work Phone: Start: 05-01-2021 Blood count complete auto&auto difrntl wbc [facility]; [facility] Work Phone: Start: 05-01-2021 Comprehensive metabolic panel [facility]; [facility] Work Phone: Start: 04-30-2021 Procedure Education [facility]; [facility] Work Phone: Start: 12-27-2020 Procedure Education [facility]; [facility] Work Phone: Start: 12-27-2020 25 hydroxy includes fractions if performed Vitamin D Hydroxy (24015) [facility]; [facility] Work Phone: Start: 12-27-2020 Lipid panel LIPID PANEL (11835) [facility]; [facility] Work Phone: Start: 12-27-2020 Blood count complete auto&auto difrntl wbc CBC W/AUTO DIFF WBC (78398) [facility]; [facility] Work Phone: Start: 12-27-2020 Comprehensive metabolic panel METABOLIC PANEL, COMPREHENSIVE (43773) [facility]; [facility] Work Phone: Start: 08-16-2020 Procedure Education [facility]; [facility] Work Phone: Start: 08-16-2020 Comprehensive metabolic panel [facility]; [facility] Work Phone: Start: 08-16-2020 Lipid panel [facility]; [facility] Work Phone: Start: 08-16-2020 25 hydroxy includes fractions if performed [facility]; [facility] Work Phone: Start: 08-16-2020 Cytp c/v auto thin lyr prepj scr mnl rescr phys [facility]; [facility] Work Phone: Start: 08-16-2020 Hpv, dna, amp probe [facility]; [facility] Work Phone: Start: 07-03-2020 Comprehensive metabolic panel METABOLIC PANEL, COMPREHENSIVE (21915) [facility]; [facility] Work Phone: Start: 07-03-2020 CBC, PLATELETS & MANUAL DIFF (90326) CBC, PLATELETS & MANUAL DIFF (70464) [facility]; [facility] Work Phone: Start: 04-25-2020 Procedure Education [facility] Work Phone: Start: 02-01-2020 Procedure Education [facility] Work Phone: Start: 02-01-2020 Blood count complete auto&auto difrntl wbc CBC W/AUTO DIFF WBC (31641) [facility] Work Phone: Start: 02-01-2020 Comprehensive metabolic panel METABOLIC PANEL, COMPREHENSIVE (89736) [facility] Work Phone: Start: 02-01-2020 Lipid panel LIPID PANEL (26856) [facility] Work Phone: Start: 11-16-2019 Procedure Education [facility] Work Phone: Start: 11-16-2019 Lipid panel [facility] Work Phone: Start: 11-16-2019 Blood count complete auto&auto difrntl wbc [facility] Work Phone: Start: 11-16-2019 Comprehensive metabolic panel [facility] Work Phone: Start: 11-16-2019 25 hydroxy includes fractions if performed [facility] Work Phone: Start: 05-26-2019 Procedure Education [facility] Work Phone: Start: 05-26-2019 Culture bacterial quanttative colony count urine URINE ANGELINE CULTURE (SAMIR COL COUNT) (16798) [facility] Work Phone: Start: 05-26-2019 Urnls dip stick/tablet reagent auto microscopy URINALYSIS, W/ MICRO (24264) [facility] Work Phone: Start: 05-26-2019 Blood count complete auto&auto difrntl wbc [facility] Work Phone: Start: 12-02-2018 Procedure Education [facility] Work Phone: Start: 12-02-2018 Hepatitis c antibody HEPATITIS C ANTIBODY (82515) [facility] Work Phone: Start: 12-02-2018 Antibody mumps MUMPS IgG (09677) [facility] Work Phone: Start: 12-02-2018 Antibody rubella RUBELLA IgG (91124) [facility] Work Phone: Start: 12-02-2018 Antibody rubeola RUBEOLA IgG (64223) [facility] Work Phone: Start: 12-02-2018 Comprehensive metabolic panel METABOLIC PANEL, COMPREHENSIVE (75605) [facility] Work Phone: Start: 11-11-2018 Blood count complete auto&auto difrntl wbc CBC W/AUTO DIFF WBC (99135) [facility] Work Phone: Start: 11-11-2018 Comprehensive metabolic panel METABOLIC PANEL, COMPREHENSIVE (91848) [facility] Work Phone: Start: 11-11-2018 Lipid panel LIPID PANEL (17428) [facility] Work Phone: Start: 11-11-2018 Procedure Education [facility] Work Phone: Start: 06-16-2018 Procedure Education [facility] Work Phone: Start: 02-25-2018 Procedure Education [facility] Work Phone: Start: 10-27-2017 Procedure Education [facility] Work Phone: Start: 10-06-2017 Procedure Education [facility] Work Phone: Start: 02-26-2017 Procedure Education [facility] Work Phone: Start: 09-28-2015 DTaP/Tdap/Td Vaccines (1 - Tdap) DTaP/Tdap/Td Vaccines (1 - Tdap) [facility] Start: 08-26-2014 Provider Instructions for Treatment [facility] Work Phone: Start: 08-25-2014 Provider Instructions for Treatment [facility] Work Phone: Start: 08-24-2014 Provider Instructions for Treatment [facility] Work Phone: Start: 08-23-2014 Procedure Education [facility] Work Phone: Start: 03-02-2014 Procedure Education [facility] Work Phone: Start: 03-02-2014 Provider Instructions for Treatment [facility] Work Phone: Start: 01-24-2014 Procedure Education [facility] Work Phone: Start: 01-24-2014 Provider Instructions for Treatment [facility] Work Phone: Start: 01-03-2014 Procedure Education [facility] Work Phone: Start: 01-03-2014 Provider Instructions for Treatment [facility] Work Phone: Start: 08-24-2013 Provider Instructions for Treatment [facility] Work Phone: Start: 06-09-2013 Provider Instructions for Treatment [facility] Work Phone: Start: 06-09-2013 Rheumatoid factor quantitative [facility] Work Phone: Start: 06-09-2013 Extractable nuclear antigen antibody any method [facility] Work Phone: Start: 06-09-2013 Protein mass conc ANTI-PLANTING MATERIAL CARRIER (ANTI RIBONUCLEAR PROTEIN ANTIBODY) (67830) test code [id number] [facility] Work Phone: Start: 06-09-2013 Dna antibody [place]/double stranded [facility] Work Phone: Start: 05-19-2013 Provider Instructions for Treatment [facility] Work Phone: Start: 04-19-2013 Provider Instructions for Treatment [facility] Work Phone: Start: 01-13-2013 Provider Instructions for Treatment [facility] Work Phone: Start: 01-07-2013 Provider Instructions for Treatment [facility] Work Phone: Start: 08-07-2012 Patient Education [facility] Work Phone: Start: 08-07-2012 Provider Instructions for Treatment [facility] Work Phone: Start: 07-15-2012 Provider Instructions for Treatment [facility] Work Phone: Start: 2011 Zoster Vaccines (1 of 2) Zoster Vaccines (1 of 2) [facility] Start: 07-27-2003 IPV Vaccines (2 of 3 - Adult catch-up series) IPV Vaccines (2 of 3 - Adult catch-up series) [facility] Start: 2001 Screening for malignant neoplasm of breast Mammogram [facility] Start: 1982 Screening for malignant neoplasm of cervix [facility] Start: 1979 Diabetes mellitus screening Diabetes Screening [facility] Start: 1979 Hepatitis C screening Hepatitis C Screening [facility] Start: 1962 MMR Vaccines (1 of 1 - Standard series) MMR Vaccines (1 of 1 - Standard series) [facility] Start: 1961 HIV screening HIV Screening [facility] Start: 1961 Lipid panel Lipid Panel [facility] Start: 1961 Screening for malignant neoplasm of colon [facility] Start: 1961 Yearly Adult Physical Yearly Adult Physical [facility] Path report.final Dx Spec [facility] Work Phone: Path report.final Dx Spec [facility] [facility] Work Phone: [facility] Work Phone: [facility] Work Phone: [facility] Work Phone[facility] Work Phone: [facility] Work Phone: [facility] Work Phone[facility] Work Phone: [facility] Work Phone: [facility] Work Phone: [facility] Work Phone: [facility] Work Phone: [facility] Work Phone[facility] Work Phone: [facility] Work Phone: [facility] Work Phone: [facility] Work Phone: [facility] Work Phone: [facility] Work Phone: [facility] Work Phone: [facility] Work Phone: [facility]; [facility] Work Phone: [facility]; [facility] Work Phone: [facility]; [facility] Work Phone: [facility]; [facility] Work Phone: [facility] Immunizations Immunization Date Immunization Notes Care Provider Francisco Javier mart 06-29-2003 poliovirus vaccine, unspecified formulation [address] Work Phone: Payers Date Payer Category Payer Self-pay [id number] Self-pay [id number] 2011 Unknown [id number] 1960 Unknown [id number] Unknown Jolene BC/BS Unknown [id number] Unknown [id number] Unknown [id number] Unknown [id number] Unknown [id number] Unknown [id number] Social History Date Type Detail Facility Alcohol Use: Former smoker [facility] Work Phone: Caffeine Use [facility] Work Phone: Comment on above: 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 [facility] Work Phone: Living Situation: Lives alone. [facility] Work Phone: Comment on above: with 3 kids Number of Adult (age 18 or over) Dependents: 3. [facility] Work Phone: Pets/Animals: Cat. [facility] Work Phone: Tobacco use: Former smoker. [facility] Work Phone: Alcohol Use: Alcohol Use: [facility]; [facility] Work Phone: Exercise History: Exercise History: Compr [facility]; [facility] Work Phone: Living Situation: Living Situation: [facility]; [facility] Work Phone: Comment on above: with 3 kids Number of Adult (age 18 or over) Dependents: Number of Adult (age 18 or over) Dependents: [facility]; [facility] Work Phone: Pets/Animals: Pets/Animals: [facility]; [facility] Work Phone: Tobacco use: Tobacco use: [facility]; [facility] Work Phone: Start: 1960 Sex Assigned At Female [facility] Start: 05-23-2022 End: 08-22-2023 Tobacco smoking status NHIS Unknown if ever smoked [facility] Lives with spouse. Anna [facility]; [facility] Work Phone: Start: 1960 Sex assigned at Not on file [facility] Work Phone: Gender identity Not on file [facility] Work Phone: Start: 06-13-2024 End: 06-23-2024 Exposure to SARS-CoV-2 (event) Not sure [facility] Start: 08-22-2023 Tobacco smoking stat us NHIS Ex-smoker (finding) [facility] Clinical Notes 11-25-2024 Note Date & Type Note Facility 11-25-2024 Radiology Diagnostic study note [facility] Imaging Services [address] [place] [address] Kidney and Bladder MR#: [id number] Acct: [id number] Name: JOHN MARIE Rep #: [id number] : 1960 F 64 From: Lisa Diaz MD PCP: Dr. Sena Rao, DO Status: REG CLI Study:Kidney and Bladder Date of Exam: 0 11/23/24 Exam# [id number] Ordering Dr: Magali Packer MD PROCEDURE: ULTRASOUND KIDNEYS AND BLADDER 11/23/2024 REASON FOR EXAM: URINARY TRACT INFECTION. TECHNIQUE: Real-time grayscale and color flow imaging was performed along with routine image documentation. COMPARISON: No relevant prior. FINDINGS: Kidneys: Normal parenchymal echogenicity. Hydronephrosis: Not visualized. Cysts or Masses: Bilateral, largest on the right measuring 1.2 x 1.3 x 1.3 cm and on the left measuring 2.0 x 1.9 x 1.1 cm. Other: Suspicion of bilateral nonobstructing nephrolithiasis. RIGHT Kidney Size: 13.1 x 5.6 x 4.1 cm. Volume: 159 mL Cortical Thickness (if discernible): 1.27 (>6mm is normal) LEFT Kidney Size: 12.9 x 5.7 x 5.2 cm. Volume: 200 mL Cortical Thickness (if discernible): 1.2 (>6mm is normal) Urinary bladder Distended volume: 161 mL. Wall thickness: 0.4 cm. Ureters Right ureteral jet: Visualized. Left ureteral jet: Visualized. US/Kidney and Bladder IMPRESSION: Bilateral renal cysts. Suspicion of bilateral nonobstructing nephrolithiasis versus calcifications in the cyst wall. Reading Location: [facility] CC: Dr. Sena Rao DO; Dr. Magali Packer MD ~ [employer]: Signed [facility] Evaluation note No assessment inform ation available [facility] Work Phone: Evaluation note Diagnosis Onset Date [id number] acute [facility] Work Phone: Evaluation note* Diagnosis Onset Date Resolution Status Encounter for routine gynecological examination noneactive [facility] Work Phone: Evaluation note* Diagnosis Hyperlipidemia, unspecified documented in this encounter [facility] Work Phone: Instructions* Name Dates Details Patient Instructions Indication:Non-smoker Start:27-Dec-2020 Instruction Type:Provider Instructions for Treatment How to Access Health Informa tion Online using Patient Portal and iDiDi[employer] Apps Indication:Non-smoker Start:27-Dec-2020 Instruction Type:Patient Education Patient Instructions Indication:Abnormal Pap smear of cervix Start:27-Aug-2020 Instruction Type:Provider Instructions for Treatment Patient Instructions Indication:[facility] Start:16-Aug-2020 Instruction Type:Provider Instructions for Treatment How to Access Health Informa tion Online using Patient Portal and iDi[employer] Apps Indication:[facility] Start:16-Aug-2020 Instruction Type:Patient Education How to access health informa tion online Indication:Fall, accidental Start:25-Apr-2020 Instruction Type:Patient Education How to access health informa tion online - Detail Indication:Fall, accidental Start:25-Apr-2020 Instruction Type:Patient Education Patient Instructions Indication:Fall, accidental Start:25-Apr-2020 Instruction Type:Provider Instructions for Treatment How to access health informa tion online Indication:Hypertension, benign Start:01-Feb-2020 Instruction Type:Patient Education How to access health informa tion online - Detail Indication:Hypertension, benign Start:01-Feb-2020 Instruction Type:Patient Education Patient Instructions Indication:Hypertension, benign Start:01-Feb-2020 Instruction Type:Provider Instructions for Treatment How to access health informa tion online Indication:Dysuria Start:16-Nov-2019 Instruction Type:Patient Education How to access health informa tion online - Detail Indication:Dysuria Start:16-Nov-2019 Instruction Type:Patient Education Patient Instructions Indication:Dysuria Start:16-Nov-2019 Instruction Type:Provider Instructions for Treatment How to access health informa tion online Indication:[facility] Start:26-May-2019 Instruction Type:Patient Education How to access health informa tion online - Detail Indication:[facility] Start:26-May-2019 Instruction Type:Patient Education Patient Instructions Indication:[facility] Start:26-May-2019 Instruction Type:Provider Instructions for Treatment How to access health informa tion online Indication:BMI 29.0-29.9,adult Start:02-Dec-2018 Instruction Type:Patient Education How to access health informa tion online - Detail Indication:BMI 29.0-29.9,adult Start:02-Dec-2018 Instruction Type:Patient Education Patient Instructions Indication:BMI 29.0-29.9,adult Start:02-Dec-2018 Instruction Type:Provider Instructions for Treatment How to access health informa tion online Indication:Fever Start:11-Nov-2018 Instruction Type:Patient Education How to access health informa tion online - Detail Indication:Fever Start:11-Nov-2018 Instruction Type:Patient Education Patient Instructions Indication:Fever Start:11-Nov-2018 Instruction Type:Provider Instructions for Treatment How to access health informa tion online Indication:Hyperlipidemia, acquired Start:16-Jun-2018 Instruction Type:Patient Education How to access health informa tion online - Detail Indication:Hyperlipidemia, acquired Start:16-Jun-2018 Instruction Type:Patient Education Patient Instructions Indication:Hyperlipidemia, acquired Start:16-Jun-2018 Instruction Type:Provider Instructions for Treatment How to access health informa tion online Indication:[facility] Start:25-Feb-2018 Instruction Type:Patient Education How to access health informa tion online - Detail Indication:[facility] Start:25-Feb-2018 Instruction Type:Patient Education Patient Instructions Indication:[facility] Start:25-Feb-2018 Instruction Type:Provider Instructions for Treatment How to access health informa tion online Indication:External otitis of right ear Start:27-Oct-2017 Instruction Type:Patient Education How to access health informa tion online - Detail Indication:External otitis of right ear Start:27-Oct-2017 Instruction Type:Patient Education Patient Instructions Indication:External otitis of right ear Start:27-Oct-2017 Instruction Type:Provider Instructions for Treatment How to access health informa tion online Indication:Non-smoker Start:06-Oct-2017 Instruction Type:Patient Education How to access health informa tion online - Detail Indication:Non-smoker Start:06-Oct-2017 Instruction Type:Patient Education Patient Instructions Indication:Non-smoker Start:06-Oct-2017 Instruction Type:Provider Instructions for Treatment How to access health informa tion online Indication:Hypertension, benign Start:26-Feb-2017 Instruction Type:Patient Education How to access health informa tion online - Detail Indication:Hypertension, benign Start:26-Feb-2017 Instruction Type:Patient Education Patient Instructions Indication:Hypertension, benign Start:26-Feb-2017 Instruction Type:Provider Instructions for Treatment Patient Instructions Indication:Cellulitis Start:23-Aug-2014 Instruction Type:Provider Instructions for Treatment How to access health informa tion online Indication:Hypertension, benign Start:02-Mar-2014 Instruction Type:Patient Education How to access health informa tion online - Detail Indication:Hypertension, benign Start:02-Mar-2014 Instruction Type:Patient Education Patient Instructions Indication:Hypertension, benign Start:02-Mar-2014 Instruction Type:Provider Instructions for Treatment Patient Instructions Indication:Hypertension, benign Start:24-Jan-2014 Instruction Type:Provider Instructions for Treatment Patient Instructions Indication:Hypertension, benign Start:03-Jan-2014 Instruction Type:Provider Instructions for Treatment Patient Instructions Indication:Hypertension, benign Start:24-Aug-2013 Instruction Type:Provider Instructions for Treatment Patient Instructions Indication:Hypertension, benign Start:09-Jun-2013 Instruction Type:Provider Instructions for Treatment Patient Instructions Indication:Hypertension, benign Start:19-May-2013 Instruction Type:Provider Instructions for Treatment Patient Instructions Indication:Hypertension, benign Start:07-Jan-2013 Instruction Type:Provider Instructions for Treatment Patient Instructions Indication:Hypertension, benign Start:07-Aug-2012 Instruction Type:Provider Instructions for Treatment obesity counseling Indication:Weight Gain Start:15-Jul-2012 Instruction Type:Provider Instructions for Treatment Patient Instructions Indication:Hypertension, benign Start:15-Jul-2012 Instruction Type:Provider Instructions for Treatment [facility]; [facility] Work Phone: Instructions* Name Dates Details Patient Instructions Indication:Non-smoker Start:27-Dec-2020 Instruction Type:Provider Instructions for Treatment How to Access Health Informa tion Online using Patient Portal and 3rd [employer] Apps Indication:Non-smoker Start:27-Dec-2020 Instruction Type:Patient Education Patient Instructions Indication:Abnormal Pap smear of cervix Start:27-Aug-2020 Instruction Type:Provider Instructions for Treatment Patient Instructions Indication:[facility] Start:16-Aug-2020 Instruction Type:Provider Instructions for Treatment How to Access Health Informa tion Online using Patient Portal and iDiDi[employer] Apps Indication:[facility] Start:16-Aug-2020 Instruction Type:Patient Education How to access health informa tion online Indication:Fall, accidental Start:25-Apr-2020 Instruction Type:Patient Education How to access health informa tion online - Detail Indication:Fall, accidental Start:25-Apr-2020 Instruction Type:Patient Education Patient Instructions Indication:Fall, accidental Start:25-Apr-2020 Instruction Type:Provider Instructions for Treatment How to access health informa tion online Indication:Hypertension, benign Start:01-Feb-2020 Instruction Type:Patient Education How to access health informa tion online - Detail Indication:Hypertension, benign Start:01-Feb-2020 Instruction Type:Patient Education Patient Instructions Indication:Hypertension, benign Start:01-Feb-2020 Instruction Type:Provider Instructions for Treatment How to access health informa tion online Indication:Dysuria Start:16-Nov-2019 Instruction Type:Patient Education How to access health informa tion online - Detail Indication:Dysuria Start:16-Nov-2019 Instruction Type:Patient Education Patient Instructions Indication:Dysuria Start:16-Nov-2019 Instruction Type:Provider Instructions for Treatment How to access health informa tion online Indication:[facility] Start:26-May-2019 Instruction Type:Patient Education How to access health informa tion online - Detail Indication:[facility] Start:26-May-2019 Instruction Type:Patient Education Patient Instructions Indication:[facility] Start:26-May-2019 Instruction Type:Provider Instructions for Treatment How to access health informa tion online Indication:BMI 29.0-29.9,adult Start:02-Dec-2018 Instruction Type:Patient Education How to access health informa tion online - Detail Indication:BMI 29.0-29.9,adult Start:02-Dec-2018 Instruction Type:Patient Education Patient Instructions Indication:BMI 29.0-29.9,adult Start:02-Dec-2018 Instruction Type:Provider Instructions for Treatment How to access health informa tion online Indication:Fever Start:11-Nov-2018 Instruction Type:Patient Education How to access health informa tion online - Detail Indication:Fever Start:11-Nov-2018 Instruction Type:Patient Education Patient Instructions Indication:Fever Start:11-Nov-2018 Instruction Type:Provider Instructions for Treatment How to access health informa tion online Indication:Hyperlipidemia, acquired Start:16-Jun-2018 Instruction Type:Patient Education How to access health informa tion online - Detail Indication:Hyperlipidemia, acquired Start:16-Jun-2018 Instruction Type:Patient Education Patient Instructions Indication:Hyperlipidemia, acquired Start:16-Jun-2018 Instruction Type:Provider Instructions for Treatment How to access health informa tion online Indication:[facility] Start:25-Feb-2018 Instruction Type:Patient Education How to access health informa tion online - Detail Indication:[facility] Start:25-Feb-2018 Instruction Type:Patient Education Patient Instructions Indication:[facility] Start:25-Feb-2018 Instruction Type:Provider Instructions for Treatment How to access health informa tion online Indication:External otitis of right ear Start:27-Oct-2017 Instruction Type:Patient Education How to access health informa tion online - Detail Indication:External otitis of right ear Start:27-Oct-2017 Instruction Type:Patient Education Patient Instructions Indication:External otitis of right ear Start:27-Oct-2017 Instruction Type:Provider Instructions for Treatment How to access health informa tion online Indication:Non-smoker Start:06-Oct-2017 Instruction Type:Patient Education How to access health informa tion online - Detail Indication:Non-smoker Start:06-Oct-2017 Instruction Type:Patient Education Patient Instructions Indication:Non-smoker Start:06-Oct-2017 Instruction Type:Provider Instructions for Treatment How to access health informa tion online Indication:Hypertension, benign Start:26-Feb-2017 Instruction Type:Patient Education How to access health informa tion online - Detail Indication:Hypertension, benign Start:26-Feb-2017 Instruction Type:Patient Education Patient Instructions Indication:Hypertension, benign Start:26-Feb-2017 Instruction Type:Provider Instructions for Treatment Patient Instructions Indication:Cellulitis Start:23-Aug-2014 Instruction Type:Provider Instructions for Treatment How to access health informa tion online Indication:Hypertension, benign Start:02-Mar-2014 Instruction Type:Patient Education How to access health informa tion online - Detail Indication:Hypertension, benign Start:02-Mar-2014 Instruction Type:Patient Education Patient Instructions Indication:Hypertension, benign Start:02-Mar-2014 Instruction Type:Provider Instructions for Treatment Patient Instructions Indication:Hypertension, benign Start:24-Jan-2014 Instruction Type:Provider Instructions for Treatment Patient Instructions Indication:Hypertension, benign Start:03-Jan-2014 Instruction Type:Provider Instructions for Treatment Patient Instructions Indication:Hypertension, benign Start:24-Aug-2013 Instruction Type:Provider Instructions for Treatment Patient Instructions Indication:Hypertension, benign Start:09-Jun-2013 Instruction Type:Provider Instructions for Treatment Patient Instructions Indication:Hypertension, benign Start:19-May-2013 Instruction Type:Provider Instructions for Treatment Patient Instructions Indication:Hypertension, benign Start:07-Jan-2013 Instruction Type:Provider Instructions for Treatment Patient Instructions Indication:Hypertension, benign Start:07-Aug-2012 Instruction Type:Provider Instructions for Treatment obesity counseling Indication:Weight Gain Start:15-Jul-2012 Instruction Type:Provider Instructions for Treatment Patient Instructions Indication:Hypertension, benign Start:15-Jul-2012 Instruction Type:Provider Instructions for Treatment [facility]; [facility] Work Phone: Instructions* Name Dates Details Patient Instructions Indication:BMI 28.0-28.9,adult Start:30-Apr-2021 Instruction Type:Provider Instructions for Treatment How to Access Health Informa tion Online using Patient Portal and 3rd [employer] Apps Indication:BMI 28.0-28.9,adult Start:30-Apr-2021 Instruction Type:Patient Education Patient Instructions Indication:Non-smoker Start:27-Dec-2020 Instruction Type:Provider Instructions for Treatment How to Access Health Informa tion Online using Patient Portal and 3rd [employer] Apps Indication:Non-smoker Start:27-Dec-2020 Instruction Type:Patient Education Patient Instructions Indication:Abnormal Pap smear of cervix Start:27-Aug-2020 Instruction Type:Provider Instructions for Treatment Patient Instructions Indication:[facility] Start:16-Aug-2020 Instruction Type:Provider Instructions for Treatment How to Access Health Informa tion Online using Patient Portal and 3rd [employer] Apps Indication:[facility] Start:16-Aug-2020 Instruction Type:Patient Education How to access health informa tion online Indication:Fall, accidental Start:25-Apr-2020 Instruction Type:Patient Education How to access health informa tion online - Detail Indication:Fall, accidental Start:25-Apr-2020 Instruction Type:Patient Education Patient Instructions Indication:Fall, accidental Start:25-Apr-2020 Instruction Type:Provider Instructions for Treatment How to access health informa tion online Indication:Hypertension, benign Start:01-Feb-2020 Instruction Type:Patient Education How to access health informa tion online - Detail Indication:Hypertension, benign Start:01-Feb-2020 Instruction Type:Patient Education Patient Instructions Indication:Hypertension, benign Start:01-Feb-2020 Instruction Type:Provider Instructions for Treatment How to access health informa tion online Indication:Dysuria Start:16-Nov-2019 Instruction Type:Patient Education How to access health informa tion online - Detail Indication:Dysuria Start:16-Nov-2019 Instruction Type:Patient Education Patient Instructions Indication:Dysuria Start:16-Nov-2019 Instruction Type:Provider Instructions for Treatment How to access health informa tion online Indication:[facility] Start:26-May-2019 Instruction Type:Patient Education How to access health informa tion online - Detail Indication:[facility] Start:26-May-2019 Instruction Type:Patient Education Patient Instructions Indication:[facility] Start:26-May-2019 Instruction Type:Provider Instructions for Treatment How to access health informa tion online Indication:BMI 29.0-29.9,adult Start:02-Dec-2018 Instruction Type:Patient Education How to access health informa tion online - Detail Indication:BMI 29.0-29.9,adult Start:02-Dec-2018 Instruction Type:Patient Education Patient Instructions Indication:BMI 29.0-29.9,adult Start:02-Dec-2018 Instruction Type:Provider Instructions for Treatment How to access health informa tion online Indication:Fever Start:11-Nov-2018 Instruction Type:Patient Education How to access health informa tion online - Detail Indication:Fever Start:11-Nov-2018 Instruction Type:Patient Education Patient Instructions Indication:Fever Start:11-Nov-2018 Instruction Type:Provider Instructions for Treatment How to access health informa tion online Indication:Hyperlipidemia, acquired Start:16-Jun-2018 Instruction Type:Patient Education How to access health informa tion online - Detail Indication:Hyperlipidemia, acquired Start:16-Jun-2018 Instruction Type:Patient Education Patient Instructions Indication:Hyperlipidemia, acquired Start:16-Jun-2018 Instruction Type:Provider Instructions for Treatment How to access health informa tion online Indication:[facility] Start:25-Feb-2018 Instruction Type:Patient Education How to access health informa tion online - Detail Indication:[facility] Start:25-Feb-2018 Instruction Type:Patient Education Patient Instructions Indication:[facility] Start:25-Feb-2018 Instruction Type:Provider Instructions for Treatment How to access health informa tion online Indication:External otitis of right ear Start:27-Oct-2017 Instruction Type:Patient Education How to access health informa tion online - Detail Indication:External otitis of right ear Start:27-Oct-2017 Instruction Type:Patient Education Patient Instructions Indication:External otitis of right ear Start:27-Oct-2017 Instruction Type:Provider Instructions for Treatment How to access health informa tion online Indication:Non-smoker Start:06-Oct-2017 Instruction Type:Patient Education How to access health informa tion online - Detail Indication:Non-smoker Start:06-Oct-2017 Instruction Type:Patient Education Patient Instructions Indication:Non-smoker Start:06-Oct-2017 Instruction Type:Provider Instructions for Treatment How to access health informa tion online Indication:Hypertension, benign Start:26-Feb-2017 Instruction Type:Patient Education How to access health informa tion online - Detail Indication:Hypertension, benign Start:26-Feb-2017 Instruction Type:Patient Education Patient Instructions Indication:Hypertension, benign Start:26-Feb-2017 Instruction Type:Provider Instructions for Treatment Patient Instructions Indication:Cellulitis Start:23-Aug-2014 Instruction Type:Provider Instructions for Treatment How to access health informa tion online Indication:Hypertension, benign Start:02-Mar-2014 Instruction Type:Patient Education How to access health informa tion online - Detail Indication:Hypertension, benign Start:02-Mar-2014 Instruction Type:Patient Education Patient Instructions Indication:Hypertension, benign Start:02-Mar-2014 Instruction Type:Provider Instructions for Treatment Patient Instructions Indication:Hypertension, benign Start:24-Jan-2014 Instruction Type:Provider Instructions for Treatment Patient Instructions Indication:Hypertension, benign Start:03-Jan-2014 Instruction Type:Provider Instructions for Treatment Patient Instructions Indication:Hypertension, benign Start:24-Aug-2013 Instruction Type:Provider Instructions for Treatment Patient Instructions Indication:Hypertension, benign Start:09-Jun-2013 Instruction Type:Provider Instructions for Treatment Patient Instructions Indication:Hypertension, benign Start:19-May-2013 Instruction Type:Provider Instructions for Treatment Patient Instructions Indication:Hypertension, benign Start:07-Jan-2013 Instruction Type:Provider Instructions for Treatment Patient Instructions Indication:Hypertension, benign Start:07-Aug-2012 Instruction Type:Provider Instructions for Treatment obesity counseling Indication:Weight Gain Start:15-Jul-2012 Instruction Type:Provider Instructions for Treatment Patient Instructions Indication:Hypertension, benign Start:15-Jul-2012 Instruction Type:Provider Instructions for Treatment [facility]; [facility] Work Phone: Instructions* Name Dates Details Patient Instructions Indication:BMI 28.0-28.9,adult Start:30-Apr-2021 Instruction Type:Provider Instructions for Treatment How to Access Health Informa tion Online using Patient Portal and [employer]rd [employer] Apps Indication:BMI 28.0-28.9,adult Start:30-Apr-2021 Instruction Type:Patient Education Patient Instructions Indication:Non-smoker Start:27-Dec-2020 Instruction Type:Provider Instructions for Treatment How to Access Health Informa tion Online using Patient Portal and [employer]rd [employer] Apps Indication:Non-smoker Start:27-Dec-2020 Instruction Type:Patient Education Patient Instructions Indication:Abnormal Pap smear of cervix Start:27-Aug-2020 Instruction Type:Provider Instructions for Treatment Patient Instructions Indication:[facility] Start:16-Aug-2020 Instruction Type:Provider Instructions for Treatment How to Access Health Informa tion Online using Patient Portal and [employer]rd [employer] Apps Indication:[facility] Start:16-Aug-2020 Instruction Type:Patient Education How to access health informa tion online Indication:Fall, accidental Start:25-Apr-2020 Instruction Type:Patient Education How to access health informa tion online - Detail Indication:Fall, accidental Start:25-Apr-2020 Instruction Type:Patient Education Patient Instructions Indication:Fall, accidental Start:25-Apr-2020 Instruction Type:Provider Instructions for Treatment How to access health informa tion online Indication:Hypertension, benign Start:01-Feb-2020 Instruction Type:Patient Education How to access health informa tion online - Detail Indication:Hypertension, benign Start:01-Feb-2020 Instruction Type:Patient Education Patient Instructions Indication:Hypertension, benign Start:01-Feb-2020 Instruction Type:Provider Instructions for Treatment How to access health informa tion online Indication:Dysuria Start:16-Nov-2019 Instruction Type:Patient Education How to access health informa tion online - Detail Indication:Dysuria Start:16-Nov-2019 Instruction Type:Patient Education Patient Instructions Indication:Dysuria Start:16-Nov-2019 Instruction Type:Provider Instructions for Treatment How to access health informa tion online Indication:[facility] Start:26-May-2019 Instruction Type:Patient Education How to access health informa tion online - Detail Indication:[facility] Start:26-May-2019 Instruction Type:Patient Education Patient Instructions Indication:[facility] Start:26-May-2019 Instruction Type:Provider Instructions for Treatment How to access health informa tion online Indication:BMI 29.0-29.9,adult Start:02-Dec-2018 Instruction Type:Patient Education How to access health informa tion online - Detail Indication:BMI 29.0-29.9,adult Start:02-Dec-2018 Instruction Type:Patient Education Patient Instructions Indication:BMI 29.0-29.9,adult Start:02-Dec-2018 Instruction Type:Provider Instructions for Treatment How to access health informa tion online Indication:Fever Start:11-Nov-2018 Instruction Type:Patient Education How to access health informa tion online - Detail Indication:Fever Start:11-Nov-2018 Instruction Type:Patient Education Patient Instructions Indication:Fever Start:11-Nov-2018 Instruction Type:Provider Instructions for Treatment How to access health informa tion online Indication:Hyperlipidemia, acquired Start:16-Jun-2018 Instruction Type:Patient Education How to access health informa tion online - Detail Indication:Hyperlipidemia, acquired Start:16-Jun-2018 Instruction Type:Patient Education Patient Instructions Indication:Hyperlipidemia, acquired Start:16-Jun-2018 Instruction Type:Provider Instructions for Treatment How to access health informa tion online Indication:[facility] Start:25-Feb-2018 Instruction Type:Patient Education How to access health informa tion online - Detail Indication:[facility] Start:25-Feb-2018 Instruction Type:Patient Education Patient Instructions Indication:[facility] Start:25-Feb-2018 Instruction Type:Provider Instructions for Treatment How to access health informa tion online Indication:External otitis of right ear Start:27-Oct-2017 Instruction Type:Patient Education How to access health informa tion online - Detail Indication:External otitis of right ear Start:27-Oct-2017 Instruction Type:Patient Education Patient Instructions Indication:External otitis of right ear Start:27-Oct-2017 Instruction Type:Provider Instructions for Treatment How to access health informa tion online Indication:Non-smoker Start:06-Oct-2017 Instruction Type:Patient Education How to access health informa tion online - Detail Indication:Non-smoker Start:06-Oct-2017 Instruction Type:Patient Education Patient Instructions Indication:Non-smoker Start:06-Oct-2017 Instruction Type:Provider Instructions for Treatment How to access health informa tion online Indication:Hypertension, benign Start:26-Feb-2017 Instruction Type:Patient Education How to access health informa tion online - Detail Indication:Hypertension, benign Start:26-Feb-2017 Instruction Type:Patient Education Patient Instructions Indication:Hypertension, benign Start:26-Feb-2017 Instruction Type:Provider Instructions for Treatment Patient Instructions Indication:Cellulitis Start:23-Aug-2014 Instruction Type:Provider Instructions for Treatment How to access health informa tion online Indication:Hypertension, benign Start:02-Mar-2014 Instruction Type:Patient Education How to access health informa tion online - Detail Indication:Hypertension, benign Start:02-Mar-2014 Instruction Type:Patient Education Patient Instructions Indication:Hypertension, benign Start:02-Mar-2014 Instruction Type:Provider Instructions for Treatment Patient Instructions Indication:Hypertension, benign Start:24-Jan-2014 Instruction Type:Provider Instructions for Treatment Patient Instructions Indication:Hypertension, benign Start:03-Jan-2014 Instruction Type:Provider Instructions for Treatment Patient Instructions Indication:Hypertension, benign Start:24-Aug-2013 Instruction Type:Provider Instructions for Treatment Patient Instructions Indication:Hypertension, benign Start:09-Jun-2013 Instruction Type:Provider Instructions for Treatment Patient Instructions Indication:Hypertension, benign Start:19-May-2013 Instruction Type:Provider Instructions for Treatment Patient Instructions Indication:Hypertension, benign Start:07-Jan-2013 Instruction Type:Provider Instructions for Treatment Patient Instructions Indication:Hypertension, benign Start:07-Aug-2012 Instruction Type:Provider Instructions for Treatment obesity counseling Indication:Weight Gain Start:15-Jul-2012 Instruction Type:Provider Instructions for Treatment Patient Instructions Indication:Hypertension, benign Start:15-Jul-2012 Instruction Type:Provider Instructions for Treatment [facility]; [facility] Work Phone: Instructions* Name Dates Details Patient Instructions Indication:BMI 28.0-28.9,adult Start:30-Apr-2021 Instruction Type:Provider Instructions for Treatment How to Access Health Informa tion Online using Patient Portal and [employer]rd [employer] Apps Indication:BMI 28.0-28.9,adult Start:30-Apr-2021 Instruction Type:Patient Education Patient Instructions Indication:Non-smoker Start:27-Dec-2020 Instruction Type:Provider Instructions for Treatment How to Access Health Informa tion Online using Patient Portal and [employer]rd [employer] Apps Indication:Non-smoker Start:27-Dec-2020 Instruction Type:Patient Education Patient Instructions Indication:Abnormal Pap smear of cervix Start:27-Aug-2020 Instruction Type:Provider Instructions for Treatment Patient Instructions Indication:[facility] Start:16-Aug-2020 Instruction Type:Provider Instructions for Treatment How to Access Health Informa tion Online using Patient Portal and [employer]rd [employer] Apps Indication:[facility] Start:16-Aug-2020 Instruction Type:Patient Education How to access health informa tion online Indication:Fall, accidental Start:25-Apr-2020 Instruction Type:Patient Education How to access health informa tion online - Detail Indication:Fall, accidental Start:25-Apr-2020 Instruction Type:Patient Education Patient Instructions Indication:Fall, accidental Start:25-Apr-2020 Instruction Type:Provider Instructions for Treatment How to access health informa tion online Indication:Hypertension, benign Start:01-Feb-2020 Instruction Type:Patient Education How to access health informa tion online - Detail Indication:Hypertension, benign Start:01-Feb-2020 Instruction Type:Patient Education Patient Instructions Indication:Hypertension, benign Start:01-Feb-2020 Instruction Type:Provider Instructions for Treatment How to access health informa tion online Indication:Dysuria Start:16-Nov-2019 Instruction Type:Patient Education How to access health informa tion online - Detail Indication:Dysuria Start:16-Nov-2019 Instruction Type:Patient Education Patient Instructions Indication:Dysuria Start:16-Nov-2019 Instruction Type:Provider Instructions for Treatment How to access health informa tion online Indication:[facility] Start:26-May-2019 Instruction Type:Patient Education How to access health informa tion online - Detail Indication:[facility] Start:26-May-2019 Instruction Type:Patient Education Patient Instructions Indication:[facility] Start:26-May-2019 Instruction Type:Provider Instructions for Treatment How to access health informa tion online Indication:BMI 29.0-29.9,adult Start:02-Dec-2018 Instruction Type:Patient Education How to access health informa tion online - Detail Indication:BMI 29.0-29.9,adult Start:02-Dec-2018 Instruction Type:Patient Education Patient Instructions Indication:BMI 29.0-29.9,adult Start:02-Dec-2018 Instruction Type:Provider Instructions for Treatment How to access health informa tion online Indication:Fever Start:11-Nov-2018 Instruction Type:Patient Education How to access health informa tion online - Detail Indication:Fever Start:11-Nov-2018 Instruction Type:Patient Education Patient Instructions Indication:Fever Start:11-Nov-2018 Instruction Type:Provider Instructions for Treatment How to access health informa tion online Indication:Hyperlipidemia, acquired Start:16-Jun-2018 Instruction Type:Patient Education How to access health informa tion online - Detail Indication:Hyperlipidemia, acquired Start:16-Jun-2018 Instruction Type:Patient Education Patient Instructions Indication:Hyperlipidemia, acquired Start:16-Jun-2018 Instruction Type:Provider Instructions for Treatment How to access health informa tion online Indication:[facility] Start:25-Feb-2018 Instruction Type:Patient Education How to access health informa tion online - Detail Indication:[facility] Start:25-Feb-2018 Instruction Type:Patient Education Patient Instructions Indication:[facility] Start:25-Feb-2018 Instruction Type:Provider Instructions for Treatment How to access health informa tion online Indication:External otitis of right ear Start:27-Oct-2017 Instruction Type:Patient Education How to access health informa tion online - Detail Indication:External otitis of right ear Start:27-Oct-2017 Instruction Type:Patient Education Patient Instructions Indication:External otitis of right ear Start:27-Oct-2017 Instruction Type:Provider Instructions for Treatment How to access health informa tion online Indication:Non-smoker Start:06-Oct-2017 Instruction Type:Patient Education How to access health informa tion online - Detail Indication:Non-smoker Start:06-Oct-2017 Instruction Type:Patient Education Patient Instructions Indication:Non-smoker Start:06-Oct-2017 Instruction Type:Provider Instructions for Treatment How to access health informa tion online Indication:Hypertension, benign Start:26-Feb-2017 Instruction Type:Patient Education How to access health informa tion online - Detail Indication:Hypertension, benign Start:26-Feb-2017 Instruction Type:Patient Education Patient Instructions Indication:Hypertension, benign Start:26-Feb-2017 Instruction Type:Provider Instructions for Treatment Patient Instructions Indication:Cellulitis Start:23-Aug-2014 Instruction Type:Provider Instructions for Treatment How to access health informa tion online Indication:Hypertension, benign Start:02-Mar-2014 Instruction Type:Patient Education How to access health informa tion online - Detail Indication:Hypertension, benign Start:02-Mar-2014 Instruction Type:Patient Education Patient Instructions Indication:Hypertension, benign Start:02-Mar-2014 Instruction Type:Provider Instructions for Treatment Patient Instructions Indication:Hypertension, benign Start:24-Jan-2014 Instruction Type:Provider Instructions for Treatment Patient Instructions Indication:Hypertension, benign Start:03-Jan-2014 Instruction Type:Provider Instructions for Treatment Patient Instructions Indication:Hypertension, benign Start:24-Aug-2013 Instruction Type:Provider Instructions for Treatment Patient Instructions Indication:Hypertension, benign Start:09-Jun-2013 Instruction Type:Provider Instructions for Treatment Patient Instructions Indication:Hypertension, benign Start:19-May-2013 Instruction Type:Provider Instructions for Treatment Patient Instructions Indication:Hypertension, benign Start:07-Jan-2013 Instruction Type:Provider Instructions for Treatment Patient Instructions Indication:Hypertension, benign Start:07-Aug-2012 Instruction Type:Provider Instructions for Treatment obesity counseling Indication:Weight Gain Start:15-Jul-2012 Instruction Type:Provider Instructions for Treatment Patient Instructions Indication:Hypertension, benign Start:15-Jul-2012 Instruction Type:Provider Instructions for Treatment [facility]; [facility] Work Phone: Instructions* Name Dates Details Patient Instructions Indication:Non-smoker Start:18-Feb-2022 Instruction Type:Provider Instructions for Treatment How to Access Health Informa tion Online using Patient Portal and [employer]rd [employer] Apps Indication:Non-smoker Start:18-Feb-2022 Instruction Type:Patient Education Patient Instructions Indication:BMI 28.0-28.9,adult Start:30-Apr-2021 Instruction Type:Provider Instructions for Treatment How to Access Health Informa tion Online using Patient Portal and [employer]rd [employer] Apps Indication:BMI 28.0-28.9,adult Start:30-Apr-2021 Instruction Type:Patient Education Patient Instructions Indication:Non-smoker Start:27-Dec-2020 Instruction Type:Provider Instructions for Treatment How to Access Health Informa tion Online using Patient Portal and [employer]rd [employer] Apps Indication:Non-smoker Start:27-Dec-2020 Instruction Type:Patient Education Patient Instructions Indication:Abnormal Pap smear of cervix Start:27-Aug-2020 Instruction Type:Provider Instructions for Treatment Patient Instructions Indication:[facility] Start:16-Aug-2020 Instruction Type:Provider Instructions for Treatment How to Access Health Informa tion Online using Patient Portal and [employer]rd [employer] Apps Indication:[facility] Start:16-Aug-2020 Instruction Type:Patient Education How to access health informa tion online Indication:Fall, accidental Start:25-Apr-2020 Instruction Type:Patient Education How to access health informa tion online - Detail Indication:Fall, accidental Start:25-Apr-2020 Instruction Type:Patient Education Patient Instructions Indication:Fall, accidental Start:25-Apr-2020 Instruction Type:Provider Instructions for Treatment How to access health informa tion online Indication:Hypertension, benign Start:01-Feb-2020 Instruction Type:Patient Education How to access health informa tion online - Detail Indication:Hypertension, benign Start:01-Feb-2020 Instruction Type:Patient Education Patient Instructions Indication:Hypertension, benign Start:01-Feb-2020 Instruction Type:Provider Instructions for Treatment How to access health informa tion online Indication:Dysuria Start:16-Nov-2019 Instruction Type:Patient Education How to access health informa tion online - Detail Indication:Dysuria Start:16-Nov-2019 Instruction Type:Patient Education Patient Instructions Indication:Dysuria Start:16-Nov-2019 Instruction Type:Provider Instructions for Treatment How to access health informa tion online Indication:[facility] Start:26-May-2019 Instruction Type:Patient Education How to access health informa tion online - Detail Indication:[facility] Start:26-May-2019 Instruction Type:Patient Education Patient Instructions Indication:[facility] Start:26-May-2019 Instruction Type:Provider Instructions for Treatment How to access health informa tion online Indication:BMI 29.0-29.9,adult Start:02-Dec-2018 Instruction Type:Patient Education How to access health informa tion online - Detail Indication:BMI 29.0-29.9,adult Start:02-Dec-2018 Instruction Type:Patient Education Patient Instructions Indication:BMI 29.0-29.9,adult Start:02-Dec-2018 Instruction Type:Provider Instructions for Treatment How to access health informa tion online Indication:Fever Start:11-Nov-2018 Instruction Type:Patient Education How to access health informa tion online - Detail Indication:Fever Start:11-Nov-2018 Instruction Type:Patient Education Patient Instructions Indication:Fever Start:11-Nov-2018 Instruction Type:Provider Instructions for Treatment How to access health informa tion online Indication:Hyperlipidemia, acquired Start:16-Jun-2018 Instruction Type:Patient Education How to access health informa tion online - Detail Indication:Hyperlipidemia, acquired Start:16-Jun-2018 Instruction Type:Patient Education Patient Instructions Indication:Hyperlipidemia, acquired Start:16-Jun-2018 Instruction Type:Provider Instructions for Treatment How to access health informa tion online Indication:[facility] Start:25-Feb-2018 Instruction Type:Patient Education How to access health informa tion online - Detail Indication:[facility] Start:25-Feb-2018 Instruction Type:Patient Education Patient Instructions Indication:[facility] Start:25-Feb-2018 Instruction Type:Provider Instructions for Treatment How to access health informa tion online Indication:External otitis of right ear Start:27-Oct-2017 Instruction Type:Patient Education How to access health informa tion online - Detail Indication:External otitis of right ear Start:27-Oct-2017 Instruction Type:Patient Education Patient Instructions Indication:External otitis of right ear Start:27-Oct-2017 Instruction Type:Provider Instructions for Treatment How to access health informa tion online Indication:Non-smoker Start:06-Oct-2017 Instruction Type:Patient Education How to access health informa tion online - Detail Indication:Non-smoker Start:06-Oct-2017 Instruction Type:Patient Education Patient Instructions Indication:Non-smoker Start:06-Oct-2017 Instruction Type:Provider Instructions for Treatment How to access health informa tion online Indication:Hypertension, benign Start:26-Feb-2017 Instruction Type:Patient Education How to access health informa tion online - Detail Indication:Hypertension, benign Start:26-Feb-2017 Instruction Type:Patient Education Patient Instructions Indication:Hypertension, benign Start:26-Feb-2017 Instruction Type:Provider Instructions for Treatment Patient Instructions Indication:Cellulitis Start:23-Aug-2014 Instruction Type:Provider Instructions for Treatment How to access health informa tion online Indication:Hypertension, benign Start:02-Mar-2014 Instruction Type:Patient Education How to access health informa tion online - Detail Indication:Hypertension, benign Start:02-Mar-2014 Instruction Type:Patient Education Patient Instructions Indication:Hypertension, benign Start:02-Mar-2014 Instruction Type:Provider Instructions for Treatment Patient Instructions Indication:Hypertension, benign Start:24-Jan-2014 Instruction Type:Provider Instructions for Treatment Patient Instructions Indication:Hypertension, benign Start:03-Jan-2014 Instruction Type:Provider Instructions for Treatment Patient Instructions Indication:Hypertension, benign Start:24-Aug-2013 Instruction Type:Provider Instructions for Treatment Patient Instructions Indication:Hypertension, benign Start:09-Jun-2013 Instruction Type:Provider Instructions for Treatment Patient Instructions Indication:Hypertension, benign Start:19-May-2013 Instruction Type:Provider Instructions for Treatment Patient Instructions Indication:Hypertension, benign Start:07-Jan-2013 Instruction Type:Provider Instructions for Treatment Patient Instructions Indication:Hypertension, benign Start:07-Aug-2012 Instruction Type:Provider Instructions for Treatment obesity counseling Indication:Weight Gain Start:15-Jul-2012 Instruction Type:Provider Instructions for Treatment Patient Instructions Indication:Hypertension, benign Start:15-Jul-2012 Instruction Type:Provider Instructions for Treatment [facility]; [facility] Work Phone: Instructions* Name Dates Details Patient Instructions Indication:Non-smoker Start:18-Feb-2022 Instruction Type:Provider Instructions for Treatment How to Access Health Informa tion Online using Patient Portal and [employer]rd [employer] Apps Indication:Non-smoker Start:18-Feb-2022 Instruction Type:Patient Education Patient Instructions Indication:BMI 28.0-28.9,adult Start:30-Apr-2021 Instruction Type:Provider Instructions for Treatment How to Access Health Informa tion Online using Patient Portal and [employer]rd [employer] Apps Indication:BMI 28.0-28.9,adult Start:30-Apr-2021 Instruction Type:Patient Education Patient Instructions Indication:Non-smoker Start:27-Dec-2020 Instruction Type:Provider Instructions for Treatment How to Access Health Informa tion Online using Patient Portal and [employer]rd [employer] Apps Indication:Non-smoker Start:27-Dec-2020 Instruction Type:Patient Education Patient Instructions Indication:Abnormal Pap smear of cervix Start:27-Aug-2020 Instruction Type:Provider Instructions for Treatment Patient Instructions Indication:[facility] Start:16-Aug-2020 Instruction Type:Provider Instructions for Treatment How to Access Health Informa tion Online using Patient Portal and [employer] Apps Indication:[facility] EX[facility] Start:16-Aug-2020 Instruction Type:Patient Education How to access health informa tion online Indication:Fall, accidental Start:25-Apr-2020 Instruction Type:Patient Education How to access health informa tion online - Detail Indication:Fall, accidental Start:25-Apr-2020 Instruction Type:Patient Education Patient Instructions Indication:Fall, accidental Start:25-Apr-2020 Instruction Type:Provider Instructions for Treatment How to access health informa tion online Indication:Hypertension, benign Start:01-Feb-2020 Instruction Type:Patient Education How to access health informa tion online - Detail Indication:Hypertension, benign Start:01-Feb-2020 Instruction Type:Patient Education Patient Instructions Indication:Hypertension, benign Start:01-Feb-2020 Instruction Type:Provider Instructions for Treatment How to access health informa tion online Indication:Dysuria Start:16-Nov-2019 Instruction Type:Patient Education How to access health informa tion online - Detail Indication:Dysuria Start:16-Nov-2019 Instruction Type:Patient Education Patient Instructions Indication:Dysuria Start:16-Nov-2019 Instruction Type:Provider Instructions for Treatment How to access health informa tion online Indication:[facility] EX[facility] Start:26-May-2019 Instruction Type:Patient Education How to access health informa tion online - Detail Indication:[facility] EX[facility] Start:26-May-2019 Instruction Type:Patient Education Patient Instructions Indication:[facility] EX[facility] Start:26-May-2019 Instruction Type:Provider Instructions for Treatment How to access health informa tion online Indication:BMI 29.0-29.9,adult Start:02-Dec-2018 Instruction Type:Patient Education How to access health informa tion online - Detail Indication:BMI 29.0-29.9,adult Start:02-Dec-2018 Instruction Type:Patient Education Patient Instructions Indication:BMI 29.0-29.9,adult Start:02-Dec-2018 Instruction Type:Provider Instructions for Treatment How to access health informa tion online Indication:Fever Start:11-Nov-2018 Instruction Type:Patient Education How to access health informa tion online - Detail Indication:Fever Start:11-Nov-2018 Instruction Type:Patient Education Patient Instructions Indication:Fever Start:11-Nov-2018 Instruction Type:Provider Instructions for Treatment How to access health informa tion online Indication:Hyperlipidemia, acquired Start:16-Jun-2018 Instruction Type:Patient Education How to access health informa tion online - Detail Indication:Hyperlipidemia, acquired Start:16-Jun-2018 Instruction Type:Patient Education Patient Instructions Indication:Hyperlipidemia, acquired Start:16-Jun-2018 Instruction Type:Provider Instructions for Treatment How to access health informa tion online Indication:[facility] EX[facility] Start:25-Feb-2018 Instruction Type:Patient Education How to access health informa tion online - Detail Indication:[facility] EX[facility] Start:25-Feb-2018 Instruction Type:Patient Education Patient Instructions Indication:[facility] EX[facility] Start:25-Feb-2018 Instruction Type:Provider Instructions for Treatment How to access health informa tion online Indication:External otitis of right ear Start:27-Oct-2017 Instruction Type:Patient Education How to access health informa tion online - Detail Indication:External otitis of right ear Start:27-Oct-2017 Instruction Type:Patient Education Patient Instructions Indication:External otitis of right ear Start:27-Oct-2017 Instruction Type:Provider Instructions for Treatment How to access health informa tion online Indication:Non-smoker Start:06-Oct-2017 Instruction Type:Patient Education How to access health informa tion online - Detail Indication:Non-smoker Start:06-Oct-2017 Instruction Type:Patient Education Patient Instructions Indication:Non-smoker Start:06-Oct-2017 Instruction Type:Provider Instructions for Treatment How to access health informa tion online Indication:Hypertension, benign Start:26-Feb-2017 Instruction Type:Patient Education How to access health informa tion online - Detail Indication:Hypertension, benign Start:26-Feb-2017 Instruction Type:Patient Education Patient Instructions Indication:Hypertension, benign Start:26-Feb-2017 Instruction Type:Provider Instructions for Treatment Patient Instructions Indication:Cellulitis Start:23-Aug-2014 Instruction Type:Provider Instructions for Treatment How to access health informa tion online Indication:Hypertension, benign Start:02-Mar-2014 Instruction Type:Patient Education How to access health informa tion online - Detail Indication:Hypertension, benign Start:02-Mar-2014 Instruction Type:Patient Education Patient Instructions Indication:Hypertension, benign Start:02-Mar-2014 Instruction Type:Provider Instructions for Treatment Patient Instructions Indication:Hypertension, benign Start:24-Jan-2014 Instruction Type:Provider Instructions for Treatment Patient Instructions Indication:Hypertension, benign Start:03-Jan-2014 Instruction Type:Provider Instructions for Treatment Patient Instructions Indication:Hypertension, benign Start:24-Aug-2013 Instruction Type:Provider Instructions for Treatment Patient Instructions Indication:Hypertension, benign Start:09-Jun-2013 Instruction Type:Provider Instructions for Treatment Patient Instructions Indication:Hypertension, benign Start:19-May-2013 Instruction Type:Provider Instructions for Treatment Patient Instructions Indication:Hypertension, benign Start:07-Jan-2013 Instruction Type:Provider Instructions for Treatment Patient Instructions Indication:Hypertension, benign Start:07-Aug-2012 Instruction Type:Provider Instructions for Treatment obesity counseling Indication:Weight Gain Start:15-Jul-2012 Instruction Type:Provider Instructions for Treatment Patient Instructions Indication:Hypertension, benign Start:15-Jul-2012 Instruction Type:Provider Instructions for Treatment [facility]; [facility] Work Phone: Instructions* Name Dates Details Patient Instructions Indication:Non-smoker Start:18-Feb-2022 Instruction Type:Provider Instructions for Treatment How to Access Health Informa tion Online using Patient Portal and [employer]rd [employer] Apps Indication:Non-smoker Start:18-Feb-2022 Instruction Type:Patient Education Patient Instructions Indication:BMI 28.0-28.9,adult Start:30-Apr-2021 Instruction Type:Provider Instructions for Treatment How to Access Health Informa tion Online using Patient Portal and [employer]rd [employer] Apps Indication:BMI 28.0-28.9,adult Start:30-Apr-2021 Instruction Type:Patient Education Patient Instructions Indication:Non-smoker Start:27-Dec-2020 Instruction Type:Provider Instructions for Treatment How to Access Health Informa tion Online using Patient Portal and [employer] Apps Indication:Non-smoker Start:27-Dec-2020 Instruction Type:Patient Education Patient Instructions Indication:Abnormal Pap smear of cervix Start:27-Aug-2020 Instruction Type:Provider Instructions for Treatment Patient Instructions Indication:[facility] EX[facility] Start:16-Aug-2020 Instruction Type:Provider Instructions for Treatment How to Access Health Informa tion Online using Patient Portal and [employer]rd [employer] Apps Indication:[facility] EX[facility] Start:16-Aug-2020 Instruction Type:Patient Education How to access health informa tion online Indication:Fall, accidental Start:25-Apr-2020 Instruction Type:Patient Education How to access health informa tion online - Detail Indication:Fall, accidental Start:25-Apr-2020 Instruction Type:Patient Education Patient Instructions Indication:Fall, accidental Start:25-Apr-2020 Instruction Type:Provider Instructions for Treatment How to access health informa tion online Indication:Hypertension, benign Start:01-Feb-2020 Instruction Type:Patient Education How to access health informa tion online - Detail Indication:Hypertension, benign Start:01-Feb-2020 Instruction Type:Patient Education Patient Instructions Indication:Hypertension, benign Start:01-Feb-2020 Instruction Type:Provider Instructions for Treatment How to access health informa tion online Indication:Dysuria Start:16-Nov-2019 Instruction Type:Patient Education How to access health informa tion online - Detail Indication:Dysuria Start:16-Nov-2019 Instruction Type:Patient Education Patient Instructions Indication:Dysuria Start:16-Nov-2019 Instruction Type:Provider Instructions for Treatment How to access health informa tion online Indication:[facility] EX[facility] Start:26-May-2019 Instruction Type:Patient Education How to access health informa tion online - Detail Indication:[facility] EX[facility] Start:26-May-2019 Instruction Type:Patient Education Patient Instructions Indication:[facility] Start:26-May-2019 Instruction Type:Provider Instructions for Treatment How to access health informa tion online Indication:BMI 29.0-29.9,adult Start:02-Dec-2018 Instruction Type:Patient Education How to access health informa tion online - Detail Indication:BMI 29.0-29.9,adult Start:02-Dec-2018 Instruction Type:Patient Education Patient Instructions Indication:BMI 29.0-29.9,adult Start:02-Dec-2018 Instruction Type:Provider Instructions for Treatment How to access health informa tion online Indication:Fever Start:11-Nov-2018 Instruction Type:Patient Education How to access health informa tion online - Detail Indication:Fever Start:11-Nov-2018 Instruction Type:Patient Education Patient Instructions Indication:Fever Start:11-Nov-2018 Instruction Type:Provider Instructions for Treatment How to access health informa tion online Indication:Hyperlipidemia, acquired Start:16-Jun-2018 Instruction Type:Patient Education How to access health informa tion online - Detail Indication:Hyperlipidemia, acquired Start:16-Jun-2018 Instruction Type:Patient Education Patient Instructions Indication:Hyperlipidemia, acquired Start:16-Jun-2018 Instruction Type:Provider Instructions for Treatment How to access health informa tion online Indication:[facility] EX[facility] Start:25-Feb-2018 Instruction Type:Patient Education How to access health informa tion online - Detail Indication:[facility] EX[facility] Start:25-Feb-2018 Instruction Type:Patient Education Patient Instructions Indication:[facility] EX[facility] Start:25-Feb-2018 Instruction Type:Provider Instructions for Treatment How to access health informa tion online Indication:External otitis of right ear Start:27-Oct-2017 Instruction Type:Patient Education How to access health informa tion online - Detail Indication:External otitis of right ear Start:27-Oct-2017 Instruction Type:Patient Education Patient Instructions Indication:External otitis of right ear Start:27-Oct-2017 Instruction Type:Provider Instructions for Treatment How to access health informa tion online Indication:Non-smoker Start:06-Oct-2017 Instruction Type:Patient Education How to access health informa tion online - Detail Indication:Non-smoker Start:06-Oct-2017 Instruction Type:Patient Education Patient Instructions Indication:Non-smoker Start:06-Oct-2017 Instruction Type:Provider Instructions for Treatment How to access health informa tion online Indication:Hypertension, benign Start:26-Feb-2017 Instruction Type:Patient Education How to access health informa tion online - Detail Indication:Hypertension, benign Start:26-Feb-2017 Instruction Type:Patient Education Patient Instructions Indication:Hypertension, benign Start:26-Feb-2017 Instruction Type:Provider Instructions for Treatment Patient Instructions Indication:Cellulitis Start:23-Aug-2014 Instruction Type:Provider Instructions for Treatment How to access health informa tion online Indication:Hypertension, benign Start:02-Mar-2014 Instruction Type:Patient Education How to access health informa tion online - Detail Indication:Hypertension, benign Start:02-Mar-2014 Instruction Type:Patient Education Patient Instructions Indication:Hypertension, benign Start:02-Mar-2014 Instruction Type:Provider Instructions for Treatment Patient Instructions Indication:Hypertension, benign Start:24-Jan-2014 Instruction Type:Provider Instructions for Treatment Patient Instructions Indication:Hypertension, benign Start:03-Jan-2014 Instruction Type:Provider Instructions for Treatment Patient Instructions Indication:Hypertension, benign Start:24-Aug-2013 Instruction Type:Provider Instructions for Treatment Patient Instructions Indication:Hypertension, benign Start:09-Jun-2013 Instruction Type:Provider Instructions for Treatment Patient Instructions Indication:Hypertension, benign Start:19-May-2013 Instruction Type:Provider Instructions for Treatment Patient Instructions Indication:Hypertension, benign Start:07-Jan-2013 Instruction Type:Provider Instructions for Treatment Patient Instructions Indication:Hypertension, benign Start:07-Aug-2012 Instruction Type:Provider Instructions for Treatment obesity counseling Indication:Weight Gain Start:15-Jul-2012 Instruction Type:Provider Instructions for Treatment Patient Instructions Indication:Hypertension, benign Start:15-Jul-2012 Instruction Type:Provider Instructions for Treatment [facility]; [facility] Work Phone: Instructions* Name Dates Details Patient Instructions Indication:Non-smoker Start:26-Mar-2022 Instruction Type:Provider Instructions for Treatment How to Access Health Informa tion Online using Patient Portal and [employer] Apps Indication:Non-smoker Start:26-Mar-2022 Instruction Type:Patient Education Patient Instructions Indication:Non-smoker Start:18-Feb-2022 Instruction Type:Provider Instructions for Treatment How to Access Health Informa tion Online using Patient Portal and [employer] Apps Indication:Non-smoker Start:18-Feb-2022 Instruction Type:Patient Education Patient Instructions Indication:BMI 28.0-28.9,adult Start:30-Apr-2021 Instruction Type:Provider Instructions for Treatment How to Access Health Informa tion Online using Patient Portal and [employer] Apps Indication:BMI 28.0-28.9,adult Start:30-Apr-2021 Instruction Type:Patient Education Patient Instructions Indication:Non-smoker Start:27-Dec-2020 Instruction Type:Provider Instructions for Treatment How to Access Health Informa tion Online using Patient Portal and [employer] Apps Indication:Non-smoker Start:27-Dec-2020 Instruction Type:Patient Education Patient Instructions Indication:Abnormal Pap smear of cervix Start:27-Aug-2020 Instruction Type:Provider Instructions for Treatment Patient Instructions Indication:[facility] EX[facility] Start:16-Aug-2020 Instruction Type:Provider Instructions for Treatment How to Access Health Informa tion Online using Patient Portal and [employer] Apps Indication:[facility] EXAM Start:16-Aug-2020 Instruction Type:Patient Education How to access health informa tion online Indication:Fall, accidental Start:25-Apr-2020 Instruction Type:Patient Education How to access health informa tion online - Detail Indication:Fall, accidental Start:25-Apr-2020 Instruction Type:Patient Education Patient Instructions Indication:Fall, accidental Start:25-Apr-2020 Instruction Type:Provider Instructions for Treatment How to access health informa tion online Indication:Hypertension, benign Start:01-Feb-2020 Instruction Type:Patient Education How to access health informa tion online - Detail Indication:Hypertension, benign Start:01-Feb-2020 Instruction Type:Patient Education Patient Instructions Indication:Hypertension, benign Start:01-Feb-2020 Instruction Type:Provider Instructions for Treatment How to access health informa tion online Indication:Dysuria Start:16-Nov-2019 Instruction Type:Patient Education How to access health informa tion online - Detail Indication:Dysuria Start:16-Nov-2019 Instruction Type:Patient Education Patient Instructions Indication:Dysuria Start:16-Nov-2019 Instruction Type:Provider Instructions for Treatment How to access health informa tion online Indication:[facility] EX[facility] Start:26-May-2019 Instruction Type:Patient Education How to access health informa tion online - Detail Indication:[facility] EX[facility] Start:26-May-2019 Instruction Type:Patient Education Patient Instructions Indication:[facility] EXAM Start:26-May-2019 Instruction Type:Provider Instructions for Treatment How to access health informa tion online Indication:BMI 29.0-29.9,adult Start:02-Dec-2018 Instruction Type:Patient Education How to access health informa tion online - Detail Indication:BMI 29.0-29.9,adult Start:02-Dec-2018 Instruction Type:Patient Education Patient Instructions Indication:BMI 29.0-29.9,adult Start:02-Dec-2018 Instruction Type:Provider Instructions for Treatment How to access health informa tion online Indication:Fever Start:11-Nov-2018 Instruction Type:Patient Education How to access health informa tion online - Detail Indication:Fever Start:11-Nov-2018 Instruction Type:Patient Education Patient Instructions Indication:Fever Start:11-Nov-2018 Instruction Type:Provider Instructions for Treatment How to access health informa tion online Indication:Hyperlipidemia, acquired Start:16-Jun-2018 Instruction Type:Patient Education How to access health informa tion online - Detail Indication:Hyperlipidemia, acquired Start:16-Jun-2018 Instruction Type:Patient Education Patient Instructions Indication:Hyperlipidemia, acquired Start:16-Jun-2018 Instruction Type:Provider Instructions for Treatment How to access health informa tion online Indication:[facility] EX[facility] Start:25-Feb-2018 Instruction Type:Patient Education How to access health informa tion online - Detail Indication:[facility] EX[facility] Start:25-Feb-2018 Instruction Type:Patient Education Patient Instructions Indication:[facility] EX[facility] Start:25-Feb-2018 Instruction Type:Provider Instructions for Treatment How to access health informa tion online Indication:External otitis of right ear Start:27-Oct-2017 Instruction Type:Patient Education How to access health informa tion online - Detail Indication:External otitis of right ear Start:27-Oct-2017 Instruction Type:Patient Education Patient Instructions Indication:External otitis of right ear Start:27-Oct-2017 Instruction Type:Provider Instructions for Treatment How to access health informa tion online Indication:Non-smoker Start:06-Oct-2017 Instruction Type:Patient Education How to access health informa tion online - Detail Indication:Non-smoker Start:06-Oct-2017 Instruction Type:Patient Education Patient Instructions Indication:Non-smoker Start:06-Oct-2017 Instruction Type:Provider Instructions for Treatment How to access health informa tion online Indication:Hypertension, benign Start:26-Feb-2017 Instruction Type:Patient Education How to access health informa tion online - Detail Indication:Hypertension, benign Start:26-Feb-2017 Instruction Type:Patient Education Patient Instructions Indication:Hypertension, benign Start:26-Feb-2017 Instruction Type:Provider Instructions for Treatment Patient Instructions Indication:Cellulitis Start:23-Aug-2014 Instruction Type:Provider Instructions for Treatment How to access health informa tion online Indication:Hypertension, benign Start:02-Mar-2014 Instruction Type:Patient Education How to access health informa tion online - Detail Indication:Hypertension, benign Start:02-Mar-2014 Instruction Type:Patient Education Patient Instructions Indication:Hypertension, benign Start:02-Mar-2014 Instruction Type:Provider Instructions for Treatment Patient Instructions Indication:Hypertension, benign Start:24-Jan-2014 Instruction Type:Provider Instructions for Treatment Patient Instructions Indication:Hypertension, benign Start:03-Jan-2014 Instruction Type:Provider Instructions for Treatment Patient Instructions Indication:Hypertension, benign Start:24-Aug-2013 Instruction Type:Provider Instructions for Treatment Patient Instructions Indication:Hypertension, benign Start:09-Jun-2013 Instruction Type:Provider Instructions for Treatment Patient Instructions Indication:Hypertension, benign Start:19-May-2013 Instruction Type:Provider Instructions for Treatment Patient Instructions Indication:Hypertension, benign Start:07-Jan-2013 Instruction Type:Provider Instructions for Treatment Patient Instructions Indication:Hypertension, benign Start:07-Aug-2012 Instruction Type:Provider Instructions for Treatment obesity counseling Indication:Weight Gain Start:15-Jul-2012 Instruction Type:Provider Instructions for Treatment Patient Instructions Indication:Hypertension, benign Start:15-Jul-2012 Instruction Type:Provider Instructions for Treatment [facility]; [facility] Work Phone: Instructions* Name Dates Details Patient Instructions Indication:Non-smoker Start:26-Mar-2022 Instruction Type:Provider Instructions for Treatment How to Access Health Informa tion Online using Patient Portal and [employer] Apps Indication:Non-smoker Start:26-Mar-2022 Instruction Type:Patient Education Patient Instructions Indication:Non-smoker Start:18-Feb-2022 Instruction Type:Provider Instructions for Treatment How to Access Health Informa tion Online using Patient Portal and [employer] Apps Indication:Non-smoker Start:18-Feb-2022 Instruction Type:Patient Education Patient Instructions Indication:BMI 28.0-28.9,adult Start:30-Apr-2021 Instruction Type:Provider Instructions for Treatment How to Access Health Informa tion Online using Patient Portal and [employer] Apps Indication:BMI 28.0-28.9,adult Start:30-Apr-2021 Instruction Type:Patient Education Patient Instructions Indication:Non-smoker Start:27-Dec-2020 Instruction Type:Provider Instructions for Treatment How to Access Health Informa tion Online using Patient Portal and [employer] Apps Indication:Non-smoker Start:27-Dec-2020 Instruction Type:Patient Education Patient Instructions Indication:Abnormal Pap smear of cervix Start:27-Aug-2020 Instruction Type:Provider Instructions for Treatment Patient Instructions Indication:[facility] EX[facility] Start:16-Aug-2020 Instruction Type:Provider Instructions for Treatment How to Access Health Informa tion Online using Patient Portal and [employer] Apps Indication:[facility] EXAM Start:16-Aug-2020 Instruction Type:Patient Education How to access health informa tion online Indication:Fall, accidental Start:25-Apr-2020 Instruction Type:Patient Education How to access health informa tion online - Detail Indication:Fall, accidental Start:25-Apr-2020 Instruction Type:Patient Education Patient Instructions Indication:Fall, accidental Start:25-Apr-2020 Instruction Type:Provider Instructions for Treatment How to access health informa tion online Indication:Hypertension, benign Start:01-Feb-2020 Instruction Type:Patient Education How to access health informa tion online - Detail Indication:Hypertension, benign Start:01-Feb-2020 Instruction Type:Patient Education Patient Instructions Indication:Hypertension, benign Start:01-Feb-2020 Instruction Type:Provider Instructions for Treatment How to access health informa tion online Indication:Dysuria Start:16-Nov-2019 Instruction Type:Patient Education How to access health informa tion online - Detail Indication:Dysuria Start:16-Nov-2019 Instruction Type:Patient Education Patient Instructions Indication:Dysuria Start:16-Nov-2019 Instruction Type:Provider Instructions for Treatment How to access health informa tion online Indication:[facility] EX[facility] Start:26-May-2019 Instruction Type:Patient Education How to access health informa tion online - Detail Indication:[facility] EX[facility] Start:26-May-2019 Instruction Type:Patient Education Patient Instructions Indication:[facility] EXAM Start:26-May-2019 Instruction Type:Provider Instructions for Treatment How to access health informa tion online Indication:BMI 29.0-29.9,adult Start:02-Dec-2018 Instruction Type:Patient Education How to access health informa tion online - Detail Indication:BMI 29.0-29.9,adult Start:02-Dec-2018 Instruction Type:Patient Education Patient Instructions Indication:BMI 29.0-29.9,adult Start:02-Dec-2018 Instruction Type:Provider Instructions for Treatment How to access health informa tion online Indication:Fever Start:11-Nov-2018 Instruction Type:Patient Education How to access health informa tion online - Detail Indication:Fever Start:11-Nov-2018 Instruction Type:Patient Education Patient Instructions Indication:Fever Start:11-Nov-2018 Instruction Type:Provider Instructions for Treatment How to access health informa tion online Indication:Hyperlipidemia, acquired Start:16-Jun-2018 Instruction Type:Patient Education How to access health informa tion online - Detail Indication:Hyperlipidemia, acquired Start:16-Jun-2018 Instruction Type:Patient Education Patient Instructions Indication:Hyperlipidemia, acquired Start:16-Jun-2018 Instruction Type:Provider Instructions for Treatment How to access health informa tion online Indication:[facility] Start:25-Feb-2018 Instruction Type:Patient Education How to access health informa tion online - Detail Indication:[facility] Start:25-Feb-2018 Instruction Type:Patient Education Patient Instructions Indication:[facility] Start:25-Feb-2018 Instruction Type:Provider Instructions for Treatment How to access health informa tion online Indication:External otitis of right ear Start:27-Oct-2017 Instruction Type:Patient Education How to access health informa tion online - Detail Indication:External otitis of right ear Start:27-Oct-2017 Instruction Type:Patient Education Patient Instructions Indication:External otitis of right ear Start:27-Oct-2017 Instruction Type:Provider Instructions for Treatment How to access health informa tion online Indication:Non-smoker Start:06-Oct-2017 Instruction Type:Patient Education How to access health informa tion online - Detail Indication:Non-smoker Start:06-Oct-2017 Instruction Type:Patient Education Patient Instructions Indication:Non-smoker Start:06-Oct-2017 Instruction Type:Provider Instructions for Treatment How to access health informa tion online Indication:Hypertension, benign Start:26-Feb-2017 Instruction Type:Patient Education How to access health informa tion online - Detail Indication:Hypertension, benign Start:26-Feb-2017 Instruction Type:Patient Education Patient Instructions Indication:Hypertension, benign Start:26-Feb-2017 Instruction Type:Provider Instructions for Treatment Patient Instructions Indication:Cellulitis Start:23-Aug-2014 Instruction Type:Provider Instructions for Treatment How to access health informa tion online Indication:Hypertension, benign Start:02-Mar-2014 Instruction Type:Patient Education How to access health informa tion online - Detail Indication:Hypertension, benign Start:02-Mar-2014 Instruction Type:Patient Education Patient Instructions Indication:Hypertension, benign Start:02-Mar-2014 Instruction Type:Provider Instructions for Treatment Patient Instructions Indication:Hypertension, benign Start:24-Jan-2014 Instruction Type:Provider Instructions for Treatment Patient Instructions Indication:Hypertension, benign Start:03-Jan-2014 Instruction Type:Provider Instructions for Treatment Patient Instructions Indication:Hypertension, benign Start:24-Aug-2013 Instruction Type:Provider Instructions for Treatment Patient Instructions Indication:Hypertension, benign Start:09-Jun-2013 Instruction Type:Provider Instructions for Treatment Patient Instructions Indication:Hypertension, benign Start:19-May-2013 Instruction Type:Provider Instructions for Treatment Patient Instructions Indication:Hypertension, benign Start:07-Jan-2013 Instruction Type:Provider Instructions for Treatment Patient Instructions Indication:Hypertension, benign Start:07-Aug-2012 Instruction Type:Provider Instructions for Treatment obesity counseling Indication:Weight Gain Start:15-Jul-2012 Instruction Type:Provider Instructions for Treatment Patient Instructions Indication:Hypertension, benign Start:15-Jul-2012 Instruction Type:Provider Instructions for Treatment [facility]; [facility] Work Phone: Instructions* Name Dates Details Patient Instructions Indication:Non-smoker Start:26-Mar-2022 Instruction Type:Provider Instructions for Treatment How to Access Health Informa tion Online using Patient Portal and [employer]rd [employer] Apps Indication:Non-smoker Start:26-Mar-2022 Instruction Type:Patient Education Patient Instructions Indication:Non-smoker Start:18-Feb-2022 Instruction Type:Provider Instructions for Treatment How to Access Health Informa tion Online using Patient Portal and [employer]rd [employer] Apps Indication:Non-smoker Start:18-Feb-2022 Instruction Type:Patient Education Patient Instructions Indication:BMI 28.0-28.9,adult Start:30-Apr-2021 Instruction Type:Provider Instructions for Treatment How to Access Health Informa tion Online using Patient Portal and [employer]rd [employer] Apps Indication:BMI 28.0-28.9,adult Start:30-Apr-2021 Instruction Type:Patient Education Patient Instructions Indication:Non-smoker Start:27-Dec-2020 Instruction Type:Provider Instructions for Treatment How to Access Health Informa tion Online using Patient Portal and [employer]rd [employer] Apps Indication:Non-smoker Start:27-Dec-2020 Instruction Type:Patient Education Patient Instructions Indication:Abnormal Pap smear of cervix Start:27-Aug-2020 Instruction Type:Provider Instructions for Treatment Patient Instructions Indication:[facility] Start:16-Aug-2020 Instruction Type:Provider Instructions for Treatment How to Access Health Informa tion Online using Patient Portal and [employer]rd [employer] Apps Indication:[facility] Start:16-Aug-2020 Instruction Type:Patient Education How to access health informa tion online Indication:Fall, accidental Start:25-Apr-2020 Instruction Type:Patient Education How to access health informa tion online - Detail Indication:Fall, accidental Start:25-Apr-2020 Instruction Type:Patient Education Patient Instructions Indication:Fall, accidental Start:25-Apr-2020 Instruction Type:Provider Instructions for Treatment How to access health informa tion online Indication:Hypertension, benign Start:01-Feb-2020 Instruction Type:Patient Education How to access health informa tion online - Detail Indication:Hypertension, benign Start:01-Feb-2020 Instruction Type:Patient Education Patient Instructions Indication:Hypertension, benign Start:01-Feb-2020 Instruction Type:Provider Instructions for Treatment How to access health informa tion online Indication:Dysuria Start:16-Nov-2019 Instruction Type:Patient Education How to access health informa tion online - Detail Indication:Dysuria Start:16-Nov-2019 Instruction Type:Patient Education Patient Instructions Indication:Dysuria Start:16-Nov-2019 Instruction Type:Provider Instructions for Treatment How to access health informa tion online Indication:[facility] Start:26-May-2019 Instruction Type:Patient Education How to access health informa tion online - Detail Indication:[facility] Start:26-May-2019 Instruction Type:Patient Education Patient Instructions Indication:[facility] Start:26-May-2019 Instruction Type:Provider Instructions for Treatment How to access health informa tion online Indication:BMI 29.0-29.9,adult Start:02-Dec-2018 Instruction Type:Patient Education How to access health informa tion online - Detail Indication:BMI 29.0-29.9,adult Start:02-Dec-2018 Instruction Type:Patient Education Patient Instructions Indication:BMI 29.0-29.9,adult Start:02-Dec-2018 Instruction Type:Provider Instructions for Treatment How to access health informa tion online Indication:Fever Start:11-Nov-2018 Instruction Type:Patient Education How to access health informa tion online - Detail Indication:Fever Start:11-Nov-2018 Instruction Type:Patient Education Patient Instructions Indication:Fever Start:11-Nov-2018 Instruction Type:Provider Instructions for Treatment How to access health informa tion online Indication:Hyperlipidemia, acquired Start:16-Jun-2018 Instruction Type:Patient Education How to access health informa tion online - Detail Indication:Hyperlipidemia, acquired Start:16-Jun-2018 Instruction Type:Patient Education Patient Instructions Indication:Hyperlipidemia, acquired Start:16-Jun-2018 Instruction Type:Provider Instructions for Treatment How to access health informa tion online Indication:[facility] Start:25-Feb-2018 Instruction Type:Patient Education How to access health informa tion online - Detail Indication:[facility] Start:25-Feb-2018 Instruction Type:Patient Education Patient Instructions Indication:[facility] Start:25-Feb-2018 Instruction Type:Provider Instructions for Treatment How to access health informa tion online Indication:External otitis of right ear Start:27-Oct-2017 Instruction Type:Patient Education How to access health informa tion online - Detail Indication:External otitis of right ear Start:27-Oct-2017 Instruction Type:Patient Education Patient Instructions Indication:External otitis of right ear Start:27-Oct-2017 Instruction Type:Provider Instructions for Treatment How to access health informa tion online Indication:Non-smoker Start:06-Oct-2017 Instruction Type:Patient Education How to access health informa tion online - Detail Indication:Non-smoker Start:06-Oct-2017 Instruction Type:Patient Education Patient Instructions Indication:Non-smoker Start:06-Oct-2017 Instruction Type:Provider Instructions for Treatment How to access health informa tion online Indication:Hypertension, benign Start:26-Feb-2017 Instruction Type:Patient Education How to access health informa tion online - Detail Indication:Hypertension, benign Start:26-Feb-2017 Instruction Type:Patient Education Patient Instructions Indication:Hypertension, benign Start:26-Feb-2017 Instruction Type:Provider Instructions for Treatment Patient Instructions Indication:Cellulitis Start:23-Aug-2014 Instruction Type:Provider Instructions for Treatment How to access health informa tion online Indication:Hypertension, benign Start:02-Mar-2014 Instruction Type:Patient Education How to access health informa tion online - Detail Indication:Hypertension, benign Start:02-Mar-2014 Instruction Type:Patient Education Patient Instructions Indication:Hypertension, benign Start:02-Mar-2014 Instruction Type:Provider Instructions for Treatment Patient Instructions Indication:Hypertension, benign Start:24-Jan-2014 Instruction Type:Provider Instructions for Treatment Patient Instructions Indication:Hypertension, benign Start:03-Jan-2014 Instruction Type:Provider Instructions for Treatment Patient Instructions Indication:Hypertension, benign Start:24-Aug-2013 Instruction Type:Provider Instructions for Treatment Patient Instructions Indication:Hypertension, benign Start:09-Jun-2013 Instruction Type:Provider Instructions for Treatment Patient Instructions Indication:Hypertension, benign Start:19-May-2013 Instruction Type:Provider Instructions for Treatment Patient Instructions Indication:Hypertension, benign Start:07-Jan-2013 Instruction Type:Provider Instructions for Treatment Patient Instructions Indication:Hypertension, benign Start:07-Aug-2012 Instruction Type:Provider Instructions for Treatment obesity counseling Indication:Weight Gain Start:15-Jul-2012 Instruction Type:Provider Instructions for Treatment Patient Instructions Indication:Hypertension, benign Start:15-Jul-2012 Instruction Type:Provider Instructions for Treatment [facility]; [facility] Work Phone: Instructions* Name Dates Details Patient Instructions Indication:Non-smoker Start:26-Mar-2022 Instruction Type:Provider Instructions for Treatment How to Access Health Informa tion Online using Patient Portal and [employer]rd [employer] Apps Indication:Non-smoker Start:26-Mar-2022 Instruction Type:Patient Education Patient Instructions Indication:Non-smoker Start:18-Feb-2022 Instruction Type:Provider Instructions for Treatment How to Access Health Informa tion Online using Patient Portal and [employer]rd [employer] Apps Indication:Non-smoker Start:18-Feb-2022 Instruction Type:Patient Education Patient Instructions Indication:BMI 28.0-28.9,adult Start:30-Apr-2021 Instruction Type:Provider Instructions for Treatment How to Access Health Informa tion Online using Patient Portal and [employer]rd [employer] Apps Indication:BMI 28.0-28.9,adult Start:30-Apr-2021 Instruction Type:Patient Education Patient Instructions Indication:Non-smoker Start:27-Dec-2020 Instruction Type:Provider Instructions for Treatment How to Access Health Informa tion Online using Patient Portal and [employer]rd [employer] Apps Indication:Non-smoker Start:27-Dec-2020 Instruction Type:Patient Education Patient Instructions Indication:Abnormal Pap smear of cervix Start:27-Aug-2020 Instruction Type:Provider Instructions for Treatment Patient Instructions Indication:[facility] Start:16-Aug-2020 Instruction Type:Provider Instructions for Treatment How to Access Health Informa tion Online using Patient Portal and [employer]rd [employer] Apps Indication:[facility] Start:16-Aug-2020 Instruction Type:Patient Education How to access health informa tion online Indication:Fall, accidental Start:25-Apr-2020 Instruction Type:Patient Education How to access health informa tion online - Detail Indication:Fall, accidental Start:25-Apr-2020 Instruction Type:Patient Education Patient Instructions Indication:Fall, accidental Start:25-Apr-2020 Instruction Type:Provider Instructions for Treatment How to access health informa tion online Indication:Hypertension, benign Start:01-Feb-2020 Instruction Type:Patient Education How to access health informa tion online - Detail Indication:Hypertension, benign Start:01-Feb-2020 Instruction Type:Patient Education Patient Instructions Indication:Hypertension, benign Start:01-Feb-2020 Instruction Type:Provider Instructions for Treatment How to access health informa tion online Indication:Dysuria Start:16-Nov-2019 Instruction Type:Patient Education How to access health informa tion online - Detail Indication:Dysuria Start:16-Nov-2019 Instruction Type:Patient Education Patient Instructions Indication:Dysuria Start:16-Nov-2019 Instruction Type:Provider Instructions for Treatment How to access health informa tion online Indication:[facility] Start:26-May-2019 Instruction Type:Patient Education How to access health informa tion online - Detail Indication:[facility] Start:26-May-2019 Instruction Type:Patient Education Patient Instructions Indication:[facility] Start:26-May-2019 Instruction Type:Provider Instructions for Treatment How to access health informa tion online Indication:BMI 29.0-29.9,adult Start:02-Dec-2018 Instruction Type:Patient Education How to access health informa tion online - Detail Indication:BMI 29.0-29.9,adult Start:02-Dec-2018 Instruction Type:Patient Education Patient Instructions Indication:BMI 29.0-29.9,adult Start:02-Dec-2018 Instruction Type:Provider Instructions for Treatment How to access health informa tion online Indication:Fever Start:11-Nov-2018 Instruction Type:Patient Education How to access health informa tion online - Detail Indication:Fever Start:11-Nov-2018 Instruction Type:Patient Education Patient Instructions Indication:Fever Start:11-Nov-2018 Instruction Type:Provider Instructions for Treatment How to access health informa tion online Indication:Hyperlipidemia, acquired Start:16-Jun-2018 Instruction Type:Patient Education How to access health informa tion online - Detail Indication:Hyperlipidemia, acquired Start:16-Jun-2018 Instruction Type:Patient Education Patient Instructions Indication:Hyperlipidemia, acquired Start:16-Jun-2018 Instruction Type:Provider Instructions for Treatment How to access health informa tion online Indication:[facility] Start:25-Feb-2018 Instruction Type:Patient Education How to access health informa tion online - Detail Indication:[facility] Start:25-Feb-2018 Instruction Type:Patient Education Patient Instructions Indication:[facility] Start:25-Feb-2018 Instruction Type:Provider Instructions for Treatment How to access health informa tion online Indication:External otitis of right ear Start:27-Oct-2017 Instruction Type:Patient Education How to access health informa tion online - Detail Indication:External otitis of right ear Start:27-Oct-2017 Instruction Type:Patient Education Patient Instructions Indication:External otitis of right ear Start:27-Oct-2017 Instruction Type:Provider Instructions for Treatment How to access health informa tion online Indication:Non-smoker Start:06-Oct-2017 Instruction Type:Patient Education How to access health informa tion online - Detail Indication:Non-smoker Start:06-Oct-2017 Instruction Type:Patient Education Patient Instructions Indication:Non-smoker Start:06-Oct-2017 Instruction Type:Provider Instructions for Treatment How to access health informa tion online Indication:Hypertension, benign Start:26-Feb-2017 Instruction Type:Patient Education How to access health informa tion online - Detail Indication:Hypertension, benign Start:26-Feb-2017 Instruction Type:Patient Education Patient Instructions Indication:Hypertension, benign Start:26-Feb-2017 Instruction Type:Provider Instructions for Treatment Patient Instructions Indication:Cellulitis Start:23-Aug-2014 Instruction Type:Provider Instructions for Treatment How to access health informa tion online Indication:Hypertension, benign Start:02-Mar-2014 Instruction Type:Patient Education How to access health informa tion online - Detail Indication:Hypertension, benign Start:02-Mar-2014 Instruction Type:Patient Education Patient Instructions Indication:Hypertension, benign Start:02-Mar-2014 Instruction Type:Provider Instructions for Treatment Patient Instructions Indication:Hypertension, benign Start:24-Jan-2014 Instruction Type:Provider Instructions for Treatment Patient Instructions Indication:Hypertension, benign Start:03-Jan-2014 Instruction Type:Provider Instructions for Treatment Patient Instructions Indication:Hypertension, benign Start:24-Aug-2013 Instruction Type:Provider Instructions for Treatment Patient Instructions Indication:Hypertension, benign Start:09-Jun-2013 Instruction Type:Provider Instructions for Treatment Patient Instructions Indication:Hypertension, benign Start:19-May-2013 Instruction Type:Provider Instructions for Treatment Patient Instructions Indication:Hypertension, benign Start:07-Jan-2013 Instruction Type:Provider Instructions for Treatment Patient Instructions Indication:Hypertension, benign Start:07-Aug-2012 Instruction Type:Provider Instructions for Treatment obesity counseling Indication:Weight Gain Start:15-Jul-2012 Instruction Type:Provider Instructions for Treatment Patient Instructions Indication:Hypertension, benign Start:15-Jul-2012 Instruction Type:Provider Instructions for Treatment [facility]; [facility] Work Phone: Instructions* Name Dates Details Patient Instructions Indication:Hypertension, benign Start:08-Jan-2023 Instruction Type:Provider Instructions for Treatment How to Access Health Informa tion Online using Patient Portal and [employer]rd [employer] Apps Indication:Hypertension, benign Start:08-Jan-2023 Instruction Type:Patient Education Patient Instructions Indication:Non-smoker Start:26-Mar-2022 Instruction Type:Provider Instructions for Treatment How to Access Health Informa tion Online using Patient Portal and [employer]rd [employer] Apps Indication:Non-smoker Start:26-Mar-2022 Instruction Type:Patient Education Patient Instructions Indication:Non-smoker Start:18-Feb-2022 Instruction Type:Provider Instructions for Treatment How to Access Health Informa tion Online using Patient Portal and [employer]rd [employer] Apps Indication:Non-smoker Start:18-Feb-2022 Instruction Type:Patient Education Patient Instructions Indication:BMI 28.0-28.9,adult Start:30-Apr-2021 Instruction Type:Provider Instructions for Treatment How to Access Health Informa tion Online using Patient Portal and [employer]rd [employer] Apps Indication:BMI 28.0-28.9,adult Start:30-Apr-2021 Instruction Type:Patient Education Patient Instructions Indication:Non-smoker Start:27-Dec-2020 Instruction Type:Provider Instructions for Treatment How to Access Health Informa tion Online using Patient Portal and [employer]rd [employer] Apps Indication:Non-smoker Start:27-Dec-2020 Instruction Type:Patient Education Patient Instructions Indication:Abnormal Pap smear of cervix Start:27-Aug-2020 Instruction Type:Provider Instructions for Treatment Patient Instructions Indication:[facility] Start:16-Aug-2020 Instruction Type:Provider Instructions for Treatment How to Access Health Informa tion Online using Patient Portal and [employer]rd [employer] Apps Indication:[facility] Start:16-Aug-2020 Instruction Type:Patient Education How to access health informa tion online Indication:Fall, accidental Start:25-Apr-2020 Instruction Type:Patient Education How to access health informa tion online - Detail Indication:Fall, accidental Start:25-Apr-2020 Instruction Type:Patient Education Patient Instructions Indication:Fall, accidental Start:25-Apr-2020 Instruction Type:Provider Instructions for Treatment How to access health informa tion online Indication:Hypertension, benign Start:01-Feb-2020 Instruction Type:Patient Education How to access health informa tion online - Detail Indication:Hypertension, benign Start:01-Feb-2020 Instruction Type:Patient Education Patient Instructions Indication:Hypertension, benign Start:01-Feb-2020 Instruction Type:Provider Instructions for Treatment How to access health informa tion online Indication:Dysuria Start:16-Nov-2019 Instruction Type:Patient Education How to access health informa tion online - Detail Indication:Dysuria Start:16-Nov-2019 Instruction Type:Patient Education Patient Instructions Indication:Dysuria Start:16-Nov-2019 Instruction Type:Provider Instructions for Treatment How to access health informa tion online Indication:[facility] Start:26-May-2019 Instruction Type:Patient Education How to access health informa tion online - Detail Indication:[facility] Start:26-May-2019 Instruction Type:Patient Education Patient Instructions Indication:[facility] Start:26-May-2019 Instruction Type:Provider Instructions for Treatment How to access health informa tion online Indication:BMI 29.0-29.9,adult Start:02-Dec-2018 Instruction Type:Patient Education How to access health informa tion online - Detail Indication:BMI 29.0-29.9,adult Start:02-Dec-2018 Instruction Type:Patient Education Patient Instructions Indication:BMI 29.0-29.9,adult Start:02-Dec-2018 Instruction Type:Provider Instructions for Treatment How to access health informa tion online Indication:Fever Start:11-Nov-2018 Instruction Type:Patient Education How to access health informa tion online - Detail Indication:Fever Start:11-Nov-2018 Instruction Type:Patient Education Patient Instructions Indication:Fever Start:11-Nov-2018 Instruction Type:Provider Instructions for Treatment How to access health informa tion online Indication:Hyperlipidemia, acquired Start:16-Jun-2018 Instruction Type:Patient Education How to access health informa tion online - Detail Indication:Hyperlipidemia, acquired Start:16-Jun-2018 Instruction Type:Patient Education Patient Instructions Indication:Hyperlipidemia, acquired Start:16-Jun-2018 Instruction Type:Provider Instructions for Treatment How to access health informa tion online Indication:[facility] Start:25-Feb-2018 Instruction Type:Patient Education How to access health informa tion online - Detail Indication:[facility] Start:25-Feb-2018 Instruction Type:Patient Education Patient Instructions Indication:[facility] Start:25-Feb-2018 Instruction Type:Provider Instructions for Treatment How to access health informa tion online Indication:External otitis of right ear Start:27-Oct-2017 Instruction Type:Patient Education How to access health informa tion online - Detail Indication:External otitis of right ear Start:27-Oct-2017 Instruction Type:Patient Education Patient Instructions Indication:External otitis of right ear Start:27-Oct-2017 Instruction Type:Provider Instructions for Treatment How to access health informa tion online Indication:Non-smoker Start:06-Oct-2017 Instruction Type:Patient Education How to access health informa tion online - Detail Indication:Non-smoker Start:06-Oct-2017 Instruction Type:Patient Education Patient Instructions Indication:Non-smoker Start:06-Oct-2017 Instruction Type:Provider Instructions for Treatment How to access health informa tion online Indication:Hypertension, benign Start:26-Feb-2017 Instruction Type:Patient Education How to access health informa tion online - Detail Indication:Hypertension, benign Start:26-Feb-2017 Instruction Type:Patient Education Patient Instructions Indication:Hypertension, benign Start:26-Feb-2017 Instruction Type:Provider Instructions for Treatment Patient Instructions Indication:Cellulitis Start:23-Aug-2014 Instruction Type:Provider Instructions for Treatment How to access health informa tion online Indication:Hypertension, benign Start:02-Mar-2014 Instruction Type:Patient Education How to access health informa tion online - Detail Indication:Hypertension, benign Start:02-Mar-2014 Instruction Type:Patient Education Patient Instructions Indication:Hypertension, benign Start:02-Mar-2014 Instruction Type:Provider Instructions for Treatment Patient Instructions Indication:Hypertension, benign Start:24-Jan-2014 Instruction Type:Provider Instructions for Treatment Patient Instructions Indication:Hypertension, benign Start:03-Jan-2014 Instruction Type:Provider Instructions for Treatment Patient Instructions Indication:Hypertension, benign Start:24-Aug-2013 Instruction Type:Provider Instructions for Treatment Patient Instructions Indication:Hypertension, benign Start:09-Jun-2013 Instruction Type:Provider Instructions for Treatment Patient Instructions Indication:Hypertension, benign Start:19-May-2013 Instruction Type:Provider Instructions for Treatment Patient Instructions Indication:Hypertension, benign Start:07-Jan-2013 Instruction Type:Provider Instructions for Treatment Patient Instructions Indication:Hypertension, benign Start:07-Aug-2012 Instruction Type:Provider Instructions for Treatment obesity counseling Indication:Weight Gain Start:15-Jul-2012 Instruction Type:Provider Instructions for Treatment Patient Instructions Indication:Hypertension, benign Start:15-Jul-2012 Instruction Type:Provider Instructions for Treatment [facility]; [facility] Work Phone: Instructions* Name Dates Details Patient Instructions Indication:Hypertension, benign Start:08-Jan-2023 Instruction Type:Provider Instructions for Treatment How to Access Health Informa tion Online using Patient Portal and [employer]rd [employer] Apps Indication:Hypertension, benign Start:08-Jan-2023 Instruction Type:Patient Education Patient Instructions Indication:Non-smoker Start:26-Mar-2022 Instruction Type:Provider Instructions for Treatment How to Access Health Informa tion Online using Patient Portal and [employer]rd [employer] Apps Indication:Non-smoker Start:26-Mar-2022 Instruction Type:Patient Education Patient Instructions Indication:Non-smoker Start:18-Feb-2022 Instruction Type:Provider Instructions for Treatment How to Access Health Informa tion Online using Patient Portal and [employer]rd [employer] Apps Indication:Non-smoker Start:18-Feb-2022 Instruction Type:Patient Education Patient Instructions Indication:BMI 28.0-28.9,adult Start:30-Apr-2021 Instruction Type:Provider Instructions for Treatment How to Access Health Informa tion Online using Patient Portal and [employer]rd [employer] Apps Indication:BMI 28.0-28.9,adult Start:30-Apr-2021 Instruction Type:Patient Education Patient Instructions Indication:Non-smoker Start:27-Dec-2020 Instruction Type:Provider Instructions for Treatment How to Access Health Informa tion Online using Patient Portal and [employer]rd [employer] Apps Indication:Non-smoker Start:27-Dec-2020 Instruction Type:Patient Education Patient Instructions Indication:Abnormal Pap smear of cervix Start:27-Aug-2020 Instruction Type:Provider Instructions for Treatment Patient Instructions Indication:[facility] Start:16-Aug-2020 Instruction Type:Provider Instructions for Treatment How to Access Health Informa tion Online using Patient Portal and [employer]rd [employer] Apps Indication:[facility] Start:16-Aug-2020 Instruction Type:Patient Education How to access health informa tion online Indication:Fall, accidental Start:25-Apr-2020 Instruction Type:Patient Education How to access health informa tion online - Detail Indication:Fall, accidental Start:25-Apr-2020 Instruction Type:Patient Education Patient Instructions Indication:Fall, accidental Start:25-Apr-2020 Instruction Type:Provider Instructions for Treatment How to access health informa tion online Indication:Hypertension, benign Start:01-Feb-2020 Instruction Type:Patient Education How to access health informa tion online - Detail Indication:Hypertension, benign Start:01-Feb-2020 Instruction Type:Patient Education Patient Instructions Indication:Hypertension, benign Start:01-Feb-2020 Instruction Type:Provider Instructions for Treatment How to access health informa tion online Indication:Dysuria Start:16-Nov-2019 Instruction Type:Patient Education How to access health informa tion online - Detail Indication:Dysuria Start:16-Nov-2019 Instruction Type:Patient Education Patient Instructions Indication:Dysuria Start:16-Nov-2019 Instruction Type:Provider Instructions for Treatment How to access health informa tion online Indication:[facility] Start:26-May-2019 Instruction Type:Patient Education How to access health informa tion online - Detail Indication:[facility] Start:26-May-2019 Instruction Type:Patient Education Patient Instructions Indication:[facility] Start:26-May-2019 Instruction Type:Provider Instructions for Treatment How to access health informa tion online Indication:BMI 29.0-29.9,adult Start:02-Dec-2018 Instruction Type:Patient Education How to access health informa tion online - Detail Indication:BMI 29.0-29.9,adult Start:02-Dec-2018 Instruction Type:Patient Education Patient Instructions Indication:BMI 29.0-29.9,adult Start:02-Dec-2018 Instruction Type:Provider Instructions for Treatment How to access health informa tion online Indication:Fever Start:11-Nov-2018 Instruction Type:Patient Education How to access health informa tion online - Detail Indication:Fever Start:11-Nov-2018 Instruction Type:Patient Education Patient Instructions Indication:Fever Start:11-Nov-2018 Instruction Type:Provider Instructions for Treatment How to access health informa tion online Indication:Hyperlipidemia, acquired Start:16-Jun-2018 Instruction Type:Patient Education How to access health informa tion online - Detail Indication:Hyperlipidemia, acquired Start:16-Jun-2018 Instruction Type:Patient Education Patient Instructions Indication:Hyperlipidemia, acquired Start:16-Jun-2018 Instruction Type:Provider Instructions for Treatment How to access health informa tion online Indication:[facility] Start:25-Feb-2018 Instruction Type:Patient Education How to access health informa tion online - Detail Indication:[facility] Start:25-Feb-2018 Instruction Type:Patient Education Patient Instructions Indication:[facility] Start:25-Feb-2018 Instruction Type:Provider Instructions for Treatment How to access health informa tion online Indication:External otitis of right ear Start:27-Oct-2017 Instruction Type:Patient Education How to access health informa tion online - Detail Indication:External otitis of right ear Start:27-Oct-2017 Instruction Type:Patient Education Patient Instructions Indication:External otitis of right ear Start:27-Oct-2017 Instruction Type:Provider Instructions for Treatment How to access health informa tion online Indication:Non-smoker Start:06-Oct-2017 Instruction Type:Patient Education How to access health informa tion online - Detail Indication:Non-smoker Start:06-Oct-2017 Instruction Type:Patient Education Patient Instructions Indication:Non-smoker Start:06-Oct-2017 Instruction Type:Provider Instructions for Treatment How to access health informa tion online Indication:Hypertension, benign Start:26-Feb-2017 Instruction Type:Patient Education How to access health informa tion online - Detail Indication:Hypertension, benign Start:26-Feb-2017 Instruction Type:Patient Education Patient Instructions Indication:Hypertension, benign Start:26-Feb-2017 Instruction Type:Provider Instructions for Treatment Patient Instructions Indication:Cellulitis Start:23-Aug-2014 Instruction Type:Provider Instructions for Treatment How to access health informa tion online Indication:Hypertension, benign Start:02-Mar-2014 Instruction Type:Patient Education How to access health informa tion online - Detail Indication:Hypertension, benign Start:02-Mar-2014 Instruction Type:Patient Education Patient Instructions Indication:Hypertension, benign Start:02-Mar-2014 Instruction Type:Provider Instructions for Treatment Patient Instructions Indication:Hypertension, benign Start:24-Jan-2014 Instruction Type:Provider Instructions for Treatment Patient Instructions Indication:Hypertension, benign Start:03-Jan-2014 Instruction Type:Provider Instructions for Treatment Patient Instructions Indication:Hypertension, benign Start:24-Aug-2013 Instruction Type:Provider Instructions for Treatment Patient Instructions Indication:Hypertension, benign Start:09-Jun-2013 Instruction Type:Provider Instructions for Treatment Patient Instructions Indication:Hypertension, benign Start:19-May-2013 Instruction Type:Provider Instructions for Treatment Patient Instructions Indication:Hypertension, benign Start:07-Jan-2013 Instruction Type:Provider Instructions for Treatment Patient Instructions Indication:Hypertension, benign Start:07-Aug-2012 Instruction Type:Provider Instructions for Treatment obesity counseling Indication:Weight Gain Start:15-Jul-2012 Instruction Type:Provider Instructions for Treatment Patient Instructions Indication:Hypertension, benign Start:15-Jul-2012 Instruction Type:Provider Instructions for Treatment [facility]; [facility] Work Phone: Instructions* Name Dates Details Patient Instructions Indication:Hypertension, benign Start:08-Jan-2023 Instruction Type:Provider Instructions for Treatment How to Access Health Informa tion Online using Patient Portal and [employer]rd [employer] Apps Indication:Hypertension, benign Start:08-Jan-2023 Instruction Type:Patient Education Patient Instructions Indication:Non-smoker Start:26-Mar-2022 Instruction Type:Provider Instructions for Treatment How to Access Health Informa tion Online using Patient Portal and [employer]rd [employer] Apps Indication:Non-smoker Start:26-Mar-2022 Instruction Type:Patient Education Patient Instructions Indication:Non-smoker Start:18-Feb-2022 Instruction Type:Provider Instructions for Treatment How to Access Health Informa tion Online using Patient Portal and [employer]rd [employer] Apps Indication:Non-smoker Start:18-Feb-2022 Instruction Type:Patient Education Patient Instructions Indication:BMI 28.0-28.9,adult Start:30-Apr-2021 Instruction Type:Provider Instructions for Treatment How to Access Health Informa tion Online using Patient Portal and [employer]rd [employer] Apps Indication:BMI 28.0-28.9,adult Start:30-Apr-2021 Instruction Type:Patient Education Patient Instructions Indication:Non-smoker Start:27-Dec-2020 Instruction Type:Provider Instructions for Treatment How to Access Health Informa tion Online using Patient Portal and [employer]rd [employer] Apps Indication:Non-smoker Start:27-Dec-2020 Instruction Type:Patient Education Patient Instructions Indication:Abnormal Pap smear of cervix Start:27-Aug-2020 Instruction Type:Provider Instructions for Treatment Patient Instructions Indication:[facility] Start:16-Aug-2020 Instruction Type:Provider Instructions for Treatment How to Access Health Informa tion Online using Patient Portal and [employer] Apps Indication:[facility] Start:16-Aug-2020 Instruction Type:Patient Education How to access health informa tion online Indication:Fall, accidental Start:25-Apr-2020 Instruction Type:Patient Education How to access health informa tion online - Detail Indication:Fall, accidental Start:25-Apr-2020 Instruction Type:Patient Education Patient Instructions Indication:Fall, accidental Start:25-Apr-2020 Instruction Type:Provider Instructions for Treatment How to access health informa tion online Indication:Hypertension, benign Start:01-Feb-2020 Instruction Type:Patient Education How to access health informa tion online - Detail Indication:Hypertension, benign Start:01-Feb-2020 Instruction Type:Patient Education Patient Instructions Indication:Hypertension, benign Start:01-Feb-2020 Instruction Type:Provider Instructions for Treatment How to access health informa tion online Indication:Dysuria Start:16-Nov-2019 Instruction Type:Patient Education How to access health informa tion online - Detail Indication:Dysuria Start:16-Nov-2019 Instruction Type:Patient Education Patient Instructions Indication:Dysuria Start:16-Nov-2019 Instruction Type:Provider Instructions for Treatment How to access health informa tion online Indication:[facility] Start:26-May-2019 Instruction Type:Patient Education How to access health informa tion online - Detail Indication:[facility] Start:26-May-2019 Instruction Type:Patient Education Patient Instructions Indication:[facility] Start:26-May-2019 Instruction Type:Provider Instructions for Treatment How to access health informa tion online Indication:BMI 29.0-29.9,adult Start:02-Dec-2018 Instruction Type:Patient Education How to access health informa tion online - Detail Indication:BMI 29.0-29.9,adult Start:02-Dec-2018 Instruction Type:Patient Education Patient Instructions Indication:BMI 29.0-29.9,adult Start:02-Dec-2018 Instruction Type:Provider Instructions for Treatment How to access health informa tion online Indication:Fever Start:11-Nov-2018 Instruction Type:Patient Education How to access health informa tion online - Detail Indication:Fever Start:11-Nov-2018 Instruction Type:Patient Education Patient Instructions Indication:Fever Start:11-Nov-2018 Instruction Type:Provider Instructions for Treatment How to access health informa tion online Indication:Hyperlipidemia, acquired Start:16-Jun-2018 Instruction Type:Patient Education How to access health informa tion online - Detail Indication:Hyperlipidemia, acquired Start:16-Jun-2018 Instruction Type:Patient Education Patient Instructions Indication:Hyperlipidemia, acquired Start:16-Jun-2018 Instruction Type:Provider Instructions for Treatment How to access health informa tion online Indication:[facility] Start:25-Feb-2018 Instruction Type:Patient Education How to access health informa tion online - Detail Indication:[facility] Start:25-Feb-2018 Instruction Type:Patient Education Patient Instructions Indication:[facility] Start:25-Feb-2018 Instruction Type:Provider Instructions for Treatment How to access health informa tion online Indication:External otitis of right ear Start:27-Oct-2017 Instruction Type:Patient Education How to access health informa tion online - Detail Indication:External otitis of right ear Start:27-Oct-2017 Instruction Type:Patient Education Patient Instructions Indication:External otitis of right ear Start:27-Oct-2017 Instruction Type:Provider Instructions for Treatment How to access health informa tion online Indication:Non-smoker Start:06-Oct-2017 Instruction Type:Patient Education How to access health informa tion online - Detail Indication:Non-smoker Start:06-Oct-2017 Instruction Type:Patient Education Patient Instructions Indication:Non-smoker Start:06-Oct-2017 Instruction Type:Provider Instructions for Treatment How to access health informa tion online Indication:Hypertension, benign Start:26-Feb-2017 Instruction Type:Patient Education How to access health informa tion online - Detail Indication:Hypertension, benign Start:26-Feb-2017 Instruction Type:Patient Education Patient Instructions Indication:Hypertension, benign Start:26-Feb-2017 Instruction Type:Provider Instructions for Treatment Patient Instructions Indication:Cellulitis Start:23-Aug-2014 Instruction Type:Provider Instructions for Treatment How to access health informa tion online Indication:Hypertension, benign Start:02-Mar-2014 Instruction Type:Patient Education How to access health informa tion online - Detail Indication:Hypertension, benign Start:02-Mar-2014 Instruction Type:Patient Education Patient Instructions Indication:Hypertension, benign Start:02-Mar-2014 Instruction Type:Provider Instructions for Treatment Patient Instructions Indication:Hypertension, benign Start:24-Jan-2014 Instruction Type:Provider Instructions for Treatment Patient Instructions Indication:Hypertension, benign Start:03-Jan-2014 Instruction Type:Provider Instructions for Treatment Patient Instructions Indication:Hypertension, benign Start:24-Aug-2013 Instruction Type:Provider Instructions for Treatment Patient Instructions Indication:Hypertension, benign Start:09-Jun-2013 Instruction Type:Provider Instructions for Treatment Patient Instructions Indication:Hypertension, benign Start:19-May-2013 Instruction Type:Provider Instructions for Treatment Patient Instructions Indication:Hypertension, benign Start:07-Jan-2013 Instruction Type:Provider Instructions for Treatment Patient Instructions Indication:Hypertension, benign Start:07-Aug-2012 Instruction Type:Provider Instructions for Treatment obesity counseling Indication:Weight Gain Start:15-Jul-2012 Instruction Type:Provider Instructions for Treatment Patient Instructions Indication:Hypertension, benign Start:15-Jul-2012 Instruction Type:Provider Instructions for Treatment [facility]; [facility] Work Phone: Instructions* Name Dates Details Patient Instructions Indication:Dysuria Start:22-Apr-2023 Instruction Type:Provider Instructions for Treatment How to Access Health Informa tion Online using Patient Portal and [employer]rd [employer] Apps Indication:Dysuria Start:22-Apr-2023 Instruction Type:Patient Education Patient Instructions Indication:Hypertension, benign Start:08-Jan-2023 Instruction Type:Provider Instructions for Treatment How to Access Health Informa tion Online using Patient Portal and [employer] Apps Indication:Hypertension, benign Start:08-Jan-2023 Instruction Type:Patient Education Patient Instructions Indication:Non-smoker Start:26-Mar-2022 Instruction Type:Provider Instructions for Treatment How to Access Health Informa tion Online using Patient Portal and [employer]rd [employer] Apps Indication:Non-smoker Start:26-Mar-2022 Instruction Type:Patient Education Patient Instructions Indication:Non-smoker Start:18-Feb-2022 Instruction Type:Provider Instructions for Treatment How to Access Health Informa tion Online using Patient Portal and [employer]rd [employer] Apps Indication:Non-smoker Start:18-Feb-2022 Instruction Type:Patient Education Patient Instructions Indication:BMI 28.0-28.9,adult Start:30-Apr-2021 Instruction Type:Provider Instructions for Treatment How to Access Health Informa tion Online using Patient Portal and [employer] Apps Indication:BMI 28.0-28.9,adult Start:30-Apr-2021 Instruction Type:Patient Education Patient Instructions Indication:Non-smoker Start:27-Dec-2020 Instruction Type:Provider Instructions for Treatment How to Access Health Informa tion Online using Patient Portal and [employer] Apps Indication:Non-smoker Start:27-Dec-2020 Instruction Type:Patient Education Patient Instructions Indication:Abnormal Pap smear of cervix Start:27-Aug-2020 Instruction Type:Provider Instructions for Treatment Patient Instructions Indication:[facility] Start:16-Aug-2020 Instruction Type:Provider Instructions for Treatment How to Access Health Informa tion Online using Patient Portal and [employer] Apps Indication:[facility] Start:16-Aug-2020 Instruction Type:Patient Education How to access health informa tion online Indication:Fall, accidental Start:25-Apr-2020 Instruction Type:Patient Education How to access health informa tion online - Detail Indication:Fall, accidental Start:25-Apr-2020 Instruction Type:Patient Education Patient Instructions Indication:Fall, accidental Start:25-Apr-2020 Instruction Type:Provider Instructions for Treatment How to access health informa tion online Indication:Hypertension, benign Start:01-Feb-2020 Instruction Type:Patient Education How to access health informa tion online - Detail Indication:Hypertension, benign Start:01-Feb-2020 Instruction Type:Patient Education Patient Instructions Indication:Hypertension, benign Start:01-Feb-2020 Instruction Type:Provider Instructions for Treatment How to access health informa tion online Indication:Dysuria Start:16-Nov-2019 Instruction Type:Patient Education How to access health informa tion online - Detail Indication:Dysuria Start:16-Nov-2019 Instruction Type:Patient Education Patient Instructions Indication:Dysuria Start:16-Nov-2019 Instruction Type:Provider Instructions for Treatment How to access health informa tion online Indication:[facility] Start:26-May-2019 Instruction Type:Patient Education How to access health informa tion online - Detail Indication:[facility] Start:26-May-2019 Instruction Type:Patient Education Patient Instructions Indication:[facility] Start:26-May-2019 Instruction Type:Provider Instructions for Treatment How to access health informa tion online Indication:BMI 29.0-29.9,adult Start:02-Dec-2018 Instruction Type:Patient Education How to access health informa tion online - Detail Indication:BMI 29.0-29.9,adult Start:02-Dec-2018 Instruction Type:Patient Education Patient Instructions Indication:BMI 29.0-29.9,adult Start:02-Dec-2018 Instruction Type:Provider Instructions for Treatment How to access health informa tion online Indication:Fever Start:11-Nov-2018 Instruction Type:Patient Education How to access health informa tion online - Detail Indication:Fever Start:11-Nov-2018 Instruction Type:Patient Education Patient Instructions Indication:Fever Start:11-Nov-2018 Instruction Type:Provider Instructions for Treatment How to access health informa tion online Indication:Hyperlipidemia, acquired Start:16-Jun-2018 Instruction Type:Patient Education How to access health informa tion online - Detail Indication:Hyperlipidemia, acquired Start:16-Jun-2018 Instruction Type:Patient Education Patient Instructions Indication:Hyperlipidemia, acquired Start:16-Jun-2018 Instruction Type:Provider Instructions for Treatment How to access health informa tion online Indication:[facility] Start:25-Feb-2018 Instruction Type:Patient Education How to access health informa tion online - Detail Indication:[facility] Start:25-Feb-2018 Instruction Type:Patient Education Patient Instructions Indication:[facility] Start:25-Feb-2018 Instruction Type:Provider Instructions for Treatment How to access health informa tion online Indication:External otitis of right ear Start:27-Oct-2017 Instruction Type:Patient Education How to access health informa tion online - Detail Indication:External otitis of right ear Start:27-Oct-2017 Instruction Type:Patient Education Patient Instructions Indication:External otitis of right ear Start:27-Oct-2017 Instruction Type:Provider Instructions for Treatment How to access health informa tion online Indication:Non-smoker Start:06-Oct-2017 Instruction Type:Patient Education How to access health informa tion online - Detail Indication:Non-smoker Start:06-Oct-2017 Instruction Type:Patient Education Patient Instructions Indication:Non-smoker Start:06-Oct-2017 Instruction Type:Provider Instructions for Treatment How to access health informa tion online Indication:Hypertension, benign Start:26-Feb-2017 Instruction Type:Patient Education How to access health informa tion online - Detail Indication:Hypertension, benign Start:26-Feb-2017 Instruction Type:Patient Education Patient Instructions Indication:Hypertension, benign Start:26-Feb-2017 Instruction Type:Provider Instructions for Treatment Patient Instructions Indication:Cellulitis Start:23-Aug-2014 Instruction Type:Provider Instructions for Treatment How to access health informa tion online Indication:Hypertension, benign Start:02-Mar-2014 Instruction Type:Patient Education How to access health informa tion online - Detail Indication:Hypertension, benign Start:02-Mar-2014 Instruction Type:Patient Education Patient Instructions Indication:Hypertension, benign Start:02-Mar-2014 Instruction Type:Provider Instructions for Treatment Patient Instructions Indication:Hypertension, benign Start:24-Jan-2014 Instruction Type:Provider Instructions for Treatment Patient Instructions Indication:Hypertension, benign Start:03-Jan-2014 Instruction Type:Provider Instructions for Treatment Patient Instructions Indication:Hypertension, benign Start:24-Aug-2013 Instruction Type:Provider Instructions for Treatment Patient Instructions Indication:Hypertension, benign Start:09-Jun-2013 Instruction Type:Provider Instructions for Treatment Patient Instructions Indication:Hypertension, benign Start:19-May-2013 Instruction Type:Provider Instructions for Treatment Patient Instructions Indication:Hypertension, benign Start:07-Jan-2013 Instruction Type:Provider Instructions for Treatment Patient Instructions Indication:Hypertension, benign Start:07-Aug-2012 Instruction Type:Provider Instructions for Treatment obesity counseling Indication:Weight Gain Start:15-Jul-2012 Instruction Type:Provider Instructions for Treatment Patient Instructions Indication:Hypertension, benign Start:15-Jul-2012 Instruction Type:Provider Instructions for Treatment [facility]; [facility] Work Phone: Instructions* Name Dates Details Patient Instructions Indication:Dysuria Start:22-Apr-2023 Instruction Type:Provider Instructions for Treatment How to Access Health Informa tion Online using Patient Portal and [employer]rd [employer] Apps Indication:Dysuria Start:22-Apr-2023 Instruction Type:Patient Education Patient Instructions Indication:Hypertension, benign Start:08-Jan-2023 Instruction Type:Provider Instructions for Treatment How to Access Health Informa tion Online using Patient Portal and [employer] Apps Indication:Hypertension, benign Start:08-Jan-2023 Instruction Type:Patient Education Patient Instructions Indication:Non-smoker Start:26-Mar-2022 Instruction Type:Provider Instructions for Treatment How to Access Health Informa tion Online using Patient Portal and [employer] Apps Indication:Non-smoker Start:26-Mar-2022 Instruction Type:Patient Education Patient Instructions Indication:Non-smoker Start:18-Feb-2022 Instruction Type:Provider Instructions for Treatment How to Access Health Informa tion Online using Patient Portal and [employer] Apps Indication:Non-smoker Start:18-Feb-2022 Instruction Type:Patient Education Patient Instructions Indication:BMI 28.0-28.9,adult Start:30-Apr-2021 Instruction Type:Provider Instructions for Treatment How to Access Health Informa tion Online using Patient Portal and [employer] Apps Indication:BMI 28.0-28.9,adult Start:30-Apr-2021 Instruction Type:Patient Education Patient Instructions Indication:Non-smoker Start:27-Dec-2020 Instruction Type:Provider Instructions for Treatment How to Access Health Informa tion Online using Patient Portal and [employer] Apps Indication:Non-smoker Start:27-Dec-2020 Instruction Type:Patient Education Patient Instructions Indication:Abnormal Pap smear of cervix Start:27-Aug-2020 Instruction Type:Provider Instructions for Treatment Patient Instructions Indication:[facility] Start:16-Aug-2020 Instruction Type:Provider Instructions for Treatment How to Access Health Informa tion Online using Patient Portal and [employer] Apps Indication:[facility] Start:16-Aug-2020 Instruction Type:Patient Education How to access health informa tion online Indication:Fall, accidental Start:25-Apr-2020 Instruction Type:Patient Education How to access health informa tion online - Detail Indication:Fall, accidental Start:25-Apr-2020 Instruction Type:Patient Education Patient Instructions Indication:Fall, accidental Start:25-Apr-2020 Instruction Type:Provider Instructions for Treatment How to access health informa tion online Indication:Hypertension, benign Start:01-Feb-2020 Instruction Type:Patient Education How to access health informa tion online - Detail Indication:Hypertension, benign Start:01-Feb-2020 Instruction Type:Patient Education Patient Instructions Indication:Hypertension, benign Start:01-Feb-2020 Instruction Type:Provider Instructions for Treatment How to access health informa tion online Indication:Dysuria Start:16-Nov-2019 Instruction Type:Patient Education How to access health informa tion online - Detail Indication:Dysuria Start:16-Nov-2019 Instruction Type:Patient Education Patient Instructions Indication:Dysuria Start:16-Nov-2019 Instruction Type:Provider Instructions for Treatment How to access health informa tion online Indication:[facility] Start:26-May-2019 Instruction Type:Patient Education How to access health informa tion online - Detail Indication:[facility] Start:26-May-2019 Instruction Type:Patient Education Patient Instructions Indication:[facility] Start:26-May-2019 Instruction Type:Provider Instructions for Treatment How to access health informa tion online Indication:BMI 29.0-29.9,adult Start:02-Dec-2018 Instruction Type:Patient Education How to access health informa tion online - Detail Indication:BMI 29.0-29.9,adult Start:02-Dec-2018 Instruction Type:Patient Education Patient Instructions Indication:BMI 29.0-29.9,adult Start:02-Dec-2018 Instruction Type:Provider Instructions for Treatment How to access health informa tion online Indication:Fever Start:11-Nov-2018 Instruction Type:Patient Education How to access health informa tion online - Detail Indication:Fever Start:11-Nov-2018 Instruction Type:Patient Education Patient Instructions Indication:Fever Start:11-Nov-2018 Instruction Type:Provider Instructions for Treatment How to access health informa tion online Indication:Hyperlipidemia, acquired Start:16-Jun-2018 Instruction Type:Patient Education How to access health informa tion online - Detail Indication:Hyperlipidemia, acquired Start:16-Jun-2018 Instruction Type:Patient Education Patient Instructions Indication:Hyperlipidemia, acquired Start:16-Jun-2018 Instruction Type:Provider Instructions for Treatment How to access health informa tion online Indication:[facility] Start:25-Feb-2018 Instruction Type:Patient Education How to access health informa tion online - Detail Indication:[facility] Start:25-Feb-2018 Instruction Type:Patient Education Patient Instructions Indication:[facility] Start:25-Feb-2018 Instruction Type:Provider Instructions for Treatment How to access health informa tion online Indication:External otitis of right ear Start:27-Oct-2017 Instruction Type:Patient Education How to access health informa tion online - Detail Indication:External otitis of right ear Start:27-Oct-2017 Instruction Type:Patient Education Patient Instructions Indication:External otitis of right ear Start:27-Oct-2017 Instruction Type:Provider Instructions for Treatment How to access health informa tion online Indication:Non-smoker Start:06-Oct-2017 Instruction Type:Patient Education How to access health informa tion online - Detail Indication:Non-smoker Start:06-Oct-2017 Instruction Type:Patient Education Patient Instructions Indication:Non-smoker Start:06-Oct-2017 Instruction Type:Provider Instructions for Treatment How to access health informa tion online Indication:Hypertension, benign Start:26-Feb-2017 Instruction Type:Patient Education How to access health informa tion online - Detail Indication:Hypertension, benign Start:26-Feb-2017 Instruction Type:Patient Education Patient Instructions Indication:Hypertension, benign Start:26-Feb-2017 Instruction Type:Provider Instructions for Treatment Patient Instructions Indication:Cellulitis Start:23-Aug-2014 Instruction Type:Provider Instructions for Treatment How to access health informa tion online Indication:Hypertension, benign Start:02-Mar-2014 Instruction Type:Patient Education How to access health informa tion online - Detail Indication:Hypertension, benign Start:02-Mar-2014 Instruction Type:Patient Education Patient Instructions Indication:Hypertension, benign Start:02-Mar-2014 Instruction Type:Provider Instructions for Treatment Patient Instructions Indication:Hypertension, benign Start:24-Jan-2014 Instruction Type:Provider Instructions for Treatment Patient Instructions Indication:Hypertension, benign Start:03-Jan-2014 Instruction Type:Provider Instructions for Treatment Patient Instructions Indication:Hypertension, benign Start:24-Aug-2013 Instruction Type:Provider Instructions for Treatment Patient Instructions Indication:Hypertension, benign Start:09-Jun-2013 Instruction Type:Provider Instructions for Treatment Patient Instructions Indication:Hypertension, benign Start:19-May-2013 Instruction Type:Provider Instructions for Treatment Patient Instructions Indication:Hypertension, benign Start:07-Jan-2013 Instruction Type:Provider Instructions for Treatment Patient Instructions Indication:Hypertension, benign Start:07-Aug-2012 Instruction Type:Provider Instructions for Treatment obesity counseling Indication:Weight Gain Start:15-Jul-2012 Instruction Type:Provider Instructions for Treatment Patient Instructions Indication:Hypertension, benign Start:15-Jul-2012 Instruction Type:Provider Instructions for Treatment [facility]; [facility] Work Phone: Instructions* Name Dates Details Patient Instructions Indication:BMI 30.0-30.9,adult Start:13-May-2023 Instruction Type:Provider Instructions for Treatment How to Access Health Informa tion Online using Patient Portal and [employer] Apps Indication:BMI 30.0-30.9,adult Start:13-May-2023 Instruction Type:Patient Education Patient Instructions Indication:Dysuria Start:22-Apr-2023 Instruction Type:Provider Instructions for Treatment How to Access Health Informa tion Online using Patient Portal and [employer] Apps Indication:Dysuria Start:22-Apr-2023 Instruction Type:Patient Education Patient Instructions Indication:Hypertension, benign Start:08-Jan-2023 Instruction Type:Provider Instructions for Treatment How to Access Health Informa tion Online using Patient Portal and [employer] Apps Indication:Hypertension, benign Start:08-Jan-2023 Instruction Type:Patient Education Patient Instructions Indication:Non-smoker Start:26-Mar-2022 Instruction Type:Provider Instructions for Treatment How to Access Health Informa tion Online using Patient Portal and [employer] Apps Indication:Non-smoker Start:26-Mar-2022 Instruction Type:Patient Education Patient Instructions Indication:Non-smoker Start:18-Feb-2022 Instruction Type:Provider Instructions for Treatment How to Access Health Informa tion Online using Patient Portal and [employer] Apps Indication:Non-smoker Start:18-Feb-2022 Instruction Type:Patient Education Patient Instructions Indication:BMI 28.0-28.9,adult Start:30-Apr-2021 Instruction Type:Provider Instructions for Treatment How to Access Health Informa tion Online using Patient Portal and [employer] Apps Indication:BMI 28.0-28.9,adult Start:30-Apr-2021 Instruction Type:Patient Education Patient Instructions Indication:Non-smoker Start:27-Dec-2020 Instruction Type:Provider Instructions for Treatment How to Access Health Informa tion Online using Patient Portal and [employer] Apps Indication:Non-smoker Start:27-Dec-2020 Instruction Type:Patient Education Patient Instructions Indication:Abnormal Pap smear of cervix Start:27-Aug-2020 Instruction Type:Provider Instructions for Treatment Patient Instructions Indication:[facility] Start:16-Aug-2020 Instruction Type:Provider Instructions for Treatment How to Access Health Informa tion Online using Patient Portal and [employer] Apps Indication:[facility] Start:16-Aug-2020 Instruction Type:Patient Education How to access health informa tion online Indication:Fall, accidental Start:25-Apr-2020 Instruction Type:Patient Education How to access health informa tion online - Detail Indication:Fall, accidental Start:25-Apr-2020 Instruction Type:Patient Education Patient Instructions Indication:Fall, accidental Start:25-Apr-2020 Instruction Type:Provider Instructions for Treatment How to access health informa tion online Indication:Hypertension, benign Start:01-Feb-2020 Instruction Type:Patient Education How to access health informa tion online - Detail Indication:Hypertension, benign Start:01-Feb-2020 Instruction Type:Patient Education Patient Instructions Indication:Hypertension, benign Start:01-Feb-2020 Instruction Type:Provider Instructions for Treatment How to access health informa tion online Indication:Dysuria Start:16-Nov-2019 Instruction Type:Patient Education How to access health informa tion online - Detail Indication:Dysuria Start:16-Nov-2019 Instruction Type:Patient Education Patient Instructions Indication:Dysuria Start:16-Nov-2019 Instruction Type:Provider Instructions for Treatment How to access health informa tion online Indication:[facility] Start:26-May-2019 Instruction Type:Patient Education How to access health informa tion online - Detail Indication:[facility] Start:26-May-2019 Instruction Type:Patient Education Patient Instructions Indication:[facility] Start:26-May-2019 Instruction Type:Provider Instructions for Treatment How to access health informa tion online Indication:BMI 29.0-29.9,adult Start:02-Dec-2018 Instruction Type:Patient Education How to access health informa tion online - Detail Indication:BMI 29.0-29.9,adult Start:02-Dec-2018 Instruction Type:Patient Education Patient Instructions Indication:BMI 29.0-29.9,adult Start:02-Dec-2018 Instruction Type:Provider Instructions for Treatment How to access health informa tion online Indication:Fever Start:11-Nov-2018 Instruction Type:Patient Education How to access health informa tion online - Detail Indication:Fever Start:11-Nov-2018 Instruction Type:Patient Education Patient Instructions Indication:Fever Start:11-Nov-2018 Instruction Type:Provider Instructions for Treatment How to access health informa tion online Indication:Hyperlipidemia, acquired Start:16-Jun-2018 Instruction Type:Patient Education How to access health informa tion online - Detail Indication:Hyperlipidemia, acquired Start:16-Jun-2018 Instruction Type:Patient Education Patient Instructions Indication:Hyperlipidemia, acquired Start:16-Jun-2018 Instruction Type:Provider Instructions for Treatment How to access health informa tion online Indication:[facility] Start:25-Feb-2018 Instruction Type:Patient Education How to access health informa tion online - Detail Indication:[facility] Start:25-Feb-2018 Instruction Type:Patient Education Patient Instructions Indication:[facility] Start:25-Feb-2018 Instruction Type:Provider Instructions for Treatment How to access health informa tion online Indication:External otitis of right ear Start:27-Oct-2017 Instruction Type:Patient Education How to access health informa tion online - Detail Indication:External otitis of right ear Start:27-Oct-2017 Instruction Type:Patient Education Patient Instructions Indication:External otitis of right ear Start:27-Oct-2017 Instruction Type:Provider Instructions for Treatment How to access health informa tion online Indication:Non-smoker Start:06-Oct-2017 Instruction Type:Patient Education How to access health informa tion online - Detail Indication:Non-smoker Start:06-Oct-2017 Instruction Type:Patient Education Patient Instructions Indication:Non-smoker Start:06-Oct-2017 Instruction Type:Provider Instructions for Treatment How to access health informa tion online Indication:Hypertension, benign Start:26-Feb-2017 Instruction Type:Patient Education How to access health informa tion online - Detail Indication:Hypertension, benign Start:26-Feb-2017 Instruction Type:Patient Education Patient Instructions Indication:Hypertension, benign Start:26-Feb-2017 Instruction Type:Provider Instructions for Treatment Patient Instructions Indication:Cellulitis Start:23-Aug-2014 Instruction Type:Provider Instructions for Treatment How to access health informa tion online Indication:Hypertension, benign Start:02-Mar-2014 Instruction Type:Patient Education How to access health informa tion online - Detail Indication:Hypertension, benign Start:02-Mar-2014 Instruction Type:Patient Education Patient Instructions Indication:Hypertension, benign Start:02-Mar-2014 Instruction Type:Provider Instructions for Treatment Patient Instructions Indication:Hypertension, benign Start:24-Jan-2014 Instruction Type:Provider Instructions for Treatment Patient Instructions Indication:Hypertension, benign Start:03-Jan-2014 Instruction Type:Provider Instructions for Treatment Patient Instructions Indication:Hypertension, benign Start:24-Aug-2013 Instruction Type:Provider Instructions for Treatment Patient Instructions Indication:Hypertension, benign Start:09-Jun-2013 Instruction Type:Provider Instructions for Treatment Patient Instructions Indication:Hypertension, benign Start:19-May-2013 Instruction Type:Provider Instructions for Treatment Patient Instructions Indication:Hypertension, benign Start:07-Jan-2013 Instruction Type:Provider Instructions for Treatment Patient Instructions Indication:Hypertension, benign Start:07-Aug-2012 Instruction Type:Provider Instructions for Treatment obesity counseling Indication:Weight Gain Start:15-Jul-2012 Instruction Type:Provider Instructions for Treatment Patient Instructions Indication:Hypertension, benign Start:15-Jul-2012 Instruction Type:Provider Instructions for Treatment [facility]; [facility] Work Phone: Instructions* Name Dates Details Patient Instructions Indication:BMI 30.0-30.9,adult Start:13-May-2023 Instruction Type:Provider Instructions for Treatment How to Access Health Informa tion Online using Patient Portal and [employer] Apps Indication:BMI 30.0-30.9,adult Start:13-May-2023 Instruction Type:Patient Education Patient Instructions Indication:Dysuria Start:22-Apr-2023 Instruction Type:Provider Instructions for Treatment How to Access Health Informa tion Online using Patient Portal and [employer] Apps Indication:Dysuria Start:22-Apr-2023 Instruction Type:Patient Education Patient Instructions Indication:Hypertension, benign Start:08-Jan-2023 Instruction Type:Provider Instructions for Treatment How to Access Health Informa tion Online using Patient Portal and [employer] Apps Indication:Hypertension, benign Start:08-Jan-2023 Instruction Type:Patient Education Patient Instructions Indication:Non-smoker Start:26-Mar-2022 Instruction Type:Provider Instructions for Treatment How to Access Health Informa tion Online using Patient Portal and [employer] Apps Indication:Non-smoker Start:26-Mar-2022 Instruction Type:Patient Education Patient Instructions Indication:Non-smoker Start:18-Feb-2022 Instruction Type:Provider Instructions for Treatment How to Access Health Informa tion Online using Patient Portal and [employer] Apps Indication:Non-smoker Start:18-Feb-2022 Instruction Type:Patient Education Patient Instructions Indication:BMI 28.0-28.9,adult Start:30-Apr-2021 Instruction Type:Provider Instructions for Treatment How to Access Health Informa tion Online using Patient Portal and [employer] Apps Indication:BMI 28.0-28.9,adult Start:30-Apr-2021 Instruction Type:Patient Education Patient Instructions Indication:Non-smoker Start:27-Dec-2020 Instruction Type:Provider Instructions for Treatment How to Access Health Informa tion Online using Patient Portal and [employer] Apps Indication:Non-smoker Start:27-Dec-2020 Instruction Type:Patient Education Patient Instructions Indication:Abnormal Pap smear of cervix Start:27-Aug-2020 Instruction Type:Provider Instructions for Treatment Patient Instructions Indication:[facility] Start:16-Aug-2020 Instruction Type:Provider Instructions for Treatment How to Access Health Informa tion Online using Patient Portal and [employer] Apps Indication:[facility] Start:16-Aug-2020 Instruction Type:Patient Education How to access health informa tion online Indication:Fall, accidental Start:25-Apr-2020 Instruction Type:Patient Education How to access health informa tion online - Detail Indication:Fall, accidental Start:25-Apr-2020 Instruction Type:Patient Education Patient Instructions Indication:Fall, accidental Start:25-Apr-2020 Instruction Type:Provider Instructions for Treatment How to access health informa tion online Indication:Hypertension, benign Start:01-Feb-2020 Instruction Type:Patient Education How to access health informa tion online - Detail Indication:Hypertension, benign Start:01-Feb-2020 Instruction Type:Patient Education Patient Instructions Indication:Hypertension, benign Start:01-Feb-2020 Instruction Type:Provider Instructions for Treatment How to access health informa tion online Indication:Dysuria Start:16-Nov-2019 Instruction Type:Patient Education How to access health informa tion online - Detail Indication:Dysuria Start:16-Nov-2019 Instruction Type:Patient Education Patient Instructions Indication:Dysuria Start:16-Nov-2019 Instruction Type:Provider Instructions for Treatment How to access health informa tion online Indication:[facility] Start:26-May-2019 Instruction Type:Patient Education How to access health informa tion online - Detail Indication:[facility] Start:26-May-2019 Instruction Type:Patient Education Patient Instructions Indication:[facility] Start:26-May-2019 Instruction Type:Provider Instructions for Treatment How to access health informa tion online Indication:BMI 29.0-29.9,adult Start:02-Dec-2018 Instruction Type:Patient Education How to access health informa tion online - Detail Indication:BMI 29.0-29.9,adult Start:02-Dec-2018 Instruction Type:Patient Education Patient Instructions Indication:BMI 29.0-29.9,adult Start:02-Dec-2018 Instruction Type:Provider Instructions for Treatment How to access health informa tion online Indication:Fever Start:11-Nov-2018 Instruction Type:Patient Education How to access health informa tion online - Detail Indication:Fever Start:11-Nov-2018 Instruction Type:Patient Education Patient Instructions Indication:Fever Start:11-Nov-2018 Instruction Type:Provider Instructions for Treatment How to access health informa tion online Indication:Hyperlipidemia, acquired Start:16-Jun-2018 Instruction Type:Patient Education How to access health informa tion online - Detail Indication:Hyperlipidemia, acquired Start:16-Jun-2018 Instruction Type:Patient Education Patient Instructions Indication:Hyperlipidemia, acquired Start:16-Jun-2018 Instruction Type:Provider Instructions for Treatment How to access health informa tion online Indication:[facility] Start:25-Feb-2018 Instruction Type:Patient Education How to access health informa tion online - Detail Indication:[facility] Start:25-Feb-2018 Instruction Type:Patient Education Patient Instructions Indication:[facility] Start:25-Feb-2018 Instruction Type:Provider Instructions for Treatment How to access health informa tion online Indication:External otitis of right ear Start:27-Oct-2017 Instruction Type:Patient Education How to access health informa tion online - Detail Indication:External otitis of right ear Start:27-Oct-2017 Instruction Type:Patient Education Patient Instructions Indication:External otitis of right ear Start:27-Oct-2017 Instruction Type:Provider Instructions for Treatment How to access health informa tion online Indication:Non-smoker Start:06-Oct-2017 Instruction Type:Patient Education How to access health informa tion online - Detail Indication:Non-smoker Start:06-Oct-2017 Instruction Type:Patient Education Patient Instructions Indication:Non-smoker Start:06-Oct-2017 Instruction Type:Provider Instructions for Treatment How to access health informa tion online Indication:Hypertension, benign Start:26-Feb-2017 Instruction Type:Patient Education How to access health informa tion online - Detail Indication:Hypertension, benign Start:26-Feb-2017 Instruction Type:Patient Education Patient Instructions Indication:Hypertension, benign Start:26-Feb-2017 Instruction Type:Provider Instructions for Treatment Patient Instructions Indication:Cellulitis Start:23-Aug-2014 Instruction Type:Provider Instructions for Treatment How to access health informa tion online Indication:Hypertension, benign Start:02-Mar-2014 Instruction Type:Patient Education How to access health informa tion online - Detail Indication:Hypertension, benign Start:02-Mar-2014 Instruction Type:Patient Education Patient Instructions Indication:Hypertension, benign Start:02-Mar-2014 Instruction Type:Provider Instructions for Treatment Patient Instructions Indication:Hypertension, benign Start:24-Jan-2014 Instruction Type:Provider Instructions for Treatment Patient Instructions Indication:Hypertension, benign Start:03-Jan-2014 Instruction Type:Provider Instructions for Treatment Patient Instructions Indication:Hypertension, benign Start:24-Aug-2013 Instruction Type:Provider Instructions for Treatment Patient Instructions Indication:Hypertension, benign Start:09-Jun-2013 Instruction Type:Provider Instructions for Treatment Patient Instructions Indication:Hypertension, benign Start:19-May-2013 Instruction Type:Provider Instructions for Treatment Patient Instructions Indication:Hypertension, benign Start:07-Jan-2013 Instruction Type:Provider Instructions for Treatment Patient Instructions Indication:Hypertension, benign Start:07-Aug-2012 Instruction Type:Provider Instructions for Treatment obesity counseling Indication:Weight Gain Start:15-Jul-2012 Instruction Type:Provider Instructions for Treatment Patient Instructions Indication:Hypertension, benign Start:15-Jul-2012 Instruction Type:Provider Instructions for Treatment [facility] Work Phone: reason for referral (narrative)No [facility] for [facility]: Reason for visit Narrative* Imaging (Routine) - Pending Review Specialty Diagnoses / Procedures Referred By Thaddeus ramirez Referred To Contact Radiology Diagnoses Hyperlipidemia, unspecified Procedures CT cardiac scoring wo IV contrast Sena Rao DO [id number] [facility] [address] [place] [address] Phone: tel: fax: Referral ID Status Reason Start Date Expiration Date Visits Requested Visits Authorized [id number] Pending Review Perform Procedure 4 06/16/2025 1 1 [facility] Work Phone: Family History No Family History Records FoundUnknown Family Member Name Dates Details Breast Cancer Comments:Mother. Maternal Au nt. in her 60s - was very early Status:Active Hypertension Comments:Father. Paternal Gr andmother. mother Status:Active Ovarian dx Comments:Mother. would have turned into cancer not there yet Status:Active Thyroid problems Comments:Mother. Sister. Status:Active Unknown Family Member Name Dates Details Breast Cancer Comments:Mother. Maternal Au nt. in her 60s - was very early Status:Active Hypertension Comments:Father. Paternal Gr andmother. mother Status:Active Ovarian dx Comments:Mother. would have turned into cancer not there yet Status:Active Thyroid problems Comments:Mother. Sister. Status:Active Unknown Family Member Name Dates Details Breast Cancer Comments:Mother. Maternal Au nt. in her 60s - was very early Status:Active Hypertension Comments:Father. Paternal Gr andmother. mother Status:Active Ovarian dx Comments:Mother. would have turned into cancer not there yet Status:Active Thyroid problems Comments:Mother. Sister. Status:Active Unknown Family Member Name Dates Details Breast Cancer Comments:Mother. Maternal Au nt. in her 60s - was very early Status:Active Hypertension Comments:Father. Paternal Gr andmother. mother Status:Active Ovarian dx Comments:Mother. would have turned into cancer not there yet Status:Active Thyroid problems Comments:Mother. Sister. Status:Active Unknown Family Member Name Dates Details Breast Cancer Comments:Mother. Maternal Au nt. in her 60s - was very early Status:Active Hypertension Comments:Father. Paternal Gr andmother. mother Status:Active Ovarian dx Comments:Mother. would have turned into cancer not there yet Status:Active Thyroid problems Comments:Mother. Sister. Status:Active Unknown Family Member Name Dates Details Breast Cancer Comments:Mother. Maternal Au nt. in her 60s - was very early Status:Active Hypertension Comments:Father. Paternal Gr andmother. mother Status:Active Ovarian dx Comments:Mother. would have turned into cancer not there yet Status:Active Thyroid problems Comments:Mother. Sister. Status:Active Unknown Family Member Name Dates Details Breast Cancer Comments:Mother. Maternal Au nt. in her 60s - was very early Status:Active Hypertension Comments:Father. Paternal Gr andmother. mother Status:Active Ovarian dx Comments:Mother. would have turned into cancer not there yet Status:Active Thyroid problems Comments:Mother. Sister. Status:Active Unknown Family Member Name Dates Details Breast Cancer Comments:Mother. Maternal Au nt. in her 60s - was very early Status:Active Hypertension Comments:Father. Paternal Gr andmother. mother Status:Active Ovarian dx Comments:Mother. would have turned into cancer not there yet Status:Active Thyroid problems Comments:Mother. Sister. Status:Active Unknown Family Member Name Dates Details Breast Cancer Comments:Mother. Maternal Au nt. in her 60s - was very early Status:Active Hypertension Comments:Father. Paternal Gr andmother. mother Status:Active Ovarian dx Comments:Mother. would have turned into cancer not there yet Status:Active Thyroid problems Comments:Mother. Sister. Status:Active Unknown Family Member Name Dates Details Breast Cancer Comments:Mother. Maternal Au nt. in her 60s - was very early Status:Active Hypertension Comments:Father. Paternal Gr andmother. mother Status:Active Ovarian dx Comments:Mother. would have turned into cancer not there yet Status:Active Thyroid problems Comments:Mother. Sister. Status:Active Unknown Family Member Name Dates Details Breast Cancer Comments:Mother. Maternal Au nt. in her 60s - was very early Status:Active Hypertension Comments:Father. Paternal Gr andmother. mother Status:Active Ovarian dx Comments:Mother. would have turned into cancer not there yet Status:Active Thyroid problems Comments:Mother. Sister. Status:Active Unknown Family Member Name Dates Details Breast Cancer Comments:Mother. Maternal Au nt. in her 60s - was very early Status:Active Hypertension Comments:Father. Paternal Gr andmother. mother Status:Active Ovarian dx Comments:Mother. would have turned into cancer not there yet Status:Active Thyroid problems Comments:Mother. Sister. Status:Active Unknown Family Member Name Dates Details Breast Cancer Comments:Mother. Maternal Au nt. in her 60s - was very early Status:Active Hypertension Comments:Father. Paternal Gr andmother. mother Status:Active Ovarian dx Comments:Mother. would have turned into cancer not there yet Status:Active Thyroid problems Comments:Mother. Sister. Status:Active Unknown Family Member Name Dates Details Breast Cancer Comments:Mother. Maternal Au nt. in her 60s - was very early Status:Active Hypertension Comments:Father. Paternal Gr andmother. mother Status:Active Ovarian dx Comments:Mother. would have turned into cancer not there yet Status:Active Thyroid problems Comments:Mother. Sister. Status:Active Unknown Family Member Name Dates Details Breast Cancer Comments:Mother. Maternal Au nt. in her 60s - was very early Status:Active Hypertension Comments:Father. Paternal Gr andmother. mother Status:Active Ovarian dx Comments:Mother. would have turned into cancer not there yet Status:Active Thyroid problems Comments:Mother. Sister. Status:Active Unknown Family Member Name Dates Details Breast Cancer Comments:Mother. Maternal Au nt. in her 60s - was very early Status:Active Hypertension Comments:Father. Paternal Gr andmother. mother Status:Active Ovarian dx Comments:Mother. would have turned into cancer not there yet Status:Active Thyroid problems Comments:Mother. Sister. Status:Active Unknown Family Member Name Dates Details Breast Cancer Comments:Mother. Maternal Au nt. in her 60s - was very early Status:Active Hypertension Comments:Father. Paternal Gr andmother. mother Status:Active Ovarian dx Comments:Mother. would have turned into cancer not there yet Status:Active Thyroid problems Comments:Mother. Sister. Status:Active Unknown Family Member Name Dates Details Breast Cancer Comments:Mother. Maternal Au nt. in her 60s - was very early Status:Active Hypertension Comments:Father. Paternal Gr andmother. mother Status:Active Ovarian dx Comments:Mother. would have turned into cancer not there yet Status:Active Thyroid problems Comments:Mother. Sister. Status:Active Unknown Family Member Name Dates Details Breast Cancer Comments:Mother. Maternal Au nt. in her 60s - was very early Status:Active Hypertension Comments:Father. Paternal Gr andmother. mother Status:Active Ovarian dx Comments:Mother. would have turned into cancer not there yet Status:Active Thyroid problems Comments:Mother. Sister. Status:Active Unknown Family Member Name Dates Details Breast Cancer Comments:Mother. Maternal Au nt. in her 60s - was very early Status:Active Hypertension Comments:Father. Paternal Gr andmother. mother Status:Active Ovarian dx Comments:Mother. would have turned into cancer not there yet Status:Active Thyroid problems Comments:Mother. Sister. Status:Active Unknown Family Member Name Dates Details Breast Cancer Comments:Mother. Maternal Au nt. in her 60s - was very early Status:Active Hypertension Comments:Father. Paternal Gr andmother. mother Status:Active Ovarian dx Comments:Mother. would have turned into cancer not there yet Status:Active Thyroid problems Comments:Mother. Sister. Status:Active Unknown Family Member Name Dates Details Breast Cancer Comments:Mother. Maternal Au nt. in her 60s - was very early Status:Active Hypertension Comments:Father. Paternal Gr andmother. mother Status:Active Ovarian dx Comments:Mother. would have turned into cancer not there yet Status:Active Thyroid problems Comments:Mother. Sister. Status:Active Unknown Family Member Name Dates Details Breast Cancer Comments:Mother. Maternal Au nt. in her 60s - was very early Status:Active Hypertension Comments:Father. Paternal Gr andmother. mother Status:Active Ovarian dx Comments:Mother. would have turned into cancer not there yet Status:Active Thyroid problems Comments:Mother. Sister. Status:Active Relationship Condition Age at Onset Recorded Date/T latasha Not Specified Malignant neoplasm of breast Unknown father Hypertension Unknown mother Hypertension Unknown grandmother Hypertension Unknown grandfather Hypertension Unknown Malignant neoplasm of brain Unknown Unknown Family Member Name Dates Details Breast Cancer Comments:Mother. Maternal Au nt. in her 60s - was very early Status:Active Hypertension Comments:Father. Paternal Gr andmother. mother Status:Active Ovarian dx Comments:Mother. would have turned into cancer not there yet Status:Active Thyroid problems Comments:Mother. Sister. Status:Active Unknown Family Member Name Dates Details Breast Cancer Comments:Mother. Maternal Au nt. in her 60s - was very early Status:Active Hypertension Comments:Father. Paternal Gr andmother. mother Status:Active Ovarian dx Comments:Mother. would have turned into cancer not there yet Status:Active Thyroid problems Comments:Mother. Sister. Status:Active Unknown Family Member Name Dates Details Breast Cancer Comments:Mother. Maternal Au nt. in her 60s - was very early Status:Active Hypertension Comments:Father. Paternal Gr andmother. mother Status:Active Ovarian dx Comments:Mother. would have turned into cancer not there yet Status:Active Thyroid problems Comments:Mother. Sister. Status:Active Unknown Family Member Name Dates Details Breast Cancer Comments:Mother. Maternal Au nt. in her 60s - was very early Status:Active Hypertension Comments:Father. Paternal Gr andmother. mother Status:Active Ovarian dx Comments:Mother. would have turned into cancer not there yet Status:Active Thyroid problems Comments:Mother. Sister. Status:Active Unknown Family Member Name Dates Details Breast Cancer Comments:Mother. Maternal Au nt. in her 60s - was very early Status:Active Hypertension Comments:Father. Paternal Gr andmother. mother Status:Active Ovarian dx Comments:Mother. would have turned into cancer not there yet Status:Active Thyroid problems Comments:Mother. Sister. Status:Active Unknown Family Member Name Dates Details Breast Cancer Comments:Mother. Maternal Au nt. in her 60s - was very early Status:Active Hypertension Comments:Father. Paternal Gr andmother. mother Status:Active Ovarian dx Comments:Mother. would have turned into cancer not there yet Status:Active Thyroid problems Comments:Mother. Sister. Status:Active Unknown Family Member Name Dates Details Breast Cancer Comments:Mother. Maternal Au nt. in her 60s - was very early Status:Active Hypertension Comments:Father. Paternal Gr andmother. mother Status:Active Ovarian dx Comments:Mother. would have turned into cancer not there yet Status:Active Thyroid problems Comments:Mother. Sister. Status:Active Unknown Family Member Name Dates Details Breast Cancer Comments:Mother. Maternal Au nt. in her 60s - was very early Status:Active Hypertension Comments:Father. Paternal Gr andmother. mother Status:Active Ovarian dx Comments:Mother. would have turned into cancer not there yet Status:Active Thyroid problems Comments:Mother. Sister. Status:Active Unknown Family Member Name Dates Details Breast Cancer Comments:Mother. Maternal Au nt. in her 60s - was very early Status:Active Hypertension Comments:Father. Paternal Gr andmother. mother Status:Active Ovarian dx Comments:Mother. would have turned into cancer not there yet Status:Active Thyroid problems Comments:Mother. Sister. Status:Active Unknown Family Member Name Dates Details Breast Cancer Comments:Mother. Maternal Au nt. in her 60s - was very early Status:Active Hypertension Comments:Father. Paternal Gr andmother. mother Status:Active Ovarian dx Comments:Mother. would have turned into cancer not there yet Status:Active Thyroid problems Comments:Mother. Sister. Status:Active Unknown Family Member Name Dates Details Breast Cancer Comments:Mother. Maternal Au nt. in her 60s - was very early Status:Active Hypertension Comments:Father. Paternal Gr andmother. mother Status:Active Ovarian dx Comments:Mother. would have turned into cancer not there yet Status:Active Thyroid problems Comments:Mother. Sister. Status:Active Instructions Name Dates Details How to access health informa tion online Indication:Fever Start:11-Nov-2018 Instruction Type:Patient Education How to access health informa tion online - Detail Indication:Fever Start:11-Nov-2018 Instruction Type:Patient Education Patient Instructions Indication:Fever Start:11-Nov-2018 Instruction Type:Provider Instructions for Treatment How to access health informa tion online Indication:Hyperlipidemia, acquired Start:16-Jun-2018 Instruction Type:Patient Education How to access health informa tion online - Detail Indication:Hyperlipidemia, acquired Start:16-Jun-2018 Instruction Type:Patient Education Patient Instructions Indication:Hyperlipidemia, acquired Start:16-Jun-2018 Instruction Type:Provider Instructions for Treatment How to access health informa tion online Indication:[facility] Start:25-Feb-2018 Instruction Type:Patient Education How to access health informa tion online - Detail Indication:[facility] Start:25-Feb-2018 Instruction Type:Patient Education Patient Instructions Indication:[facility] Start:25-Feb-2018 Instruction Type:Provider Instructions for Treatment How to access health informa tion online Indication:External otitis of right ear Start:27-Oct-2017 Instruction Type:Patient Education How to access health informa tion online - Detail Indication:External otitis of right ear Start:27-Oct-2017 Instruction Type:Patient Education Patient Instructions Indication:External otitis of right ear Start:27-Oct-2017 Instruction Type:Provider Instructions for Treatment How to access health informa tion online Indication:Non-smoker Start:06-Oct-2017 Instruction Type:Patient Education How to access health informa tion online - Detail Indication:Non-smoker Start:06-Oct-2017 Instruction Type:Patient Education Patient Instructions Indication:Non-smoker Start:06-Oct-2017 Instruction Type:Provider Instructions for Treatment How to access health informa tion online Indication:Hypertension, benign Start:26-Feb-2017 Instruction Type:Patient Education How to access health informa tion online - Detail Indication:Hypertension, benign Start:26-Feb-2017 Instruction Type:Patient Education Patient Instructions Indication:Hypertension, benign Start:26-Feb-2017 Instruction Type:Provider Instructions for Treatment Patient Instructions Indication:Cellulitis Start:23-Aug-2014 Instruction Type:Provider Instructions for Treatment How to access health informa tion online Indication:Hypertension, benign Start:02-Mar-2014 Instruction Type:Patient Education How to access health informa tion online - Detail Indication:Hypertension, benign Start:02-Mar-2014 Instruction Type:Patient Education Patient Instructions Indication:Hypertension, benign Start:02-Mar-2014 Instruction Type:Provider Instructions for Treatment Patient Instructions Indication:Hypertension, benign Start:24-Jan-2014 Instruction Type:Provider Instructions for Treatment Patient Instructions Indication:Hypertension, benign Start:03-Jan-2014 Instruction Type:Provider Instructions for Treatment Patient Instructions Indication:Hypertension, benign Start:24-Aug-2013 Instruction Type:Provider Instructions for Treatment Patient Instructions Indication:Hypertension, benign Start:09-Jun-2013 Instruction Type:Provider Instructions for Treatment Patient Instructions Indication:Hypertension, benign Start:19-May-2013 Instruction Type:Provider Instructions for Treatment Patient Instructions Indication:Hypertension, benign Start:07-Jan-2013 Instruction Type:Provider Instructions for Treatment Patient Instructions Indication:Hypertension, benign Start:07-Aug-2012 Instruction Type:Provider Instructions for Treatment obesity counseling Indication:Weight Gain Start:15-Jul-2012 Instruction Type:Provider Instructions for Treatment Patient Instructions Indication:Hypertension, benign Start:15-Jul-2012 Instruction Type:Provider Instructions for Treatment Name Dates Details How to access health informa tion online Indication:BMI 29.0-29.9,adult Start:02-Dec-2018 Instruction Type:Patient Education How to access health informa tion online - Detail Indication:BMI 29.0-29.9,adult Start:02-Dec-2018 Instruction Type:Patient Education Patient Instructions Indication:BMI 29.0-29.9,adult Start:02-Dec-2018 Instruction Type:Provider Instructions for Treatment How to access health informa tion online Indication:Fever Start:11-Nov-2018 Instruction Type:Patient Education How to access health informa tion online - Detail Indication:Fever Start:11-Nov-2018 Instruction Type:Patient Education Patient Instructions Indication:Fever Start:11-Nov-2018 Instruction Type:Provider Instructions for Treatment How to access health informa tion online Indication:Hyperlipidemia, acquired Start:16-Jun-2018 Instruction Type:Patient Education How to access health informa tion online - Detail Indication:Hyperlipidemia, acquired Start:16-Jun-2018 Instruction Type:Patient Education Patient Instructions Indication:Hyperlipidemia, acquired Start:16-Jun-2018 Instruction Type:Provider Instructions for Treatment How to access health informa tion online Indication:[facility] Start:25-Feb-2018 Instruction Type:Patient Education How to access health informa tion online - Detail Indication:[facility] Start:25-Feb-2018 Instruction Type:Patient Education Patient Instructions Indication:[facility] Start:25-Feb-2018 Instruction Type:Provider Instructions for Treatment How to access health informa tion online Indication:External otitis of right ear Start:27-Oct-2017 Instruction Type:Patient Education How to access health informa tion online - Detail Indication:External otitis of right ear Start:27-Oct-2017 Instruction Type:Patient Education Patient Instructions Indication:External otitis of right ear Start:27-Oct-2017 Instruction Type:Provider Instructions for Treatment How to access health informa tion online Indication:Non-smoker Start:06-Oct-2017 Instruction Type:Patient Education How to access health informa tion online - Detail Indication:Non-smoker Start:06-Oct-2017 Instruction Type:Patient Education Patient Instructions Indication:Non-smoker Start:06-Oct-2017 Instruction Type:Provider Instructions for Treatment How to access health informa tion online Indication:Hypertension, benign Start:26-Feb-2017 Instruction Type:Patient Education How to access health informa tion online - Detail Indication:Hypertension, benign Start:26-Feb-2017 Instruction Type:Patient Education Patient Instructions Indication:Hypertension, benign Start:26-Feb-2017 Instruction Type:Provider Instructions for Treatment Patient Instructions Indication:Cellulitis Start:23-Aug-2014 Instruction Type:Provider Instructions for Treatment How to access health informa tion online Indication:Hypertension, benign Start:02-Mar-2014 Instruction Type:Patient Education How to access health informa tion online - Detail Indication:Hypertension, benign Start:02-Mar-2014 Instruction Type:Patient Education Patient Instructions Indication:Hypertension, benign Start:02-Mar-2014 Instruction Type:Provider Instructions for Treatment Patient Instructions Indication:Hypertension, benign Start:24-Jan-2014 Instruction Type:Provider Instructions for Treatment Patient Instructions Indication:Hypertension, benign Start:03-Jan-2014 Instruction Type:Provider Instructions for Treatment Patient Instructions Indication:Hypertension, benign Start:24-Aug-2013 Instruction Type:Provider Instructions for Treatment Patient Instructions Indication:Hypertension, benign Start:09-Jun-2013 Instruction Type:Provider Instructions for Treatment Patient Instructions Indication:Hypertension, benign Start:19-May-2013 Instruction Type:Provider Instructions for Treatment Patient Instructions Indication:Hypertension, benign Start:07-Jan-2013 Instruction Type:Provider Instructions for Treatment Patient Instructions Indication:Hypertension, benign Start:07-Aug-2012 Instruction Type:Provider Instructions for Treatment obesity counseling Indication:Weight Gain Start:15-Jul-2012 Instruction Type:Provider Instructions for Treatment Patient Instructions Indication:Hypertension, benign Start:15-Jul-2012 Instruction Type:Provider Instructions for Treatment Name Dates Details How to access health informa tion online Indication:BMI 29.0-29.9,adult Start:02-Dec-2018 Instruction Type:Patient Education How to access health informa tion online - Detail Indication:BMI 29.0-29.9,adult Start:02-Dec-2018 Instruction Type:Patient Education Patient Instructions Indication:BMI 29.0-29.9,adult Start:02-Dec-2018 Instruction Type:Provider Instructions for Treatment How to access health informa tion online Indication:Fever Start:11-Nov-2018 Instruction Type:Patient Education How to access health informa tion online - Detail Indication:Fever Start:11-Nov-2018 Instruction Type:Patient Education Patient Instructions Indication:Fever Start:11-Nov-2018 Instruction Type:Provider Instructions for Treatment How to access health informa tion online Indication:Hyperlipidemia, acquired Start:16-Jun-2018 Instruction Type:Patient Education How to access health informa tion online - Detail Indication:Hyperlipidemia, acquired Start:16-Jun-2018 Instruction Type:Patient Education Patient Instructions Indication:Hyperlipidemia, acquired Start:16-Jun-2018 Instruction Type:Provider Instructions for Treatment How to access health informa tion online Indication:[facility] Start:25-Feb-2018 Instruction Type:Patient Education How to access health informa tion online - Detail Indication:[facility] Start:25-Feb-2018 Instruction Type:Patient Education Patient Instructions Indication:[facility] Start:25-Feb-2018 Instruction Type:Provider Instructions for Treatment How to access health informa tion online Indication:External otitis of right ear Start:27-Oct-2017 Instruction Type:Patient Education How to access health informa tion online - Detail Indication:External otitis of right ear Start:27-Oct-2017 Instruction Type:Patient Education Patient Instructions Indication:External otitis of right ear Start:27-Oct-2017 Instruction Type:Provider Instructions for Treatment How to access health informa tion online Indication:Non-smoker Start:06-Oct-2017 Instruction Type:Patient Education How to access health informa tion online - Detail Indication:Non-smoker Start:06-Oct-2017 Instruction Type:Patient Education Patient Instructions Indication:Non-smoker Start:06-Oct-2017 Instruction Type:Provider Instructions for Treatment How to access health informa tion online Indication:Hypertension, benign Start:26-Feb-2017 Instruction Type:Patient Education How to access health informa tion online - Detail Indication:Hypertension, benign Start:26-Feb-2017 Instruction Type:Patient Education Patient Instructions Indication:Hypertension, benign Start:26-Feb-2017 Instruction Type:Provider Instructions for Treatment Patient Instructions Indication:Cellulitis Start:23-Aug-2014 Instruction Type:Provider Instructions for Treatment How to access health informa tion online Indication:Hypertension, benign Start:02-Mar-2014 Instruction Type:Patient Education How to access health informa tion online - Detail Indication:Hypertension, benign Start:02-Mar-2014 Instruction Type:Patient Education Patient Instructions Indication:Hypertension, benign Start:02-Mar-2014 Instruction Type:Provider Instructions for Treatment Patient Instructions Indication:Hypertension, benign Start:24-Jan-2014 Instruction Type:Provider Instructions for Treatment Patient Instructions Indication:Hypertension, benign Start:03-Jan-2014 Instruction Type:Provider Instructions for Treatment Patient Instructions Indication:Hypertension, benign Start:24-Aug-2013 Instruction Type:Provider Instructions for Treatment Patient Instructions Indication:Hypertension, benign Start:09-Jun-2013 Instruction Type:Provider Instructions for Treatment Patient Instructions Indication:Hypertension, benign Start:19-May-2013 Instruction Type:Provider Instructions for Treatment Patient Instructions Indication:Hypertension, benign Start:07-Jan-2013 Instruction Type:Provider Instructions for Treatment Patient Instructions Indication:Hypertension, benign Start:07-Aug-2012 Instruction Type:Provider Instructions for Treatment obesity counseling Indication:Weight Gain Start:15-Jul-2012 Instruction Type:Provider Instructions for Treatment Patient Instructions Indication:Hypertension, benign Start:15-Jul-2012 Instruction Type:Provider Instructions for Treatment Name Dates Details How to access health informa tion online Indication:BMI 29.0-29.9,adult Start:02-Dec-2018 Instruction Type:Patient Education How to access health informa tion online - Detail Indication:BMI 29.0-29.9,adult Start:02-Dec-2018 Instruction Type:Patient Education Patient Instructions Indication:BMI 29.0-29.9,adult Start:02-Dec-2018 Instruction Type:Provider Instructions for Treatment How to access health informa tion online Indication:Fever Start:11-Nov-2018 Instruction Type:Patient Education How to access health informa tion online - Detail Indication:Fever Start:11-Nov-2018 Instruction Type:Patient Education Patient Instructions Indication:Fever Start:11-Nov-2018 Instruction Type:Provider Instructions for Treatment How to access health informa tion online Indication:Hyperlipidemia, acquired Start:16-Jun-2018 Instruction Type:Patient Education How to access health informa tion online - Detail Indication:Hyperlipidemia, acquired Start:16-Jun-2018 Instruction Type:Patient Education Patient Instructions Indication:Hyperlipidemia, acquired Start:16-Jun-2018 Instruction Type:Provider Instructions for Treatment How to access health informa tion online Indication:[facility] Start:25-Feb-2018 Instruction Type:Patient Education How to access health informa tion online - Detail Indication:[facility] Start:25-Feb-2018 Instruction Type:Patient Education Patient Instructions Indication:[facility] Start:25-Feb-2018 Instruction Type:Provider Instructions for Treatment How to access health informa tion online Indication:External otitis of right ear Start:27-Oct-2017 Instruction Type:Patient Education How to access health informa tion online - Detail Indication:External otitis of right ear Start:27-Oct-2017 Instruction Type:Patient Education Patient Instructions Indication:External otitis of right ear Start:27-Oct-2017 Instruction Type:Provider Instructions for Treatment How to access health informa tion online Indication:Non-smoker Start:06-Oct-2017 Instruction Type:Patient Education How to access health informa tion online - Detail Indication:Non-smoker Start:06-Oct-2017 Instruction Type:Patient Education Patient Instructions Indication:Non-smoker Start:06-Oct-2017 Instruction Type:Provider Instructions for Treatment How to access health informa tion online Indication:Hypertension, benign Start:26-Feb-2017 Instruction Type:Patient Education How to access health informa tion online - Detail Indication:Hypertension, benign Start:26-Feb-2017 Instruction Type:Patient Education Patient Instructions Indication:Hypertension, benign Start:26-Feb-2017 Instruction Type:Provider Instructions for Treatment Patient Instructions Indication:Cellulitis Start:23-Aug-2014 Instruction Type:Provider Instructions for Treatment How to access health informa tion online Indication:Hypertension, benign Start:02-Mar-2014 Instruction Type:Patient Education How to access health informa tion online - Detail Indication:Hypertension, benign Start:02-Mar-2014 Instruction Type:Patient Education Patient Instructions Indication:Hypertension, benign Start:02-Mar-2014 Instruction Type:Provider Instructions for Treatment Patient Instructions Indication:Hypertension, benign Start:24-Jan-2014 Instruction Type:Provider Instructions for Treatment Patient Instructions Indication:Hypertension, benign Start:03-Jan-2014 Instruction Type:Provider Instructions for Treatment Patient Instructions Indication:Hypertension, benign Start:24-Aug-2013 Instruction Type:Provider Instructions for Treatment Patient Instructions Indication:Hypertension, benign Start:09-Jun-2013 Instruction Type:Provider Instructions for Treatment Patient Instructions Indication:Hypertension, benign Start:19-May-2013 Instruction Type:Provider Instructions for Treatment Patient Instructions Indication:Hypertension, benign Start:07-Jan-2013 Instruction Type:Provider Instructions for Treatment Patient Instructions Indication:Hypertension, benign Start:07-Aug-2012 Instruction Type:Provider Instructions for Treatment obesity counseling Indication:Weight Gain Start:15-Jul-2012 Instruction Type:Provider Instructions for Treatment Patient Instructions Indication:Hypertension, benign Start:15-Jul-2012 Instruction Type:Provider Instructions for Treatment Name Dates Details How to access health informa tion online Indication:[facility] Start:26-May-2019 Instruction Type:Patient Education How to access health informa tion online - Detail Indication:[facility] Start:26-May-2019 Instruction Type:Patient Education Patient Instructions Indication:[facility] Start:26-May-2019 Instruction Type:Provider Instructions for Treatment How to access health informa tion online Indication:BMI 29.0-29.9,adult Start:02-Dec-2018 Instruction Type:Patient Education How to access health informa tion online - Detail Indication:BMI 29.0-29.9,adult Start:02-Dec-2018 Instruction Type:Patient Education Patient Instructions Indication:BMI 29.0-29.9,adult Start:02-Dec-2018 Instruction Type:Provider Instructions for Treatment How to access health informa tion online Indication:Fever Start:11-Nov-2018 Instruction Type:Patient Education How to access health informa tion online - Detail Indication:Fever Start:11-Nov-2018 Instruction Type:Patient Education Patient Instructions Indication:Fever Start:11-Nov-2018 Instruction Type:Provider Instructions for Treatment How to access health informa tion online Indication:Hyperlipidemia, acquired Start:16-Jun-2018 Instruction Type:Patient Education How to access health informa tion online - Detail Indication:Hyperlipidemia, acquired Start:16-Jun-2018 Instruction Type:Patient Education Patient Instructions Indication:Hyperlipidemia, acquired Start:16-Jun-2018 Instruction Type:Provider Instructions for Treatment How to access health informa tion online Indication:[facility] Start:25-Feb-2018 Instruction Type:Patient Education How to access health informa tion online - Detail Indication:[facility] Start:25-Feb-2018 Instruction Type:Patient Education Patient Instructions Indication:[facility] Start:25-Feb-2018 Instruction Type:Provider Instructions for Treatment How to access health informa tion online Indication:External otitis of right ear Start:27-Oct-2017 Instruction Type:Patient Education How to access health informa tion online - Detail Indication:External otitis of right ear Start:27-Oct-2017 Instruction Type:Patient Education Patient Instructions Indication:External otitis of right ear Start:27-Oct-2017 Instruction Type:Provider Instructions for Treatment How to access health informa tion online Indication:Non-smoker Start:06-Oct-2017 Instruction Type:Patient Education How to access health informa tion online - Detail Indication:Non-smoker Start:06-Oct-2017 Instruction Type:Patient Education Patient Instructions Indication:Non-smoker Start:06-Oct-2017 Instruction Type:Provider Instructions for Treatment How to access health informa tion online Indication:Hypertension, benign Start:26-Feb-2017 Instruction Type:Patient Education How to access health informa tion online - Detail Indication:Hypertension, benign Start:26-Feb-2017 Instruction Type:Patient Education Patient Instructions Indication:Hypertension, benign Start:26-Feb-2017 Instruction Type:Provider Instructions for Treatment Patient Instructions Indication:Cellulitis Start:23-Aug-2014 Instruction Type:Provider Instructions for Treatment How to access health informa tion online Indication:Hypertension, benign Start:02-Mar-2014 Instruction Type:Patient Education How to access health informa tion online - Detail Indication:Hypertension, benign Start:02-Mar-2014 Instruction Type:Patient Education Patient Instructions Indication:Hypertension, benign Start:02-Mar-2014 Instruction Type:Provider Instructions for Treatment Patient Instructions Indication:Hypertension, benign Start:24-Jan-2014 Instruction Type:Provider Instructions for Treatment Patient Instructions Indication:Hypertension, benign Start:03-Jan-2014 Instruction Type:Provider Instructions for Treatment Patient Instructions Indication:Hypertension, benign Start:24-Aug-2013 Instruction Type:Provider Instructions for Treatment Patient Instructions Indication:Hypertension, benign Start:09-Jun-2013 Instruction Type:Provider Instructions for Treatment Patient Instructions Indication:Hypertension, benign Start:19-May-2013 Instruction Type:Provider Instructions for Treatment Patient Instructions Indication:Hypertension, benign Start:07-Jan-2013 Instruction Type:Provider Instructions for Treatment Patient Instructions Indication:Hypertension, benign Start:07-Aug-2012 Instruction Type:Provider Instructions for Treatment obesity counseling Indication:Weight Gain Start:15-Jul-2012 Instruction Type:Provider Instructions for Treatment Patient Instructions Indication:Hypertension, benign Start:15-Jul-2012 Instruction Type:Provider Instructions for Treatment Name Dates Details How to access health informa tion online Indication:[facility] Start:26-May-2019 Instruction Type:Patient Education How to access health informa tion online - Detail Indication:[facility] Start:26-May-2019 Instruction Type:Patient Education Patient Instructions Indication:[facility] Start:26-May-2019 Instruction Type:Provider Instructions for Treatment How to access health informa tion online Indication:BMI 29.0-29.9,adult Start:02-Dec-2018 Instruction Type:Patient Education How to access health informa tion online - Detail Indication:BMI 29.0-29.9,adult Start:02-Dec-2018 Instruction Type:Patient Education Patient Instructions Indication:BMI 29.0-29.9,adult Start:02-Dec-2018 Instruction Type:Provider Instructions for Treatment How to access health informa tion online Indication:Fever Start:11-Nov-2018 Instruction Type:Patient Education How to access health informa tion online - Detail Indication:Fever Start:11-Nov-2018 Instruction Type:Patient Education Patient Instructions Indication:Fever Start:11-Nov-2018 Instruction Type:Provider Instructions for Treatment How to access health informa tion online Indication:Hyperlipidemia, acquired Start:16-Jun-2018 Instruction Type:Patient Education How to access health informa tion online - Detail Indication:Hyperlipidemia, acquired Start:16-Jun-2018 Instruction Type:Patient Education Patient Instructions Indication:Hyperlipidemia, acquired Start:16-Jun-2018 Instruction Type:Provider Instructions for Treatment How to access health informa tion online Indication:[facility] Start:25-Feb-2018 Instruction Type:Patient Education How to access health informa tion online - Detail Indication:[facility] Start:25-Feb-2018 Instruction Type:Patient Education Patient Instructions Indication:[facility] Start:25-Feb-2018 Instruction Type:Provider Instructions for Treatment How to access health informa tion online Indication:External otitis of right ear Start:27-Oct-2017 Instruction Type:Patient Education How to access health informa tion online - Detail Indication:External otitis of right ear Start:27-Oct-2017 Instruction Type:Patient Education Patient Instructions Indication:External otitis of right ear Start:27-Oct-2017 Instruction Type:Provider Instructions for Treatment How to access health informa tion online Indication:Non-smoker Start:06-Oct-2017 Instruction Type:Patient Education How to access health informa tion online - Detail Indication:Non-smoker Start:06-Oct-2017 Instruction Type:Patient Education Patient Instructions Indication:Non-smoker Start:06-Oct-2017 Instruction Type:Provider Instructions for Treatment How to access health informa tion online Indication:Hypertension, benign Start:26-Feb-2017 Instruction Type:Patient Education How to access health informa tion online - Detail Indication:Hypertension, benign Start:26-Feb-2017 Instruction Type:Patient Education Patient Instructions Indication:Hypertension, benign Start:26-Feb-2017 Instruction Type:Provider Instructions for Treatment Patient Instructions Indication:Cellulitis Start:23-Aug-2014 Instruction Type:Provider Instructions for Treatment How to access health informa tion online Indication:Hypertension, benign Start:02-Mar-2014 Instruction Type:Patient Education How to access health informa tion online - Detail Indication:Hypertension, benign Start:02-Mar-2014 Instruction Type:Patient Education Patient Instructions Indication:Hypertension, benign Start:02-Mar-2014 Instruction Type:Provider Instructions for Treatment Patient Instructions Indication:Hypertension, benign Start:24-Jan-2014 Instruction Type:Provider Instructions for Treatment Patient Instructions Indication:Hypertension, benign Start:03-Jan-2014 Instruction Type:Provider Instructions for Treatment Patient Instructions Indication:Hypertension, benign Start:24-Aug-2013 Instruction Type:Provider Instructions for Treatment Patient Instructions Indication:Hypertension, benign Start:09-Jun-2013 Instruction Type:Provider Instructions for Treatment Patient Instructions Indication:Hypertension, benign Start:19-May-2013 Instruction Type:Provider Instructions for Treatment Patient Instructions Indication:Hypertension, benign Start:07-Jan-2013 Instruction Type:Provider Instructions for Treatment Patient Instructions Indication:Hypertension, benign Start:07-Aug-2012 Instruction Type:Provider Instructions for Treatment obesity counseling Indication:Weight Gain Start:15-Jul-2012 Instruction Type:Provider Instructions for Treatment Patient Instructions Indication:Hypertension, benign Start:15-Jul-2012 Instruction Type:Provider Instructions for Treatment Name Dates Details How to access health informa tion online Indication:Hypertension, benign Start:01-Feb-2020 Instruction Type:Patient Education How to access health informa tion online - Detail Indication:Hypertension, benign Start:01-Feb-2020 Instruction Type:Patient Education Patient Instructions Indication:Hypertension, benign Start:01-Feb-2020 Instruction Type:Provider Instructions for Treatment How to access health informa tion online Indication:Dysuria Start:16-Nov-2019 Instruction Type:Patient Education How to access health informa tion online - Detail Indication:Dysuria Start:16-Nov-2019 Instruction Type:Patient Education Patient Instructions Indication:Dysuria Start:16-Nov-2019 Instruction Type:Provider Instructions for Treatment How to access health informa tion online Indication:[facility] Start:26-May-2019 Instruction Type:Patient Education How to access health informa tion online - Detail Indication:[facility] Start:26-May-2019 Instruction Type:Patient Education Patient Instructions Indication:[facility] Start:26-May-2019 Instruction Type:Provider Instructions for Treatment How to access health informa tion online Indication:BMI 29.0-29.9,adult Start:02-Dec-2018 Instruction Type:Patient Education How to access health informa tion online - Detail Indication:BMI 29.0-29.9,adult Start:02-Dec-2018 Instruction Type:Patient Education Patient Instructions Indication:BMI 29.0-29.9,adult Start:02-Dec-2018 Instruction Type:Provider Instructions for Treatment How to access health informa tion online Indication:Fever Start:11-Nov-2018 Instruction Type:Patient Education How to access health informa tion online - Detail Indication:Fever Start:11-Nov-2018 Instruction Type:Patient Education Patient Instructions Indication:Fever Start:11-Nov-2018 Instruction Type:Provider Instructions for Treatment How to access health informa tion online Indication:Hyperlipidemia, acquired Start:16-Jun-2018 Instruction Type:Patient Education How to access health informa tion online - Detail Indication:Hyperlipidemia, acquired Start:16-Jun-2018 Instruction Type:Patient Education Patient Instructions Indication:Hyperlipidemia, acquired Start:16-Jun-2018 Instruction Type:Provider Instructions for Treatment How to access health informa tion online Indication:[facility] Start:25-Feb-2018 Instruction Type:Patient Education How to access health informa tion online - Detail Indication:[facility] Start:25-Feb-2018 Instruction Type:Patient Education Patient Instructions Indication:[facility] Start:25-Feb-2018 Instruction Type:Provider Instructions for Treatment How to access health informa tion online Indication:External otitis of right ear Start:27-Oct-2017 Instruction Type:Patient Education How to access health informa tion online - Detail Indication:External otitis of right ear Start:27-Oct-2017 Instruction Type:Patient Education Patient Instructions Indication:External otitis of right ear Start:27-Oct-2017 Instruction Type:Provider Instructions for Treatment How to access health informa tion online Indication:Non-smoker Start:06-Oct-2017 Instruction Type:Patient Education How to access health informa tion online - Detail Indication:Non-smoker Start:06-Oct-2017 Instruction Type:Patient Education Patient Instructions Indication:Non-smoker Start:06-Oct-2017 Instruction Type:Provider Instructions for Treatment How to access health informa tion online Indication:Hypertension, benign Start:26-Feb-2017 Instruction Type:Patient Education How to access health informa tion online - Detail Indication:Hypertension, benign Start:26-Feb-2017 Instruction Type:Patient Education Patient Instructions Indication:Hypertension, benign Start:26-Feb-2017 Instruction Type:Provider Instructions for Treatment Patient Instructions Indication:Cellulitis Start:23-Aug-2014 Instruction Type:Provider Instructions for Treatment How to access health informa tion online Indication:Hypertension, benign Start:02-Mar-2014 Instruction Type:Patient Education How to access health informa tion online - Detail Indication:Hypertension, benign Start:02-Mar-2014 Instruction Type:Patient Education Patient Instructions Indication:Hypertension, benign Start:02-Mar-2014 Instruction Type:Provider Instructions for Treatment Patient Instructions Indication:Hypertension, benign Start:24-Jan-2014 Instruction Type:Provider Instructions for Treatment Patient Instructions Indication:Hypertension, benign Start:03-Jan-2014 Instruction Type:Provider Instructions for Treatment Patient Instructions Indication:Hypertension, benign Start:24-Aug-2013 Instruction Type:Provider Instructions for Treatment Patient Instructions Indication:Hypertension, benign Start:09-Jun-2013 Instruction Type:Provider Instructions for Treatment Patient Instructions Indication:Hypertension, benign Start:19-May-2013 Instruction Type:Provider Instructions for Treatment Patient Instructions Indication:Hypertension, benign Start:07-Jan-2013 Instruction Type:Provider Instructions for Treatment Patient Instructions Indication:Hypertension, benign Start:07-Aug-2012 Instruction Type:Provider Instructions for Treatment obesity counseling Indication:Weight Gain Start:15-Jul-2012 Instruction Type:Provider Instructions for Treatment Patient Instructions Indication:Hypertension, benign Start:15-Jul-2012 Instruction Type:Provider Instructions for Treatment Name Dates Details How to access health informa tion online Indication:Hypertension, benign Start:01-Feb-2020 Instruction Type:Patient Education How to access health informa tion online - Detail Indication:Hypertension, benign Start:01-Feb-2020 Instruction Type:Patient Education Patient Instructions Indication:Hypertension, benign Start:01-Feb-2020 Instruction Type:Provider Instructions for Treatment How to access health informa tion online Indication:Dysuria Start:16-Nov-2019 Instruction Type:Patient Education How to access health informa tion online - Detail Indication:Dysuria Start:16-Nov-2019 Instruction Type:Patient Education Patient Instructions Indication:Dysuria Start:16-Nov-2019 Instruction Type:Provider Instructions for Treatment How to access health informa tion online Indication:[facility] Start:26-May-2019 Instruction Type:Patient Education How to access health informa tion online - Detail Indication:[facility] Start:26-May-2019 Instruction Type:Patient Education Patient Instructions Indication:[facility] Start:26-May-2019 Instruction Type:Provider Instructions for Treatment How to access health informa tion online Indication:BMI 29.0-29.9,adult Start:02-Dec-2018 Instruction Type:Patient Education How to access health informa tion online - Detail Indication:BMI 29.0-29.9,adult Start:02-Dec-2018 Instruction Type:Patient Education Patient Instructions Indication:BMI 29.0-29.9,adult Start:02-Dec-2018 Instruction Type:Provider Instructions for Treatment How to access health informa tion online Indication:Fever Start:11-Nov-2018 Instruction Type:Patient Education How to access health informa tion online - Detail Indication:Fever Start:11-Nov-2018 Instruction Type:Patient Education Patient Instructions Indication:Fever Start:11-Nov-2018 Instruction Type:Provider Instructions for Treatment How to access health informa tion online Indication:Hyperlipidemia, acquired Start:16-Jun-2018 Instruction Type:Patient Education How to access health informa tion online - Detail Indication:Hyperlipidemia, acquired Start:16-Jun-2018 Instruction Type:Patient Education Patient Instructions Indication:Hyperlipidemia, acquired Start:16-Jun-2018 Instruction Type:Provider Instructions for Treatment How to access health informa tion online Indication:[facility] Start:25-Feb-2018 Instruction Type:Patient Education How to access health informa tion online - Detail Indication:[facility] Start:25-Feb-2018 Instruction Type:Patient Education Patient Instructions Indication:[facility] Start:25-Feb-2018 Instruction Type:Provider Instructions for Treatment How to access health informa tion online Indication:External otitis of right ear Start:27-Oct-2017 Instruction Type:Patient Education How to access health informa tion online - Detail Indication:External otitis of right ear Start:27-Oct-2017 Instruction Type:Patient Education Patient Instructions Indication:External otitis of right ear Start:27-Oct-2017 Instruction Type:Provider Instructions for Treatment How to access health informa tion online Indication:Non-smoker Start:06-Oct-2017 Instruction Type:Patient Education How to access health informa tion online - Detail Indication:Non-smoker Start:06-Oct-2017 Instruction Type:Patient Education Patient Instructions Indication:Non-smoker Start:06-Oct-2017 Instruction Type:Provider Instructions for Treatment How to access health informa tion online Indication:Hypertension, benign Start:26-Feb-2017 Instruction Type:Patient Education How to access health informa tion online - Detail Indication:Hypertension, benign Start:26-Feb-2017 Instruction Type:Patient Education Patient Instructions Indication:Hypertension, benign Start:26-Feb-2017 Instruction Type:Provider Instructions for Treatment Patient Instructions Indication:Cellulitis Start:23-Aug-2014 Instruction Type:Provider Instructions for Treatment How to access health informa tion online Indication:Hypertension, benign Start:02-Mar-2014 Instruction Type:Patient Education How to access health informa tion online - Detail Indication:Hypertension, benign Start:02-Mar-2014 Instruction Type:Patient Education Patient Instructions Indication:Hypertension, benign Start:02-Mar-2014 Instruction Type:Provider Instructions for Treatment Patient Instructions Indication:Hypertension, benign Start:24-Jan-2014 Instruction Type:Provider Instructions for Treatment Patient Instructions Indication:Hypertension, benign Start:03-Jan-2014 Instruction Type:Provider Instructions for Treatment Patient Instructions Indication:Hypertension, benign Start:24-Aug-2013 Instruction Type:Provider Instructions for Treatment Patient Instructions Indication:Hypertension, benign Start:09-Jun-2013 Instruction Type:Provider Instructions for Treatment Patient Instructions Indication:Hypertension, benign Start:19-May-2013 Instruction Type:Provider Instructions for Treatment Patient Instructions Indication:Hypertension, benign Start:07-Jan-2013 Instruction Type:Provider Instructions for Treatment Patient Instructions Indication:Hypertension, benign Start:07-Aug-2012 Instruction Type:Provider Instructions for Treatment obesity counseling Indication:Weight Gain Start:15-Jul-2012 Instruction Type:Provider Instructions for Treatment Patient Instructions Indication:Hypertension, benign Start:15-Jul-2012 Instruction Type:Provider Instructions for Treatment Name Dates Details How to access health informa tion online Indication:Hypertension, benign Start:01-Feb-2020 Instruction Type:Patient Education How to access health informa tion online - Detail Indication:Hypertension, benign Start:01-Feb-2020 Instruction Type:Patient Education Patient Instructions Indication:Hypertension, benign Start:01-Feb-2020 Instruction Type:Provider Instructions for Treatment How to access health informa tion online Indication:Dysuria Start:16-Nov-2019 Instruction Type:Patient Education How to access health informa tion online - Detail Indication:Dysuria Start:16-Nov-2019 Instruction Type:Patient Education Patient Instructions Indication:Dysuria Start:16-Nov-2019 Instruction Type:Provider Instructions for Treatment How to access health informa tion online Indication:[facility] Start:26-May-2019 Instruction Type:Patient Education How to access health informa tion online - Detail Indication:[facility] Start:26-May-2019 Instruction Type:Patient Education Patient Instructions Indication:[facility] Start:26-May-2019 Instruction Type:Provider Instructions for Treatment How to access health informa tion online Indication:BMI 29.0-29.9,adult Start:02-Dec-2018 Instruction Type:Patient Education How to access health informa tion online - Detail Indication:BMI 29.0-29.9,adult Start:02-Dec-2018 Instruction Type:Patient Education Patient Instructions Indication:BMI 29.0-29.9,adult Start:02-Dec-2018 Instruction Type:Provider Instructions for Treatment How to access health informa tion online Indication:Fever Start:11-Nov-2018 Instruction Type:Patient Education How to access health informa tion online - Detail Indication:Fever Start:11-Nov-2018 Instruction Type:Patient Education Patient Instructions Indication:Fever Start:11-Nov-2018 Instruction Type:Provider Instructions for Treatment How to access health informa tion online Indication:Hyperlipidemia, acquired Start:16-Jun-2018 Instruction Type:Patient Education How to access health informa tion online - Detail Indication:Hyperlipidemia, acquired Start:16-Jun-2018 Instruction Type:Patient Education Patient Instructions Indication:Hyperlipidemia, acquired Start:16-Jun-2018 Instruction Type:Provider Instructions for Treatment How to access health informa tion online Indication:[facility] Start:25-Feb-2018 Instruction Type:Patient Education How to access health informa tion online - Detail Indication:[facility] Start:25-Feb-2018 Instruction Type:Patient Education Patient Instructions Indication:[facility] Start:25-Feb-2018 Instruction Type:Provider Instructions for Treatment How to access health informa tion online Indication:External otitis of right ear Start:27-Oct-2017 Instruction Type:Patient Education How to access health informa tion online - Detail Indication:External otitis of right ear Start:27-Oct-2017 Instruction Type:Patient Education Patient Instructions Indication:External otitis of right ear Start:27-Oct-2017 Instruction Type:Provider Instructions for Treatment How to access health informa tion online Indication:Non-smoker Start:06-Oct-2017 Instruction Type:Patient Education How to access health informa tion online - Detail Indication:Non-smoker Start:06-Oct-2017 Instruction Type:Patient Education Patient Instructions Indication:Non-smoker Start:06-Oct-2017 Instruction Type:Provider Instructions for Treatment How to access health informa tion online Indication:Hypertension, benign Start:26-Feb-2017 Instruction Type:Patient Education How to access health informa tion online - Detail Indication:Hypertension, benign Start:26-Feb-2017 Instruction Type:Patient Education Patient Instructions Indication:Hypertension, benign Start:26-Feb-2017 Instruction Type:Provider Instructions for Treatment Patient Instructions Indication:Cellulitis Start:23-Aug-2014 Instruction Type:Provider Instructions for Treatment How to access health informa tion online Indication:Hypertension, benign Start:02-Mar-2014 Instruction Type:Patient Education How to access health informa tion online - Detail Indication:Hypertension, benign Start:02-Mar-2014 Instruction Type:Patient Education Patient Instructions Indication:Hypertension, benign Start:02-Mar-2014 Instruction Type:Provider Instructions for Treatment Patient Instructions Indication:Hypertension, benign Start:24-Jan-2014 Instruction Type:Provider Instructions for Treatment Patient Instructions Indication:Hypertension, benign Start:03-Jan-2014 Instruction Type:Provider Instructions for Treatment Patient Instructions Indication:Hypertension, benign Start:24-Aug-2013 Instruction Type:Provider Instructions for Treatment Patient Instructions Indication:Hypertension, benign Start:09-Jun-2013 Instruction Type:Provider Instructions for Treatment Patient Instructions Indication:Hypertension, benign Start:19-May-2013 Instruction Type:Provider Instructions for Treatment Patient Instructions Indication:Hypertension, benign Start:07-Jan-2013 Instruction Type:Provider Instructions for Treatment Patient Instructions Indication:Hypertension, benign Start:07-Aug-2012 Instruction Type:Provider Instructions for Treatment obesity counseling Indication:Weight Gain Start:15-Jul-2012 Instruction Type:Provider Instructions for Treatment Patient Instructions Indication:Hypertension, benign Start:15-Jul-2012 Instruction Type:Provider Instructions for Treatment Name Dates Details How to access health informa tion online Indication:Hypertension, benign Start:01-Feb-2020 Instruction Type:Patient Education How to access health informa tion online - Detail Indication:Hypertension, benign Start:01-Feb-2020 Instruction Type:Patient Education Patient Instructions Indication:Hypertension, benign Start:01-Feb-2020 Instruction Type:Provider Instructions for Treatment How to access health informa tion online Indication:Dysuria Start:16-Nov-2019 Instruction Type:Patient Education How to access health informa tion online - Detail Indication:Dysuria Start:16-Nov-2019 Instruction Type:Patient Education Patient Instructions Indication:Dysuria Start:16-Nov-2019 Instruction Type:Provider Instructions for Treatment How to access health informa tion online Indication:[facility] Start:26-May-2019 Instruction Type:Patient Education How to access health informa tion online - Detail Indication:[facility] Start:26-May-2019 Instruction Type:Patient Education Patient Instructions Indication:[facility] Start:26-May-2019 Instruction Type:Provider Instructions for Treatment How to access health informa tion online Indication:BMI 29.0-29.9,adult Start:02-Dec-2018 Instruction Type:Patient Education How to access health informa tion online - Detail Indication:BMI 29.0-29.9,adult Start:02-Dec-2018 Instruction Type:Patient Education Patient Instructions Indication:BMI 29.0-29.9,adult Start:02-Dec-2018 Instruction Type:Provider Instructions for Treatment How to access health informa tion online Indication:Fever Start:11-Nov-2018 Instruction Type:Patient Education How to access health informa tion online - Detail Indication:Fever Start:11-Nov-2018 Instruction Type:Patient Education Patient Instructions Indication:Fever Start:11-Nov-2018 Instruction Type:Provider Instructions for Treatment How to access health informa tion online Indication:Hyperlipidemia, acquired Start:16-Jun-2018 Instruction Type:Patient Education How to access health informa tion online - Detail Indication:Hyperlipidemia, acquired Start:16-Jun-2018 Instruction Type:Patient Education Patient Instructions Indication:Hyperlipidemia, acquired Start:16-Jun-2018 Instruction Type:Provider Instructions for Treatment How to access health informa tion online Indication:[facility] Start:25-Feb-2018 Instruction Type:Patient Education How to access health informa tion online - Detail Indication:[facility] Start:25-Feb-2018 Instruction Type:Patient Education Patient Instructions Indication:[facility] Start:25-Feb-2018 Instruction Type:Provider Instructions for Treatment How to access health informa tion online Indication:External otitis of right ear Start:27-Oct-2017 Instruction Type:Patient Education How to access health informa tion online - Detail Indication:External otitis of right ear Start:27-Oct-2017 Instruction Type:Patient Education Patient Instructions Indication:External otitis of right ear Start:27-Oct-2017 Instruction Type:Provider Instructions for Treatment How to access health informa tion online Indication:Non-smoker Start:06-Oct-2017 Instruction Type:Patient Education How to access health informa tion online - Detail Indication:Non-smoker Start:06-Oct-2017 Instruction Type:Patient Education Patient Instructions Indication:Non-smoker Start:06-Oct-2017 Instruction Type:Provider Instructions for Treatment How to access health informa tion online Indication:Hypertension, benign Start:26-Feb-2017 Instruction Type:Patient Education How to access health informa tion online - Detail Indication:Hypertension, benign Start:26-Feb-2017 Instruction Type:Patient Education Patient Instructions Indication:Hypertension, benign Start:26-Feb-2017 Instruction Type:Provider Instructions for Treatment Patient Instructions Indication:Cellulitis Start:23-Aug-2014 Instruction Type:Provider Instructions for Treatment How to access health informa tion online Indication:Hypertension, benign Start:02-Mar-2014 Instruction Type:Patient Education How to access health informa tion online - Detail Indication:Hypertension, benign Start:02-Mar-2014 Instruction Type:Patient Education Patient Instructions Indication:Hypertension, benign Start:02-Mar-2014 Instruction Type:Provider Instructions for Treatment Patient Instructions Indication:Hypertension, benign Start:24-Jan-2014 Instruction Type:Provider Instructions for Treatment Patient Instructions Indication:Hypertension, benign Start:03-Jan-2014 Instruction Type:Provider Instructions for Treatment Patient Instructions Indication:Hypertension, benign Start:24-Aug-2013 Instruction Type:Provider Instructions for Treatment Patient Instructions Indication:Hypertension, benign Start:09-Jun-2013 Instruction Type:Provider Instructions for Treatment Patient Instructions Indication:Hypertension, benign Start:19-May-2013 Instruction Type:Provider Instructions for Treatment Patient Instructions Indication:Hypertension, benign Start:07-Jan-2013 Instruction Type:Provider Instructions for Treatment Patient Instructions Indication:Hypertension, benign Start:07-Aug-2012 Instruction Type:Provider Instructions for Treatment obesity counseling Indication:Weight Gain Start:15-Jul-2012 Instruction Type:Provider Instructions for Treatment Patient Instructions Indication:Hypertension, benign Start:15-Jul-2012 Instruction Type:Provider Instructions for Treatment Name Dates Details How to access health informa tion online Indication:Fall, accidental Start:25-Apr-2020 Instruction Type:Patient Education How to access health informa tion online - Detail Indication:Fall, accidental Start:25-Apr-2020 Instruction Type:Patient Education Patient Instructions Indication:Fall, accidental Start:25-Apr-2020 Instruction Type:Provider Instructions for Treatment How to access health informa tion online Indication:Hypertension, benign Start:01-Feb-2020 Instruction Type:Patient Education How to access health informa tion online - Detail Indication:Hypertension, benign Start:01-Feb-2020 Instruction Type:Patient Education Patient Instructions Indication:Hypertension, benign Start:01-Feb-2020 Instruction Type:Provider Instructions for Treatment How to access health informa tion online Indication:Dysuria Start:16-Nov-2019 Instruction Type:Patient Education How to access health informa tion online - Detail Indication:Dysuria Start:16-Nov-2019 Instruction Type:Patient Education Patient Instructions Indication:Dysuria Start:16-Nov-2019 Instruction Type:Provider Instructions for Treatment How to access health informa tion online Indication:[facility] Start:26-May-2019 Instruction Type:Patient Education How to access health informa tion online - Detail Indication:[facility] Start:26-May-2019 Instruction Type:Patient Education Patient Instructions Indication:[facility] Start:26-May-2019 Instruction Type:Provider Instructions for Treatment How to access health informa tion online Indication:BMI 29.0-29.9,adult Start:02-Dec-2018 Instruction Type:Patient Education How to access health informa tion online - Detail Indication:BMI 29.0-29.9,adult Start:02-Dec-2018 Instruction Type:Patient Education Patient Instructions Indication:BMI 29.0-29.9,adult Start:02-Dec-2018 Instruction Type:Provider Instructions for Treatment How to access health informa tion online Indication:Fever Start:11-Nov-2018 Instruction Type:Patient Education How to access health informa tion online - Detail Indication:Fever Start:11-Nov-2018 Instruction Type:Patient Education Patient Instructions Indication:Fever Start:11-Nov-2018 Instruction Type:Provider Instructions for Treatment How to access health informa tion online Indication:Hyperlipidemia, acquired Start:16-Jun-2018 Instruction Type:Patient Education How to access health informa tion online - Detail Indication:Hyperlipidemia, acquired Start:16-Jun-2018 Instruction Type:Patient Education Patient Instructions Indication:Hyperlipidemia, acquired Start:16-Jun-2018 Instruction Type:Provider Instructions for Treatment How to access health informa tion online Indication:[facility] Start:25-Feb-2018 Instruction Type:Patient Education How to access health informa tion online - Detail Indication:[facility] Start:25-Feb-2018 Instruction Type:Patient Education Patient Instructions Indication:[facility] Start:25-Feb-2018 Instruction Type:Provider Instructions for Treatment How to access health informa tion online Indication:External otitis of right ear Start:27-Oct-2017 Instruction Type:Patient Education How to access health informa tion online - Detail Indication:External otitis of right ear Start:27-Oct-2017 Instruction Type:Patient Education Patient Instructions Indication:External otitis of right ear Start:27-Oct-2017 Instruction Type:Provider Instructions for Treatment How to access health informa tion online Indication:Non-smoker Start:06-Oct-2017 Instruction Type:Patient Education How to access health informa tion online - Detail Indication:Non-smoker Start:06-Oct-2017 Instruction Type:Patient Education Patient Instructions Indication:Non-smoker Start:06-Oct-2017 Instruction Type:Provider Instructions for Treatment How to access health informa tion online Indication:Hypertension, benign Start:26-Feb-2017 Instruction Type:Patient Education How to access health informa tion online - Detail Indication:Hypertension, benign Start:26-Feb-2017 Instruction Type:Patient Education Patient Instructions Indication:Hypertension, benign Start:26-Feb-2017 Instruction Type:Provider Instructions for Treatment Patient Instructions Indication:Cellulitis Start:23-Aug-2014 Instruction Type:Provider Instructions for Treatment How to access health informa tion online Indication:Hypertension, benign Start:02-Mar-2014 Instruction Type:Patient Education How to access health informa tion online - Detail Indication:Hypertension, benign Start:02-Mar-2014 Instruction Type:Patient Education Patient Instructions Indication:Hypertension, benign Start:02-Mar-2014 Instruction Type:Provider Instructions for Treatment Patient Instructions Indication:Hypertension, benign Start:24-Jan-2014 Instruction Type:Provider Instructions for Treatment Patient Instructions Indication:Hypertension, benign Start:03-Jan-2014 Instruction Type:Provider Instructions for Treatment Patient Instructions Indication:Hypertension, benign Start:24-Aug-2013 Instruction Type:Provider Instructions for Treatment Patient Instructions Indication:Hypertension, benign Start:09-Jun-2013 Instruction Type:Provider Instructions for Treatment Patient Instructions Indication:Hypertension, benign Start:19-May-2013 Instruction Type:Provider Instructions for Treatment Patient Instructions Indication:Hypertension, benign Start:07-Jan-2013 Instruction Type:Provider Instructions for Treatment Patient Instructions Indication:Hypertension, benign Start:07-Aug-2012 Instruction Type:Provider Instructions for Treatment obesity counseling Indication:Weight Gain Start:15-Jul-2012 Instruction Type:Provider Instructions for Treatment Patient Instructions Indication:Hypertension, benign Start:15-Jul-2012 Instruction Type:Provider Instructions for Treatment Name Dates Details How to access health informa tion online Indication:[facility] Start:26-May-2019 Instruction Type:Patient Education How to access health informa tion online - Detail Indication:[facility] Start:26-May-2019 Instruction Type:Patient Education Patient Instructions Indication:[facility] Start:26-May-2019 Instruction Type:Provider Instructions for Treatment How to access health informa tion online Indication:BMI 29.0-29.9,adult Start:02-Dec-2018 Instruction Type:Patient Education How to access health informa tion online - Detail Indication:BMI 29.0-29.9,adult Start:02-Dec-2018 Instruction Type:Patient Education Patient Instructions Indication:BMI 29.0-29.9,adult Start:02-Dec-2018 Instruction Type:Provider Instructions for Treatment How to access health informa tion online Indication:Fever Start:11-Nov-2018 Instruction Type:Patient Education How to access health informa tion online - Detail Indication:Fever Start:11-Nov-2018 Instruction Type:Patient Education Patient Instructions Indication:Fever Start:11-Nov-2018 Instruction Type:Provider Instructions for Treatment How to access health informa tion online Indication:Hyperlipidemia, acquired Start:16-Jun-2018 Instruction Type:Patient Education How to access health informa tion online - Detail Indication:Hyperlipidemia, acquired Start:16-Jun-2018 Instruction Type:Patient Education Patient Instructions Indication:Hyperlipidemia, acquired Start:16-Jun-2018 Instruction Type:Provider Instructions for Treatment How to access health informa tion online Indication:[facility] Start:25-Feb-2018 Instruction Type:Patient Education How to access health informa tion online - Detail Indication:[facility] Start:25-Feb-2018 Instruction Type:Patient Education Patient Instructions Indication:[facility] Start:25-Feb-2018 Instruction Type:Provider Instructions for Treatment How to access health informa tion online Indication:External otitis of right ear Start:27-Oct-2017 Instruction Type:Patient Education How to access health informa tion online - Detail Indication:External otitis of right ear Start:27-Oct-2017 Instruction Type:Patient Education Patient Instructions Indication:External otitis of right ear Start:27-Oct-2017 Instruction Type:Provider Instructions for Treatment How to access health informa tion online Indication:Non-smoker Start:06-Oct-2017 Instruction Type:Patient Education How to access health informa tion online - Detail Indication:Non-smoker Start:06-Oct-2017 Instruction Type:Patient Education Patient Instructions Indication:Non-smoker Start:06-Oct-2017 Instruction Type:Provider Instructions for Treatment How to access health informa tion online Indication:Hypertension, benign Start:26-Feb-2017 Instruction Type:Patient Education How to access health informa tion online - Detail Indication:Hypertension, benign Start:26-Feb-2017 Instruction Type:Patient Education Patient Instructions Indication:Hypertension, benign Start:26-Feb-2017 Instruction Type:Provider Instructions for Treatment Patient Instructions Indication:Cellulitis Start:23-Aug-2014 Instruction Type:Provider Instructions for Treatment How to access health informa tion online Indication:Hypertension, benign Start:02-Mar-2014 Instruction Type:Patient Education How to access health informa tion online - Detail Indication:Hypertension, benign Start:02-Mar-2014 Instruction Type:Patient Education Patient Instructions Indication:Hypertension, benign Start:02-Mar-2014 Instruction Type:Provider Instructions for Treatment Patient Instructions Indication:Hypertension, benign Start:24-Jan-2014 Instruction Type:Provider Instructions for Treatment Patient Instructions Indication:Hypertension, benign Start:03-Jan-2014 Instruction Type:Provider Instructions for Treatment Patient Instructions Indication:Hypertension, benign Start:24-Aug-2013 Instruction Type:Provider Instructions for Treatment Patient Instructions Indication:Hypertension, benign Start:09-Jun-2013 Instruction Type:Provider Instructions for Treatment Patient Instructions Indication:Hypertension, benign Start:19-May-2013 Instruction Type:Provider Instructions for Treatment Patient Instructions Indication:Hypertension, benign Start:07-Jan-2013 Instruction Type:Provider Instructions for Treatment Patient Instructions Indication:Hypertension, benign Start:07-Aug-2012 Instruction Type:Provider Instructions for Treatment obesity counseling Indication:Weight Gain Start:15-Jul-2012 Instruction Type:Provider Instructions for Treatment Patient Instructions Indication:Hypertension, benign Start:15-Jul-2012 Instruction Type:Provider Instructions for Treatment Name Dates Details How to access health informa tion online Indication:Hypertension, benign Start:01-Feb-2020 Instruction Type:Patient Education How to access health informa tion online - Detail Indication:Hypertension, benign Start:01-Feb-2020 Instruction Type:Patient Education Patient Instructions Indication:Hypertension, benign Start:01-Feb-2020 Instruction Type:Provider Instructions for Treatment How to access health informa tion online Indication:Dysuria Start:16-Nov-2019 Instruction Type:Patient Education How to access health informa tion online - Detail Indication:Dysuria Start:16-Nov-2019 Instruction Type:Patient Education Patient Instructions Indication:Dysuria Start:16-Nov-2019 Instruction Type:Provider Instructions for Treatment How to access health informa tion online Indication:[facility] Start:26-May-2019 Instruction Type:Patient Education How to access health informa tion online - Detail Indication:[facility] Start:26-May-2019 Instruction Type:Patient Education Patient Instructions Indication:[facility] Start:26-May-2019 Instruction Type:Provider Instructions for Treatment How to access health informa tion online Indication:BMI 29.0-29.9,adult Start:02-Dec-2018 Instruction Type:Patient Education How to access health informa tion online - Detail Indication:BMI 29.0-29.9,adult Start:02-Dec-2018 Instruction Type:Patient Education Patient Instructions Indication:BMI 29.0-29.9,adult Start:02-Dec-2018 Instruction Type:Provider Instructions for Treatment How to access health informa tion online Indication:Fever Start:11-Nov-2018 Instruction Type:Patient Education How to access health informa tion online - Detail Indication:Fever Start:11-Nov-2018 Instruction Type:Patient Education Patient Instructions Indication:Fever Start:11-Nov-2018 Instruction Type:Provider Instructions for Treatment How to access health informa tion online Indication:Hyperlipidemia, acquired Start:16-Jun-2018 Instruction Type:Patient Education How to access health informa tion online - Detail Indication:Hyperlipidemia, acquired Start:16-Jun-2018 Instruction Type:Patient Education Patient Instructions Indication:Hyperlipidemia, acquired Start:16-Jun-2018 Instruction Type:Provider Instructions for Treatment How to access health informa tion online Indication:[facility] Start:25-Feb-2018 Instruction Type:Patient Education How to access health informa tion online - Detail Indication:[facility] Start:25-Feb-2018 Instruction Type:Patient Education Patient Instructions Indication:[facility] Start:25-Feb-2018 Instruction Type:Provider Instructions for Treatment How to access health informa tion online Indication:External otitis of right ear Start:27-Oct-2017 Instruction Type:Patient Education How to access health informa tion online - Detail Indication:External otitis of right ear Start:27-Oct-2017 Instruction Type:Patient Education Patient Instructions Indication:External otitis of right ear Start:27-Oct-2017 Instruction Type:Provider Instructions for Treatment How to access health informa tion online Indication:Non-smoker Start:06-Oct-2017 Instruction Type:Patient Education How to access health informa tion online - Detail Indication:Non-smoker Start:06-Oct-2017 Instruction Type:Patient Education Patient Instructions Indication:Non-smoker Start:06-Oct-2017 Instruction Type:Provider Instructions for Treatment How to access health informa tion online Indication:Hypertension, benign Start:26-Feb-2017 Instruction Type:Patient Education How to access health informa tion online - Detail Indication:Hypertension, benign Start:26-Feb-2017 Instruction Type:Patient Education Patient Instructions Indication:Hypertension, benign Start:26-Feb-2017 Instruction Type:Provider Instructions for Treatment Patient Instructions Indication:Cellulitis Start:23-Aug-2014 Instruction Type:Provider Instructions for Treatment How to access health informa tion online Indication:Hypertension, benign Start:02-Mar-2014 Instruction Type:Patient Education How to access health informa tion online - Detail Indication:Hypertension, benign Start:02-Mar-2014 Instruction Type:Patient Education Patient Instructions Indication:Hypertension, benign Start:02-Mar-2014 Instruction Type:Provider Instructions for Treatment Patient Instructions Indication:Hypertension, benign Start:24-Jan-2014 Instruction Type:Provider Instructions for Treatment Patient Instructions Indication:Hypertension, benign Start:03-Jan-2014 Instruction Type:Provider Instructions for Treatment Patient Instructions Indication:Hypertension, benign Start:24-Aug-2013 Instruction Type:Provider Instructions for Treatment Patient Instructions Indication:Hypertension, benign Start:09-Jun-2013 Instruction Type:Provider Instructions for Treatment Patient Instructions Indication:Hypertension, benign Start:19-May-2013 Instruction Type:Provider Instructions for Treatment Patient Instructions Indication:Hypertension, benign Start:07-Jan-2013 Instruction Type:Provider Instructions for Treatment Patient Instructions Indication:Hypertension, benign Start:07-Aug-2012 Instruction Type:Provider Instructions for Treatment obesity counseling Indication:Weight Gain Start:15-Jul-2012 Instruction Type:Provider Instructions for Treatment Patient Instructions Indication:Hypertension, benign Start:15-Jul-2012 Instruction Type:Provider Instructions for Treatment Name Dates Details How to access health informa tion online Indication:Fall, accidental Start:25-Apr-2020 Instruction Type:Patient Education How to access health informa tion online - Detail Indication:Fall, accidental Start:25-Apr-2020 Instruction Type:Patient Education Patient Instructions Indication:Fall, accidental Start:25-Apr-2020 Instruction Type:Provider Instructions for Treatment How to access health informa tion online Indication:Hypertension, benign Start:01-Feb-2020 Instruction Type:Patient Education How to access health informa tion online - Detail Indication:Hypertension, benign Start:01-Feb-2020 Instruction Type:Patient Education Patient Instructions Indication:Hypertension, benign Start:01-Feb-2020 Instruction Type:Provider Instructions for Treatment How to access health informa tion online Indication:Dysuria Start:16-Nov-2019 Instruction Type:Patient Education How to access health informa tion online - Detail Indication:Dysuria Start:16-Nov-2019 Instruction Type:Patient Education Patient Instructions Indication:Dysuria Start:16-Nov-2019 Instruction Type:Provider Instructions for Treatment How to access health informa tion online Indication:[facility] Start:26-May-2019 Instruction Type:Patient Education How to access health informa tion online - Detail Indication:[facility] Start:26-May-2019 Instruction Type:Patient Education Patient Instructions Indication:[facility] Start:26-May-2019 Instruction Type:Provider Instructions for Treatment How to access health informa tion online Indication:BMI 29.0-29.9,adult Start:02-Dec-2018 Instruction Type:Patient Education How to access health informa tion online - Detail Indication:BMI 29.0-29.9,adult Start:02-Dec-2018 Instruction Type:Patient Education Patient Instructions Indication:BMI 29.0-29.9,adult Start:02-Dec-2018 Instruction Type:Provider Instructions for Treatment How to access health informa tion online Indication:Fever Start:11-Nov-2018 Instruction Type:Patient Education How to access health informa tion online - Detail Indication:Fever Start:11-Nov-2018 Instruction Type:Patient Education Patient Instructions Indication:Fever Start:11-Nov-2018 Instruction Type:Provider Instructions for Treatment How to access health informa tion online Indication:Hyperlipidemia, acquired Start:16-Jun-2018 Instruction Type:Patient Education How to access health informa tion online - Detail Indication:Hyperlipidemia, acquired Start:16-Jun-2018 Instruction Type:Patient Education Patient Instructions Indication:Hyperlipidemia, acquired Start:16-Jun-2018 Instruction Type:Provider Instructions for Treatment How to access health informa tion online Indication:[facility] Start:25-Feb-2018 Instruction Type:Patient Education How to access health informa tion online - Detail Indication:[facility] Start:25-Feb-2018 Instruction Type:Patient Education Patient Instructions Indication:[facility] Start:25-Feb-2018 Instruction Type:Provider Instructions for Treatment How to access health informa tion online Indication:External otitis of right ear Start:27-Oct-2017 Instruction Type:Patient Education How to access health informa tion online - Detail Indication:External otitis of right ear Start:27-Oct-2017 Instruction Type:Patient Education Patient Instructions Indication:External otitis of right ear Start:27-Oct-2017 Instruction Type:Provider Instructions for Treatment How to access health informa tion online Indication:Non-smoker Start:06-Oct-2017 Instruction Type:Patient Education How to access health informa tion online - Detail Indication:Non-smoker Start:06-Oct-2017 Instruction Type:Patient Education Patient Instructions Indication:Non-smoker Start:06-Oct-2017 Instruction Type:Provider Instructions for Treatment How to access health informa tion online Indication:Hypertension, benign Start:26-Feb-2017 Instruction Type:Patient Education How to access health informa tion online - Detail Indication:Hypertension, benign Start:26-Feb-2017 Instruction Type:Patient Education Patient Instructions Indication:Hypertension, benign Start:26-Feb-2017 Instruction Type:Provider Instructions for Treatment Patient Instructions Indication:Cellulitis Start:23-Aug-2014 Instruction Type:Provider Instructions for Treatment How to access health informa tion online Indication:Hypertension, benign Start:02-Mar-2014 Instruction Type:Patient Education How to access health informa tion online - Detail Indication:Hypertension, benign Start:02-Mar-2014 Instruction Type:Patient Education Patient Instructions Indication:Hypertension, benign Start:02-Mar-2014 Instruction Type:Provider Instructions for Treatment Patient Instructions Indication:Hypertension, benign Start:24-Jan-2014 Instruction Type:Provider Instructions for Treatment Patient Instructions Indication:Hypertension, benign Start:03-Jan-2014 Instruction Type:Provider Instructions for Treatment Patient Instructions Indication:Hypertension, benign Start:24-Aug-2013 Instruction Type:Provider Instructions for Treatment Patient Instructions Indication:Hypertension, benign Start:09-Jun-2013 Instruction Type:Provider Instructions for Treatment Patient Instructions Indication:Hypertension, benign Start:19-May-2013 Instruction Type:Provider Instructions for Treatment Patient Instructions Indication:Hypertension, benign Start:07-Jan-2013 Instruction Type:Provider Instructions for Treatment Patient Instructions Indication:Hypertension, benign Start:07-Aug-2012 Instruction Type:Provider Instructions for Treatment obesity counseling Indication:Weight Gain Start:15-Jul-2012 Instruction Type:Provider Instructions for Treatment Patient Instructions Indication:Hypertension, benign Start:15-Jul-2012 Instruction Type:Provider Instructions for Treatment Name Dates Details How to access health informa tion online Indication:BMI 29.0-29.9,adult Start:02-Dec-2018 Instruction Type:Patient Education How to access health informa tion online - Detail Indication:BMI 29.0-29.9,adult Start:02-Dec-2018 Instruction Type:Patient Education Patient Instructions Indication:BMI 29.0-29.9,adult Start:02-Dec-2018 Instruction Type:Provider Instructions for Treatment How to access health informa tion online Indication:Fever Start:11-Nov-2018 Instruction Type:Patient Education How to access health informa tion online - Detail Indication:Fever Start:11-Nov-2018 Instruction Type:Patient Education Patient Instructions Indication:Fever Start:11-Nov-2018 Instruction Type:Provider Instructions for Treatment How to access health informa tion online Indication:Hyperlipidemia, acquired Start:16-Jun-2018 Instruction Type:Patient Education How to access health informa tion online - Detail Indication:Hyperlipidemia, acquired Start:16-Jun-2018 Instruction Type:Patient Education Patient Instructions Indication:Hyperlipidemia, acquired Start:16-Jun-2018 Instruction Type:Provider Instructions for Treatment How to access health informa tion online Indication:[facility] Start:25-Feb-2018 Instruction Type:Patient Education How to access health informa tion online - Detail Indication:[facility] Start:25-Feb-2018 Instruction Type:Patient Education Patient Instructions Indication:[facility] Start:25-Feb-2018 Instruction Type:Provider Instructions for Treatment How to access health informa tion online Indication:External otitis of right ear Start:27-Oct-2017 Instruction Type:Patient Education How to access health informa tion online - Detail Indication:External otitis of right ear Start:27-Oct-2017 Instruction Type:Patient Education Patient Instructions Indication:External otitis of right ear Start:27-Oct-2017 Instruction Type:Provider Instructions for Treatment How to access health informa tion online Indication:Non-smoker Start:06-Oct-2017 Instruction Type:Patient Education How to access health informa tion online - Detail Indication:Non-smoker Start:06-Oct-2017 Instruction Type:Patient Education Patient Instructions Indication:Non-smoker Start:06-Oct-2017 Instruction Type:Provider Instructions for Treatment How to access health informa tion online Indication:Hypertension, benign Start:26-Feb-2017 Instruction Type:Patient Education How to access health informa tion online - Detail Indication:Hypertension, benign Start:26-Feb-2017 Instruction Type:Patient Education Patient Instructions Indication:Hypertension, benign Start:26-Feb-2017 Instruction Type:Provider Instructions for Treatment Patient Instructions Indication:Cellulitis Start:23-Aug-2014 Instruction Type:Provider Instructions for Treatment How to access health informa tion online Indication:Hypertension, benign Start:02-Mar-2014 Instruction Type:Patient Education How to access health informa tion online - Detail Indication:Hypertension, benign Start:02-Mar-2014 Instruction Type:Patient Education Patient Instructions Indication:Hypertension, benign Start:02-Mar-2014 Instruction Type:Provider Instructions for Treatment Patient Instructions Indication:Hypertension, benign Start:24-Jan-2014 Instruction Type:Provider Instructions for Treatment Patient Instructions Indication:Hypertension, benign Start:03-Jan-2014 Instruction Type:Provider Instructions for Treatment Patient Instructions Indication:Hypertension, benign Start:24-Aug-2013 Instruction Type:Provider Instructions for Treatment Patient Instructions Indication:Hypertension, benign Start:09-Jun-2013 Instruction Type:Provider Instructions for Treatment Patient Instructions Indication:Hypertension, benign Start:19-May-2013 Instruction Type:Provider Instructions for Treatment Patient Instructions Indication:Hypertension, benign Start:07-Jan-2013 Instruction Type:Provider Instructions for Treatment Patient Instructions Indication:Hypertension, benign Start:07-Aug-2012 Instruction Type:Provider Instructions for Treatment obesity counseling Indication:Weight Gain Start:15-Jul-2012 Instruction Type:Provider Instructions for Treatment Patient Instructions Indication:Hypertension, benign Start:15-Jul-2012 Instruction Type:Provider Instructions for Treatment Summary Purpose Advance Directives No Advanced Directives Records FoundNo Advanced Directives Records FoundNo Advanced Directives Records FoundNo Advanced Directives Records Found Chief Complaint and Reason for Visit Chief Complaint SCREENING/OSTEO Chief Complaint SCREENING/OSTEO SCREENING/OSTEO Chief Complaint SCREENING/OSTEO SCREENING/OSTEO POSSIBLE COLP / PAP COLPOSCOPY Reason for Visit [id number] Chief Complaint SCREENING Annual ([employer]) PAP Reason for Visit Encounter for routin e gynecological examination Chief Complaint Admit Date screeening August 17, 2024 9 :30am UTI November 23, 2024 1:17pm Additional Source Comments INFORMATION SOURCE (unrecogn ized section and content) DATE CREATED AUTHOR 12/15/2021 [facility] DATE CREATED AUTHOR AUTHOR'S ORGANIZ ATION 06/19/2022 [facility] [place] DATE CREATED AUTHOR AUTHOR'S ORGANIZ ATION 07/02/2024 [facility] DATE CREATED AUTHOR AUTHOR'S ORGANIZ ATION 12/20/2024 [facility] Goals (unrecognized section and content) Goals may be documented in a n alternate sectionGoals may be documented in an alternate sectionGoals may be documented in an alternate sectionGoals may be documented in an alternate sectionGoals may be documented in an alternate section Care Teams (unrecognized sec tion and content) Team Status: Active Member Role Status Dates Dr. Sena Rao DO Family Provider Active Dr. Sena Rao DO Primary Care Provider Active Team Status: Inactive Member Role Status Dates Dr. Sena Rao DO Primary Care Provider, Referring P izzyder Active Dr. Olya Casiano DO Attending Provider Activ e Team Status: Inactive Member Role Status Dates Dr. Sena Rao DO Primary Care Provide r, Attending Provider, Referring Provider Active Team Status: Inactive Member Role Status Dates Dr. Sena Rao DO Primary Care Provider Active Dr. 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 Sena Rao DO Primary Care Provider Active Team Status: Inactive Member Role Status Dates Dr. Sena Rao DO Primary Care Provider Active Start: August 17, 2024 End: August 17, 2024 Dr. Sena Rao DO Attending Provider Active St art: August 17, 2024 End: August 17, 2024 Dr. Sena Rao DO Referring Provider Active St art: August 17, 2024 End: August 17, 2024 Team Status: Inactive Member Role Status Dates Dr. Sena Rao DO Primary Care Provider Active Start: November 23, 2024 End: November 23, 2024 Dr. Magali Packer MD Attending Provider Active Start: November 23, 2024 End: November 23, 2024 Dr. Magali Packer MD Referring Provider Active Start: November 23, 2024 End: November 23, 2024 FOR RECORDS PERTAINING TO PATIENTS WHO ARE OR HAVE BEEN ENROLLED IN A CHEMICAL DEPENDENCY/SUBSTANCEABUSE PROGRAM, SOME INFORMATION MAY BE OMITTED. This clinical summary was aggregated from multiple sources. Caution should be exercised in using it in the provision of clinical care. This summary normalizes information from multiple sources, and as a consequence, information in this document may materially change the coding, format and clinical context of patient data. In addition, data may be omitted in some cases. CLINICAL DECISIONS SHOULD BE BASED ON THE PRIMARY CLINICAL RECORDS. [facility] [employer] [facility]. provides no warranty or guarantee of the accuracy or completeness of information in this document.
--- NOTE | 2024-12-22 06:22 | CT_ITS ---
PROCEDURE: CT ABD/PELVIS W/WO CONTRAST 12/22/2024 REASON FOR EXAM: ABNORMAL YAIR TECHNIQUE: Abdomen and pelvis CT with intravenous contrast. Coronal and Sagittal reconstruction series were provided. PATIENT PREPARATION: Per protocol CONTRAST: 100 mL Isovue 370 One or more dose reduction techniques were used (e.g., Automated exposure control, adjustment of the mA and/or kV according to patient size, use of iterative reconstruction technique. RADIATION DOSE SUMMARY: CTDlvol: 29.0 mGy DLP: 3858 mGycm COMPARISON: Renal ultrasound on 11/23/2024 FINDINGS: Lung bases: Linear scarring or atelectasis in the lingula. Liver: Unremarkable Gallbladder: Incompletely distended, without radiodense stones Spleen: Cystic lesion without enhancement at the inferior margin measuring 1.9 cm. There is a subcentimeter hypodensity just superior to this along the lateral margin. Pancreas: Normal size without evidence of mass surrounding inflammation or ductal dilation. Adrenals: Unremarkable Kidneys: Hypodense nonenhancing lesions with punctate peripheral calcifications in the right kidney measuring 1.2 cm and in the left kidney measuring 1.4 cm. Bladder: Unremarkable Reproductive Organs: Status post hysterectomy Bowel: No obstruction or inflammation. Normal appendix. Lymph nodes: No suspicious lymph node enlargement. Vasculature: Mild diffuse atherosclerotic calcifications are noted. There is probable right ovarian vein thrombus (series 3, image 73; coronal image 61). Bones: Degenerative changes of the spine. Abdominal wall: Fat containing umbilical hernia. CT/CT Abd/Pelvis W/WO Contrast IMPRESSION: 1. Cystic lesions in both kidneys containing punctate peripheral calcification s, in keeping with Bosniak class II classification. Consider follow-up CT in 6-12 months to confirm stability. 2. 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 3. Cystic splenic lesions, likely benign. Recommend attention on the follow-u p exam. Reading Location: [id number]
== END | disposition home or self-care (01) ==
PROVIDERS: PCP Internal Medicine; Referring Provider Urology; Visit Provider Urology
DX: R93.41 Abnormal radiologic findings on diagnostic imaging of renal pelvis, ureter, or bladder (principal)
CPT/HCPCS: 74178; Q9967

== ENCOUNTER → 2025-06-28 | Outpatient (CLI) | payer SELFPAY ==
--- NOTE | 2025-06-28 08:05 | CT_ITS ---
PROCEDURE: CT ABD/PELVIS W/WO CONTRAST 06/28/2025 REASON FOR EXAM: COMPLEX CYSTS TECHNIQUE: Procedure Code: [id number] Modality: CT Procedure: CT ABD/PELVIS W/WO CONTRAST Multiphase pre and post-contrast imaging of the kidneys was performed with reconstructions in the axial, sagittal, and coronal planes. Post processing, 3D multiplanar reconstructions, MIPs, and volume renderings were provided or performed. CONTRAST: Isovue-300 VOLUME: 96 mL One or more dose reduction techniques were used (e.g., Automated exposure control, adjustment of the mA and/or kV according to patient size, use of iterative reconstruction technique. RADIATION DOSE SUMMARY: Total DLP: 3477.77 MGycm COMPARISON: Previous exam dated 12/22/2024 FINDINGS: LIVER:No enlargement, atrophy, abnormal density, or significant focal lesion. GALLBLADDER/BILIARY:No dilatation or calcification. No gallstones PANCREAS:No lesion, fluid collection, or duct dilatation. SPLEEN:Stable cystic lesions, likely benign.. ADRENALS:No mass or enlargement. KIDNEYS AND URETERS:There is no hydronephrosis. Stable cystic lesions within both kidneys demonstrating peripheral calcifications but no suspicious pattern of enhancement or septation. These are stable in size since the previous exam. The right hypodense lesions measures 1.4 centimeters. The left hypodense lesion measured 1.5 centimeters. The ureters are otherwise unremarkable. URINARY BLADDER:No focal wall thickening, trabeculation, lesion, or calculus. PELVIC ORGANS:No mass. Pelvic organs appropriate for patient age. AORTA/VASCULAR:No aneurysm or dissection. Atherosclerosis of the aorta. Resolution of previously noted right ovarian vein thrombus. RETROPERITONEUM:No mass or adenopathy. LYMPH NODES:No adenopathy. INTRAPERITONEAL SPACE:No free air. No significant fluid collection. No mass or adenopathy. STOMACH/BOWEL/MESENTERY:No mass, obstruction, or bowel wall thickening. No evidence of appendicitis or diverticulitis ABDOMINAL WALL:No fluid collections or foreign bodies. No mass or adenopathy. Small fat containing umbilical hernia. BONES:No osseous lesions or fractures. Multilevel degenerative disc disease and facet arthropathy, stable. CT/CT Abd/Pelvis W/WO Contrast IMPRESSION: Stable benign bilateral renal cysts Bosniak type 2. Nonobstructing stone in the left kidney. No hydronephrosis or urolithiasis. Stable benign splenic cysts. Reading Location: [facility]
== END | disposition home or self-care (01) ==
PROVIDERS: PCP Internal Medicine; Referring Provider Urology; Visit Provider Urology
DX: N28.1 Cyst of kidney, acquired (principal)
CPT/HCPCS: 74178; Q9967; A4216